=== PATIENT | male | born 1945 | race Caucasian/White ===

== ENCOUNTER 2020-07-26 10:48 | Inpatient (IN) | payer MEDICARE, BC ==
[2020-07-26] MEDS ORDERED: Sodium Chloride 0.9% 1,000 ML IV ONE (11:39)
--- NOTE | 2020-07-26 11:46 | EDM.PDOC ---
ED HPI GENERAL MEDICAL PROBLEM - General Chief Complaint: Gastrointestinal Problem Stated Complaint: BLOOD IN STOOL/CANCER PT Time Seen by Provider: 07/26/20 11:30 Source of Information: Reports: Patient, Family (), RN Notes Reviewed History Limitations: Reports: No Limitations - History of Present Illness INITIAL COMMENTS - FREE TEXT/NARRATIVE: Patient is a 75-year-old male who presents to the ED with for the evaluation of a bloody stool. The patient has a tracheotomy, this was placed in January due to throat and lung cancer. He is not on chemo at this time. He notes last night that he got up around midnight to use the bathroom, and he noticed some maroon-red stool in the toilet. He notes that he has been feeling dizzy when he gets up, and this is not common for him. He has no history of GI bleed. He further states that he just did not feel well this a.m. He has no abdomen pain. He has no fevers or chills, cough or shortness of breath. He does not think he has hemorrhoids, he had an EGD and colonoscopy done a few years ago, and his notes that this was normal. Dr. Sheehan is his primary care provider. He has been having issues with his left shoulder, and is supposed to get an injection this week, so the patient has been using more Tylenol and Advil than he normally does. Patient further denies any nausea or vomiting, but sta azul he did have some loose stools. Everything prior to this seemed normal for him. - Related Data Allergies Allergy/AdvReac Type Severity Reaction Status Date / Time morphine Allergy Hives Verified 07/26/20 11:08 Home Meds: Home Meds Albuterol [Ventolin HFA] 2.5 gm INH ASDIRECTED PRN 01/06/16 [History] Fluticasone Propionate [Flonase Allergy Relief] 2 sprays INH DAILY 01/06/16 [History] Fluticasone/Salmeterol [Advair Diskus 100-50] 1 puff INH BID 01/06/16 [History] Hydrochlorothiazide 12.5 mg PO DAILY 01/06/16 [History] Losartan [Cozaar] 100 mg PO DAILY 01/06/16 [History] Metoprolol Succinate [Toprol XL] 75 mg PO DAILY 01/06/16 [History] Montelukast [Singulair] 10 mg PO DAILY 01/06/16 [History] Simvastatin [Zocor] 40 mg PO DAILY 01/06/16 [History] Arformoterol [Brovana] 1 inh PO BID 07/26/20 [History] Ipratropium [place] 1 unit INH Q8HR 07/26/20 [History] Magnesium Oxide [Mag-Oxide Magnesium] 800 mg PO DAILY 07/26/20 [History] Temazepam 15 mg PO BEDTIME PRN 07/26/20 [History] Past Medical History HEENT History: Reports: Other (See Below) Other HEENT History: glasses Respiratory History: Reports: Asthma, COPD, Other (See Below) Other Respiratory History: pt with trach at 4 liters Gastrointestinal History: Reports: Other (See Below) Other Gastrointestinal History: feeding tube not used Musculoskeletal History: Reports: Other (See Below) Other Musculoskeletal History: left shoulder pain baseline, left hip replacement Oncologic (Cancer) History: Reports: Esophageal, Lung Other Oncologic History: pt had trach placed 01/2020. - Past Surgical History Musculoskeletal Surgical History: Reports: Other (See Below) Other Musculoskeletal Surgeries/Procedures:: hx back surgery Social & Family History - Tobacco Use Tobacco Use Status *Q: Former Tobacco User Years of Tobacco use: 20 Used Tobacco, but Quit: Yes Month/Year Tobacco Last Used: 09/1989 - Caffeine Use Caffeine Use: Reports: Coffee - Recreational Drug Use Recreational Drug Use: No ED ROS GENERAL - Review of Systems Review Of Systems: Comprehensive ROS is negative, except as noted in HPI. ED EXAM, GI/ABD - Physical Exam Exam: See Below Exam Limited By: No Limitations General Appearance: Alert, WD/WN, No Apparent Distress Respiratory/Chest: No Respiratory Distress, Lungs Clear, Normal Breath Sounds, No Accessory Muscle Use, Chest Non-Tender Cardiovascular: Normal Peripheral Pulses, Regular Rate, Rhythm, No Murmur GI/Abdominal Exam: Normal Bowel Sounds, Soft, Non-Tender, No Distention, No Mass Rectal (Males) Exam: Normal Rectal Tone, Heme + Stool. No: Hemorrhoids Neurological: Alert, Oriented, Normal Cognition, No Motor/Sensory Deficits Psychiatric: Normal Affect, Normal Mood Skin Exam: Warm, Dry, Intact, Normal Color, No Rash Course - Vital Signs Last Recorded V/S: Last Vital Signs Temp 97.3 F 07/26/20 11:05 Pulse 76 11/21/20 11:05 Resp 20 07/26/20 11:05 BP 146/57 H 07/26/20 11:05 Pulse Ox 100 07/26/20 11:05 - Orders/Labs/Meds Orders: Active Orders 24 hr Category Date Time Status Implanted Port Access [RC] ONETIME Care 07/26/20 11:39 Active Orthostatic Vital Signs [RC] ASDIRECTED Care 07/26/20 13:23 Active CBC WITH AUTO DIFF [HEME] Stat Lab 07/26/20 12:35 Results CORONAVIRUS COVID-19 LORRI [MOLEC] Stat Lab 07/26/20 13:23 Ordered PACKED CELLS [RED BLOOD CELLS LP] [BBK] Stat Lab 07/26/20 13:12 Ordered TYPE AND SCREEN [BBK] Stat Lab 07/26/20 13:12 Ordered Transfuse Red Blood Cells [COMM] Stat Oth 07/26/20 13:35 Ordered Labs: Laboratory Tests 07/26/20 07/26/20 Range/Units 12:35 12:35 WBC 10.21 H (4.23-9.07) K/mm3 RBC 2.91 L (4.63-6.08) M/mm3 Hgb 7.6 L (13.7-17.5) gm/dl Hct 25.6 L (40.1-51.0) % MCV 88.0 (79.0-92.2) fl MCH 26.1 (25.7-32.2) pg MCHC 29.7 L (32.2-35.5) g/dl RDW Std Deviation 47.7 H (35.1-43.9) fL Plt Count 381 H (163-337) K/mm3 MPV 8.5 L (9.4-12.3) fl Neut % (Auto) 74.8 H (34.0-67.9) % Lymph % (Auto) 12.2 L (21.8-53.1) % [place] % (Auto) 11.4 (5.3-12.2) % Eos % (Auto) 1.2 (0.8-7.0) Baso % (Auto) 0.2 (0.1-1.2) % Neut # (Auto) 7.64 H (1.78-5.38) K/mm3 Lymph # (Auto) 1.25 L (1.32-3.57) K/mm3 [place] # (Auto) 1.16 H (0.30-0.82) K/mm3 Eos # (Auto) 0.12 (0.04-0.54) K/mm3 Baso # (Auto) 0.02 (0.01-0.08) K/mm3 Sodium 135 L (136-145) mEq/L Potassium 4.2 (3.5-5.1) mEq/L Chloride 99 (98-107) mEq/L Carbon Dioxide 29 (21-32) mEq/L Anion Gap 11.2 (5-15) BUN 22 H (7-18) mg/dL Creatinine 0.8 (0.7-1.3) mg/dL Est Cr Clr Drug Dosing 71.54 mL/min Estimated GFR (MDRD) > 60 (>60) mL/min BUN/Creatinine Ratio 27.5 H (14-18) Glucose 90 (83-115) mg/dL Calcium 10.5 H (8.5-10.1) mg/dL Total Bilirubin 0.3 (0.2-1.0) mg/dL AST 10 L (15-37) U/L ALT 8 L (16-63) U/L Alkaline Phosphatase 80 (46-116) U/L Total Protein 6.3 L (6.4-8.2) g/dl Albumin 2.9 L (3.4-5.0) g/dl Globulin 3.4 gm/dL Albumin/Globulin Ratio 0.9 L (1-2) Meds: Medications Discontinued Medications Generic Name Dose Route Start Last Admin Trade Name Tomq PRN Reason Stop Dose Admin Sodium Chloride 1,000 mls @ 999 mls/hr 07/26/20 11:39 07/26/20 12:46 Normal Saline IV 07/26/20 12:39 999 mls/hr ONETIME ONE Administration - Re-Assessments/Exams Free Text/Narrative Re-Assessment/Exam: 07/26/20 11:48 Patient presents to the ED for the evaluation of his GI bleed. We will get baseline labs, give him some IV fluids for initial management. 07/26/20 13:24 The patient's hemoglobin is 7.6 at this time. Blood pressures have stayed steady while in the room at 140 systolically, the lowest I saw was 120. At this time I did discuss the laboratory findings with Dr. Harris, we do believe he would benefit from blood infusion; have ordered type and screen, with 2 units to be infused, patient will get a COVID-19 screen, for possible hospital admission. The in the room states that he does not have a history of low hemoglobin, and we have no prior levels to check against. They did not note any prior irregularities on colonoscopy. 07/26/20 13:[address] Velasquez, and he does tentatively accept for admission at this time. There are no other further recommendations specified by him as far as labs needed. Departure - Departure Time of Disposition: 13:53 Disposition: Admitted As Inpatient 68 Condition: Fair Clinical Impression: Acute lower GI bleeding - Discharge Information *PRESCRIPTION DRUG MONITORING PROGRAM REVIEWED*: No *COPY OF PRESCRIPTION DRUG MONITORING REPORT IN PATIENT FITO: No Referrals: Jean Paul Sheehan MD [Primary Care Provider] - Forms: ED Department Discharge Sepsis Event Note (ED) - Evaluation Sepsis Screening Result: No Definite Risk - Focused Exam Vital Signs: Vital Signs Temp Pulse Resp BP Pulse Ox 07/26/20 11:05 97.3 F 76 20 146/57 H 100 - My Orders Last 24 Hours: My Active Orders 07/26/20 11:39 Implanted Port Access [RC] ONETIME 07/26/20 12:35 CBC WITH AUTO DIFF [HEME] Stat 07/26/20 13:12 PACKED CELLS [RED BLOOD CELLS LP] [BBK] Stat TYPE AND SCREEN [BBK] Stat 07/26/20 13:23 Orthostatic Vital Signs [RC] ASDIRECTED CORONAVIRUS COVID-19 LORRI [MOLEC] Stat 07/26/20 13:35 Transfuse Red Blood Cells [COMM] Stat - Assessment/Plan Last 24 Hours: My Active Orders 07/26/20 11:39 Implanted Port Access [RC] ONETIME 07/26/20 12:35 CBC WITH AUTO DIFF [HEME] Stat 07/26/20 13:12 PACKED CELLS [RED BLOOD CELLS LP] [BBK] Stat TYPE AND SCREEN [BBK] Stat 07/26/20 13:23 Orthostatic Vital Signs [RC] ASDIRECTED CORONAVIRUS COVID-19 LORRI [MOLEC] Stat 07/26/20 13:35 Transfuse Red Blood Cells [COMM] Stat
--- NOTE | 2020-07-26 15:35 | PCM.HP.2 ---
H&P History of Present Illness - General Date of Service: 07/26/20 Admit Problem/Dx: Admission Diagnosis/Problem Admission Diagnosis/Problem Lower gastrointestinal hemorrhage Source of Information: Patient, Family, Provider, RN Notes Reviewed History Limitations: Reports: No Limitations - History of Present Illness Other HPI/Comments: This is a 75 yo elderly white male with past medical hx/o HTN, HLD, Asthma, COPD, Esophageal and Lung CA, Hx/o Respiratory Failure S/p Tracheostomy, 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 According to the patient, he noticed marooned-red colored stool in the bowl after he used it. His chief complaint is associated with dizziness and some weakness. He denies any GI hx/o in the past. No rectal bleeding, diverticulosis or internal hemorrhoids. His last endoscopy was 2 years ago with benign results per . He denies having belly pain. No fever, chills, or shortness of air. Patient is not an ASA or anticoagulation. However he takes tylenol and advil for his shoulder pain. His CBC is remarkable for WBC of 10.21, RBC of 2.91, Hgb of 7.6, Hct of 25.6, MCHC of 29.7, RDW of 47.7, Platelet # of 381, and Neutrophils # of 7.64. His Chemistry is significant for Na of 135, BUN of 22, Non-corrected Ca of 10.5, AST of 10, ALT of 8, and Albumin of 2.9. His guaiac test is positive. Patient is coming for further evaluation of GI Bleed. Right shoulder Pain Score (Numeric/FACES): 7 - Related Data Allergies/Adverse Reactions: Allergies Allergy/AdvReac Type Severity Reaction Status Date / Time morphine Allergy Hives Verified 07/26/20 16:15 Home Medications: Home Meds Albuterol [Ventolin HFA] 2.5 mg NEB QID PRN 01/06/16 [History] Losartan [Cozaar] 100 mg PO DAILY 01/06/16 [History] Metoprolol Succinate [Toprol XL] 25 mg PO DAILY 01/06/16 [History] Montelukast [Singulair] 10 mg PO 1700 01/06/16 [History] Allopurinol [Zyloprim] 100 mg PO DAILY 07/26/20 [History] Arformoterol [Brovana] 15 mcg NEB BID 07/26/20 [History] Ipratropium [place] 1 unit NEB Q8HR 07/26/20 [History] Magnesium Oxide [Mag-Oxide Magnesium] 800 mg PO DAILY 07/26/20 [History] Omeprazole 20 mg PO DAILY 07/26/20 [History] Simvastatin 40 mg PO DAILY 07/26/20 [History] Temazepam 15 mg PO BEDTIME PRN 07/26/20 [History] Acetaminophen/HYDROcodone [[place] 325-5 MG] 1 tab PO Q6H #30 tablet 07/29/20 [Rx] Past Medical History HEENT History: Reports: Other (See Below) Other HEENT History: glasses Respiratory History: Reports: Asthma, COPD, Other (See Below) Other Respiratory History: pt with trach at 4 liters Gastrointestinal History: Reports: Other (See Below) Other Gastrointestinal History: feeding tube not used Musculoskeletal History: Reports: Other (See Below) Other Musculoskeletal History: left shoulder pain baseline, left hip replacement Oncologic (Cancer) History: Reports: Esophageal, Lung Other Oncologic History: pt had trach placed 01/2020. - Past Surgical History Musculoskeletal Surgical History: Reports: Other (See Below) Other Musculoskeletal Surgeries/Procedures:: hx back surgery Social & Family History - Tobacco Use Tobacco Use Status *Q: Former Tobacco User Years of Tobacco use: 20 Used Tobacco, but Quit: Yes Month/Year Tobacco Last Used: 09/1989 - Caffeine Use Caffeine Use: Reports: Coffee - Recreational Drug Use Recreational Drug Use: No H&P Review of Systems - Review of Systems: Review Of Systems: See Below General: Denies: Chills, Fatigue HEENT: Reports: Dysphasia Pulmonary: Denies: Shortness of Breath, Cough Cardiovascular: Denies: Chest Pain, Dyspnea on Exertion, Lightheadedness, Syncope Gastrointestinal: Denies: Abdominal Pain, Constipation, Decreased Appetite, Distension, Hematemesis, Stool Incontinence Genitourinary: Reports: No Symptoms Musculoskeletal: Reports: No Symptoms Psychiatric: Denies: Depression, Anxiety Neurological: Reports: No Symptoms Hematologic/Lymphatic: Reports: No Symptoms Immunologic: Reports: No Symptoms Exam - Exam Exam: See Below - Vital Signs Vital Signs: Last Vital Signs Temp 36.3 C 07/26/20 11:05 Pulse 76 07/26/20 11:05 Resp 20 07/26/20 11:05 BP 146/57 H 07/26/20 11:05 Pulse Ox 100 07/26/20 11:05 Orthostatic Blood Pressure [ 125/64 Standing] Orthostatic Blood Pressure [ 139/66 Sitting] Orthostatic Blood Pressure [ 127/67 Supine] Weight: 67.585 kg - Exam General: Alert, Oriented, Cooperative HEENT: Conjunctiva Clear, EACs Clear, EOMI, Hearing Intact, Mucosa Moist & [place], Nares Patent, Normal Nasal Septum, Posterior Pharynx Clear Neck: Supple, Trachea Midline, Other (trach) Lungs: Normal Respiratory Effort, Decreased Breath Sounds, Other (port a-cath on right upper thorax) Cardiovascular: Regular Rate, Regular Rhythm GI/Abdominal Exam: Normal Bowel Sounds, Soft, Non-Tender, No Organomegaly, No Abnormal Bruit, No Mass, Pelvis Stable, Other (PEG tube ) (Male) Exam: Deferred Rectal (Males) Exam: Deferred Back Exam: Normal Inspection, Full Range of Motion Extremities: Normal Inspection, Non-Tender, No Pedal Edema, Normal Capillary Refill, Pedal Edema Peripheral Pulses: 2+: Dorsalis Pedis (L), Dorsalis Pedis (R) Skin: Warm, Dry, Intact Neuro Extensive - Mental Status: Alert, Oriented x3, Normal Cognition Neuro Extensive - Motor, Sensory, Reflexes: CN II-XII Intact DTR: 2+: Achilles (L), Achilles (R) Psychiatric: Alert, Normal Affect, Normal Mood - Patient Data Lab Results Last 24 hrs: Laboratory Results - last 24 hr 07/26/20 07/26/20 07/26/20 Range/Units 12:35 12:35 12:35 WBC 10.21 H (4.23-9.07) K/mm3 RBC 2.91 L (4.63-6.08) M/mm3 Hgb 7.6 L (13.7-17.5) gm/dl Hct 25.6 L (40.1-51.0) % MCV 88.0 (79.0-92.2) fl MCH 26.1 (25.7-32.2) pg MCHC 29.7 L (32.2-35.5) g/dl RDW Std Deviation 47.7 H (35.1-43.9) fL Plt Count 381 H (163-337) K/mm3 MPV 8.5 L (9.4-12.3) fl Neut % (Auto) 74.8 H (34.0-67.9) % Lymph % (Auto) 12.2 L (21.8-53.1) % [place] % (Auto) 11.4 (5.3-12.2) % Eos % (Auto) 1.2 (0.8-7.0) Baso % (Auto) 0.2 (0.1-1.2) % Neut # (Auto) 7.64 H (1.78-5.38) K/mm3 Lymph # (Auto) 1.25 L (1.32-3.57) K/mm3 [place] # (Auto) 1.16 H (0.30-0.82) K/mm3 Eos # (Auto) 0.12 (0.04-0.54) K/mm3 Baso # (Auto) 0.02 (0.01-0.08) K/mm3 Manual Slide Review Abnormal smear Sodium 135 L (136-145) mEq/L Potassium 4.2 (3.5-5.1) mEq/L Chloride 99 (98-107) mEq/L Carbon Dioxide 29 (21-32) mEq/L Anion Gap 11.2 (5-15) BUN 22 H (7-18) mg/dL Creatinine 0.8 (0.7-1.3) mg/dL Est Cr Clr Drug Dosing 71.54 mL/min Estimated GFR (MDRD) > 60 (>60) mL/min BUN/Creatinine Ratio 27.5 H (14-18) Glucose 90 (83-115) mg/dL Calcium 10.5 H (8.5-10.1) mg/dL Total Bilirubin 0.3 (0.2-1.0) mg/dL AST 10 L (15-37) U/L ALT 8 L (16-63) U/L Alkaline Phosphatase 80 (46-116) U/L Total Protein 6.3 L (6.4-8.2) g/dl Albumin 2.9 L (3.4-5.0) g/dl Globulin 3.4 gm/dL Albumin/Globulin Ratio 0.9 L (1-2) SARS-CoV-2 RNA (LORRI) (NEGATIVE) Blood Type O POSITIVE Gel Antibody Screen Negative Crossmatch See Detail 07/26/20 Range/Units 13:47 WBC (4.23-9.07) K/mm3 RBC (4.63-6.08) M/mm3 Hgb (13.7-17.5) gm/dl Hct (40.1-51.0) % MCV (79.0-92.2) fl MCH (25.7-32.2) pg MCHC (32.2-35.5) g/dl RDW Std Deviation (35.1-43.9) fL Plt Count (163-337) K/mm3 MPV (9.4-12.3) fl Neut % (Auto) (34.0-67.9) % Lymph % (Auto) (21.8-53.1) % [place] % (Auto) (5.3-12.2) % Eos % (Auto) (0.8-7.0) Baso % (Auto) (0.1-1.2) % Neut # (Auto) (1.78-5.38) K/mm3 Lymph # (Auto) (1.32-3.57) K/mm3 [place] # (Auto) (0.30-0.82) K/mm3 Eos # (Auto) (0.04-0.54) K/mm3 Baso # (Auto) (0.01-0.08) K/mm3 Manual Slide Review Sodium (136-145) mEq/L Potassium (3.5-5.1) mEq/L Chloride (98-107) mEq/L Carbon Dioxide (21-32) mEq/L Anion Gap (5-15) BUN (7-18) mg/dL Creatinine (0.7-1.3) mg/dL Est Cr Clr Drug Dosing mL/min Estimated GFR (MDRD) (>60) mL/min BUN/Creatinine Ratio (14-18) Glucose (83-115) mg/dL Calcium (8.5-10.1) mg/dL Total Bilirubin (0.2-1.0) mg/dL AST (15-37) U/L ALT (16-63) U/L Alkaline Phosphatase (46-116) U/L Total Protein (6.4-8.2) g/dl Albumin (3.4-5.0) g/dl Globulin gm/dL Albumin/Globulin Ratio (1-2) SARS-CoV-2 RNA (LORRI) Negative (NEGATIVE) Blood Type Gel Antibody Screen Crossmatch Result Diagrams: 07/29/20 04:46 07/29/20 04:46 Sepsis Event Note - Evaluation Sepsis Screening Result: No Definite Risk - Focused Exam Vital Signs: Vital Signs Temp Pulse Resp BP Pulse Ox 07/26/20 11:05 36.3 C 76 20 146/57 H 100 Problem List Initiated/Reviewed/Updated: Yes Orders Last 24hrs: Active Orders 24 hr Category Date Time Status Admission Status [Patient Status] [ADT] Routine ADT 07/26/20 15:09 Active Implanted Port Access [RC] ONETIME Care 07/26/20 11:39 Active Orthostatic Vital Signs [RC] ASDIRECTED Care 07/26/20 13:23 Active PACKED CELLS [RED BLOOD CELLS LP] [BBK] Stat Lab 07/26/20 12:35 Results PATIENT RETYPE [BBK] Routine Lab 07/26/20 14:52 Ordered TYPE AND SCREEN [BBK] Stat Lab 07/26/20 12:35 Results Transfuse Red Blood Cells [COMM] Stat Oth 07/26/20 13:35 Ordered Assessment/Plan Comment:: This is a 75 yo elderly white male with past medical hx/o HTN, HLD, Asthma, GEOSPATIAL 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 Acute: GI Bleed * He has been taking NSAIDs and Tylenol for a week for his left shoulder pain * No hx/o GI disease: Diverticulosis, AVMs, Hemorrhoids or GI Bleed * Last endoscopy 2 years ago with benign results per * Unknown baseline Hgb level * Type and crossed 2 units of PRBCs in ED Hx/o Esophageal CA Leukocytosis Normocytic Hypochromic Anemia with Hgb of 7.6 grams; no baseline level for comparison Hyponatremia with Na of 135 Elevated BUN 2/2 GI Bleed Elevated Ca, on-corrected Hypoalbuminemia with albumin of 2.9 Chronic: HTN HLD Asthma COPD Esophageal and Lung CA Hx/o Respiratory Failure S/p Tracheostomy 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 Routine AM labs. Monitor Hgb level. Hold antiplatelets, NSAIDS and anticoagulant. IV fluid for hydration. NPO except ice chips and sips of water. General surgery consult if he continues to bleed. DVT prophylaxis: SCDs. GI prophylaxis: PPI. Code status is full. - Mortality Measure Prognosis:: Good
[2020-07-26] MEDS ORDERED: HYDROmorphone 0.5 MG/0.5 ML Syringe IVPUSH PRN (16:26)
[2020-07-26] MEDS ORDERED: Albuterol/Ipratropium 3.0-0.5 MG/3 ML Neb Soln NEB PRN (16:26)
[2020-07-26] MEDS ORDERED: Promethazine 6.25 MG in Sodium Chloride 0.9% 50 ML IV PRN (16:26)
[2020-07-26] MEDS ORDERED: Ondansetron 4 MG/2 ML SDV IV PRN (16:26)
[2020-07-26] MEDS ORDERED: Temazepam 7.5 MG Cap PO PRN (16:26)
[2020-07-26] MEDS ORDERED: Temazepam 15 MG Cap PO PRN (16:29)
[2020-07-26] MEDS ORDERED: Albuterol 0.5% 2.5 MG/0.5 ML Neb Soln NEB PRN (16:29)
[2020-07-26] MEDS ORDERED: Sodium Chloride 0.9% 250 ML IV SCH (16:30)
[2020-07-26] MEDS ORDERED: Dextrose 5%-0.9% NaCl 1,000 ML IV SCH (17:30)
[2020-07-26] MEDS ORDERED: Midodrine 5 MG Tab PO PRN (17:44)
[2020-07-26] MEDS: Pantoprazole 40 MG Vial IV SCH (20:14)
[2020-07-26] MEDS: Arformoterol 15 MCG/2 ML Neb Soln NEB SCH (20:58)
[2020-07-26] MEDS: Ipratropium 0.02% 0.5 MG/2.5 ML Neb Soln NEB SCH (20:58)
[2020-07-26] MEDS: oxyCODONE 5 MG Tab PO PRN (21:04)
[2020-07-27] MEDS: Ipratropium 0.02% 0.5 MG/2.5 ML Neb Soln NEB SCH ×3 (06:09→20:12)
[2020-07-27] MEDS: Arformoterol 15 MCG/2 ML Neb Soln NEB SCH ×2 (06:09→20:14)
[2020-07-27] MEDS ORDERED: Simvastatin 40 MG Tab PO SCH (09:00)
[2020-07-27] MEDS ORDERED: Magnesium Sulfate/Water 4 GM in Premix Bag 1 BAG IV ONE (09:30)
[2020-07-27] MEDS: Pantoprazole 40 MG Vial IV SCH ×2 (10:05→21:11)
[2020-07-27] MEDS: Montelukast 10 MG Tab PO SCH (10:07)
[2020-07-27] MEDS: Magnesium Oxide 400 MG Tab PO SCH (10:07)
[2020-07-27] MEDS: Losartan 100 MG Tab PO SCH (10:07)
[2020-07-27] MEDS: Metoprolol Succinate 25 MG Tab.ER PO SCH (10:09)
[2020-07-27] MEDS: Allopurinol 100 MG Tab PO SCH (10:09)
[2020-07-27] MEDS: Simvastatin 40 MG Tab PO SCH (10:09)
--- NOTE | 2020-07-27 15:54 | PCM.PN ---
- General Info Date of Service: 07/27/20 Admission Dx/Problem (Free Text): Admission Diagnosis/Problem Admission Diagnosis/Problem Lower gastrointestinal hemorrhage Subjective Update: Patient has not had any more bloody bowel movement since hospitalization. She states her initial bowel movement was maroon and it had bright red blood also. She is tolerating a liquid diet this morning. Repeat hemoglobin is stable at 8.8. Functional Status: Reports: Pain Controlled - Review of Systems General: Reports: No Symptoms HEENT: Reports: No Symptoms Pulmonary: Reports: No Symptoms Cardiovascular: Reports: No Symptoms Gastrointestinal: Reports: No Symptoms Musculoskeletal: Reports: No Symptoms Neurological: Reports: No Symptoms Psychiatric: Reports: No Symptoms - Patient Data Vitals - Most Recent: Last Vital Signs Temp 98.4 F 07/27/20 12:25 Pulse 64 07/27/20 12:25 Resp 18 07/27/20 12:25 BP 121/77 07/27/20 12:25 Pulse Ox 100 07/27/20 14:04 Orthostatic Blood Pressure [ 125/64 Standing] Orthostatic Blood Pressure [ 139/66 Sitting] Orthostatic Blood Pressure [ 127/67 Supine] Weight - Most Recent: 147 lb 6.4 oz I&O - Last 24 Hours: Intake & Output 07/27/20 07/27/20 07/27/20 06:59 14:59 22:59 Intake Total 1218 360 Output Total 1600 Balance -382 360 Lab Results Last 24 Hours: Laboratory Results - last 24 hr 07/26/20 07/26/20 07/27/20 Range/Units 12:35 22:54 05:57 WBC 7.52 (4.23-9.07) K/mm3 RBC 3.37 L (4.63-6.08) M/mm3 Hgb 9.2 L D 8.8 L (13.7-17.5) gm/dl Hct 29.7 L 28.8 L (40.1-51.0) % MCV 85.5 (79.0-92.2) fl MCH 26.1 (25.7-32.2) pg MCHC 30.6 L (32.2-35.5) g/dl RDW Std Deviation 51.4 H (35.1-43.9) fL Plt Count 330 (163-337) K/mm3 MPV 8.7 L (9.4-12.3) fl Neut % (Auto) 62.8 (34.0-67.9) % Lymph % (Auto) 17.0 L (21.8-53.1) % [place] % (Auto) 15.6 H (5.3-12.2) % Eos % (Auto) 4.1 (0.8-7.0) Baso % (Auto) 0.4 (0.1-1.2) % Neut # (Auto) 4.72 (1.78-5.38) K/mm3 Lymph # (Auto) 1.28 L (1.32-3.57) K/mm3 [place] # (Auto) 1.17 H (0.30-0.82) K/mm3 Eos # (Auto) 0.31 (0.04-0.54) K/mm3 Baso # (Auto) 0.03 (0.01-0.08) K/mm3 Manual Slide Review Abnormal smear Sodium (136-145) mEq/L Potassium (3.5-5.1) mEq/L Chloride (98-107) mEq/L Carbon Dioxide (21-32) mEq/L Anion Gap (5-15) BUN (7-18) mg/dL Creatinine (0.7-1.3) mg/dL Est Cr Clr Drug Dosing mL/min Estimated GFR (MDRD) (>60) mL/min BUN/Creatinine Ratio (14-18) Glucose (83-115) mg/dL Calcium (8.5-10.1) mg/dL Magnesium (1.8-2.4) mg/dl Total Bilirubin (0.2-1.0) mg/dL AST (15-37) U/L ALT (16-63) U/L Alkaline Phosphatase (46-116) U/L Total Protein (6.4-8.2) g/dl Albumin (3.4-5.0) g/dl Globulin gm/dL Albumin/Globulin Ratio (1-2) Blood Type O POSITIVE Gel Antibody Screen Negative Crossmatch See Detail 07/27/20 07/27/20 Range/Units 05:57 15:23 WBC (4.23-9.07) K/mm3 RBC (4.63-6.08) M/mm3 Hgb 8.8 L (13.7-17.5) gm/dl Hct 29.2 L (40.1-51.0) % MCV (79.0-92.2) fl MCH (25.7-32.2) pg MCHC (32.2-35.5) g/dl RDW Std Deviation (35.1-43.9) fL Plt Count (163-337) K/mm3 MPV (9.4-12.3) fl Neut % (Auto) (34.0-67.9) % Lymph % (Auto) (21.8-53.1) % [place] % (Auto) (5.3-12.2) % Eos % (Auto) (0.8-7.0) Baso % (Auto) (0.1-1.2) % Neut # (Auto) (1.78-5.38) K/mm3 Lymph # (Auto) (1.32-3.57) K/mm3 [place] # (Auto) (0.30-0.82) K/mm3 Eos # (Auto) (0.04-0.54) K/mm3 Baso # (Auto) (0.01-0.08) K/mm3 Manual Slide Review Sodium 135 L (136-145) mEq/L Potassium 3.8 (3.5-5.1) mEq/L Chloride 103 (98-107) mEq/L Carbon Dioxide 27 (21-32) mEq/L Anion Gap 8.8 (5-15) BUN 14 (7-18) mg/dL Creatinine 0.8 (0.7-1.3) mg/dL Est Cr Clr Drug Dosing 71.54 mL/min Estimated GFR (MDRD) > 60 (>60) mL/min BUN/Creatinine Ratio 17.5 (14-18) Glucose 106 (83-115) mg/dL Calcium 10.0 (8.5-10.1) mg/dL Magnesium 1.4 L (1.8-2.4) mg/dl Total Bilirubin 0.4 (0.2-1.0) mg/dL AST 11 L (15-37) U/L ALT 14 L (16-63) U/L Alkaline Phosphatase 70 (46-116) U/L Total Protein 5.7 L (6.4-8.2) g/dl Albumin 2.6 L (3.4-5.0) g/dl Globulin 3.1 gm/dL Albumin/Globulin Ratio 0.8 L (1-2) Blood Type Gel Antibody Screen Crossmatch Med Orders - Current: Current Medications Albuterol (Proventil) 2.5 mg NEB QIDRT PRN PRN Reason: Shortness of Breath Albuterol/Ipratropium (Duoneb 3.0-0.5 Mg/3 Ml) 3 ml NEB Q4H PRN PRN Reason: Shortness Of Breath/wheezing Allopurinol (Zyloprim) 100 mg PO DAILY [facility] Last Admin: 07/27/20 10:09 Dose: 100 mg Documented by: Arformoterol Tartrate (Brovana) 15 mcg NEB BIDRT [facility] Last Admin: 07/27/20 06:09 Dose: 15 mcg Documented by: Promethazine HCl 6.25 mg/ (Sodium Chloride) 50.25 mls @ 100 mls/hr IV Q6H PRN PRN Reason: Nausea/Vomiting Ipratropium [place] (Atrovent) 0.5 mg NEB TIDRT [facility] Last Admin: 07/27/20 14:03 Dose: 0.5 mg Documented by: Losartan Potassium (Cozaar) 100 mg PO DAILY [facility] Last Admin: 07/27/20 10:07 Dose: 100 mg Documented by: Magnesium Oxide (Magnesium Oxide) 800 mg PO DAILY [facility] Last Admin: 07/27/20 10:07 Dose: 800 mg Documented by: Metoprolol Succinate (Toprol Xl) 25 mg PO DAILY [facility] Last Admin: 07/27/20 10:09 Dose: 25 mg Documented by: Midodrine (Midodrine) 5 mg PO TID PRN PRN Reason: Hypotension Montelukast Sodium (Singulair) 10 mg PO DAILY [facility] Last Admin: 07/27/20 10:07 Dose: 10 mg Documented by: Ondansetron HCl (Zofran) 4 mg IV Q6H PRN PRN Reason: Nausea/Vomiting Oxycodone HCl (Oxycodone) 5 mg PO Q4H PRN PRN Reason: Pain (moderate 4-6) Last Admin: 07/26/20 21:04 Dose: 5 mg Documented by: Pantoprazole Sodium (Protonix Iv) 40 mg IV Q12HR [facility] Last Admin: 07/27/20 10:05 Dose: 40 mg Documented by: Simvastatin (Zocor) 40 mg PO DAILY [facility] Last Admin: 07/27/20 10:09 Dose: 40 mg Documented by: Temazepam (Restoril) 0 mg PO BEDTIME PRN PRN Reason: Insomnia Discontinued Medications Hydromorphone HCl (Dilaudid) 0.5 mg IVPUSH Q2H PRN PRN Reason: Pain (severe 7-10) Sodium Chloride (Normal Saline) 1,000 mls @ 999 mls/hr IV ONETIME ONE Stop: 07/26/20 12:39 Last Admin: 07/26/20 12:46 Dose: 999 mls/hr Documented by: Sodium Chloride (Normal Saline) 250 mls @ 100 mls/hr IV ASDIRECTED [facility] Dextrose/Sodium Chloride (Dextrose 5%-Normal Saline) 1,000 mls @ 100 mls/hr IV ASDIRECTED [facility] Stop: 07/27/20 03:29 Last Admin: 07/26/20 23:04 Dose: 100 mls/hr Documented by: Magnesium Sulfate 4 gm/ Premix 50 mls @ 12.5 mls/hr IV ONETIME ONE Stop: 07/27/20 13:29 Last Admin: 07/27/20 10:09 Dose: 12.5 mls/hr Documented by: Simvastatin (Zocor) 40 mg PO DAILY [facility] Temazepam (Restoril) 7.5 mg PO BEDTIME PRN PRN Reason: Sleep - Exam General: Alert, Oriented HEENT: Pupils Equal, Mucous Membr. Moist/[place] Neck: Supple Lungs: Clear to Auscultation, Normal Respiratory Effort Cardiovascular: Regular Rate, Regular Rhythm GI/Abdominal Exam: Normal Bowel Sounds, Soft, Non-Tender, No Organomegaly, No Distention, No Abnormal Bruit, No Mass, Pelvis Stable Extremities: Normal Inspection, Normal Range of Motion, Non-Tender, No Pedal Edema, Normal Capillary Refill Skin: Warm, Dry, Intact Psy/Mental Status: Alert, Normal Affect, Normal Mood Sepsis Event Note - Evaluation Sepsis Screening Result: No Definite Risk - Focused Exam Vital Signs: Vital Signs Temp Pulse Resp BP Pulse Ox Pulse Ox 07/27/20 14:04 100 07/27/20 12:25 98.4 F 64 18 121/77 100 07/27/20 10:09 66 139/86 07/27/20 10:07 139/86 07/27/20 07:50 98.4 F 66 18 139/86 100 07/27/20 06:12 100 07/27/20 04:16 98.1 F 78 147/95 H 100 - Problem List & Annotations (1) Acute lower GI bleeding SNOMED Code(s): 07095284 Code(s): K92.2 - GASTROINTESTINAL HEMORRHAGE, UNSPECIFIED Status: Acute Current Visit: Yes - Problem List Review Problem List Initiated/Reviewed/Updated: Yes - My Orders Last 24 Hours: My Active Orders 07/27/20 Breakfast Clear Liquid Diet [DIET] - Plan Plan:: This is a 75 yo elderly white male with past medical hx/o HTN, HLD, Asthma, COPD, Esophageal and Lung CA, Hx/o Respiratory Failure S/p Tracheostomy, Chronic Hypoxia on 4L NC via trach chronically, Dysphagia S/p PEG Tube placement, Hx/o Left Shoulder Pain, H/o Left Hip Surgery and Insomnia who presents to ED with complaints of sudden onset of rectal bleed that started midnight after a bat hroom break. Acute: GI Bleed * He has been taking NSAIds and Tylenol for a week for his shoulder pain * No hx/o GI disease: Diverticulosis, AVMs, Hemorrhoids or GI Bleed * Last endoscopy 2 years ago with benign results * Unknown baseline Hgb level * Type and crossed 2 units of PRBCs in ED Hx/o Esophageal CA Leukocytosis Normocytic Hypochromic Anemia with Hgb of 7.6 gm; 9.2 after 2 units packed red blood cells with repeat of 8.8x2. Hyponatremia with Na of 135 Elevated BUN 2/2 GI Bleed Elevated Ca, on-corrected Hypoalbuminemia with albumin of 2.9 Chronic: HTN HLD Asthma COPD Esophageal and Lung CA Hx/o Respiratory Failure S/p Tracheostomy Chronic Hypoxia on 4L NC via trach chronically Dysphagia S/p PEG Tube placement-but not using it right now Hx/o Left Shoulder Pain H/o Left Hip Surgery Insomnia Plan: * Admit to [facility]. * Routine AM labs. * Monitor Hgb level. * Hold antiplatelets, NSAIDS and anticoagulant. * General surgery consult if he continues to bleed. * Advance diet as tolerated. * DVT prophylaxis: SCDs. * GI prophylaxis: PPI. * Code status is full.
[2020-07-27] MEDS: oxyCODONE 5 MG Tab PO PRN (21:11)
[2020-07-28] MEDS: Arformoterol 15 MCG/2 ML Neb Soln NEB SCH ×2 (05:58→19:59)
[2020-07-28] MEDS: Ipratropium 0.02% 0.5 MG/2.5 ML Neb Soln NEB SCH ×3 (05:58→19:59)
[2020-07-28] MEDS: Montelukast 10 MG Tab PO SCH (09:00)
[2020-07-28] MEDS: Magnesium Oxide 400 MG Tab PO SCH (09:00)
[2020-07-28] MEDS: Metoprolol Succinate 25 MG Tab.ER PO SCH (09:01)
[2020-07-28] MEDS: Losartan 100 MG Tab PO SCH (09:01)
[2020-07-28] MEDS: Simvastatin 40 MG Tab PO SCH (09:02)
[2020-07-28] MEDS: Allopurinol 100 MG Tab PO SCH (09:02)
[2020-07-28] MEDS: Pantoprazole 40 MG Vial IV SCH ×2 (09:03→20:38)
[2020-07-28] MEDS ORDERED: Sennosides 8.6 MG Tab PO ONE (10:54)
[2020-07-28] MEDS ORDERED: Calcium Polycarbophil 625 MG Tab PO ONE (10:55)
[2020-07-28] MEDS ORDERED: Lactulose Soln 10 GM/15 ML 30 ML UD Cup PO ONE ×2 (11:00→18:42)
--- NOTE | 2020-07-28 13:49 | PCM.PN ---
- General Info Date of Service: 07/28/20 Admission Dx/Problem (Free Text): Admission Diagnosis/Problem Admission Diagnosis/Problem Lower gastrointestinal hemorrhage Subjective Update: Patient has not had a bowel movement since admission to the hospital. Ordered Fibercon, Lactulose, and Senna. Patient states he otherwise feels good. Repeat hemoglobin is stable at 8.8. Functional Status: Reports: Pain Controlled, Tolerating Diet - Review of Systems General: Reports: No Symptoms HEENT: Reports: No Symptoms Pulmonary: Reports: No Symptoms Cardiovascular: Reports: No Symptoms Gastrointestinal: Reports: Constipation (Has not had a bowel movement since admission on 07/26) Genitourinary: Reports: No Symptoms Musculoskeletal: Reports: Shoulder Pain (Steriod injection rescheduled with Dr. Noriega) Skin: Reports: No Symptoms Neurological: Reports: No Symptoms Psychiatric: Reports: No Symptoms - Patient Data Vitals - Most Recent: Last Vital Signs Temp 98.4 F 07/28/20 07:34 Pulse 71 07/28/20 09:01 Resp 20 07/28/20 07:34 BP 124/80 07/28/20 09:01 Pulse Ox 100 07/28/20 11:48 Orthostatic Blood Pressure [ 125/64 Standing] Orthostatic Blood Pressure [ 139/66 Sitting] Orthostatic Blood Pressure [ 127/67 Supine] Weight - Most Recent: 147 lb 14.4 oz I&O - Last 24 Hours: Intake & Output 07/27/20 07/28/20 07/28/20 22:59 06:59 14:59 Intake Total 2550 800 120 Output Total 1700 700 Balance 850 100 120 Lab Results Last 24 Hours: Laboratory Results - last 24 hr 07/27/20 07/28/20 07/28/20 Range/Units 15:23 06:44 06:44 WBC 8.46 (4.23-9.07) K/mm3 RBC 3.39 L (4.63-6.08) M/mm3 Hgb 8.8 L 8.8 L (13.7-17.5) gm/dl Hct 29.2 L 29.4 L (40.1-51.0) % MCV 86.7 (79.0-92.2) fl MCH 26.0 (25.7-32.2) pg MCHC 29.9 L (32.2-35.5) g/dl RDW Std Deviation 51.6 H (35.1-43.9) fL Plt Count 365 H (163-337) K/mm3 MPV 8.8 L (9.4-12.3) fl Neut % (Auto) 62.2 (34.0-67.9) % Lymph % (Auto) 17.7 L (21.8-53.1) % [place] % (Auto) 15.5 H (5.3-12.2) % Eos % (Auto) 4.4 (0.8-7.0) Baso % (Auto) 0.1 (0.1-1.2) % Neut # (Auto) 5.26 (1.78-5.38) K/mm3 Lymph # (Auto) 1.50 (1.32-3.57) K/mm3 [place] # (Auto) 1.31 H (0.30-0.82) K/mm3 Eos # (Auto) 0.37 (0.04-0.54) K/mm3 Baso # (Auto) 0.01 (0.01-0.08) K/mm3 Manual Slide Review Normal smear Sodium 135 L (136-145) mEq/L Potassium 3.9 (3.5-5.1) mEq/L Chloride 100 (98-107) mEq/L Carbon Dioxide 28 (21-32) mEq/L Anion Gap 10.9 (5-15) BUN 17 (7-18) mg/dL Creatinine 0.8 (0.7-1.3) mg/dL Est Cr Clr Drug Dosing 71.54 mL/min Estimated GFR (MDRD) > 60 (>60) mL/min BUN/Creatinine Ratio 21.3 H (14-18) Glucose 92 (83-115) mg/dL Calcium 10.5 H (8.5-10.1) mg/dL Phosphorus 3.6 (2.6-4.7) mg/dL Magnesium 1.8 (1.8-2.4) mg/dl Total Bilirubin 0.4 (0.2-1.0) mg/dL AST 13 L (15-37) U/L ALT 13 L (16-63) U/L Alkaline Phosphatase 76 (46-116) U/L Total Protein 6.2 L (6.4-8.2) g/dl Albumin 2.7 L (3.4-5.0) g/dl Globulin 3.5 gm/dL Albumin/Globulin Ratio 0.8 L (1-2) Med Orders - Current: Current Medications Albuterol (Proventil) 2.5 mg NEB QIDRT PRN PRN Reason: Shortness of Breath Albuterol/Ipratropium (Duoneb 3.0-0.5 Mg/3 Ml) 3 ml NEB Q4H PRN PRN Reason: Shortness Of Breath/wheezing Allopurinol (Zyloprim) 100 mg PO DAILY [facility] Last Admin: 07/28/20 09:02 Dose: 100 mg Documented by: Arformoterol Tartrate (Brovana) 15 mcg NEB BIDRT [facility] Last Admin: 07/28/20 05:58 Dose: 15 mcg Documented by: Promethazine HCl 6.25 mg/ (Sodium Chloride) 50.25 mls @ 100 mls/hr IV Q6H PRN PRN Reason: Nausea/Vomiting Ipratropium [place] (Atrovent) 0.5 mg NEB TIDRT [facility] Last Admin: 07/28/20 05:58 Dose: 0.5 mg Documented by: Losartan Potassium (Cozaar) 100 mg PO DAILY [facility] Last Admin: 07/28/20 09:01 Dose: 100 mg Documented by: Magnesium Oxide (Magnesium Oxide) 800 mg PO DAILY [facility] Last Admin: 07/28/20 09:00 Dose: 800 mg Documented by: Metoprolol Succinate (Toprol Xl) 25 mg PO DAILY [facility] Last Admin: 07/28/20 09:01 Dose: 25 mg Documented by: Midodrine (Midodrine) 5 mg PO TID PRN PRN Reason: Hypotension Montelukast Sodium (Singulair) 10 mg PO DAILY [facility] Last Admin: 07/28/20 09:00 Dose: 10 mg Documented by: Ondansetron HCl (Zofran) 4 mg IV Q6H PRN PRN Reason: Nausea/Vomiting Oxycodone HCl (Oxycodone) 5 mg PO Q4H PRN PRN Reason: Pain (moderate 4-6) Last Admin: 07/27/20 21:11 Dose: 5 mg Documented by: Pantoprazole Sodium (Protonix Iv) 40 mg IV Q12HR [facility] Last Admin: 07/28/20 09:03 Dose: 40 mg Documented by: Simvastatin (Zocor) 40 mg PO DAILY [facility] Last Admin: 07/28/20 09:02 Dose: 40 mg Documented by: Temazepam (Restoril) 0 mg PO BEDTIME PRN PRN Reason: Insomnia Discontinued Medications Calcium Polycarbophil (Fibercon) 1,250 mg PO ONETIME ONE Stop: 07/28/20 10:56 Last Admin: 07/28/20 11:22 Dose: 1,250 mg Documented by: Hydromorphone HCl (Dilaudid) 0.5 mg IVPUSH Q2H PRN PRN Reason: Pain (severe 7-10) Sodium Chloride (Normal Saline) 1,000 mls @ 999 mls/hr IV ONETIME ONE Stop: 07/26/20 12:39 Last Admin: 07/26/20 12:46 Dose: 999 mls/hr Documented by: Sodium Chloride (Normal Saline) 250 mls @ 100 mls/hr IV ASDIRECTED [facility] Dextrose/Sodium Chloride (Dextrose 5%-Normal Saline) 1,000 mls @ 100 mls/hr IV ASDIRECTED [facility] Stop: 07/27/20 03:29 Last Admin: 07/26/20 23:04 Dose: 100 mls/hr Documented by: Magnesium Sulfate 4 gm/ Premix 50 mls @ 12.5 mls/hr IV ONETIME ONE Stop: 07/27/20 13:29 Last Admin: 07/27/20 10:09 Dose: 12.5 mls/hr Documented by: Lactulose (Cephulac) 20 gm PO ONETIME ONE Stop: 07/28/20 11:01 Senna (Senna) 8.6 mg PO ONETIME ONE Stop: 07/28/20 10:55 Last Admin: 07/28/20 11:23 Dose: 8.6 mg Documented by: Simvastatin (Zocor) 40 mg PO DAILY [facility] Temazepam (Restoril) 7.5 mg PO BEDTIME PRN PRN Reason: Sleep - Exam General: Alert, Oriented HEENT: Pupils Equal, Pupils Reactive, EOMI, Mucous Membr. Moist/[place] Neck: Supple, Other (Tracheostomy) Lungs: Clear to Auscultation, Normal Respiratory Effort Cardiovascular: Regular Rate, Regular Rhythm GI/Abdominal Exam: Normal Bowel Sounds, Soft, Non-Tender, No Distention Back Exam: Normal Inspection, Full Range of Motion Extremities: Normal Inspection Skin: Warm, Dry, Intact Neurological: No New Focal Deficit Psy/Mental Status: Alert, Normal Affect, Normal Mood Sepsis Event Note - Evaluation Sepsis Screening Result: No Definite Risk Possible Source of Sepsis: GI Tract/Intra-abdominal - Focused Exam Vital Signs: Vital Signs Temp Pulse Resp BP Pulse Ox Pulse Ox 07/28/20 11:48 100 07/28/20 09:01 71 124/80 07/28/20 08:35 99 07/28/20 07:34 98.4 F 71 20 124/80 100 07/28/20 05:59 100 07/28/20 04:19 98.4 F 66 12 119/62 100 Pulse Description: 2+ Normal Peripheral Pulse Location: Radial Skin Exam (Focused Sepsis): Normal Turgor - Bedside Monitoring Bedside Ultrasound Performed: No Date Bedside Monitoring was Performed: 07/28/20 Time Bedside Monitoring was Performed: 13:53 - Problem List & Annotations (1) Acute lower GI bleeding SNOMED Code(s): 94551337 Code(s): K92.2 - GASTROINTESTINAL HEMORRHAGE, UNSPECIFIED Status: Acute Priority: Medium Current Visit: Yes Onset Date: ~07/26/20 - Problem List Review Problem List Initiated/Reviewed/Updated: Yes - Plan Plan:: Deann is a 75 yo white male with past medical history of HTN, HDL, COPD, asthma, esophageal and lung cancer, respiratory failure with status post tracheostomy and chronic hypoxia. He is on 4L [place] via trach chronically. Patient has history of left shoulder pain, left hip surgery and insomnia. Patient presented to ED with complaints of sudden onset of rectal bleed that started midnight after a bathroom break. Patient states he has not had a bowel movement since admission on 07/26. He is eating well and has a good appetite. cleans his trach daily and has had little problems with it. Assessment: Rectal bleed - patient has not had a bowel movement since admission. Prescribed Lactulose, Senna, and Fibercon to induce BM. Will reassess if there is recurrent rectal bleeding. Plan: Continue on 4L of O2 via trach Administer Lactulose, Senna, and Fibercon to aid in bowel movement. Advance diet as tolerated Monitor Hgb level Routine AM labs. Plan on discharge in near future. [facility] [place]
[2020-07-28] MEDS: oxyCODONE 5 MG Tab PO PRN (15:11)
[2020-07-29] MEDS: oxyCODONE 5 MG Tab PO PRN ×2 (04:58→10:52)
[2020-07-29] MEDS: Ipratropium 0.02% 0.5 MG/2.5 ML Neb Soln NEB SCH ×2 (05:40→14:04)
[2020-07-29] MEDS: Arformoterol 15 MCG/2 ML Neb Soln NEB SCH (05:40)
[2020-07-29] MEDS ORDERED: Calcium Polycarbophil 625 MG Tab PO ONE (09:29)
[2020-07-29] MEDS ORDERED: Lactulose Soln 10 GM/15 ML 30 ML UD Cup PO ONE (09:29)
[2020-07-29] MEDS: Magnesium Oxide 400 MG Tab PO SCH (10:26)
[2020-07-29] MEDS: Pantoprazole 40 MG Vial IV SCH (10:26)
[2020-07-29] MEDS: Allopurinol 100 MG Tab PO SCH (10:27)
[2020-07-29] MEDS: Montelukast 10 MG Tab PO SCH (10:27)
[2020-07-29] MEDS: Simvastatin 40 MG Tab PO SCH (10:27)
[2020-07-29 10:45] VITALS: BP 106/54
[2020-07-29] MEDS: Metoprolol Succinate 25 MG Tab.ER PO SCH (10:52)
[2020-07-29 10:53] VITALS: PULSE 78
[2020-07-29] MEDS: Losartan 100 MG Tab PO SCH (10:53)
--- NOTE | 2020-07-29 13:19 | PCM.DCSUM1 ---
Discharge Summary - Hospital Course Free Text/Narrative:: Deann is a 75 yo male who presented to the ER with maroon colored blood per rectum. He was admitted to med surg on 07/26 with a GI bleed with a hemoglobin of 7.6 grams. He has had an unremarkable admission. He was given Fibercon, Senna, and Lactulose on 07/28 to induce a bowel movement which was unsuccessful. They were given the morning of 07/29. Hemoglobin went up and held stable at 8.8 and 8.4 on the and , respectively. He is feeling good. He has adequate bowel sounds in all quadrants and has no abdominal distension. Follow up with Dr. Noriega for steroid shoulder injection and will get labs. HPI Initial Comments: ED GI/Abdominal Complaint Patient Name: DEANN BARRIOS Date of : 1945 Patient Status: Inpatient Attending Provider: Bhavana Velasquez Date: 07/26/20 11:40 Initialization Date: 07/26/20 11:40 ED HPI GENERAL MEDICAL PROBLEM - General Chief Complaint: Gastrointestinal Problem Stated Complaint: BLOOD IN STOOL/CANCER PT Time Seen by Provider: 07/26/20 11:30 Source of Information: Reports: Patient, Family (), RN Notes Reviewed History Limitations: Reports: No Limitations - History of Present Illness INITIAL COMMENTS - FREE TEXT/NARRATIVE: Patient is a 75-year-old male who presents to the ED with for the evaluation of a bloody stool. The patient has a tracheotomy, this was placed in January due to throat and lung cancer. He is not on chemo at this time. He notes last night that he got up around midnight to use the bathroom, and he noticed some maroon-red stool in the toilet. He notes that he has been feeling dizzy when he gets up, and this is not common for him. He has no history of GI bleed. He further states that he just did not feel well this a.m. He has no abdomen pain. He has no fevers or chills, cough or shortness of breath. He does not think he has hemorrhoids, he had an EGD and colonoscopy done a few years ago, and his notes that this was normal. Dr. Sheehan is his primary care provider. He has been having issues with his left shoulder, and is supposed to get an injection this week, so the patient has been using more Tylenol and Advil than he normally does. Patient further denies any nausea or vomiting, but states he did have some loose stools. Everything prior to this seemed normal for him. - Related Data Allergies Allergy/AdvReac Type Severity Reaction Status Date / Time morphine Allergy Hives Verified 07/26/20 11:08 Home Meds: Home Meds Albuterol [Ventolin HFA] 2.5 gm INH ASDIRECTED PRN 01/06/16 [History] Fluticasone Propionate [Flonase Allergy Relief] 2 sprays INH DAILY 01/06/16 [History] Fluticasone/Salmeterol [Advair Diskus 100-50] 1 puff INH BID 01/06/16 [History] Hydrochlorothiazide 12.5 mg PO DAILY 01/06/16 [History] Losartan [Cozaar] 100 mg PO DAILY 01/06/16 [History] Metoprolol Succinate [Toprol XL] 75 mg PO DAILY 01/06/16 [History] Montelukast [Singulair] 10 mg PO DAILY 01/06/16 [History] Simvastatin [Zocor] 40 mg PO DAILY 01/06/16 [History] Arformoterol [Brovana] 1 inh PO BID 07/26/20 [History] Ipratropium Independence 1 unit INH Q8HR 07/26/20 [History] Magnesium Oxide [Mag-Oxide Magnesium] 800 mg PO DAILY 07/26/20 [History] Temazepam 15 mg PO BEDTIME PRN 07/26/20 [History] Past Medical History HEENT History: Reports: Other (See Below) Other HEENT History: glasses Respiratory History: Reports: Asthma, COPD, Other (See Below) Other Respiratory History: pt with trach at 4 liters Gastrointestinal History: Reports: Other (See Below) Other Gastrointestinal History: feeding tube not used Musculoskeletal History: Reports: Other (See Below) Other Musculoskeletal History: left shoulder pain baseline, left hip replacement Oncologic (Cancer) History: Reports: Esophageal, Lung Other Oncologic History: pt had trach placed 01/2020. - Past Surgical History Musculoskeletal Surgical History: Reports: Other (See Below) Other Musculoskeletal Surgeries/Procedures:: hx back surgery Social & Family History - Tobacco Use Tobacco Use Status *Q: Former Tobacco User Years of Tobacco use: 20 Used Tobacco, but Quit: Yes Month/Year Tobacco Last Used: 09/1989 - Caffeine Use Caffeine Use: Reports: Coffee - Recreational Drug Use Recreational Drug Use: No ED ROS GENERAL - Review of Systems Review Of Systems: Comprehensive ROS is negative, except as noted in HPI. ED EXAM, GI/ABD - Physical Exam Exam: See Below Exam Limited By: No Limitations General Appearance: Alert, WD/WN, No Apparent Distress Respiratory/Chest: No Respiratory Distress, Lungs Clear, Normal Breath Sounds, No Accessory Muscle Use, Chest Non-Tender Cardiovascular: Normal Peripheral Pulses, Regular Rate, Rhythm, No Murmur GI/Abdominal Exam: Normal Bowel Sounds, Soft, Non-Tender, No Distention, No Mass Rectal (Males) Exam: Normal Rectal Tone, Heme + Stool. No: Hemorrhoids Neurological: Alert, Oriented, Normal Cognition, No Motor/Sensory Deficits Psychiatric: Normal Affect, Normal Mood Skin Exam: Warm, Dry, Intact, Normal Color, No Rash Course - Vital Signs Last Recorded V/S: Last Vital Signs Temp 97.3 F 07/26/20 11:05 Pulse 76 07/26/20 11:05 Resp 20 07/26/20 11:05 BP 146/57 H 07/26/20 11:05 Pulse Ox 100 07/26/20 11:05 - Orders/Labs/Meds Orders: Active Orders 24 hr Category Date Time Status Implanted Port Access [RC] ONETIME Care 07/26/20 11:39 Active Orthostatic Vital Signs [RC] ASDIRECTED Care 07/26/20 13:23 Active CBC WITH AUTO DIFF [HEME] Stat Lab 07/26/20 12:35 Results CORONAVIRUS COVID-19 LORRI [MOLEC] Stat Lab 07/26/20 13:23 Ordered PACKED CELLS [RED BLOOD CELLS LP] [BBK] Stat Lab 07/26/20 13:12 Ordered TYPE AND SCREEN [BBK] Stat Lab 07/26/20 13:12 Ordered Transfuse Red Blood Cells [COMM] Stat Oth 07/26/20 13:35 Ordered Labs: Laboratory Tests 07/26/20 07/26/20 Range/Units 12:35 12:35 WBC 10.21 H (4.23-9.07) K/mm3 RBC 2.91 L (4.63-6.08) M/mm3 Hgb 7.6 L (13.7-17.5) gm/dl Hct 25.6 L (40.1-51.0) % MCV 88.0 (79.0-92.2) fl MCH 26.1 (25.7-32.2) pg MCHC 29.7 L (32.2-35.5) g/dl RDW Std Deviation 47.7 H (35.1-43.9) fL Plt Count 381 H (163-337) K/mm3 MPV 8.5 L (9.4-12.3) fl Neut % (Auto) 74.8 H (34.0-67.9) % Lymph % (Auto) 12.2 L (21.8-53.1) % [place] % (Auto) 11.4 (5.3-12.2) % Eos % (Auto) 1.2 (0.8-7.0) Baso % (Auto) 0.2 (0.1-1.2) % Neut # (Auto) 7.64 H (1.78-5.38) K/mm3 Lymph # (Auto) 1.25 L (1.32-3.57) K/mm3 [place] # (Auto) 1.16 H (0.30-0.82) K/mm3 Eos # (Auto) 0.12 (0.04-0.54) K/mm3 Baso # (Auto) 0.02 (0.01-0.08) K/mm3 Sodium 135 L (136-145) mEq/L Potassium 4.2 (3.5-5.1) mEq/L Chloride 99 (98-107) mEq/L Carbon Dioxide 29 (21-32) mEq/L Anion Gap 11.2 (5-15) BUN 22 H (7-18) mg/dL Creatinine 0.8 (0.7-1.3) mg/dL Est Cr Clr Drug Dosing 71.54 mL/min Estimated GFR (MDRD) > 60 (>60) mL/min BUN/Creatinine Ratio 27.5 H (14-18) Glucose 90 (83-115) mg/dL Calcium 10.5 H (8.5-10.1) mg/dL Total Bilirubin 0.3 (0.2-1.0) mg/dL AST 10 L (15-37) U/L ALT 8 L (16-63) U/L Alkaline Phosphatase 80 (46-116) U/L Total Protein 6.3 L (6.4-8.2) g/dl Albumin 2.9 L (3.4-5.0) g/dl Globulin 3.4 gm/dL Albumin/Globulin Ratio 0.9 L (1-2) Meds: Medications Discontinued Medications Generic Name Dose Route Start Last Admin Trade Name Tristan PRN Reason Stop Dose Admin Sodium Chloride 1,000 mls @ 999 mls/hr 07/26/20 11:39 07/26/20 12:46 Normal Saline IV 07/26/20 12:39 999 mls/hr ONETIME ONE Administration - Re-Assessments/Exams Free Text/Narrative Re-Assessment/Exam: 07/26/20 11:48 Patient presents to the ED for the evaluation of his GI bleed. We will get baseline labs, give him some IV fluids for initial management. 07/26/20 13:24 The patient's hemoglobin is 7.6 at this time. Blood pressures have stayed steady while in the room at 140 systolically, the lowest I saw was 120. At this time I did discuss the laboratory findings with Dr. Harris, we do believe he would benefit from blood infusion; have ordered type and screen, with 2 units to be infused, patient will get a COVID-19 screen, for possible hospital admission. The in the room states that he does not have a history of low hemoglobin, and we have no prior levels to check against. They did not note any prior irregularities on colonoscopy. 07/26/20 13:[address] Velasquez, and he does tentatively accept for admission at this time. There are no other further recommendations specified by him as far as labs needed. Departure - Departure Time of Disposition: 13:53 Disposition: Admitted As Inpatient 68 Condition: Fair Clinical Impression: Acute lower GI bleeding - Discharge Information *PRESCRIPTION DRUG MONITORING PROGRAM REVIEWED*: No *COPY OF PRESCRIPTION DRUG MONITORING REPORT IN PATIENT FITO: No Referrals: Jean Paul Sheehan MD [Primary Care Provider] - Forms: ED Department Discharge Sepsis Event Note (ED) - Evaluation Sepsis Screening Result: No Definite Risk - Focused Exam Vital Signs: Vital Signs Temp Pulse Resp BP Pulse Ox 07/26/20 11:05 97.3 F 76 20 146/57 H 100 - My Orders Last 24 Hours: My Active Orders 07/26/20 11:39 Implanted Port Access [RC] ONETIME 07/26/20 12:35 CBC WITH AUTO DIFF [HEME] Stat 07/26/20 13:12 PACKED CELLS [RED BLOOD CELLS LP] [BBK] Stat TYPE AND SCREEN [BBK] Stat 07/26/20 13:23 Orthostatic Vital Signs [RC] ASDIRECTED CORONAVIRUS COVID-19 LORRI [MOLEC] Stat 07/26/20 13:35 Transfuse Red Blood Cells [COMM] Stat - Assessment/Plan Last 24 Hours: My Active Orders 07/26/20 11:39 Implanted Port Access [RC] ONETIME 07/26/20 12:35 CBC WITH AUTO DIFF [HEME] Stat 07/26/20 13:12 PACKED CELLS [RED BLOOD CELLS LP] [BBK] Stat TYPE AND SCREEN [BBK] Stat 07/26/20 13:23 Orthostatic Vital Signs [RC] ASDIRECTED CORONAVIRUS COVID-19 LORRI [MOLEC] Stat 07/26/20 13:35 Transfuse Red Blood Cells [COMM] Stat Brief History: History of HTN, HLD asthma, COPD, esophageal and lung cancer, hx/o respitatory failure, s/p tracheostomy, 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 - Discharge Data Discharge Date: 07/29/20 Discharge Disposition: Home, Self-Care 01 Condition: Good - Referral to Home Health Primary Care Physician: Jean Paul Sheehan MD - Discharge Diagnosis/Problem(s) (1) Acute lower GI bleeding SNOMED Code(s): 71191486 ICD Code: K92.2 - GASTROINTESTINAL HEMORRHAGE, UNSPECIFIED Status: Acute Priority: Medium Current Visit: Yes Onset Date: ~07/26/20 Problem Details: Patient presented with lower GI bleed that was maroon in color. Since admission, he had not had a bowel movement and was given Fibercon, Senna and Lactulose on 07/28. Repeated on 07/29. No active bleeding with stable hemoglobin level at 8.4. - Patient Summary/Data Consults: Consultations 07/26/20 16:26 Consult to Case Management/High Lead Yarder [CONS] Routine - Patient Instructions Diet: Usual Diet as Tolerated Activity: As Tolerated Notify Provider of: Fever, Nausea and/or Vomiting Other/Special Instructions: Call provider if bright red blood/ maroon colored blood per rectum upon bowel movement. - Discharge Plan *PRESCRIPTION DRUG MONITORING PROGRAM REVIEWED*: No *COPY OF PRESCRIPTION DRUG MONITORING REPORT IN PATIENT FITO: No Prescriptions/Med Rec: Acetaminophen/HYDROcodone [[place] 325-5 MG] 1 tab PO Q6H #30 tablet Home Medications: Home Meds Albuterol [Ventolin HFA] 2.5 mg NEB QID PRN 01/06/16 [History] Losartan [Cozaar] 100 mg PO DAILY 01/06/16 [History] Metoprolol Succinate [Toprol XL] 25 mg PO DAILY 01/06/16 [History] Montelukast [Singulair] 10 mg PO 1700 01/06/16 [History] Allopurinol [Zyloprim] 100 mg PO DAILY 07/26/20 [History] Arformoterol [Brovana] 15 mcg NEB BID 07/26/20 [History] Ipratropium [place] 1 unit NEB Q8HR 07/26/20 [History] Magnesium Oxide [Mag-Oxide Magnesium] 800 mg PO DAILY 07/26/20 [History] Omeprazole 20 mg PO DAILY 07/26/20 [History] Simvastatin 40 mg PO DAILY 07/26/20 [History] Temazepam 15 mg PO BEDTIME PRN 07/26/20 [History] Acetaminophen/HYDROcodone [[place] 325-5 MG] 1 tab PO Q6H #30 tablet 07/29/20 [Rx] Oxygen Therapy Mode: Trach Collar (4 L) Oxygen Flow Rate (L/min): 4 Referrals: Jean Paul Sheehan MD [Primary Care Provider] - 08/07/20 12:45 pm (Please follow up with Dr. Sheehan on August 07 at 12:45.) - Discharge Summary/Plan Comment DC Time >30 min.: No - General Info Date of Service: 07/29/20 Admission Dx/Problem (Free Text: Admission Diagnosis/Problem Admission Diagnosis/Problem Lower gastrointestinal hemorrhage Subjective Update: Deann is a 75 yo male who presented to the ER with maroon colored blood per rectum. He was admitted to med surg on 07/26 with a GI bleed with a hemoglobin of 7.6 grams. He has had an unremarkable admission. He was given Fibercon, Senna, and Lactulose on 07/28 to induce a bowel movement which was unsuccessful. They were given the morning of 07/29. Hemoglobin went up and held stable at 8.8 and 8.4 on the and , respectively. He is feeling good. He has adequate bowel sounds in all quadrants and has no abdominal distension. Follow up with Dr. Noriega for steroid shoulder injection and will get labs. Past medical hx/o HTN, HLD, asthma, COPD, esophageal and lung cancer, hx/o respiratory failure s/p tracheostomy, chronic hypoxia on 4L NC via trach chronically, dysphagia s/p PEG tube placement, hx/o left shoulder pain, h/o left hip surgery and insomnia. [facility] [place] Functional Status: Reports: Pain Controlled - Review of Systems General: Reports: No Symptoms HEENT: Reports: No Symptoms Pulmonary: Reports: No Symptoms Cardiovascular: Reports: No Symptoms Gastrointestinal: Reports: Constipation Genitourinary: Reports: No Symptoms Musculoskeletal: Reports: Shoulder Pain (Right shoulder pain ) Skin: Reports: No Symptoms Neurological: Reports: No Symptoms Psychiatric: Reports: No Symptoms - Patient Data Vitals - Most Recent: Last Vital Signs Temp 98.2 F 07/29/20 10:32 Pulse 78 07/29/20 10:52 Resp 18 07/29/20 10:32 BP 106/54 L 07/29/20 10:53 Pulse Ox 100 07/29/20 10:32 Orthostatic Blood Pressure [ 125/64 Standing] Orthostatic Blood Pressure [ 139/66 Sitting] Orthostatic Blood Pressure [ 127/67 Supine] Weight - Most Recent: 140 lb 8 oz I&O - Last 24 hours: Intake & Output 07/28/20 07/29/20 07/29/20 22:59 06:59 14:59 Intake Total 1340 400 120 Output Total 800 675 Balance 540 -275 120 Lab Results - Last 24 hrs: Laboratory Results - last 24 hr 07/29/20 07/29/20 Range/Units 04:46 04:46 WBC 9.36 H (4.23-9.07) K/mm3 RBC 3.13 L (4.63-6.08) M/mm3 Hgb 8.4 L (13.7-17.5) gm/dl Hct 27.0 L (40.1-51.0) % MCV 86.3 (79.0-92.2) fl MCH 26.8 (25.7-32.2) pg MCHC 31.1 L (32.2-35.5) g/dl RDW Std Deviation 49.3 H (35.1-43.9) fL Plt Count 387 H (163-337) K/mm3 MPV 8.9 L (9.4-12.3) fl Neut % (Auto) 64.3 (34.0-67.9) % Lymph % (Auto) 15.8 L (21.8-53.1) % [place] % (Auto) 16.5 H (5.3-12.2) % Eos % (Auto) 3.2 (0.8-7.0) Baso % (Auto) 0.2 (0.1-1.2) % Neut # (Auto) 6.02 H (1.78-5.38) K/mm3 Lymph # (Auto) 1.48 (1.32-3.57) K/mm3 [place] # (Auto) 1.54 H (0.30-0.82) K/mm3 Eos # (Auto) 0.30 (0.04-0.54) K/mm3 Baso # (Auto) 0.02 (0.01-0.08) K/mm3 Manual Slide Review Abnormal smear Sodium 136 (136-145) mEq/L Potassium 3.8 (3.5-5.1) mEq/L Chloride 101 (98-107) mEq/L Carbon Dioxide 29 (21-32) mEq/L Anion Gap 9.8 (5-15) BUN 21 H (7-18) mg/dL Creatinine 0.8 (0.7-1.3) mg/dL Est Cr Clr Drug Dosing 71.54 mL/min Estimated GFR (MDRD) > 60 (>60) mL/min BUN/Creatinine Ratio 26.3 H (14-18) Glucose 93 (83-115) mg/dL Calcium 10.0 (8.5-10.1) mg/dL Med Orders - Current: Current Medications Albuterol (Proventil) 2.5 mg NEB QIDRT PRN PRN Reason: Shortness of Breath Albuterol/Ipratropium (Duoneb 3.0-0.5 Mg/3 Ml) 3 ml NEB Q4H PRN PRN Reason: Shortness Of Breath/wheezing Allopurinol (Zyloprim) 100 mg PO DAILY [facility] Last Admin: 07/29/20 10:27 Dose: 100 mg Documented by: Arformoterol Tartrate (Brovana) 15 mcg NEB BIDRT [facility] Last Admin: 07/29/20 05:40 Dose: 15 mcg Documented by: Promethazine HCl 6.25 mg/ (Sodium Chloride) 50.25 mls @ 100 mls/hr IV Q6H PRN PRN Reason: Nausea/Vomiting Ipratropium Independence (Atrovent) 0.5 mg NEB TIDRT [facility] Last Admin: 07/29/20 05:40 Dose: 0.5 mg Documented by: Losartan Potassium (Cozaar) 100 mg PO DAILY [facility] Last Admin: 07/29/20 10:53 Dose: 100 mg Documented by: Magnesium Oxide (Magnesium Oxide) 800 mg PO DAILY [facility] Last Admin: 07/29/20 10:26 Dose: 800 mg Documented by: Metoprolol Succinate (Toprol Xl) 25 mg PO DAILY [facility] Last Admin: 07/29/20 10:52 Dose: 25 mg Documented by: Midodrine (Midodrine) 5 mg PO TID PRN PRN Reason: Hypotension Montelukast Sodium (Singulair) 10 mg PO DAILY [facility] Last Admin: 07/29/20 10:27 Dose: 10 mg Documented by: Ondansetron HCl (Zofran) 4 mg IV Q6H PRN PRN Reason: Nausea/Vomiting Oxycodone HCl (Oxycodone) 5 mg PO Q4H PRN PRN Reason: Pain (moderate 4-6) Last Admin: 07/29/20 10:52 Dose: 5 mg Documented by: Pantoprazole Sodium (Protonix Iv) 40 mg IV Q12HR [facility] Last Admin: 07/29/20 10:26 Dose: 40 mg Documented by: Simvastatin (Zocor) 40 mg PO DAILY [facility] Last Admin: 07/29/20 10:27 Dose: 40 mg Documented by: Temazepam (Restoril) 0 mg PO BEDTIME PRN PRN Reason: Insomnia Discontinued Medications Calcium Polycarbophil (Fibercon) 1,250 mg PO ONETIME ONE Stop: 07/28/20 10:56 Last Admin: 07/28/20 11:22 Dose: 1,250 mg Documented by: Calcium Polycarbophil (Fibercon) 1,250 mg PO ONETIME ONE Stop: 07/29/20 09:30 Last Admin: 07/29/20 10:26 Dose: 1,250 mg Documented by: Hydromorphone HCl (Dilaudid) 0.5 mg IVPUSH Q2H PRN PRN Reason: Pain (severe 7-10) Sodium Chloride (Normal Saline) 1,000 mls @ 999 mls/hr IV ONETIME ONE Stop: 07/26/20 12:39 Last Admin: 07/26/20 12:46 Dose: 999 mls/hr Documented by: Sodium Chloride (Normal Saline) 250 mls @ 100 mls/hr IV ASDIRECTED LETI Dextrose/Sodium Chloride (Dextrose 5%-Normal Saline) 1,000 mls @ 100 mls/hr IV ASDIRECTED LETI Stop: 07/27/20 03:29 Last Admin: 07/26/20 23:04 Dose: 100 mls/hr Documented by: Magnesium Sulfate 4 gm/ Premix 50 mls @ 12.5 mls/hr IV ONETIME ONE Stop: 07/27/20 13:29 Last Admin: 07/27/20 10:09 Dose: 12.5 mls/hr Documented by: Lactulose (Cephulac) 20 gm PO ONETIME ONE Stop: 07/28/20 11:01 Last Admin: 07/28/20 18:57 Dose: Not Given Documented by: Lactulose (Cephulac) 20 gm PO ONETIME ONE Stop: 07/28/20 18:43 Last Admin: 07/28/20 18:59 Dose: 20 gm Documented by: Lactulose (Cephulac) 20 gm PO ONETIME ONE Stop: 07/29/20 09:30 Last Admin: 07/29/20 10:25 Dose: 20 gm Documented by: Senna (Senna) 8.6 mg PO ONETIME ONE Stop: 07/28/20 10:55 Last Admin: 07/28/20 11:23 Dose: 8.6 mg Documented by: Senna/Docusate Sodium (Senna Plus) 1 tab PO ONETIME ONE Stop: 07/29/20 09:30 Last Admin: 07/29/20 10:27 Dose: 1 tab Documented by: Simvastatin (Zocor) 40 mg PO DAILY LETI Temazepam (Restoril) 7.5 mg PO BEDTIME PRN PRN Reason: Sleep - Exam Quality Assessment: Reports: Supplemental Oxygen (Chronically on 4L via trach) General: Reports: Alert, Oriented HEENT: Reports: Pupils Equal, Pupils Reactive, EOMI, Mucous Membr. Moist/[place]ck: Reports: Supple Lungs: Reports: Clear to Auscultation, Normal Respiratory Effort Cardiovascular: Reports: Regular Rate, Regular Rhythm GI/Abdominal Exam: Normal Bowel Sounds, Soft, Non-Tender, No Distention Back Exam: Reports: Normal Inspection, Full Range of Motion Extremities: Normal Inspection, No Pedal Edema, Normal Capillary Refill, Arm Pain (Right shoulder pain ) Skin: Reports: Warm, Dry, Intact Neurological: Reports: No New Focal Deficit Psy/Mental Status: Reports: Alert, Normal Affect, Normal Mood
[2020-07-29] MEDS ORDERED: Acetaminophen/HYDROcodone 325-5 MG Tab PO PRN (13:31)
[2020-07-30] MEDS ORDERED: Pantoprazole 40 MG Tab.CR PO SCH (09:00)
== END 2020-07-29 16:00 | disposition home or self-care (01) | DRG 378 ==
LOC: JD.ED 10:48 → JD.MS 15:09
PROVIDERS: ADMIT Internal Medicine; ATTEND Internal Medicine
PROC: 30233N1 Transfusion of Nonautologous Red Blood Cells into Peripheral Vein, Percutaneous Approach (ICD-10-PCS; principal; 2020-07-26)
DX: K92.1 Melena (principal); E87.1 Hypo-osmolality and hyponatremia; H54.7 Unspecified visual loss; J44.9 Chronic obstructive pulmonary disease, unspecified; Z96.642 Presence of left artificial hip joint; Z88.6 Allergy status to analgesic agent; I10 Essential (primary) hypertension; E78.5 Hyperlipidemia, unspecified; G47.00 Insomnia, unspecified; D50.9 Iron deficiency anemia, unspecified; Z88.5 Allergy status to narcotic agent; Z79.899 Other long term (current) drug therapy; Z87.891 Personal history of nicotine dependence; Z85.01 Personal history of malignant neoplasm of esophagus; Z85.118 Personal history of other malignant neoplasm of bronchus and lung; Z20.828 Contact with and (suspected) exposure to other viral communicable diseases
CPT/HCPCS: 36415; 80053; 85025; 86850; 86900; 86901; 86922; 96360; 99285; J7030; U0002; 36430; 80048; 83735; 84100; 85014; 85018; 94640; 94761; 99284; A9270-GY; C9113; J1642; J3475; J7042; P9016

== ENCOUNTER 2020-09-11 13:07 | Inpatient (IN) | payer MEDICARE, BC ==
--- NOTE | 2020-09-11 14:08 | EDM.PDOC ---
ED HPI GENERAL MEDICAL PROBLEM - General Chief Complaint: General Stated Complaint: SENT BY [place]-FEVER AND ELECTROLYTES UNBALANCED Time Seen by Provider: 09/11/20 13:25 Source of Information: Reports: Patient, Family History Limitations: Reports: No Limitations - History of Present Illness INITIAL COMMENTS - FREE TEXT/NARRATIVE: 75-year-old male presents to the emergency department from [facility] with complaints of fever and low potassium. Per report, the patient has a significant history of the laryngeal mass with lung nodules. Last had radiation in 2018 and has developed extensive mets. Patient has a trach and a PEG tube in place. And apparently has been able to eat up until the last few days, however his throat has become extremely edematous and sore due to the cancer. Patient has not been taking any nutrition the last few days orally. He did receive methotrexate on Tuesday and that was his first dose. On Tuesday he was exceptionally lethargic and would barely wake up for his . He was seen again at the cancer center today and received a dose of Zometa for hypercalcemia. Potassium level at the clinic today is 3.0 as well. I appar ently he became hypotensive while at the visit with systolic blood pressures in the 70s he did receive and liter of normal saline for that. Patient has had increased shortness of breath over the course of the last couple of days. And today at the clinic did have a temp of 100.4. Patient does has a PEG tube as mentioned however family has not been educated in how to do the feedings or how much to give him daily. Treatments ELEVATOR EXAMINER AND ADJUSTER: Reports: Other (see below) Other Treatments ELEVATOR EXAMINER AND ADJUSTER: normal saline, K+ - Related Data Allergies Allergy/AdvReac Type Severity Reaction Status Date / Time morphine Allergy Hives Verified 07/26/20 16:15 Home Meds: Home Meds Montelukast [Singulair] 10 mg PO 1700 01/06/16 [History] Allopurinol [Zyloprim] 100 mg PO DAILY 07/26/20 [History] Arformoterol [Brovana] 15 mcg NEB BID 07/26/20 [History] Magnesium Oxide [Mag-Oxide Magnesium] 800 mg PO DAILY 07/26/20 [History] Omeprazole 20 mg PO DAILY 07/26/20 [History] Simvastatin 40 mg PO DAILY 07/26/20 [History] Temazepam 15 - 30 mg PO BEDTIME PRN 07/26/20 [History] Acetaminophen/HYDROcodone [Raven 325-5 MG] 1 tab PO Q4H PRN 09/11/20 [History] Albuterol [Proventil Neb Soln] 2.5 mg NEB QID PRN 09/11/20 [History] Ascorbic Acid [C-1000] 2,000 mg PO DAILY 09/11/20 [History] Budesonide [Pulmicort] 0.5 mg NEB BID 09/11/20 [History] Cholecalciferol (Vitamin D3) [Vitamin D3] 0 units PO DAILY 09/11/20 [History] Ferrous Sulfate 325 mg PO DAILY 09/11/20 [History] Ipratropium [Atrovent] 0.5 mg NEB Q8H 09/11/20 [History] Lidocaine/Prilocaine [EMLA Crm] 1 applic TOP ASDIRECTED PRN 09/11/20 [History] Loratadine 10 mg PO DAILY 09/11/20 [History] Metoprolol Succinate 25 mg PO DAILY 09/11/20 [History] Non-Formulary Medication [NF Drug] 1 applic PO Q4H PRN 09/11/20 [History] Prochlorperazine [Compazine] 10 mg PO QID PRN 09/11/20 [History] Sodium Chloride 0.9% 3 ml NEB Q2H PRN 09/11/20 [History] guaiFENesin [Mucinex] 600 mg PO BID 09/11/20 [History] Past Medical History HEENT History: Reports: Other (See Below) Other HEENT History: glasses Cardiovascular History: Reports: High Cholesterol, Hypertension Respiratory History: Reports: COPD, Other (See Below) Other Respiratory History: 4L 02 home use Gastrointestinal History: Reports: Other (See Below) Other Gastrointestinal History: feeding tube- lily button Musculoskeletal History: Reports: Gout, Other (See Below) Other Musculoskeletal History: left shoulder pain baseline, left hip replacement Hematologic History: Reports: Anemia, Iron Deficiency Oncologic (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 - Infectious Disease History Infectious Disease History: Reports: Chicken Pox, Measles, Mumps - Past Surgical History Respiratory Surgical History: Reports: Tracheostomy GI Surgical History: Reports: Other (See Below) Musculoskeletal Surgical History: Reports: Other (See Below) Other Musculoskeletal Surgeries/Procedures:: hx back surgery Social & Family History - Family History Family Medical History: No Pertinent Family History - Tobacco Use Tobacco Use Status *Q: Former Tobacco User Used Tobacco, but Quit: Yes Month/Year Tobacco Last Used: 2019 - Caffeine Use Caffeine Use: Reports: Coffee - Recreational Drug Use Recreational Drug Use: No ED ROS GENERAL - Review of Systems Review Of Systems: See Below Constitutional: Reports: No Symptoms, Other (Temp in the emergency department 98.5, pulse 74, respiratory rate 22, blood pressure 157/70, pulse ox 100% on room 4 L per trach collar) HEENT: Reports: No Symptoms, Glasses Respiratory: Reports: Shortness of Breath, Wheezing. Denies: Cough, Sputum Cardiovascular: Reports: No Symptoms. Denies: Chest Pain, Dyspnea on Exertion, Edema, Palpitations Endocrine: Reports: No Symptoms GI/Abdominal: Reports: No Symptoms, Constipation (Chronic patient takes MiraLAX daily) : Reports: No Symptoms Musculoskeletal: Reports: No Symptoms Skin: Reports: No Symptoms Neurological: Reports: No Symptoms Psychiatric: Reports: No Symptoms Hematologic/Lymphatic: Reports: No Symptoms Immunologic: Reports: No Symptoms ED EXAM, GENERAL - Physical Exam Exam: See Below Exam Limited By: Other (Patient is unable to speak due to trach) General Appearance: Alert, WD/WN, No Apparent Distress Eye Exam: Bilateral Eye: PERRL Ears: Normal External Exam, Hearing Grossly Normal Nose: Normal Inspection Throat/Mouth: No Airway Compromise (Trach in place). No: Normal Voice Head: Atraumatic, Normocephalic Neck: Normal Inspection (trach in place ), Non-Tender, Full Range of Motion Respiratory/Chest: No Accessory Muscle Use, Decreased Breath Sounds (Bilateral bases), Crackles (Anterior). No: Lungs Clear (Crackles noted anteriorly with expiratory wheezes noted posteriorly), Normal Breath Sounds Cardiovascular: Normal Peripheral Pulses, Regular Rate, Rhythm, No Edema, No Murmur GI/Abdominal: Normal Bowel Sounds, Soft, Non-Tender, No Distention (Male) Exam: Deferred Rectal (Males) Exam: Deferred Back Exam: Normal Inspection, Full Range of Motion Extremities: Normal Inspection, Normal Range of Motion, Non-Tender, No Pedal Edema, Normal Capillary Refill Neurological: Alert, Oriented, Normal Cognition Psychiatric: Normal Affect, Normal Mood Skin Exam: Warm, Dry, Intact, Normal Color, No Rash Lymphatic: No Adenopathy Course - Vital Signs Text/Narrative:: 75-year-old male patient from [facility] presents with a fever and low potassium of 3.0. Labs completed at the [facility] reveal a white blood cell count of 7.7, absolute neutrophil count of 6.8, without bands, hemoglobin 8.9, glucose is 130, BUN 21, creatinine 1.04, potassium 3.0, anion gap is 13, calcium 11.0, magnesium 1.9. Due to the report that patient did have a fever at the [facility] 100.4, I have ordered a chest x-ray and blood cultures x2 to be drawn. Patient will also receive maintenance IV fluids and 40 meq of potassium IV.. Last Recorded V/S: Last Vital Signs Temp 98.5 F 09/11/20 13:14 Pulse 74 09/11/20 13:14 Resp 22 H 09/11/20 13:14 BP 157/70 H 09/11/20 13:14 Pulse Ox 100 09/11/20 13:14 - Orders/Labs/Meds Orders: Active Orders 24 hr Category Date Time Status Chest 1V Frontal [CR] Stat Exams 09/11/20 13:44 Taken CULTURE BLOOD [BC] Stat Lab 09/11/20 14:00 Received CULTURE BLOOD [BC] Stat Lab 09/11/20 14:10 Received Potassium Chloride [KCl 10 MEQ in Water 100 ML] 10 meq Med 09/11/20 14:00 Active Premix Bag 1 bag IV Q1H Sodium Chloride 0.9% [Normal Saline] 1,000 ml Med 09/11/20 13:45 Active IV ASDIRECTED cefTRIAXone [Rocephin] 2 gm Med 09/11/20 15:50 Active Sodium Chloride 0.9% [Normal Saline] 100 ml IV ONETIME Blood Culture x2 Reflex Set [OM.PC] Stat Oth 09/11/20 13:44 Ordered Medication Orders Sodium Chloride (Normal Saline) 1,000 mls @ 150 mls/hr IV ASDIRECTED LETI Last Admin: 09/11/20 14:24 Dose: 150 mls/hr Documented by: JANI Potassium Chloride 10 meq/ (Premix) 100 mls @ 100 mls/hr IV Q1H LETI Stop: 09/11/20 17:59 Last Admin: 09/11/20 15:29 Dose: 100 mls/hr Documented by: Infusion: 09/11/20 15:23 Dose: 100 mls/hr Documented by: Admin: 09/11/20 14:23 Dose: 100 mls/hr Documented by: JANI Ceftriaxone Sodium 2 gm/ (Sodium Chloride) 100 mls @ 200 mls/hr IV ONETIME ONE Stop: 09/11/20 16:19 Labs: Laboratory Tests 09/11/20 Range/Units 14:33 SARS-CoV-2 RNA (LORRI) Negative (NEGATIVE) Meds: Medications Generic Name Dose Route Start Last Admin Trade Name Freq PRN Reason Stop Dose Admin Sodium Chloride 1,000 mls @ 150 mls/hr 09/11/20 13:45 09/11/20 14:24 Normal Saline IV 150 mls/hr ASDIRECTED LETI Administration Potassium Chloride 10 meq/ 100 mls @ 100 mls/hr 09/11/20 14:00 09/11/20 15:29 Premix IV 09/11/20 17:59 100 mls/hr Q1H ELTI Administration Ceftriaxone Sodium 2 gm/ 100 mls @ 200 mls/hr 09/11/20 15:50 Sodium Chloride IV 09/11/20 16:19 ONETIME ONE - Re-Assessments/Exams Free Text/Narrative Re-Assessment/Exam: 09/11/20 15:57 Patient's Covid test comes back negative. 1 view chest x-ray per V rad interpretation: 1. Patchy airspace opacities noted within the lower lobes bilaterally may be consistent with developing areas of infiltrate and/or atelectasis. 2. Scarring and/or atelectasis noted within the right midlung. 3. Heart demonstrates mild diffuse enlargement. 4. The lungs are hyperinflated, consistent with underlying small airways disease. 5. Trace of right pleural effusion. I will order 2 g of Rocephin IV. With the patient having a fever of 104 earlier today, increase shortness of breath and chest x-ray interpretation I will treat this patient for pneumonia. Spoke with Dr. Heaton regarding this patient and he has accepted the patient under his care. Departure - Departure Time of Disposition: 16:09 Disposition: Admitted As Inpatient 68 Condition: Poor Clinical Impression: Hypokalemia - Discharge Information Referrals: Jean Paul Sheehan MD [Primary Care Provider] - Forms: ED Department Discharge Sepsis Event Note (ED) - Evaluation Sepsis Screening Result: Possible Sepsis Risk - Focused Exam Vital Signs: Vital Signs Temp Pulse Resp BP Pulse Ox 09/11/20 13:14 98.5 F 74 22 H 157/70 H 100 - My Orders Last 24 Hours: My Active Orders 09/11/20 13:44 Chest 1V Frontal [CR] Stat Blood Culture x2 Reflex Set [OM.PC] Stat 09/11/20 13:45 Sodium Chloride 0.9% [Normal Saline] 1,000 ml IV ASDIRECTED 09/11/20 14:00 CULTURE BLOOD [BC] Stat Potassium Chloride [KCl 10 MEQ in Water 100 ML] 10 meq Premix Bag 1 bag IV Q1H 09/11/20 14:10 CULTURE BLOOD [BC] Stat 09/11/20 15:50 cefTRIAXone [Rocephin] 2 gm Sodium Chloride 0.9% [Normal Saline] 100 ml IV ONETIME - Assessment/Plan Last 24 Hours: My Active Orders 09/11/20 13:44 Chest 1V Frontal [CR] Stat Blood Culture x2 Reflex Set [OM.PC] Stat 09/11/20 13:45 Sodium Chloride 0.9% [Normal Saline] 1,000 ml IV ASDIRECTED 09/11/20 14:00 CULTURE BLOOD [BC] Stat Potassium Chloride [KCl 10 MEQ in Water 100 ML] 10 meq Premix Bag 1 bag IV Q1H 09/11/20 14:10 CULTURE BLOOD [BC] Stat 09/11/20 15:50 cefTRIAXone [Rocephin] 2 gm Sodium Chloride 0.9% [Normal Saline] 100 ml IV ONETIME
[2020-09-11] MEDS: Potassium Chloride 10 MEQ in Premix Bag 1 BAG IV SCH ×4 (14:23→17:49)
[2020-09-11] MEDS: Sodium Chloride 0.9% 1,000 ML IV SCH ×2 (14:24→21:09)
[2020-09-11] MEDS ORDERED: cefTRIAXone 2 GM in Sodium Chloride 0.9% 100 ML IV ONE (15:50)
[2020-09-11] MEDS ORDERED: Prochlorperazine 5 MG Tab PO PRN (17:12)
[2020-09-11] MEDS ORDERED: TETRACAINE PO PRN (17:12)
[2020-09-11] MEDS ORDERED: Sodium Chloride 0.9% Inhalation Soln 3 ML Neb NEB PRN (17:12)
[2020-09-11] MEDS ORDERED: Albuterol 0.083% 2.5 MG/3 ML Neb Soln NEB PRN (17:12)
[2020-09-11] MEDS ORDERED: Acetaminophen/HYDROcodone 325-5 MG Tab PO PRN (17:12)
[2020-09-11] MEDS ORDERED: Ipratropium 0.02% 0.5 MG/2.5 ML Neb Soln NEB SCH ×2 (18:00→21:00)
[2020-09-11 18:07] LABS: HEMOGLOBIN A1C 5.5 % (4.50-6.20)
--- NOTE | 2020-09-11 18:54 | PCM.HP.2 ---
H&P History of Present Illness - General Date of Service: 09/11/20 Admit Problem/Dx: Admission Diagnosis/Problem Admission Diagnosis/Problem Hypokalemia - History of Present Illness Initial Comments - Free Text/Narative: 75-year-old male that presented to the emergency department from [facility] with complaints of fever of 100.8 and a potassium of 3.0. 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 He has a trach and PEG tube. He has not been able to eat well for the last few days and his does not know how much to give him via his PEG tube. Patient was referred to the ER for further evaluation and treatment. Chest x-ray showed atelectasis and question of developing infiltrate. On admission white count was 6.65 with absolute neutrophil count of 5.46 and manual slide review showed hypochromia. There was no toxic granulations. He was started on IV potassium in the emergency department. He is on baseline of 4 L of O2 via his trach. Oxygen saturation is 100% on that 4 L. Back Pain Score (Numeric/FACES): 6 - Related Data Allergies/Adverse Reactions: Allergies Allergy/AdvReac Type Severity Reaction Status Date / Time morphine Allergy Hallucinati Verified 09/11/20 21:03 ons Home Medications: Home Meds Montelukast [Singulair] 10 mg PO 1700 01/06/16 [History] Allopurinol [Zyloprim] 100 mg PO DAILY 07/26/20 [History] Arformoterol [Brovana] 15 mcg NEB BID 07/26/20 [History] Magnesium Oxide [Mag-Oxide Magnesium] 800 mg PO DAILY 07/26/20 [History] Omeprazole 20 mg PO DAILY 07/26/20 [History] Simvastatin 40 mg PO DAILY 07/26/20 [History] Temazepam 15 - 30 mg PO BEDTIME PRN 07/26/20 [History] Acetaminophen/HYDROcodone [Florien 325-5 MG] 1 tab [id number] Q4H PRN 09/11/20 [History] Albuterol [Proventil Neb Soln] 2.5 mg NEB QID PRN 09/11/20 [History] Ascorbic Acid [C-1000] 2,000 mg PO DAILY 09/11/20 [History] Budesonide [Pulmicort] 0.5 mg NEB BID 09/11/20 [History] Cholecalciferol (Vitamin D3) [Vitamin D] 2 cap PO DAILY 09/11/20 [History] Ferrous Sulfate 325 mg PO DAILY 09/11/20 [History] Ipratropium [Atrovent] 0.5 mg NEB Q8H 09/11/20 [History] Lidocaine/Prilocaine [EMLA Crm] 1 applic TOP ASDIRECTED PRN 09/11/20 [History] Loratadine 10 mg PO DAILY 09/11/20 [History] Metoprolol Succinate 25 mg PO DAILY 09/11/20 [History] Non-Formulary Medication [NF Drug] 1 applic PO Q4H PRN 09/11/20 [History] Prochlorperazine [Compazine] 10 mg PO QID PRN 09/11/20 [History] Sodium Chloride 0.9% 3 ml NEB Q2H PRN 09/11/20 [History] Azithromycin 500 mg PO Q24H #3 tablet 09/12/20 [Rx] Past Medical History HEENT History: Reports: Other (See Below) Other HEENT History: glasses Cardiovascular History: Reports: High Cholesterol, Hypertension Respiratory History: Reports: COPD, Other (See Below) Other Respiratory History: 4L 02 home use Gastrointestinal History: Reports: Other (See Below) Other Gastrointestinal History: feeding tube- lily button Musculoskeletal History: Reports: Gout, Other (See Below) Other Musculoskeletal History: left shoulder pain baseline, left hip replacement Hematologic History: Reports: Anemia, Iron Deficiency Oncologic (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 - Infectious Disease History Infectious Disease History: Reports: Chicken Pox, Measles, Mumps - Past Surgical History Respiratory Surgical History: Reports: Tracheostomy GI Surgical History: Reports: Other (See Below) Musculoskeletal Surgical History: Reports: Other (See Below) Other Musculoskeletal Surgeries/Procedures:: hx back surgery Social & Family History - Family History Family Medical History: No Pertinent Family History - Tobacco Use Tobacco Use Status *Q: Former Tobacco User Used Tobacco, but Quit: Yes Month/Year Tobacco Last Used: 2019 - Caffeine Use Caffeine Use: Reports: Coffee - Recreational Drug Use Recreational Drug Use: No H&P Review of Systems - Review of Systems: Review Of Systems: Comprehensive ROS is negative, except as noted in HPI. Exam - Exam Exam: See Below - Vital Signs Vital Signs: Last Vital Signs Temp 98.5 F 09/11/20 13:14 Pulse 74 09/11/20 16:28 Resp 16 09/11/20 16:28 BP 150/69 H 09/11/20 16:28 Pulse Ox 99 09/11/20 16:28 Weight: 137 lb - Exam Quality Assessment: No: Supplemental Oxygen General: Alert, Oriented, 4 HEENT: Conjunctiva Clear, Hearing Intact, Mucosa Moist & [place] Neck: Supple, Other (Tracheostomy) Lungs: Normal Respiratory Effort, Crackles (Bibasilar) Cardiovascular: Regular Rate, Regular Rhythm GI/Abdominal Exam: Normal Bowel Sounds, Soft, Non-Tender, No Organomegaly, No Distention, No Abnormal Bruit, No Mass, Pelvis Stable, Other (PEG tube) Extremities: Normal Inspection, Normal Range of Motion, No Pedal Edema, Normal Capillary Refill Skin: Warm, Dry, Intact Neuro Extensive - Mental Status: Alert, Oriented x3, Normal Mood/Affect, Normal Cognition Psychiatric: Alert, Normal Affect, Normal Mood - Patient Data Lab Results Last 24 hrs: Laboratory Results - last 24 hr 09/11/20 09/11/20 09/11/20 Range/Units 14:33 17:28 17:28 WBC 6.65 (4.23-9.07) K/mm3 RBC 3.31 L (4.63-6.08) M/mm3 Hgb 8.3 L (13.7-17.5) gm/dl Hct 28.8 L (40.1-51.0) % MCV 87.0 (79.0-92.2) fl MCH 25.1 L (25.7-32.2) pg MCHC 28.8 L (32.2-35.5) g/dl RDW Std Deviation 46.6 H (35.1-43.9) fL Plt Count 315 (163-337) K/mm3 MPV 9.4 (9.4-12.3) fl Neut % (Auto) 82.0 H (34.0-67.9) % Lymph % (Auto) 13.2 L (21.8-53.1) % [place] % (Auto) 3.5 L (5.3-12.2) % Eos % (Auto) 0.9 (0.8-7.0) Baso % (Auto) 0.2 (0.1-1.2) % Neut # (Auto) 5.46 H (1.78-5.38) K/mm3 Lymph # (Auto) 0.88 L (1.32-3.57) K/mm3 [place] # (Auto) 0.23 L (0.30-0.82) K/mm3 Eos # (Auto) 0.06 (0.04-0.54) K/mm3 Baso # (Auto) 0.01 (0.01-0.08) K/mm3 Manual Slide Review Abnormal smear Sodium 141 (136-145) mEq/L Potassium 3.7 (3.5-5.1) mEq/L Chloride 105 (98-107) mEq/L Carbon Dioxide 29 (21-32) mEq/L Anion Gap 10.7 (5-15) BUN 18 (7-18) mg/dL Creatinine 1.2 (0.7-1.3) mg/dL Est Cr Clr Drug Dosing 47.69 mL/min Estimated GFR (MDRD) 59 (>60) mL/min BUN/Creatinine Ratio 15.0 (14-18) Glucose 84 (83-115) mg/dL Hemoglobin A1c (4.50-6.20) % Lactic Acid (0.4-2.0) mmol/L Calcium 9.7 (8.5-10.1) mg/dL Phosphorus 1.6 L (2.6-4.7) mg/dL Magnesium 1.9 (1.8-2.4) mg/dl Total Bilirubin 0.2 (0.2-1.0) mg/dL AST 18 (15-37) U/L ALT 16 (16-63) U/L Alkaline Phosphatase 93 (46-116) U/L C-Reactive Protein 8.6 H* (<1.0) mg/dL Total Protein 6.4 (6.4-8.2) g/dl Albumin 2.5 L (3.4-5.0) g/dl Globulin 3.9 gm/dL Albumin/Globulin Ratio 0.6 L (1-2) TSH 3rd Generation 3.837 H (0.358-3.74) uIU/mL SARS-CoV-2 RNA (LORRI) Negative (NEGATIVE) 09/11/20 09/11/20 Range/Units 17:28 17:28 WBC (4.23-9.07) K/mm3 RBC (4.63-6.08) M/mm3 Hgb (13.7-17.5) gm/dl Hct (40.1-51.0) % MCV (79.0-92.2) fl MCH (25.7-32.2) pg MCHC (32.2-35.5) g/dl RDW Std Deviation (35.1-43.9) fL Plt Count (163-337) K/mm3 MPV (9.4-12.3) fl Neut % (Auto) (34.0-67.9) % Lymph % (Auto) (21.8-53.1) % [place] % (Auto) (5.3-12.2) % Eos % (Auto) (0.8-7.0) Baso % (Auto) (0.1-1.2) % Neut # (Auto) (1.78-5.38) K/mm3 Lymph # (Auto) (1.32-3.57) K/mm3 [place] # (Auto) (0.30-0.82) K/mm3 Eos # (Auto) (0.04-0.54) K/mm3 Baso # (Auto) (0.01-0.08) K/mm3 Manual Slide Review Sodium (136-145) mEq/L Potassium (3.5-5.1) mEq/L Chloride (98-107) mEq/L Carbon Dioxide (21-32) mEq/L Anion Gap (5-15) BUN (7-18) mg/dL Creatinine (0.7-1.3) mg/dL Est Cr Clr Drug Dosing mL/min Estimated GFR (MDRD) (>60) mL/min BUN/Creatinine Ratio (14-18) Glucose (83-115) mg/dL Hemoglobin A1c 5.50 (4.50-6.20) % Lactic Acid 0.9 (0.4-2.0) mmol/L Calcium (8.5-10.1) mg/dL Phosphorus (2.6-4.7) mg/dL Magnesium (1.8-2.4) mg/dl Total Bilirubin (0.2-1.0) mg/dL AST (15-37) U/L ALT (16-63) U/L Alkaline Phosphatase (46-116) U/L C-Reactive Protein (<1.0) mg/dL Total Protein (6.4-8.2) g/dl Albumin (3.4-5.0) g/dl Globulin gm/dL Albumin/Globulin Ratio (1-2) TSH 3rd Generation (0.358-3.74) uIU/mL SARS-CoV-2 RNA (LORRI) (NEGATIVE) Result Diagrams: 09/12/20 10:27 09/12/20 10:27 Sepsis Event Note - Evaluation Sepsis Screening Result: No Definite Risk - Focused Exam Vital Signs: Vital Signs Temp Pulse Resp BP Pulse Ox 09/11/20 16:28 74 16 150/69 H 99 09/11/20 13:14 98.5 F 74 22 H 157/70 H 100 - Problem List (1) Hypokalemia SNOMED Code(s): 12974556 ICD Code: E87.6 - HYPOKALEMIA Status: Acute Problem List Initiated/Reviewed/Updated: Yes Orders Last 24hrs: Active Orders 24 hr Category Date Time Status Patient Status [ADT] Routine ADT 09/11/20 17:01 Active RT Aerosol Therapy [RC] ASDIRECTED Care 09/11/20 17:15 Active RT Post Treatment Assessment [RC] Click to Edit Care 09/11/20 17:15 Active RT Pre-Treatment Assessment [RC] Click to Edit Care 09/11/20 17:15 Active Chest 1V Frontal [CR] Stat Exams 09/11/20 13:44 Taken CULTURE BLOOD [BC] Stat Lab 09/11/20 14:00 Received CULTURE BLOOD [BC] Stat Lab 09/11/20 14:10 Received PRO B-TYPE NATRIUR PEPT,BNPPRO [CHEM] Routine Lab 09/11/20 17:28 Received PROCALCITONIN [REF] Routine Lab 09/11/20 17:28 Received Acetaminophen/HYDROcodone [Florien 325-5 MG] Med 09/11/20 17:12 Active 1 tab PO Q4H PRN Albuterol [Proventil Neb Soln] Med 09/11/20 17:12 Active 2.5 mg NEB QID PRN Arformoterol [Brovana] Med 09/11/20 21:00 Active 15 mcg NEB BID@0600,2100 Ascorbic Acid [Vitamin C] Med 09/12/20 09:00 Active 2,000 mg PO DAILY Budesonide [Pulmicort] Med 09/11/20 21:00 Active 0.5 mg NEB BID@0600,2100 Cholecalciferol (Vitamin D3) [Vitamin D3] Med 09/12/20 09:00 Active 5,000 unit PO DAILY Ferrous Sulfate Med 09/12/20 09:00 Active 324 mg PO DAILY Ipratropium [Atrovent] Med 09/11/20 22:00 Active 0.5 mg NEB TID@0600,1400,2200 Loratadine [Claritin] Med 09/12/20 09:00 Active 10 mg PO DAILY Magnesium Oxide Med 09/12/20 09:00 Active 800 mg PO DAILY Metoprolol Succinate [Toprol XL] Med 09/12/20 09:00 Active 25 mg PO DAILY Montelukast [Singulair] Med 09/12/20 17:00 Active 10 mg PO DAILY@1700 Pantoprazole [ProTONIX] Med 09/12/20 09:00 Active 40 mg PO DAILY Patient's Own Medication [Ptom] Med 09/11/20 17:12 Active 0 each PO Q4H PRN Prochlorperazine [Compazine] Med 09/11/20 17:12 Active 10 mg PO QID PRN Simvastatin [Zocor] Med 09/12/20 09:00 Active 40 mg PO DAILY Sodium Chloride 0.9% Med 09/11/20 17:12 Active 3 ml NEB Q2H PRN Sodium Chloride 0.9% [Normal Saline] 1,000 ml Med 09/11/20 13:45 Active IV ASDIRECTED Temazepam [Restoril] Med 09/11/20 21:00 Active 15 - 30 mg PO BEDTIME PRN allopurinoL [Zyloprim] Med 09/12/20 09:00 Active 100 mg PO DAILY guaiFENesin [Mucinex] Med 09/11/20 21:00 Active 600 mg PO BID Blood Culture x2 Reflex Set [OM.PC] Stat Oth 09/11/20 13:44 Ordered Medication Orders Hydrocodone Bitart/Acetaminophen (Florien 325-5 Mg) 1 tab PO Q4H PRN PRN Reason: Pain (moderate 4-6) Albuterol (Proventil Neb Soln) 2.5 mg NEB QID PRN PRN Reason: Shortness of Breath Allopurinol (Zyloprim) 100 mg PO DAILY [facility] Arformoterol Tartrate (Brovana) 15 mcg NEB BID@0600,2100 [facility] Ascorbic Acid (Vitamin C) 2,000 mg PO DAILY LETI Budesonide (Pulmicort) 0.5 mg NEB BID@0600,2100 [facility] Cholecalciferol (Vitamin D3) 5,000 unit PO DAILY [facility] Ferrous Sulfate (Ferrous Sulfate) 324 mg PO DAILY LETI Guaifenesin (Mucinex) 600 mg PO BID LETI Sodium Chloride (Normal Saline) 1,000 mls @ 150 mls/hr IV ASDIRECTED [facility] Last Admin: 09/11/20 14:24 Dose: 150 mls/hr Documented by: JANI Ipratropium [place] (Atrovent) 0.5 mg NEB TID@0600,1400,2200 LETI Loratadine (Claritin) 10 mg PO DAILY [facility] Magnesium Oxide (Magnesium Oxide) 800 mg PO DAILY [facility] Metoprolol Succinate (Toprol Xl) 25 mg PO DAILY [facility] Montelukast Sodium (Singulair) 10 mg PO DAILY@1700 [facility] Pantoprazole Sodium (Protonix) 40 mg PO DAILY [facility] Tetracaine 0.25% (Lollipop) 0 each PO Q4H PRN PRN Reason: Sore Throat Prochlorperazine Maleate (Compazine) 10 mg PO QID PRN PRN Reason: Nausea/Vomiting Simvastatin (Zocor) 40 mg PO DAILY [facility] Sodium Chloride (Sodium Chloride 0.9%) 3 ml NEB Q2H PRN PRN Reason: Other Temazepam (Restoril) 15 - 30 mg PO BEDTIME PRN PRN Reason: Insomnia Assessment/Plan Comment:: 75-year-old male with history of laryngeal cancer unable to take orally if sufficiently enough to keep his electrolytes up. Patient had reported history of elevated temperature of 100.8 Fahrenheit. Afebrile since admission to the emergency department. * Normal WBC * Chest x-ray consistent with atelectasis versus early pneumonia * Hypokalemia potassium 3.0 Plan * Admit patient for IV fluids and correction of electrolytes. * Monitor overnight for fever and worsening respiratory symptoms. * Monitor oxygen saturations * Repeat blood work in the morning * Dietary consult to teach PEG feeding - Mortality Measure Prognosis:: Good
[2020-09-11] MEDS: Arformoterol 15 MCG/2 ML Neb Soln NEB SCH (19:59)
[2020-09-11] MEDS: Budesonide 0.5 MG/2 ML Neb Susp NEB SCH (19:59)
[2020-09-11] MEDS ORDERED: HYDROmorphone 0.5 MG/0.5 ML Syringe IVPUSH PRN (20:08)
[2020-09-11] MEDS: Ipratropium 0.02% 0.5 MG/2.5 ML Neb Soln NEB SCH ×2 (20:09→21:44)
[2020-09-11] MEDS ORDERED: guaiFENesin 600 MG Tab.ER PO SCH (21:00)
[2020-09-11] MEDS ORDERED: Arformoterol 15 MCG/2 ML Neb Soln NEB SCH (21:00)
[2020-09-11] MEDS ORDERED: Temazepam 15 MG Cap PO PRN (21:00)
[2020-09-11] MEDS ORDERED: Budesonide 0.5 MG/2 ML Neb Susp NEB SCH (21:00)
[2020-09-12] MEDS: Sodium Chloride 0.9% 1,000 ML IV SCH ×2 (04:02→10:29)
[2020-09-12] MEDS: Budesonide 0.5 MG/2 ML Neb Susp NEB SCH (05:36)
[2020-09-12] MEDS: Arformoterol 15 MCG/2 ML Neb Soln NEB SCH (05:36)
[2020-09-12] MEDS: Ipratropium 0.02% 0.5 MG/2.5 ML Neb Soln NEB SCH ×2 (05:36→14:03)
[2020-09-12] MEDS ORDERED: Magnesium Oxide 400 MG Tab PO SCH (09:00)
[2020-09-12] MEDS ORDERED: Ascorbic Acid 500 MG Tab PO SCH (09:00)
[2020-09-12] MEDS ORDERED: Loratadine 10 MG Tab PO SCH (09:00)
[2020-09-12] MEDS ORDERED: Cholecalciferol (Vitamin D3) 5,000 UNIT Cap PO SCH (09:00)
[2020-09-12] MEDS ORDERED: Ferrous Sulfate 324 MG Tab.EC PO SCH (09:00)
[2020-09-12] MEDS ORDERED: Magnesium Hydroxide 400 MG/5 ML Susp 30 ML Cup PO ONE (09:00)
[2020-09-12] MEDS ORDERED: Cholecalciferol (Vitamin D3) 5,000 UNIT Tab PO SCH (09:00)
[2020-09-12] MEDS ORDERED: Enoxaparin 40 MG/0.4 ML Syringe SUBCUT SCH (09:00)
[2020-09-12] MEDS ORDERED: Metoprolol Succinate 25 MG Tab.ER PO SCH (09:00)
[2020-09-12] MEDS ORDERED: Pantoprazole 40 MG Tab.CR PO SCH (09:00)
[2020-09-12] MEDS ORDERED: Allopurinol 100 MG Tab PO SCH (09:00)
[2020-09-12] MEDS ORDERED: Simvastatin 40 MG Tab PO SCH (09:00)
--- NOTE | 2020-09-12 09:52 | CR ---
Chest: Frontal view of the chest was obtained. Comparison: No prior chest imaging. Patchy areas of increased lung markings are seen on both sides of the chest. Focal density is noted within the right mid to lower lung. Tracheostomy tube is noted. Bony structures are grossly intact. Previous lumbar spine surgery is noted. Slight blunting of the right lateral costophrenic angle is seen possibly due to small pleural effusion or pleural thickening. Impression: 1. Areas of increased density on both sides of the chest. Findings raise the possibility of bronchitis and pneumonia if patient has infectious symptoms. Findings could also be chronic if patient has no acute parenchymal change. No prior studies are available. 2. Other findings as noted above. Diagnostic code #3 I agree with preliminary report from [facility], finalized on 09/11/20, 4:17 PM [employer]
[2020-09-12] MEDS ORDERED: Potassium Chloride 10% 20 MEQ/15 ML Soln 15 ML UD Cup PEGTUBE ONE (11:20)
[2020-09-12 12:13] VITALS: BP 133/79; PULSE 74
--- NOTE | 2020-09-12 14:36 | PCM.DCSUM1 ---
Discharge Summary - Hospital Course HPI Initial Comments: 75-year-old male that presented to the emergency department from [facility] with complaints of fever of 100.8 and a potassium of 3.0. 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 He has a trach and PEG tube. He has not been able to eat well for the last few days and his does not know how much to give him via his PEG tube. Patient was referred to the ER for further evaluation and treatment. Chest x-ray showed atelectasis and question of developing infiltrate. On admission white count was 6.65 with absolute neutrophil count of 5.46 and manual slide review showed hypochromia. There was no toxic granulations. He was started on IV potassium in the emergency department. He is on baseline of 4 L of O2 via his trach. Oxygen saturation is 100% on that 4 L. Assessment/Plan Comment:: 75-year-old male with history of laryngeal cancer unable to take orally if sufficiently enough to keep his electrolytes up. Patient had reported history of elevated temperature of 100.8 Fahrenheit. Afebrile since admission to the emergency department. * Normal WBC * Chest x-ray consistent with atelectasis versus early pneumonia * Hypokalemia potassium 3.0 Plan * Admit patient for IV fluids and correction of electrolytes. * Monitor overnight for fever and worsening respiratory symptoms. * Monitor oxygen saturations * Repeat blood work in the morning * Dietary consult to teach PEG feeding - Mortality Measure Prognosis:: Good Diagnosis: Stroke: No - Discharge Data Discharge Date: 09/12/20 Discharge Disposition: Home, Self-Care 01 Condition: Good - Referral to Home Health Primary Care Physician: Jean Paul Sheehan MD - Discharge Diagnosis/Problem(s) (1) Bronchitis SNOMED Code(s): 79850365 ICD Code: J40 - BRONCHITIS, NOT SPECIFIED ACUTE OR CHRONIC Status: Acute - Patient Summary/Data Hospital Course: Admitted overnight for rehydration, correction of his potassium, and education on PEG feeding. Patient was afebrile overnight and white count continues to be normal. He will go home on azithromycin 500 mg daily for 3 days in case there is an underlying bronchitis developing. I acknowledge that this may be overtreatment. Patient will follow up with his oncology team early next week. If he develops worsening fever, shortness of breath, nausea, vomiting, abdominal pain, or any significant symptom he will return to the emergency department. - Patient Instructions Diet, Other: As directed by dietary Driving: Do Not Drive Showering/Bathing: May Shower Other/Special Instructions: Follow-up with your oncologist next week. Follow the recommendations of dietitian for tube feeds. Recheck electrolytes early next week, but likely the low potassium was due to poor oral intake. This should correct with tube feeds. - Discharge Plan *PRESCRIPTION DRUG MONITORING PROGRAM REVIEWED*: No *COPY OF PRESCRIPTION DRUG MONITORING REPORT IN PATIENT FITO: No Prescriptions/Med Rec: Azithromycin 500 mg PO Q24H #3 tablet Home Medications: Home Meds Montelukast [Singulair] 10 mg PO 1700 01/06/16 [History] Allopurinol [Zyloprim] 100 mg PO DAILY 07/26/20 [History] Arformoterol [Brovana] 15 mcg NEB BID 07/26/20 [History] Magnesium Oxide [Mag-Oxide Magnesium] 800 mg PO DAILY 07/26/20 [History] Omeprazole 20 mg PO DAILY 07/26/20 [History] Simvastatin 40 mg PO DAILY 07/26/20 [History] Temazepam 15 - 30 mg PO BEDTIME PRN 07/26/20 [History] Acetaminophen/HYDROcodone [Minneola 325-5 MG] 1 tab PEGTUBE Q4H PRN 09/11/20 [History] Albuterol [Proventil Neb Soln] 2.5 mg NEB QID PRN 09/11/20 [History] Ascorbic Acid [C-1000] 2,000 mg PO DAILY 09/11/20 [History] Budesonide [Pulmicort] 0.5 mg NEB BID 09/11/20 [History] Cholecalciferol (Vitamin D3) [Vitamin D] 2 cap PO DAILY 09/11/20 [History] Ferrous Sulfate 325 mg PO DAILY 09/11/20 [History] Ipratropium [Atrovent] 0.5 mg NEB Q8H 09/11/20 [History] Lidocaine/Prilocaine [EMLA Crm] 1 applic TOP ASDIRECTED PRN 09/11/20 [History] Loratadine 10 mg PO DAILY 09/11/20 [History] Metoprolol Succinate 25 mg PO DAILY 09/11/20 [History] Non-Formulary Medication [NF Drug] 1 applic PO Q4H PRN 09/11/20 [History] Prochlorperazine [Compazine] 10 mg PO QID PRN 09/11/20 [History] Sodium Chloride 0.9% 3 ml NEB Q2H PRN 09/11/20 [History] Azithromycin 500 mg PO Q24H #3 tablet 09/12/20 [Rx] Patient Handouts: Sepsis, Diagnosis, Adult Referrals: Jean Paul Sheehan MD [Primary Care Provider] - 09/22/20 11:30 am (Please follow up with Dr. Sheehan on September 22 at 11:30.) - Discharge Summary/Plan Comment DC Time >30 min.: No - General Info Date of Service: 09/14/20 Admission Dx/Problem (Free Text: Admission Diagnosis/Problem Admission Diagnosis/Problem Hypokalemia Subjective Update: Patient is doing well, afebrile, in no acute distress. Functional Status: Reports: Pain Controlled - Review of Systems General: Reports: No Symptoms HEENT: Reports: No Symptoms Pulmonary: Reports: Cough Cardiovascular: Reports: No Symptoms Gastrointestinal: Reports: No Symptoms Musculoskeletal: Reports: No Symptoms - Patient Data Vitals - Most Recent: Last Vital Signs Temp 97.9 F 09/12/20 11:44 Pulse 74 09/12/20 11:44 Resp 19 09/12/20 11:44 BP 133/79 09/12/20 11:44 Pulse Ox 100 09/12/20 11:44 Weight - Most Recent: 134 lb 7.994 oz I&O - Last 24 hours: Intake & Output 09/11/20 09/12/20 09/12/20 22:59 06:59 14:59 Intake Total 2000 Output Total 200 1300 Balance -200 700 Lab Results - Last 24 hrs: Laboratory Results - last 24 hr 09/11/20 09/11/20 09/11/20 Range/Units 14:33 17:28 17:28 WBC 6.65 (4.23-9.07) K/mm3 RBC 3.31 L (4.63-6.08) M/mm3 Hgb 8.3 L (13.7-17.5) gm/dl Hct 28.8 L (40.1-51.0) % MCV 87.0 (79.0-92.2) fl MCH 25.1 L (25.7-32.2) pg MCHC 28.8 L (32.2-35.5) g/dl RDW Std Deviation 46.6 H (35.1-43.9) fL Plt Count 315 (163-337) K/mm3 MPV 9.4 (9.4-12.3) fl Neut % (Auto) 82.0 H (34.0-67.9) % Lymph % (Auto) 13.2 L (21.8-53.1) % Lares % (Auto) 3.5 L (5.3-12.2) % Eos % (Auto) 0.9 (0.8-7.0) Baso % (Auto) 0.2 (0.1-1.2) % Neut # (Auto) 5.46 H (1.78-5.38) K/mm3 Lymph # (Auto) 0.88 L (1.32-3.57) K/mm3 Lares # (Auto) 0.23 L (0.30-0.82) K/mm3 Eos # (Auto) 0.06 (0.04-0.54) K/mm3 Baso # (Auto) 0.01 (0.01-0.08) K/mm3 Manual Slide Review Abnormal smear Sodium 141 (136-145) mEq/L Potassium 3.7 (3.5-5.1) mEq/L Chloride 105 (98-107) mEq/L Carbon Dioxide 29 (21-32) mEq/L Anion Gap 10.7 (5-15) BUN 18 (7-18) mg/dL Creatinine 1.2 (0.7-1.3) mg/dL Est Cr Clr Drug Dosing 47.69 mL/min Estimated GFR (MDRD) 59 (>60) mL/min BUN/Creatinine Ratio 15.0 (14-18) Glucose 84 (83-115) mg/dL Hemoglobin A1c (4.50-6.20) % Lactic Acid (0.4-2.0) mmol/L Calcium 9.7 (8.5-10.1) mg/dL Phosphorus 1.6 L (2.6-4.7) mg/dL Magnesium 1.9 (1.8-2.4) mg/dl Total Bilirubin 0.2 (0.2-1.0) mg/dL AST 18 (15-37) U/L ALT 16 (16-63) U/L Alkaline Phosphatase 93 (46-116) U/L C-Reactive Protein 8.6 H* (<1.0) mg/dL NT-Pro-B Natriuret Pep (0-125) pg/mL Total Protein 6.4 (6.4-8.2) g/dl Albumin 2.5 L (3.4-5.0) g/dl Globulin 3.9 gm/dL Albumin/Globulin Ratio 0.6 L (1-2) TSH 3rd Generation 3.837 H (0.358-3.74) uIU/mL SARS-CoV-2 RNA (LORRI) Negative (NEGATIVE) 09/11/20 09/11/20 09/11/20 Range/Units 17:28 17:28 17:28 WBC (4.23-9.07) K/mm3 RBC (4.63-6.08) M/mm3 Hgb (13.7-17.5) gm/dl Hct (40.1-51.0) % MCV (79.0-92.2) fl MCH (25.7-32.2) pg MCHC (32.2-35.5) g/dl RDW Std Deviation (35.1-43.9) fL Plt Count (163-337) K/mm3 MPV (9.4-12.3) fl Neut % (Auto) (34.0-67.9) % Lymph % (Auto) (21.8-53.1) % Lares % (Auto) (5.3-12.2) % Eos % (Auto) (0.8-7.0) Baso % (Auto) (0.1-1.2) % Neut # (Auto) (1.78-5.38) K/mm3 Lymph # (Auto) (1.32-3.57) K/mm3 Lares # (Auto) (0.30-0.82) K/mm3 Eos # (Auto) (0.04-0.54) K/mm3 Baso # (Auto) (0.01-0.08) K/mm3 Manual Slide Review Sodium (136-145) mEq/L Potassium (3.5-5.1) mEq/L Chloride (98-107) mEq/L Carbon Dioxide (21-32) mEq/L Anion Gap (5-15) BUN (7-18) mg/dL Creatinine (0.7-1.3) mg/dL Est Cr Clr Drug Dosing mL/min Estimated GFR (MDRD) (>60) mL/min BUN/Creatinine Ratio (14-18) Glucose (83-115) mg/dL Hemoglobin A1c 5.50 (4.50-6.20) % Lactic Acid 0.9 (0.4-2.0) mmol/L Calcium (8.5-10.1) mg/dL Phosphorus (2.6-4.7) mg/dL Magnesium (1.8-2.4) mg/dl Total Bilirubin (0.2-1.0) mg/dL AST (15-37) U/L ALT (16-63) U/L Alkaline Phosphatase (46-116) U/L C-Reactive Protein (<1.0) mg/dL NT-Pro-B Natriuret Pep 499 H (0-125) pg/mL Total Protein (6.4-8.2) g/dl Albumin (3.4-5.0) g/dl Globulin gm/dL Albumin/Globulin Ratio (1-2) TSH 3rd Generation (0.358-3.74) uIU/mL SARS-CoV-2 RNA (LORRI) (NEGATIVE) 09/12/20 09/12/20 Range/Units 10:27 10:27 WBC 6.38 (4.23-9.07) K/mm3 RBC 3.49 L (4.63-6.08) M/mm3 Hgb 8.6 L (13.7-17.5) gm/dl Hct 30.3 L (40.1-51.0) % MCV 86.8 (79.0-92.2) fl MCH 24.6 L (25.7-32.2) pg MCHC 28.4 L (32.2-35.5) g/dl RDW Std Deviation 46.9 H (35.1-43.9) fL Plt Count 322 (163-337) K/mm3 MPV 9.0 L (9.4-12.3) fl Neut % (Auto) 83.3 H (34.0-67.9) % Lymph % (Auto) 12.4 L (21.8-53.1) % Lares % (Auto) 2.2 L (5.3-12.2) % Eos % (Auto) 1.7 (0.8-7.0) Baso % (Auto) 0.2 (0.1-1.2) % Neut # (Auto) 5.32 (1.78-5.38) K/mm3 Lymph # (Auto) 0.79 L (1.32-3.57) K/mm3 Lares # (Auto) 0.14 L (0.30-0.82) K/mm3 Eos # (Auto) 0.11 (0.04-0.54) K/mm3 Baso # (Auto) 0.01 (0.01-0.08) K/mm3 Manual Slide Review Abnormal smear Sodium 139 (136-145) mEq/L Potassium 3.3 L (3.5-5.1) mEq/L Chloride 105 (98-107) mEq/L Carbon Dioxide 26 (21-32) mEq/L Anion Gap 11.3 (5-15) BUN 13 (7-18) mg/dL Creatinine 1.0 (0.7-1.3) mg/dL Est Cr Clr Drug Dosing 56.77 mL/min Estimated GFR (MDRD) > 60 (>60) mL/min BUN/Creatinine Ratio 13.0 L (14-18) Glucose 80 L (83-115) mg/dL Hemoglobin A1c (4.50-6.20) % Lactic Acid (0.4-2.0) mmol/L Calcium 9.1 (8.5-10.1) mg/dL Phosphorus (2.6-4.7) mg/dL Magnesium 1.8 (1.8-2.4) mg/dl Total Bilirubin (0.2-1.0) mg/dL AST (15-37) U/L ALT (16-63) U/L Alkaline Phosphatase (46-116) U/L C-Reactive Protein (<1.0) mg/dL NT-Pro-B Natriuret Pep (0-125) pg/mL Total Protein (6.4-8.2) g/dl Albumin (3.4-5.0) g/dl Globulin gm/dL Albumin/Globulin Ratio (1-2) TSH 3rd Generation (0.358-3.74) uIU/mL SARS-CoV-2 RNA (LORRI) (NEGATIVE) RORY Results - Last 24 hrs: Microbiology 09/11/20 14:10 Aerobic Blood Culture - Preliminary Blood - Venous - Lab Draw NO GROWTH AFTER 1 DAY Anaerobic Blood Culture - Preliminary NO GROWTH AFTER 1 DAY 09/11/20 14:00 Aerobic Blood Culture - Preliminary Blood - Venous NO GROWTH AFTER 1 DAY Anaerobic Blood Culture - Preliminary NO GROWTH AFTER 1 DAY Med Orders - Current: Current Medications Hydrocodone Bitart/Acetaminophen (Minneola 325-5 Mg) 1 tab PO Q4H PRN PRN Reason: Pain (moderate 4-6) Last Admin: 09/11/20 21:43 Dose: 1 tab Documented by: Albuterol (Proventil Neb Soln) 2.5 mg NEB QID PRN PRN Reason: Shortness of Breath Allopurinol (Zyloprim) 100 mg PO DAILY [facility] Last Admin: 09/12/20 09:25 Dose: 100 mg Documented by: Arformoterol Tartrate (Brovana) 15 mcg NEB BID@0600,2100 [facility] Last Admin: 09/12/20 05:36 Dose: 15 mcg Documented by: Ascorbic Acid (Vitamin C) 2,000 mg PO DAILY [facility] Last Admin: 09/12/20 09:24 Dose: 2,000 mg Documented by: Budesonide (Pulmicort) 0.5 mg NEB BID@0600,2100 [facility] Last Admin: 09/12/20 05:36 Dose: 0.5 mg Documented by: Cholecalciferol (Vitamin D3) 5,000 unit PO DAILY [facility] Enoxaparin Sodium (Lovenox) 40 mg SUBCUT DAILY [facility] Last Admin: 09/12/20 09:25 Dose: 40 mg Documented by: Ferrous Sulfate (Ferrous Sulfate) 324 mg PO DAILY [facility] Last Admin: 09/12/20 09:25 Dose: 324 mg Documented by: Hydromorphone HCl (Dilaudid) 0.25 mg IVPUSH Q2H PRN PRN Reason: Pain Sodium Chloride (Normal Saline) 1,000 mls @ 150 mls/hr IV ASDIRECTED [facility] Last Admin: 09/12/20 10:29 Dose: 150 mls/hr Documented by: Ipratropium [place] (Atrovent) 0.5 mg NEB TID@0600,1400,2200 [facility] Last Admin: 09/12/20 14:03 Dose: Not Given Documented by: Loratadine (Claritin) 10 mg PO DAILY [facility] Last Admin: 09/12/20 09:25 Dose: 10 mg Documented by: Magnesium Oxide (Magnesium Oxide) 800 mg PO DAILY [facility] Last Admin: 09/12/20 09:25 Dose: 800 mg Documented by: Metoprolol Succinate (Toprol Xl) 25 mg PO DAILY [facility] Last Admin: 09/12/20 09:52 Dose: 25 mg Documented by: Montelukast Sodium (Singulair) 10 mg PO DAILY@1700 [facility] Pantoprazole Sodium (Protonix) 40 mg PO DAILY [facility] Last Admin: 09/12/20 09:25 Dose: 40 mg Documented by: Tetracaine 0.25% (Lollipop) 0 each PO Q4H PRN PRN Reason: Sore Throat Prochlorperazine Maleate (Compazine) 10 mg PO QID PRN PRN Reason: Nausea/Vomiting Simvastatin (Zocor) 40 mg PO DAILY [facility] Last Admin: 09/12/20 09:25 Dose: 40 mg Documented by: Sodium Chloride (Sodium Chloride 0.9%) 3 ml NEB Q2H PRN PRN Reason: Other Temazepam (Restoril) 15 - 30 mg PO BEDTIME PRN PRN Reason: Insomnia Last Admin: 09/11/20 21:43 Dose: 15 mg Documented by: Discontinued Medications Arformoterol Tartrate (Brovana) 15 mcg NEB BID [facility] Budesonide (Pulmicort) 0.5 mg NEB BID [facility] Cholecalciferol (Vitamin D3) 5,000 unit PO DAILY [facility] Cholecalciferol (Vitamin D3) 10,000 unit PO DAILY [facility] Guaifenesin (Mucinex) 600 mg PO BID [facility] Last Admin: 09/11/20 22:28 Dose: Not Given Documented by: Heparin Sodium (Porcine) (Heparin Lock Flush 100 Units/Ml) 500 units FLUSH ASDIRECTED ONE Stop: 09/12/20 14:31 Last Admin: 09/12/20 14:27 Dose: 500 units Documented by: Potassium Chloride 10 meq/ (Premix) 100 mls @ 100 mls/hr IV Q1H [facility] Stop: 09/11/20 17:59 Last Admin: 09/11/20 17:49 Dose: 100 mls/hr Documented by: Ceftriaxone Sodium 2 gm/ (Sodium Chloride) 100 mls @ 200 mls/hr IV ONETIME ONE Stop: 09/11/20 16:19 Last Admin: 09/11/20 16:18 Dose: 200 mls/hr Documented by: Ipratropium [place] (Atrovent) 0.5 mg NEB Q8H LETI Ipratropium [place] (Atrovent) 0.5 mg NEB Q8H LETI Magnesium Hydroxide (Milk Of Magnesia) 30 ml PO ONETIME ONE Stop: 09/12/20 09:01 Last Admin: 09/12/20 09:25 Dose: 30 ml Documented by: Potassium Chloride (Potassium Chloride Solution) 40 meq PEGTUBE ONETIME ONE Stop: 09/12/20 11:21 Last Admin: 09/12/20 11:41 Dose: 40 meq Documented by: - Exam Quality Assessment: Reports: Supplemental Oxygen General: Reports: Alert, Oriented, Other (Difficult to understand secondary to trach) HEENT: Reports: Pupils Equal, Mucous Membr. Moist/High [place] Neck: Reports: Supple Lungs: Reports: Normal Respiratory Effort, Other (Difficult to hear secondary to stridor for most tracheostomy). Denies: Clear to Auscultation Cardiovascular: Reports: Regular Rate, Regular Rhythm GI/Abdominal Exam: Normal Bowel Sounds, Soft, Non-Tender, No Organomegaly, No Distention, No Abnormal Bruit, No Mass, Pelvis Stable Extremities: Normal Inspection, Normal Range of Motion, Non-Tender, No Pedal Edema, Normal Capillary Refill Skin: Reports: Warm, Dry, Intact Neurological: Reports: No New Focal Deficit Psy/Mental Status: Reports: Alert, Normal Affect, Normal Mood
[2020-09-12] MEDS ORDERED: Montelukast 10 MG Tab PO SCH (17:00)
[2020-09-13] MEDS ORDERED: Cholecalciferol (Vitamin D3) 5,000 UNIT Cap PO SCH (09:00)
== END 2020-09-12 13:36 | disposition home or self-care (01) | DRG 641 ==
LOC: JD.ED 13:07 → JD.MS 17:01
PROVIDERS: ADMIT Family Medicine; ATTEND Family Medicine
DX: E87.6 Hypokalemia (principal); Z85.819 Personal history of malignant neoplasm of unspecified site of lip, oral cavity, and pharynx; Z85.118 Personal history of other malignant neoplasm of bronchus and lung; E78.5 Hyperlipidemia, unspecified; H54.7 Unspecified visual loss; E78.00 Pure hypercholesterolemia, unspecified; I10 Essential (primary) hypertension; Z96.642 Presence of left artificial hip joint; D50.9 Iron deficiency anemia, unspecified; Z93.0 Tracheostomy status; J44.9 Chronic obstructive pulmonary disease, unspecified; J40 Bronchitis, not specified as acute or chronic; M10.9 Gout, unspecified; D64.9 Anemia, unspecified; E61.1 Iron deficiency; Z93.1 Gastrostomy status; Z85.01 Personal history of malignant neoplasm of esophagus; Z87.891 Personal history of nicotine dependence; C34.90 Malignant neoplasm of unspecified part of unspecified bronchus or lung; C79.9 Secondary malignant neoplasm of unspecified site; Z88.6 Allergy status to analgesic agent; Z99.81 Dependence on supplemental oxygen; Z79.899 Other long term (current) drug therapy; Z20.822 Contact with and (suspected) exposure to COVID-19
CPT/HCPCS: 36415; 71045; 71045-26; 80048; 80053; 83036; 83605; 83735; 83880; 84100; 84145; 84443; 85025; 86140; 87040; 94640; 94761; 96365; 96366; 96367; 96368; 99284; 99285-25; A9270-GY; J0696; J1642; J1650; J3480; J7030; J7050; U0002

== ENCOUNTER 2020-10-19 14:25 | Emergency (ER) | payer MEDICARE, BC ==
[2020-10-19 14:51] VITALS: BP 127/56; PULSE 81
--- NOTE | 2020-10-19 16:03 | EDM.PDOC ---
ED HPI GENERAL MEDICAL PROBLEM - General Chief Complaint: General Stated Complaint: WEAK Time Seen by Provider: 10/19/20 15:56 - History of Present Illness INITIAL COMMENTS - FREE TEXT/NARRATIVE: 75-year-old male comes the emergency room complaining of feeling weak. Patient has a complicated history he is being treated for laryngeal cancer is getting chemotherapy his last chemo was a little over a week ago. The patient was anemic and had his most recent transfusion on the of this month. Family is concerned that maybe he is anemic again. His transfusion prior to that was on the of last month. Patient has not been running any fevers he may be coughing a little more than normal and certainly bringing up more secretions. He has a tracheostomy. He is now being fed through a feeding tube. He is not having significant pain at this time. - Related Data Allergies Allergy/AdvReac Type Severity Reaction Status Date / Time morphine Allergy Hallucinati Verified 10/19/20 14:50 ons Home Meds: Home Meds Montelukast [Singulair] 10 mg PO BEDTIME 01/06/16 [History] Allopurinol [Zyloprim] 100 mg PO DAILY 07/26/20 [History] Arformoterol [Brovana] 15 mcg NEB BID 07/26/20 [History] Magnesium Oxide [Mag-Oxide Magnesium] 800 mg PO DAILY 07/26/20 [History] Omeprazole 20 mg PO DAILY 07/26/20 [History] Simvastatin 40 mg PO DAILY 07/26/20 [History] Acetaminophen/HYDROcodone [[place] 325-5 MG] 1 tab [id number] Q4H PRN 09/11/20 [History] Albuterol [Proventil Neb Soln] 2.5 mg NEB QID PRN 09/11/20 [History] Ascorbic Acid [C-1000] 2,000 mg PO DAILY 09/11/20 [History] Budesonide [Pulmicort] 0.5 mg NEB BID 09/11/20 [History] Cholecalciferol (Vitamin D3) [Vitamin D] 2 cap PO DAILY 09/11/20 [History] Ipratropium [Atrovent] 0.5 mg NEB Q8H 09/11/20 [History] Lidocaine/Prilocaine [EMLA Crm] 1 applic TOP ASDIRECTED PRN 09/11/20 [History] Loratadine 10 mg PO DAILY 09/11/20 [History] Metoprolol Succinate 12.5 mg PO DAILY 09/11/20 [History] Non-Formulary Medication [NF Drug] 1 applic PO Q4H PRN 09/11/20 [History] Prochlorperazine [Compazine] 10 mg PO QID PRN 09/11/20 [History] Sodium Chloride 0.9% 3 ml NEB Q2H PRN 09/11/20 [History] Ferrous Sulfate 220 mg PO DAILY 10/19/20 [History] LORazepam [Ativan] 0.5 mg PO QID PRN 10/19/20 [History] Potassium Chloride 20 meq PO BID 10/19/20 [History] Past Medical History HEENT History: Reports: Other (See Below) Other HEENT History: glasses Cardiovascular History: Reports: High Cholesterol, Hypertension Respiratory History: Reports: COPD, Other (See Below) Other Respiratory History: 4L 02 home use. 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 - Infectious Disease History Infectious Disease History: Reports: Chicken Pox, Measles, Mumps - Past Surgical History Respiratory Surgical History: Reports: Tracheostomy GI Surgical History: Reports: Other (See Below) Musculoskeletal Surgical History: Reports: Other (See Below) Other Musculoskeletal Surgeries/Procedures:: hx back surgery Social & Family History - Family History Family Medical History: No Pertinent Family History - Tobacco Use Tobacco Use Status *Q: Former Tobacco User Used Tobacco, but Quit: Yes Month/Year Tobacco Last Used: 40 years ago - Caffeine Use Caffeine Use: Reports: None Caffeine Use Comment: doesn't drink much anymore - Recreational Drug Use Recreational Drug Use: No ED ROS GENERAL - Review of Systems Review Of Systems: See Below Constitutional: Reports: Weakness, Fatigue. Denies: Fever, Chills HEENT: Reports: No Symptoms Respiratory: Reports: Cough (This is chronic he seems to have more secretions coming up through his trach however) Cardiovascular: Reports: No Symptoms. Denies: Chest Pain Endocrine: Reports: No Symptoms GI/Abdominal: Reports: No Symptoms : Reports: No Symptoms Musculoskeletal: Reports: No Symptoms Skin: Reports: No Symptoms Neurological: Reports: No Symptoms Psychiatric: Reports: No Symptoms Hematologic/Lymphatic: Reports: No Symptoms ED EXAM, GENERAL - Physical Exam Exam: See Below Exam Limited By: No Limitations General Appearance: Alert, No Apparent Distress Eye Exam: Bilateral Eye: Normal Inspection Ears: Normal External Exam, Normal Canal, Hearing Grossly Normal, Normal TMs Nose: Normal Inspection, Normal Mucosa, No Blood Throat/Mouth: Normal Inspection, Normal Lips, Normal Gums, Normal Oropharynx, Normal Voice, Other (He is breathing through his tracheostomy) Head: Atraumatic, Normocephalic Neck: Normal Inspection, Supple, Non-Tender, Full Range of Motion. No: Lymphadenopathy (L), Lymphadenopathy (R) Respiratory/Chest: No Respiratory Distress, Normal Breath Sounds, Crackles (Left lung base and to a lesser degree right lung base) Cardiovascular: Regular Rate, Rhythm, No Edema, No Murmur GI/Abdominal: Normal Bowel Sounds, Soft, Non-Tender Back Exam: Normal Inspection. No: CVA Tenderness (L), CVA Tenderness (R) #1 Interpretation EKG Date: 10/19/20 Rhythm: NSR Rate (Beats/Min): 75 [place]: LAD-Left [place] Deviation (Borderline) P-Wave: Present QRS: Other (Possible Q waves in V2 otherwise normal QRS) ST-T: Normal QT: Normal Comparison: NA - No Prior EKG EKG Interpretation Comments: Abnormal nonacute EKG Course - Vital Signs Last Recorded V/S: Last Vital Signs Temp 36.8 C 10/19/20 14:46 Pulse 81 10/19/20 14:46 Resp 16 10/19/20 14:46 BP 127/56 L 10/19/20 14:46 Pulse Ox 99 10/19/20 14:46 - Orders/Labs/Meds Orders: Active Orders 24 hr Category Date Time Status EKG Documentation Completion [RC] STAT Care 10/19/20 16:22 Active Chest 1V Frontal [CR] Stat Exams 10/19/20 16:20 Taken Labs: Laboratory Tests 10/19/20 10/19/20 10/19/20 Range/Units 17:10 17:10 17:10 WBC 13.71 H (4.23-9.07) K/mm3 RBC 3.10 L (4.63-6.08) M/mm3 Hgb 8.2 L (13.7-17.5) gm/dl Hct 27.1 L (40.1-51.0) % MCV 87.4 (79.0-92.2) fl MCH 26.5 (25.7-32.2) pg MCHC 30.3 L (32.2-35.5) g/dl RDW Std Deviation 51.9 H (35.1-43.9) fL Plt Count 745 H D (163-337) K/mm3 MPV 8.3 L (9.4-12.3) fl Neut % (Auto) 66.9 (34.0-67.9) % Lymph % (Auto) 8.4 L (21.8-53.1) % [place] % (Auto) 21.3 H (5.3-12.2) % Eos % (Auto) 2.6 (0.8-7.0) Baso % (Auto) 0.1 (0.1-1.2) % Neut # (Auto) 9.18 H (1.78-5.38) K/mm3 Lymph # (Auto) 1.15 L (1.32-3.57) K/mm3 [place] # (Auto) 2.92 H (0.30-0.82) K/mm3 Eos # (Auto) 0.35 (0.04-0.54) K/mm3 Baso # (Auto) 0.02 (0.01-0.08) K/mm3 Manual Slide Review Abnormal smear PT 11.1 (9.7-12.0) SECONDS INR 1.04 Sodium 128 L D (136-145) mEq/L Potassium 4.4 (3.5-5.1) mEq/L Chloride 93 L D (98-107) mEq/L Carbon Dioxide 29 (21-32) mEq/L Anion Gap 10.4 (5-15) BUN 23 H (7-18) mg/dL Creatinine 0.6 L (0.7-1.3) mg/dL Est Cr Clr Drug Dosing TNP Estimated GFR (MDRD) > 60 (>60) mL/min BUN/Creatinine Ratio 38.3 H (14-18) Glucose 74 L (83-115) mg/dL Calcium 9.8 (8.5-10.1) mg/dL Total Bilirubin 0.3 (0.2-1.0) mg/dL AST 21 (15-37) U/L ALT 44 (16-63) U/L Alkaline Phosphatase 99 (46-116) U/L Troponin I < 0.017 (0.00-0.056) ng/mL Total Protein 6.4 (6.4-8.2) g/dl Albumin 2.4 L (3.4-5.0) g/dl Globulin 4.0 gm/dL Albumin/Globulin Ratio 0.6 L (1-2) Urine Color (Yellow) Urine Appearance (Clear) Urine pH (5.0-8.0) Ur Specific [place] (1.005-1.030) Urine Protein (Negative) Urine Glucose (UA) (Negative) Urine Ketones (Negative) Urine Occult Blood (Negative) Urine Nitrite (Negative) Urine Bilirubin (Negative) Urine Urobilinogen (0.2-1.0) Ur Leukocyte Esterase (Negative) Urine RBC (0-5) /hpf Urine WBC (0-5) /hpf Ur Squamous Epith Cells (0-5) /hpf Urine Bacteria (FEW) /hpf Urine Mucus (FEW) /hpf 10/19/20 Range/Units 18:30 WBC (4.23-9.07) K/mm3 RBC (4.63-6.08) M/mm3 Hgb (13.7-17.5) gm/dl Hct (40.1-51.0) % MCV (79.0-92.2) fl MCH (25.7-32.2) pg MCHC (32.2-35.5) g/dl RDW Std Deviation (35.1-43.9) fL Plt Count (163-337) K/mm3 MPV (9.4-12.3) fl Neut % (Auto) (34.0-67.9) % Lymph % (Auto) (21.8-53.1) % [place] % (Auto) (5.3-12.2) % Eos % (Auto) (0.8-7.0) Baso % (Auto) (0.1-1.2) % Neut # (Auto) (1.78-5.38) K/mm3 Lymph # (Auto) (1.32-3.57) K/mm3 [place] # (Auto) (0.30-0.82) K/mm3 Eos # (Auto) (0.04-0.54) K/mm3 Baso # (Auto) (0.01-0.08) K/mm3 Manual Slide Review PT (9.7-12.0) SECONDS INR Sodium (136-145) mEq/L Potassium (3.5-5.1) mEq/L Chloride (98-107) mEq/L Carbon Dioxide (21-32) mEq/L Anion Gap (5-15) BUN (7-18) mg/dL Creatinine (0.7-1.3) mg/dL Est Cr Clr Drug Dosing Estimated GFR (MDRD) (>60) mL/min BUN/Creatinine Ratio (14-18) Glucose (83-115) mg/dL Calcium (8.5-10.1) mg/dL Total Bilirubin (0.2-1.0) mg/dL AST (15-37) U/L ALT (16-63) U/L Alkaline Phosphatase (46-116) U/L Troponin I (0.00-0.056) ng/mL Total Protein (6.4-8.2) g/dl Albumin (3.4-5.0) g/dl Globulin gm/dL Albumin/Globulin Ratio (1-2) Urine Color Yellow (Yellow) Urine Appearance Clear (Clear) Urine pH 7.5 (5.0-8.0) Ur Specific [place] 1.020 (1.005-1.030) Urine Protein Trace H (Negative) Urine Glucose (UA) Negative (Negative) Urine Ketones Negative (Negative) Urine Occult Blood Negative (Negative) Urine Nitrite Negative (Negative) Urine Bilirubin Negative (Negative) Urine Urobilinogen 0.2 (0.2-1.0) Ur Leukocyte Esterase Negative (Negative) Urine RBC 0-5 (0-5) /hpf Urine WBC 0-5 (0-5) /hpf Ur Squamous Epith Cells 0-5 (0-5) /hpf Urine Bacteria Few (FEW) /hpf Urine Mucus Few (FEW) /hpf - Re-Assessments/Exams Free Text/Narrative Re-Assessment/Exam: 10/19/20 18:39 His white count is elevated hemoglobin hematocrit is stable chest x-ray is suggestive of bilateral infiltrates versus scar tissue his pattern appears slightly worse than it did on September 11. At this time we are currently awaiting urinalysis. His chemistry is remarkable for sodium this low at 128 10/19/20 19:06 Urinalysis is noncontributory certainly not suggestive of infectious process. Will discharge on doxycycline with a suspected pneumonia Departure - Departure Time of Disposition: 19:20 Disposition: Home, Self-Care 01 Clinical Impression: Pneumonia - Discharge Information Instructions: Community-Acquired Pneumonia, Adult, [id number] Referrals: Jean Paul Sheehan MD [Primary Care Provider] - Forms: ED Department Discharge Additional Instructions: Return to the emergency room with any questions problems or worsening symptoms. From the machine eat in the waiting room you are getting doxycycline, this is an antibiotic, take 1 twice daily until gone for 10 days start this evening. Follow-up in the clinic on as scheduled. Sepsis Event Note (ED) - Evaluation Sepsis Screening Result: No Definite Risk - Focused Exam Vital Signs: Vital Signs Temp Pulse Resp BP Pulse Ox 10/19/20 14:46 36.8 C 81 16 127/56 L 99 - My Orders Last 24 Hours: My Active Orders 10/19/20 16:20 Chest 1V Frontal [CR] Stat 10/19/20 16:22 EKG Documentation Completion [RC] STAT - Assessment/Plan Last 24 Hours: My Active Orders 10/19/20 16:20 Chest 1V Frontal [CR] Stat 10/19/20 16:22 EKG Documentation Completion [RC] STAT
--- NOTE | 2020-10-20 12:36 | CR ---
Chest: Portable view of the chest was obtained. Comparison: Prior chest x-ray of 09/11/20. Patchy areas of increased density are seen within both lungs. Focal density showing irregular surface margins is noted within the right midlung measuring approximately 3.4 cm which is fairly stable from prior exam. No definite acute parenchymal change is seen. Tracheostomy is noted. Right-sided infusion catheter is seen. Heart size and mediastinum are within normal limits. Impression: 1. 3.4 cm nodule with irregular margins noted within the right midlung raising the possibility of previous cancer. 2. Diffuse changes within both lungs which appear stable from prior exam. Diagnostic code #3 MTDD
== END 2020-10-19 19:55 | disposition home or self-care (01) ==
LOC: JD.ED 14:25
DX: J18.9 Pneumonia, unspecified organism (principal); E78.00 Pure hypercholesterolemia, unspecified; I10 Essential (primary) hypertension; J44.9 Chronic obstructive pulmonary disease, unspecified; M10.9 Gout, unspecified; Z88.5 Allergy status to narcotic agent; Z79.899 Other long term (current) drug therapy; Z99.81 Dependence on supplemental oxygen; Z87.891 Personal history of nicotine dependence
CPT/HCPCS: 36415; 71045; 80053; 81001; 84484; 85025; 85610; 93005; 99285; J1642; 93010; 99283

== ENCOUNTER 2020-11-06 12:31 | Inpatient (IN) | payer MEDICARE, BC ==
[2020-11-06] MEDS ORDERED: cefTRIAXone 2 GM in Sodium Chloride 0.9% 100 ML IV ONE (13:08)
--- NOTE | 2020-11-06 14:30 | CR ---
Chest: Portable view of the chest was obtained. Comparison: Prior chest x-ray of 10/19/20 and 09/11/20. Diffuse interstitial change is seen throughout both lungs which appears fairly stable. Stable nodular area is seen within the right midlung which is unchanged from previous study. Right-sided infusion catheter is seen. Tracheostomy is noted. Prior lumbar spine surgery is seen. Vascular calcification is noted within both axillary arteries. Impression: 1. Multiple findings as noted above. 2. No definite acute change is seen from previous chest x-ray. Note: If continued clinical interest remains for recurrent cancer, consider chest CT. Diagnostic code #3
--- NOTE | 2020-11-06 15:14 | EDM.PDOC ---
ED HPI GENERAL MEDICAL PROBLEM - General Chief Complaint: Respiratory Problem Stated Complaint: SOB Time Seen by Provider: 11/06/20 12:57 Source of Information: Reports: Patient History Limitations: Reports: No Limitations - History of Present Illness INITIAL COMMENTS - FREE TEXT/NARRATIVE: The patient presents from [facility] for shortness of breath and cough. He has throat cancer. He has a tracheostomy tube and feeding tube. He has stopped chemo therapy and he and his oncologist are figuring out his next steps. There is talk of him going into hospice. He went to the infusion center and got some labs and fluids. His WBC was elevated at 32.7. His Hgb was low at 7.4. Platelets were elevated at 649. He denies having a fever. He has a productive cough and he is bring up more secretions. He has no abdominal pain, chest pain, nausea or vomiting. He is on 4L of oxygen per his trach that is more then what he usually gets. He is more short of breath with exertion. Onset: Gradual Duration: Day(s): Severity: Moderate Improves with: Reports: None Worsens with: Reports: None Associated Symptoms: Reports: Cough, Shortness of Breath. Denies: Fever/Chills, Headaches, Nausea/Vomiting Headache Pain Score (Numeric/FACES): 5 - Related Data Allergies Allergy/AdvReac Type Severity Reaction Status Date / Time aspirin Allergy Unknown Other Verified 11/06/20 15:30 morphine AdvReac Mild Hallucinati Verified 11/06/20 15:30 ons roflumilast AdvReac Mild Diarrhea Verified 11/06/20 15:30 Home Meds: Home Meds Montelukast [Singulair] 10 mg PEGTUBE BEDTIME 01/06/16 [History] Arformoterol [Brovana] 15 mcg NEB BID 07/26/20 [History] Magnesium Oxide [Mag-Oxide Magnesium] 800 mg PEGTUBE DAILY 07/26/20 [History] Omeprazole 20 mg PEGTUBE DAILY 07/26/20 [History] Simvastatin 40 mg PEGTUBE DAILY 07/26/20 [History] Acetaminophen/HYDROcodone [[place] 325-5 MG] 1 tab PEGTUBE Q4H PRN 09/11/20 [History] Albuterol [Proventil Neb Soln] 2.5 mg NEB QID PRN 09/11/20 [History] Ascorbic Acid [C-1000] 2,000 mg PEGTUBE DAILY 09/11/20 [History] Budesonide [Pulmicort] 0.5 mg NEB BID 09/11/20 [History] Cholecalciferol (Vitamin D3) [Vitamin D] 2 cap PEGTUBE DAILY 09/11/20 [History] Ipratropium [Atrovent] 0.5 mg NEB Q8H 09/11/20 [History] Lidocaine/Prilocaine [EMLA Crm] 1 applic TOP ASDIRECTED PRN 09/11/20 [History] Loratadine 10 mg PEGTUBE DAILY 09/11/20 [History] Metoprolol Succinate 12.5 mg PEGTUBE DAILY 09/11/20 [History] Non-Formulary Medication [NF Drug] 1 applic Q4H PRN 09/11/20 [History] Prochlorperazine [Compazine] 10 mg PEGTUBE QID PRN 09/11/20 [History] Sodium Chloride 0.9% 3 ml NEB Q2H PRN 09/11/20 [History] Ferrous Sulfate 220 mg PEGTUBE DAILY 10/19/20 [History] LORazepam [Ativan] 0.5 mg PEGTUBE QID PRN 10/19/20 [History] Past Medical History HEENT History: Reports: Other (See Below) Other HEENT History: glasses Cardiovascular History: Reports: High Cholesterol, Hypertension Respiratory History: Reports: COPD, Other (See Below) Other Respiratory History: 4L 02 home use. 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 - Infectious Disease History Infectious Disease History: Reports: Chicken Pox, Measles, Mumps - Past Surgical History Respiratory Surgical History: Reports: Tracheostomy GI Surgical History: Reports: Other (See Below) Musculoskeletal Surgical History: Reports: Other (See Below) Other Musculoskeletal Surgeries/Procedures:: hx back surgery Social & Family History - Family History Family Medical History: No Pertinent Family History - Tobacco Use Tobacco Use Status *Q: Former Tobacco User Used Tobacco, but Quit: Yes Month/Year Tobacco Last Used: 30 - Caffeine Use Caffeine Use: Reports: None Caffeine Use Comment: doesn't drink much anymore - Recreational Drug Use Recreational Drug Use: No ED ROS GENERAL - Review of Systems Review Of Systems: See Below Constitutional: Reports: No Symptoms HEENT: Reports: No Symptoms Respiratory: Reports: Shortness of Breath, Cough Cardiovascular: Reports: No Symptoms Endocrine: Reports: No Symptoms GI/Abdominal: Reports: No Symptoms : Reports: No Symptoms Musculoskeletal: Reports: No Symptoms ED EXAM, GENERAL - Physical Exam Exam: See Below Exam Limited By: No Limitations General Appearance: Alert, No Apparent Distress Ears: Normal External Exam Nose: Normal Inspection Head: Atraumatic, Normocephalic Neck: Other (Trach in place with oxygen flowing) Respiratory/Chest: No Respiratory Distress, Rhonchi, Wheezing Cardiovascular: Regular Rate, Rhythm, No Edema, No Murmur GI/Abdominal: Soft, Non-Tender, No Organomegaly, No Mass Extremities: Normal Inspection Neurological: Alert, Oriented, No Motor/Sensory Deficits Course - Vital Signs Last Recorded V/S: Last Vital Signs Temp 97.1 F 11/06/20 12:55 Pulse 91 11/06/20 12:55 Resp 23 H 11/06/20 12:55 BP 121/59 L 11/06/20 12:55 Pulse Ox 97 11/06/20 12:55 - Orders/Labs/Meds Orders: Active Orders 24 hr Category Date Time Status Antiembolic Devices [RC] PER UNIT ROUTINE Care 11/06/20 15:22 Active Cardiac Monitoring [RC] . DIRECTED Care 11/06/20 13:07 Active Height and Weight [RC] UPON Care 11/06/20 15:20 Active Incentive Spirometry [RT Incentive Spirometry] [RC] Care 11/06/20 15:26 Active ASDIRECTED Intake and Output [RC] QSHIFT Care 11/06/20 15:21 Active Oxygen Therapy [RC] PRN Care 11/06/20 13:08 Active Oxygen Therapy [RC] PRN Care 11/06/20 15:20 Active RT Aerosol Therapy [RC] ASDIRECTED Care 11/06/20 15:22 Active RT Aerosol Therapy [RC] ASDIRECTED Care 11/06/20 15:33 Active RT Post Treatment Assessment [RC] Click to Edit Care 11/06/20 15:33 Active RT Pre-Treatment Assessment [RC] Click to Edit Care 11/06/20 15:33 Active Up With Assistance [RC] ASDIRECTED Care 11/06/20 15:20 Active Up ad [place] [RC] ASDIRECTED Care 11/06/20 15:20 Active VTE/DVT Education [RC] PER UNIT ROUTINE Care 11/06/20 15:20 Active Vital Signs [RC] Q4H Care 11/06/20 15:20 Active Consult to Case Management/Java Manager [CONS] Cons 11/06/20 15:20 Active Routine Consult to Spiritual Care [CONS] Routine Cons 11/06/20 15:20 Active OT Evaluation and Treatment [CONS] Routine Cons 11/06/20 15:20 Active PT Evaluation and Treatment [CONS] Routine Cons 11/06/20 15:20 Active Respiratory Care Assess and Treatment [CONS] Routine Cons 11/06/20 15:20 Active Regular Diet [DIET] Diet 11/06/20 Lunch Active Chest 1V Frontal [CR] AM Exams 11/07/20 05:11 Ordered BASIC METABOLIC PANEL,BMP [CHEM] AM Lab 11/07/20 05:11 Ordered BASIC METABOLIC PANEL,BMP [CHEM] AM Lab 11/08/20 05:11 Ordered BASIC METABOLIC PANEL,BMP [CHEM] AM Lab 11/09/20 05:11 Ordered BASIC METABOLIC PANEL,BMP [CHEM] AM Lab 11/10/20 05:11 Ordered BASIC METABOLIC PANEL,BMP [CHEM] AM Lab 11/11/20 05:11 Ordered C-REACTIVE PROTEIN [CHEM] AM Lab 11/07/20 05:11 Ordered C-REACTIVE PROTEIN [CHEM] AM Lab 11/08/20 05:11 Ordered C-REACTIVE PROTEIN [CHEM] AM Lab 11/09/20 05:11 Ordered C-REACTIVE PROTEIN [CHEM] AM Lab 11/10/20 05:11 Ordered C-REACTIVE PROTEIN [CHEM] AM Lab 11/11/20 05:11 Ordered CBC WITH AUTO DIFF [HEME] AM Lab 11/07/20 05:11 Ordered CBC WITH AUTO DIFF [HEME] AM Lab 11/08/20 05:11 Ordered CBC WITH AUTO DIFF [HEME] AM Lab 11/09/20 05:11 Ordered CBC WITH AUTO DIFF [HEME] AM Lab 11/10/20 05:11 Ordered CBC WITH AUTO DIFF [HEME] AM Lab 11/11/20 05:11 Ordered CULTURE BLOOD [BC] Stat Lab 11/06/20 13:27 Received CULTURE BLOOD [BC] Stat Lab 11/06/20 13:33 Received CULTURE SPUTUM + SMEAR [RM] Stat Lab 11/06/20 15:20 Ordered MAGNESIUM [CHEM] AM Lab 11/07/20 05:11 Ordered MAGNESIUM [CHEM] AM Lab 11/08/20 05:11 Ordered MAGNESIUM [CHEM] AM Lab 11/09/20 05:11 Ordered MAGNESIUM [CHEM] AM Lab 11/10/20 05:11 Ordered MAGNESIUM [CHEM] AM Lab 11/11/20 05:11 Ordered Acetaminophen [Tylenol] Med 11/06/20 15:20 Ordered 650 mg RECTAL Q4H PRN Acetaminophen/HYDROcodone [[place] 325-5 MG] Med 11/06/20 15:28 Ordered 1 tab PO Q4H PRN Albuterol [Proventil Neb Soln] Med 11/06/20 15:28 Ordered 2.5 mg NEB QID PRN Albuterol/Ipratropium [DuoNeb 3.0-0.5 MG/3 ML] Med 11/06/20 15:20 Ordered 3 ml NEB Q4H PRN Arformoterol Med 11/06/20 21:00 Ordered 15 mcg NEB BID Ascorbic Acid [C-1000] Med 11/07/20 09:00 Ordered 2,000 mg PEGTUBE DAILY Budesonide [Pulmicort] Med 11/06/20 21:00 Ordered 0.5 mg NEB BID Cholecalciferol (Vitamin D3) Med 11/07/20 09:00 Ordered 2 cap PEGTUBE DAILY Dextromethorphan/guaiFENesin [Robitussin DM] Med 11/06/20 15:26 Ordered 10 ml PO Q4H PRN Docusate Sodium/Sennosides [Senna Plus] Med 11/06/20 15:20 Ordered 1 tab PO BID PRN Enoxaparin [Lovenox] Med 11/07/20 09:00 Ordered 40 mg SUBCUT DAILY Ferrous Sulfate Med 11/07/20 09:00 Ordered 220 mg PEGTUBE DAILY HYDROmorphone [Dilaudid] Med 11/06/20 15:20 Ordered 0.5 mg IVPUSH Q2H PRN Ipratropium [Atrovent] Med 11/06/20 15:30 Ordered 0.5 mg NEB Q8H LORazepam Med 11/06/20 15:28 Ordered 0.5 mg PEGTUBE QID PRN Lidocaine/Prilocaine Med 11/06/20 15:28 Ordered 1 applic TOP ASDIRECTED PRN Loratadine [Claritin] Med 11/07/20 09:00 Ordered 10 mg PO DAILY Magnesium Oxide [Mag-Oxide Magnesium] Med 11/07/20 09:00 Ordered 800 mg PEGTUBE DAILY Metoprolol Succinate [Toprol XL] Med 11/07/20 09:00 Ordered 12.5 mg PO DAILY Montelukast [Singulair] Med 11/06/20 21:00 Ordered 10 mg PO BEDTIME Non-Formulary Medication [NF Drug] Med 11/06/20 15:28 Ordered DOSE each .XX Q4H PRN Omeprazole Med 11/07/20 09:00 Ordered 20 mg PEGTUBE DAILY Ondansetron [Zofran] Med 11/06/20 15:20 Ordered 4 mg IV Q6H PRN Piperacillin/Tazobactam [Piperacil-Tazobact] 4.5 gm Med 11/06/20 15:30 Pending Sodium Chloride 0.9% [Normal Saline] 100 ml IV Q8H Prochlorperazine Med 11/06/20 15:28 Ordered 10 mg PEGTUBE QID PRN Promethazine [Phenergan] 12.5 mg Med 11/06/20 15:20 Ordered Sodium Chloride 0.9% [Normal Saline] 50 ml IV Q6H Simvastatin [Zocor] Med 11/07/20 09:00 Ordered 40 mg PO DAILY Sodium Chloride 0.9% Med 11/06/20 15:28 Ordered 3 ml NEB Q2H PRN Sodium Chloride 0.9% [Saline Flush] Med 11/06/20 15:20 Ordered 10 ml FLUSH ASDIRECTED PRN Zolpidem [Ambien] Med 11/06/20 15:20 Ordered 5 mg PO BEDTIME PRN oxyCODONE Med 11/06/20 15:20 Ordered 5 mg PO Q4H PRN polyethylene glycoL 3350 [MiraLAX] Med 11/06/20 15:20 Ordered 17 gm PO DAILY PRN Blood Culture x2 Reflex Set [OM.PC] Stat Oth 11/06/20 13:08 Ordered Saline Lock Insert [OM.PC] Routine Oth 11/06/20 15:20 Ordered Sequential Compression Device [OM.PC] Per Unit Routine Oth 11/06/20 15:21 Ordered Medication Orders Acetaminophen (Tylenol) 650 mg RECTAL Q4H PRN PRN Reason: Pain (mild 1-3) Hydrocodone Bitart/Acetaminophen ([place] 325-5 Mg) 1 tab PO Q4H PRN PRN Reason: Pain (moderate 4-6) Albuterol (Proventil Neb Soln) 2.5 mg NEB QID PRN PRN Reason: Shortness of Breath Albuterol/Ipratropium (Duoneb 3.0-0.5 Mg/3 Ml) 3 ml NEB Q4H PRN PRN Reason: Shortness Of Breath/wheezing Budesonide (Pulmicort) 0.5 mg NEB BID LETI Enoxaparin Sodium (Lovenox) 40 mg SUBCUT DAILY LETI Guaifenesin/Phenylephrine HCl (Robitussin Dm) 10 ml PO Q4H PRN PRN Reason: Cough Hydromorphone HCl (Dilaudid) 0.5 mg IVPUSH Q2H PRN PRN Reason: Pain (severe 7-10) Promethazine HCl 12.5 mg/ (Sodium Chloride) 50.5 mls @ 100 mls/hr IV Q6H PRN PRN Reason: Nausea/Vomiting Piperacillin Sod/Tazobactam (Sod 4.5 gm/ Sodium Chloride) 100 mls @ 25 mls/hr IV Q8H LETI Ipratropium [place] (Atrovent) 0.5 mg NEB Q8H LETI Loratadine (Claritin) 10 mg PO DAILY LETI Metoprolol Succinate (Toprol Xl) 12.5 mg PO DAILY LETI Montelukast Sodium (Singulair) 10 mg PO BEDTIME LETI Non-Formulary Medication (Arformoterol) 15 mcg NEB BID LETI Non-Formulary Medication (Ascorbic Acid [C-1000]) 2,000 mg PEGTUBE DAILY LETI Non-Formulary Medication (Ferrous Sulfate) 220 mg PEGTUBE DAILY LETI Non-Formulary Medication (Cholecalciferol (Vitamin D3)) 2 cap PEGTUBE DAILY LETI Non-Formulary Medication (Lidocaine/Prilocaine) 1 applic TOP ASDIRECTED PRN PRN Reason: Other Non-Formulary Medication (Nf Drug) each .XX Q4H PRN PRN Reason: Sore Throat Non-Formulary Medication (Magnesium Oxide [Mag-Oxide Magnesium]) 800 mg PEGTUBE DAILY LETI Non-Formulary Medication (Lorazepam) 0.5 mg PEGTUBE QID PRN PRN Reason: Anxiety Non-Formulary Medication (Prochlorperazine) 10 mg PEGTUBE QID PRN PRN Reason: Nausea/Vomiting Non-Formulary Medication (Omeprazole) 20 mg PEGTUBE DAILY LETI Ondansetron HCl (Zofran) 4 mg IV Q6H PRN PRN Reason: Nausea/Vomiting Oxycodone HCl (Oxycodone) 5 mg PO Q4H PRN PRN Reason: Pain (moderate 4-6) Polyethylene Glycol (Miralax) 17 gm PO DAILY PRN PRN Reason: Constipation Senna/Docusate Sodium (Senna Plus) 1 tab PO BID PRN PRN Reason: Constipation Simvastatin (Zocor) 40 mg PO DAILY LETI Sodium Chloride (Saline Flush) 10 ml FLUSH ASDIRECTED PRN PRN Reason: Keep Vein Open Sodium Chloride (Sodium Chloride 0.9%) 3 ml NEB Q2H PRN PRN Reason: Other Zolpidem Tartrate (Ambien) 5 mg PO BEDTIME PRN PRN Reason: Sleep Labs: Laboratory Tests 11/06/20 11/06/20 11/06/20 Range/Units 13:27 13:27 14:23 Lactic Acid 1.2 (0.4-2.0) mmol/L C-Reactive Protein 6.1 H* (<1.0) mg/dL SARS-CoV-2 RNA (LORRI) Negative (NEGATIVE) Meds: Medications Generic Name Dose Route Start Last Admin Trade Name Freq PRN Reason Stop Dose Admin Acetaminophen 650 mg 11/06/20 15:20 Tylenol RECTAL Q4H PRN Pain (mild 1-3) Hydrocodone Bitart/Acetaminophen 1 tab 11/06/20 15:28 [place] 325-5 Mg PO Q4H PRN Pain (moderate 4-6) Albuterol 2.5 mg 11/06/20 15:28 Proventil Neb Soln NEB QID PRN Shortness of Breath Albuterol/Ipratropium 3 ml 11/06/20 15:20 Duoneb 3.0-0.5 Mg/3 Ml NEB Q4H PRN Shortness Of Breath/wheezing Budesonide 0.5 mg 11/06/20 21:00 Pulmicort NEB BID LETI Enoxaparin Sodium 40 mg 11/07/20 09:00 Lovenox SUBCUT DAILY LTEI Guaifenesin/Phenylephrine HCl 10 ml 11/06/20 15:26 Robitussin Dm PO Q4H PRN Cough Hydromorphone HCl 0.5 mg 11/06/20 15:20 Dilaudid IVPUSH Q2H PRN Pain (severe 7-10) Promethazine HCl 12.5 mg/ 50.5 mls @ 100 mls/hr 11/06/20 15:20 Sodium Chloride IV Q6H PRN Nausea/Vomiting Piperacillin Sod/Tazobactam 100 mls @ 25 mls/hr 11/06/20 15:30 Sod 4.5 gm/ Sodium Chloride IV Q8H LETI Ipratropium [place] 0.5 mg 11/06/20 15:30 Atrovent NEB Q8H LETI Loratadine 10 mg 11/07/20 09:00 Claritin PO DAILY LETI Metoprolol Succinate 12.5 mg 11/07/20 09:00 Toprol Xl PO DAILY LETI Montelukast Sodium 10 mg 11/06/20 21:00 Singulair PO BEDTIME LETI Non-Formulary Medication 15 mcg 11/06/20 21:00 Arformoterol NEB BID LETI Non-Formulary Medication 2,000 mg 11/07/20 09:00 Ascorbic Acid [C-1000] PEGTUBE DAILY LETI Non-Formulary Medication 220 mg 11/07/20 09:00 Ferrous Sulfate PEGTUBE DAILY LETI Non-Formulary Medication 2 cap 11/07/20 09:00 Cholecalciferol (Vitamin D3) PEGTUBE DAILY LETI Non-Formulary Medication 1 applic 11/06/20 15:28 Lidocaine/Prilocaine TOP ASDIRECTED PRN Other Non-Formulary Medication each 11/06/20 15:28 Nf Drug .XX Q4H PRN Sore Throat Non-Formulary Medication 800 mg 11/07/20 09:00 Magnesium Oxide [Mag-Oxide Magnesium] PEGTUBE DAILY LETI Non-Formulary Medication 0.5 mg 11/06/20 15:28 Lorazepam PEGTUBE QID PRN Anxiety Non-Formulary Medication 10 mg 11/06/20 15:28 Prochlorperazine PEGTUBE QID PRN Nausea/Vomiting Non-Formulary Medication 20 mg 11/07/20 09:00 Omeprazole PEGTUBE DAILY LETI Ondansetron HCl 4 mg 11/06/20 15:20 Zofran IV Q6H PRN Nausea/Vomiting Oxycodone HCl 5 mg 11/06/20 15:20 Oxycodone PO Q4H PRN Pain (moderate 4-6) Polyethylene Glycol 17 gm 11/06/20 15:20 Miralax PO DAILY PRN Constipation Senna/Docusate Sodium 1 tab 11/06/20 15:20 Senna Plus PO BID PRN Constipation Simvastatin 40 mg 11/07/20 09:00 Zocor PO DAILY LETI Sodium Chloride 10 ml 11/06/20 15:20 Saline Flush FLUSH ASDIRECTED PRN Keep Vein Open Sodium Chloride 3 ml 11/06/20 15:28 Sodium Chloride 0.9% NEB Q2H PRN Other Zolpidem Tartrate 5 mg 11/06/20 15:20 Ambien PO BEDTIME PRN Sleep Discontinued Medications Generic Name Dose Route Start Last Admin Trade Name Freq PRN Reason Stop Dose Admin Ceftriaxone Sodium 2 gm/ 100 mls @ 200 mls/hr 11/06/20 13:08 11/06/20 13:49 Sodium Chloride IV 11/06/20 13:37 200 mls/hr ONETIME ONE Administration - Re-Assessments/Exams Free Text/Narrative Re-Assessment/Exam: 11/06/20 16:03 I ordered oxygen, labs, CXR, blood cultures, lactic acid and rocephin 2grams IV. Labs were done at [place] and his WBC was elevated at 32.7. His Hgb is low at 7.4. His platelets are elevated at 649. His glucose is 207. His Na is 134. His AST is 63 and ALT is 165. His CRP was 6.1 and lactic acid is 1.2. His CXR shows no definite acute change from prior CXR. I feel he has pneumonia. I called Dr Velasquez and he agreed to the admission. Departure - Departure Time of Disposition: 16:10 Disposition: Admitted As Inpatient 68 Condition: Fair Clinical Impression: Pneumonia Qualifiers: Pneumonia type: due to unspecified organism Laterality: bilateral Lung location: lower lobe of lung Qualified Code(s): J18.9 - Pneumonia, unspecified organism Anemia Qualifiers: Anemia type: other cause Other causes of anemia: other cause, not classified Qualified Code(s): D64.89 - Other specified anemias - Discharge Information Referrals: Cristiano Singh MD [Primary Care Provider] - Forms: ED Department Discharge Sepsis Event Note (ED) - Evaluation Sepsis Screening Result: No Definite Risk - Focused Exam Vital Signs: Vital Signs Temp Pulse Resp BP Pulse Ox 11/06/20 12:55 97.1 F 91 23 H 121/59 L 97 - My Orders Last 24 Hours: My Active Orders 11/06/20 13:07 Cardiac Monitoring [RC] . DIRECTED 11/06/20 13:08 Oxygen Therapy [RC] PRN Blood Culture x2 Reflex Set [OM.PC] Stat 11/06/20 13:27 CULTURE BLOOD [BC] Stat 11/06/20 13:33 CULTURE BLOOD [BC] Stat - Assessment/Plan Last 24 Hours: My Active Orders 11/06/20 13:07 Cardiac Monitoring [RC] . DIRECTED 11/06/20 13:08 Oxygen Therapy [RC] PRN Blood Culture x2 Reflex Set [OM.PC] Stat 11/06/20 13:27 CULTURE BLOOD [BC] Stat 11/06/20 13:33 CULTURE BLOOD [BC] Stat
[2020-11-06] MEDS ORDERED: Polyethylene Glycol 3350 Powder 17 GM Packet PO PRN (15:20)
[2020-11-06] MEDS ORDERED: Albuterol/Ipratropium 3.0-0.5 MG/3 ML Neb Soln NEB PRN (15:20)
[2020-11-06] MEDS ORDERED: Sodium Chloride 0.9% 10 ML Syringe FLUSH PRN (15:20)
[2020-11-06] MEDS ORDERED: Acetaminophen 650 MG Supp RECTAL PRN (15:20)
[2020-11-06] MEDS ORDERED: Ondansetron 4 MG/2 ML SDV IV PRN (15:20)
[2020-11-06] MEDS ORDERED: oxyCODONE 5 MG Tab PO PRN (15:20)
[2020-11-06] MEDS ORDERED: Promethazine 12.5 MG in Sodium Chloride 0.9% 50 ML IV PRN (15:20)
[2020-11-06] MEDS ORDERED: guaiFENesin/Dextromethorphan 100-10 MG/5 ML Soln 5 ML Cup PO PRN (15:26)
[2020-11-06] MEDS ORDERED: TETRACAINE PO PRN (15:28)
[2020-11-06] MEDS ORDERED: LIDOCAINE TOP PRN (15:28)
[2020-11-06] MEDS ORDERED: Acetaminophen/HYDROcodone 325-5 MG Tab PO PRN (15:28)
[2020-11-06] MEDS ORDERED: Prochlorperazine 5 MG Tab PO PRN (15:28)
[2020-11-06] MEDS ORDERED: Sodium Chloride 3% Inhalation Soln 4 ML Neb NEB PRN (15:28)
[2020-11-06] MEDS ORDERED: LORazepam 0.5 MG Tab PO PRN (15:28)
[2020-11-06] MEDS ORDERED: PRILOCAINE TOP PRN (15:28)
[2020-11-06] MEDS ORDERED: Ipratropium 0.02% 0.5 MG/2.5 ML Neb Soln NEB SCH (16:00)
[2020-11-06] MEDS ORDERED: Acetaminophen/HYDROcodone 325-5 MG Tab FTUBE PRN (16:41)
[2020-11-06] MEDS ORDERED: guaiFENesin/Dextromethorphan 100-10 MG/5 ML Soln 5 ML Cup FTUBE PRN (16:42)
[2020-11-06] MEDS ORDERED: oxyCODONE 5 MG Tab FTUBE PRN (16:43)
[2020-11-06] MEDS ORDERED: Polyethylene Glycol 3350 Powder 17 GM Packet FTUBE PRN (16:45)
[2020-11-06] MEDS ORDERED: Prochlorperazine 5 MG Tab FTUBE PRN (16:45)
[2020-11-06] MEDS ORDERED: Piperacillin/Tazobactam 4.5 GM in Sodium Chloride 0.9% 100 ML IV ONE (17:00)
[2020-11-06] MEDS: Albuterol 0.083% 2.5 MG/3 ML Neb Soln NEB PRN (18:00)
--- NOTE | 2020-11-06 19:28 | PCM.HP.2 ---
H&P History of Present Illness - General Date of Service: 11/06/20 Admit Problem/Dx: Admission Diagnosis/Problem Admission Diagnosis/Problem Pneumonia Source of Information: Patient, Family, Old Records, Provider, RN Notes Reviewed History Limitations: Reports: Respiratory Distress - History of Present Illness Initial Comments - Free Text/Narative: This is a 75 yo elderly white male with past medical hx/o HTN, HLD, Asthma, COPD, Esophageal and Lung CA, Hx/o Respiratory Failure S/p Tracheostomy, Chronic Hypoxia on 4L NC via Trach, Dysphagia S/p PEG Tube Placement, Hx/o Left Shoulder Pain, Hx/o Left Hip Surgery and Insomnia who comes to us from the clinic after developing acute respiratory distress at [facility]. He states he had trouble clearing his airway and then developed shortness of air. He was found considerably hypoxic. Due to his acute respiratory distress, he was immediately sent him over to ED for urgent evaluation. At the clinic, he was fou nd with WBC of 32.7 with Hgb of 74.grams and platelet of 649. He reports no fever or chills. He endorses productive cough. He brings a lot of oral secretions. He does have a suction device at home but has been spitting a lot on a disposable cup. He does not have diuretics or anticholinergic to slow down his hypersecretions. No GI or complaints. He denies having been exposed to covid- 19 infected individuals. He has not gotten his covid-19 although he wants to be inoculated. His initial work up in ED shows a normal LA level. His CRP is elevated at 6.1 and his Covid-19 rapid test is negative. His chest x-ray shows no acute change seen from previous chest x-ray. Patient is coming in primarily for acute respiratory distress. He is complete NPO. Headache Pain Score (Numeric/FACES): 5 - Related Data Allergies/Adverse Reactions: Allergies Allergy/AdvReac Type Severity Reaction Status Date / Time aspirin Allergy Severe Other Verified 11/06/20 16:30 morphine AdvReac Severe Hallucinati Verified 11/06/20 16:30 ons roflumilast AdvReac Severe Diarrhea Verified 11/06/20 16:30 Home Medications: Home Meds Montelukast [Singulair] 10 mg PEGTUBE BEDTIME 01/06/16 [History] Arformoterol [Brovana] 15 mcg NEB BID 07/26/20 [History] Magnesium Oxide [Mag-Oxide Magnesium] 800 mg PEGTUBE DAILY 07/26/20 [History] Omeprazole 20 mg PEGTUBE DAILY 07/26/20 [History] Simvastatin 40 mg PEGTUBE DAILY 07/26/20 [History] Acetaminophen/HYDROcodone [[place] 325-5 MG] 1 tab PEGTUBE Q4H PRN 09/11/20 [History] Albuterol [Proventil Neb Soln] 2.5 mg NEB QID PRN 09/11/20 [History] Ascorbic Acid [C-1000] 2,000 mg PEGTUBE DAILY 09/11/20 [History] Budesonide [Pulmicort] 0.5 mg NEB BID 09/11/20 [History] Cholecalciferol (Vitamin D3) [Vitamin D] 2 cap PEGTUBE DAILY 09/11/20 [History] Ipratropium [Atrovent] 0.5 mg NEB Q8H 09/11/20 [History] Lidocaine/Prilocaine [EMLA Crm] 1 applic TOP ASDIRECTED PRN 09/11/20 [History] Loratadine 10 mg PEGTUBE DAILY 09/11/20 [History] Metoprolol Succinate 12.5 mg PEGTUBE DAILY 09/11/20 [History] Non-Formulary Medication [NF Drug] 1 applic Q4H PRN 09/11/20 [History] Prochlorperazine [Compazine] 10 mg PEGTUBE QID PRN 09/11/20 [History] Sodium Chloride 0.9% 3 ml NEB Q2H PRN 09/11/20 [History] Ferrous Sulfate 220 mg PEGTUBE DAILY 10/19/20 [History] LORazepam [Ativan] 0.5 mg PEGTUBE QID PRN 10/19/20 [History] predniSONE [Prednisone] 20 mg PO DAILY 11/07/20 [History] Past Medical History HEENT History: Reports: Other (See Below) Other HEENT History: glasses Cardiovascular History: Reports: High Cholesterol, Hypertension Respiratory History: Reports: COPD, Other (See Below) Other Respiratory History: 4L 02 home use. 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 - Infectious Disease History Infectious Disease History: Reports: Chicken Pox, Measles, Mumps - Past Surgical History Respiratory Surgical History: Reports: Tracheostomy GI Surgical History: Reports: Other (See Below) Musculoskeletal Surgical History: Reports: Other (See Below) Other Musculoskeletal Surgeries/Procedures:: hx back surgery Social & Family History - Family History Family Medical History: No Pertinent Family History - Tobacco Use Tobacco Use Status *Q: Former Tobacco User Used Tobacco, but Quit: Yes Month/Year Tobacco Last Used: 30 Second Hand Smoke Exposure: No - Caffeine Use Caffeine Use: Reports: None Caffeine Use Comment: doesn't drink much anymore - Recreational Drug Use Recreational Drug Use: No H&P Review of Systems - Review of Systems: Review Of Systems: See Below General: Denies: Fever, Chills, Malaise, Weakness, Fatigue HEENT: Reports: Dysphasia, Sinus Congestion Pulmonary: Reports: Shortness of Breath, Cough, Sputum. Denies: Pleuritic Chest Pain Cardiovascular: Denies: Chest Pain, Dyspnea on Exertion, Lightheadedness, Syncope, Claudication Gastrointestinal: Denies: Abdominal Pain, Nausea, Vomiting Genitourinary: Denies: Dysuria, Burning Musculoskeletal: Denies: Muscle Pain Skin: Denies: Cyanosis, Mottled, Pallor, Diaphoresis, Bruising Psychiatric: Denies: Depression, Anxiety Neurological: Denies: Confusion, Difficulty Walking, Weakness, Gait Disturbance Hematologic/Lymphatic: Reports: No Symptoms Immunologic: Reports: No Symptoms Exam - Exam Exam: See Below - Vital Signs Vital Signs: Last Vital Signs Temp 36.3 C 11/06/20 16:45 Pulse 84 11/06/20 16:56 Resp 22 H 11/06/20 16:56 BP 112/50 L 11/06/20 16:56 Pulse Ox 93 L 11/06/20 18:00 Weight: 55.248 kg - Exam Quality Assessment: Supplemental Oxygen General: Alert, Oriented, Cooperative, Mild Distress HEENT: Conjunctiva Clear, EACs Clear, EOMI, Hearing Intact, Mucosa Moist & [place], Nares Patent, Normal Nasal Septum, Posterior Pharynx Clear, Pupils Equal, Other (Has Trach with supplemental O2) Neck: Supple, Trachea Midline Lungs: Clear to Auscultation, Normal Respiratory Effort, Other (makes alot of oral secretions). No: Stridor, Wheezing Cardiovascular: Regular Rate, Regular Rhythm GI/Abdominal Exam: Normal Bowel Sounds, Soft, Non-Tender, No Organomegaly, No Distention, No Abnormal Bruit, Other (has PEG tube for sustenance and hydration) (Male) Exam: Deferred Rectal (Males) Exam: Deferred Back Exam: Normal Inspection, Decreased Range of Motion Extremities: Normal Inspection, Normal Range of Motion, Non-Tender, No Pedal Edema, Normal Capillary Refill Peripheral Pulses: 2+: Dorsalis Pedis (L), Dorsalis Pedis (R) Skin: Warm, Dry, Intact Neuro Extensive - Mental Status: Oriented x3, Normal Cognition, Memory Intact Neuro Extensive - Motor, Sensory, Reflexes: CN II-XII Intact, Normal Gait Psychiatric: Alert, Normal Affect, Normal Mood - Patient Data Lab Results Last 24 hrs: Laboratory Results - last 24 hr 11/06/20 11/06/20 11/06/20 Range/Units 13:27 13:27 14:23 Lactic Acid 1.2 (0.4-2.0) mmol/L C-Reactive Protein 6.1 H* (<1.0) mg/dL SARS-CoV-2 RNA (LORRI) Negative (NEGATIVE) Sepsis Event Note - Evaluation Sepsis Screening Result: No Definite Risk - Focused Exam Vital Signs: Vital Signs Temp Pulse Resp BP Pulse Ox Pulse Ox 11/06/20 18:00 93 L 11/06/20 16:56 84 22 H 112/50 L 99 11/06/20 16:45 36.3 C 90 19 115/56 L 95 11/06/20 15:45 81 19 118/60 96 11/06/20 15:15 82 16 112/61 98 11/06/20 14:45 84 20 105/60 99 11/06/20 14:00 91 20 129/61 99 11/06/20 13:15 89 17 119/56 L 98 11/06/20 13:00 69 20 123/55 L 98 11/06/20 12:55 36.2 C 91 23 H 121/59 L 97 Problem List Initiated/Reviewed/Updated: Yes Orders Last 24hrs: Active Orders 24 hr Category Date Time Status Admission Status [Patient Status] [ADT] Routine ADT 11/06/20 16:08 Active Antiembolic Devices [RC] Care 11/06/20 15:22 Active Cardiac Monitoring [RC] . DIRECTED Care 11/06/20 13:07 Active Height and Weight [RC] UPON Care 11/06/20 15:20 Active Incentive Spirometry [RT Incentive Spirometry] [RC] Care 11/06/20 15:26 Active ASDIRECTED Intake and Output [RC] ,16 Care 11/06/20 15:21 Active Oxygen Therapy [RC] PRN Care 11/06/20 13:08 Active Oxygen Therapy [RC] PRN Care 11/06/20 15:20 Active RT Aerosol Therapy [RC] ASDIRECTED Care 11/06/20 15:22 Active RT Aerosol Therapy [RC] ASDIRECTED Care 11/06/20 15:33 Active RT Post Treatment Assessment [RC] Click to Edit Care 11/06/20 15:33 Active RT Pre-Treatment Assessment [RC] Click to Edit Care 11/06/20 15:33 Active Up With Assistance [RC] ASDIRECTED Care 11/06/20 15:20 Active Up ad [place] [RC] ASDIRECTED Care 11/06/20 15:20 Active VTE/DVT Education [RC] Care 11/06/20 15:20 Active Vital Signs [RC] 20,00,04,08,12,16 Care 11/06/20 15:20 Active Consult to Case Management/Community Health Nurse [CONS] Cons 11/06/20 15:20 Active Routine Consult to Spiritual Care [CONS] Routine Cons 11/06/20 15:20 Active OT Evaluation and Treatment [CONS] Routine Cons 11/06/20 15:20 Active PT Evaluation and Treatment [CONS] Routine Cons 11/06/20 15:20 Active Respiratory Care Assess and Treatment [CONS] Routine Cons 11/06/20 15:20 Active Regular Diet [DIET] Diet 11/06/20 Lunch Active Chest 1V Frontal [CR] AM Exams 11/07/20 05:11 Ordered BASIC METABOLIC PANEL,BMP [CHEM] AM Lab 11/07/20 05:11 Ordered BASIC METABOLIC PANEL,BMP [CHEM] AM Lab 11/08/20 05:11 Ordered BASIC METABOLIC PANEL,BMP [CHEM] AM Lab 11/09/20 05:11 Ordered BASIC METABOLIC PANEL,BMP [CHEM] AM Lab 11/10/20 05:11 Ordered BASIC METABOLIC PANEL,BMP [CHEM] AM Lab 11/11/20 05:11 Ordered C-REACTIVE PROTEIN [CHEM] AM Lab 11/07/20 05:11 Ordered C-REACTIVE PROTEIN [CHEM] AM Lab 11/08/20 05:11 Ordered C-REACTIVE PROTEIN [CHEM] AM Lab 11/09/20 05:11 Ordered C-REACTIVE PROTEIN [CHEM] AM Lab 11/10/20 05:11 Ordered C-REACTIVE PROTEIN [CHEM] AM Lab 11/11/20 05:11 Ordered CBC WITH AUTO DIFF [HEME] AM Lab 11/07/20 05:11 Ordered CBC WITH AUTO DIFF [HEME] AM Lab 11/08/20 05:11 Ordered CBC WITH AUTO DIFF [HEME] AM Lab 11/09/20 05:11 Ordered CBC WITH AUTO DIFF [HEME] AM Lab 11/10/20 05:11 Ordered CBC WITH AUTO DIFF [HEME] AM Lab 11/11/20 05:11 Ordered CULTURE BLOOD [BC] Stat Lab 11/06/20 13:27 Received CULTURE BLOOD [BC] Stat Lab 11/06/20 13:33 Received CULTURE SPUTUM + SMEAR [RM] Stat Lab 11/06/20 15:20 Ordered MAGNESIUM [CHEM] AM Lab 11/07/20 05:11 Ordered MAGNESIUM [CHEM] AM Lab 11/08/20 05:11 Ordered MAGNESIUM [CHEM] AM Lab 11/09/20 05:11 Ordered MAGNESIUM [CHEM] AM Lab 11/10/20 05:11 Ordered MAGNESIUM [CHEM] AM Lab 11/11/20 05:11 Ordered Acetaminophen [Tylenol] Med 11/06/20 15:20 Active 650 mg RECTAL Q4H PRN Acetaminophen/HYDROcodone [[place] 325-5 MG] Med 11/06/20 16:41 Active 1 tab FTUBE Q4H PRN Albuterol [Proventil Neb Soln] Med 11/06/20 15:28 Active 2.5 mg NEB QID PRN Albuterol/Ipratropium [DuoNeb 3.0-0.5 MG/3 ML] Med 11/06/20 15:20 Active 3 ml NEB Q4H PRN Arformoterol [Brovana] Med 11/06/20 21:00 Active 15 mcg NEB BID Ascorbic Acid [Vitamin C] Med 11/07/20 09:00 Active 2,000 mg FTUBE DAILY Budesonide [Pulmicort] Med 11/06/20 21:00 Active 0.5 mg NEB BID Cholecalciferol (Vitamin D3) Med 11/07/20 09:00 Pending 2 cap PEGTUBE DAILY Dextromethorphan/guaiFENesin [Robitussin DM] Med 11/06/20 16:42 Active 10 ml FTUBE Q4H PRN Docusate Sodium/Sennosides [Senna Plus] Med 11/06/20 16:47 Active 1 tab FTUBE BID PRN Enoxaparin [Lovenox] Med 11/07/20 09:00 Active 40 mg SUBCUT DAILY HYDROmorphone [Dilaudid] Med 11/06/20 15:20 Active 0.5 mg IVPUSH Q2H PRN Ipratropium [Atrovent] Med 11/06/20 21:00 Active 0.5 mg NEB TIDRT LORazepam [Ativan] Med 11/06/20 16:42 Active 0.5 mg FTUBE QID PRN Lidocaine/Prilocaine Med 11/06/20 15:28 Pending 1 applic TOP ASDIRECTED PRN Loratadine [Claritin] Med 11/07/20 09:00 Active 10 mg FTUBE DAILY Magnesium Oxide Med 11/07/20 09:00 Active 800 mg FTUBE DAILY Metoprolol Succinate [Toprol XL] Med 11/07/20 09:00 Active 12.5 mg .XX DAILY Montelukast [Singulair] Med 11/06/20 21:00 Active 10 mg FTUBE BEDTIME Omeprazole Med 11/07/20 09:00 Active 20 mg GTUBE DAILY Ondansetron [Zofran] Med 11/06/20 15:20 Active 4 mg IV Q6H PRN Patient's Own Medication [Ptom] Med 11/07/20 09:00 Active 0 each PEGTUBE DAILY Patient's Own Medication [Ptom] Med 11/06/20 15:28 Active 1 each PO Q4H PRN Piperacillin/Tazobactam [Piperacil-Tazobact] 4.5 gm Med 11/07/20 01:00 Active Sodium Chloride 0.9% [Normal Saline] 100 ml IV Q8H Prochlorperazine [Compazine] Med 11/06/20 16:45 Active 10 mg FTUBE QID PRN Promethazine [Phenergan] 12.5 mg Med 11/06/20 15:20 Active Sodium Chloride 0.9% [Normal Saline] 50 ml IV Q6H Simvastatin [Zocor] Med 11/07/20 21:00 Active 40 mg FTUBE BEDTIME Sodium Chloride 0.9% [Saline Flush] Med 11/06/20 15:20 Active 10 ml FLUSH ASDIRECTED PRN Sodium Chloride 3% Med 11/06/20 15:28 Active 3 ml NEB Q2H PRN Zolpidem [Ambien] Med 11/06/20 21:00 Active 5 mg FTUBE BEDTIME PRN oxyCODONE Med 11/06/20 16:43 Active 5 mg FTUBE Q4H PRN polyethylene glycoL 3350 [MiraLAX] Med 11/06/20 16:45 Active 17 gm FTUBE DAILY PRN Blood Culture x2 Reflex Set [OM.PC] Stat Oth 11/06/20 13:08 Ordered Saline Lock Insert [OM.PC] Routine Oth 11/06/20 15:20 Ordered Sequential Compression Device [OM.PC] Per Unit Routine Oth 11/06/20 15:21 Ordered Resuscitation Status Stat Resus Stat 11/06/20 16:09 Ordered Medication Orders Acetaminophen (Tylenol) 650 mg RECTAL Q4H PRN PRN Reason: Pain (mild 1-3) Hydrocodone Bitart/Acetaminophen ([place] 325-5 Mg) 1 tab FTUBE Q4H PRN PRN Reason: Pain (moderate 4-6) Albuterol (Proventil Neb Soln) 2.5 mg NEB QID PRN PRN Reason: Shortness of Breath Last Admin: 11/06/20 18:00 Dose: 2.5 mg Documented by: JEANE Albuterol/Ipratropium (Duoneb 3.0-0.5 Mg/3 Ml) 3 ml NEB Q4H PRN PRN Reason: Shortness Of Breath/wheezing Arformoterol Tartrate (Brovana) 15 mcg NEB BID LETI Ascorbic Acid (Vitamin C) 2,000 mg FTUBE DAILY LETI Budesonide (Pulmicort) 0.5 mg NEB BID LETI Enoxaparin Sodium (Lovenox) 40 mg SUBCUT DAILY LETI Guaifenesin/Phenylephrine HCl (Robitussin Dm) 10 ml FTUBE Q4H PRN PRN Reason: Cough Hydromorphone HCl (Dilaudid) 0.5 mg IVPUSH Q2H PRN PRN Reason: Pain (severe 7-10) Promethazine HCl 12.5 mg/ (Sodium Chloride) 50.5 mls @ 100 mls/hr IV Q6H PRN PRN Reason: Nausea/Vomiting Piperacillin Sod/Tazobactam (Sod 4.5 gm/ Sodium Chloride) 100 mls @ 25 mls/hr IV Q8H LETI Ipratropium [place] (Atrovent) 0.5 mg NEB TIDRT LETI Loratadine (Claritin) 10 mg FTUBE DAILY LETI Lorazepam (Ativan) 0.5 mg FTUBE QID PRN PRN Reason: Anxiety Magnesium Oxide (Magnesium Oxide) 800 mg FTUBE DAILY [facility] Metoprolol Succinate (Toprol Xl) 12.5 mg .XX DAILY LETI Montelukast Sodium (Singulair) 10 mg FTUBE BEDTIME [facility] Non-Formulary Medication (Cholecalciferol (Vitamin D3)) 2 cap PEGTUBE DAILY [facility] Non-Formulary Medication (Lidocaine/Prilocaine) 1 applic TOP ASDIRECTED PRN PRN Reason: Other Omeprazole (Omeprazole) 20 mg GTUBE DAILY [facility] Ondansetron HCl (Zofran) 4 mg IV Q6H PRN PRN Reason: Nausea/Vomiting Oxycodone HCl (Oxycodone) 5 mg FTUBE Q4H PRN PRN Reason: Pain (moderate 4-6) Ferrous Sulfate 220 (Mg/5 Ml Liquid) 0 each PEGTUBE DAILY [facility] Tetracaine 0.25% (Lollipops) 1 each PO Q4H PRN PRN Reason: Sore Throat Polyethylene Glycol (Miralax) 17 gm FTUBE DAILY PRN PRN Reason: Constipation Prochlorperazine Maleate (Compazine) 10 mg FTUBE QID PRN PRN Reason: Nausea/Vomiting Senna/Docusate Sodium (Senna Plus) 1 tab FTUBE BID PRN PRN Reason: Constipation Simvastatin (Zocor) 40 mg FTUBE BEDTIME [facility]I Sodium Chloride (Saline Flush) 10 ml FLUSH ASDIRECTED PRN PRN Reason: Keep Vein Open Sodium Chloride (Sodium Chloride 3%) 3 ml NEB Q2H PRN PRN Reason: Other Zolpidem Tartrate (Ambien) 5 mg FTUBE BEDTIME PRN PRN Reason: Sleep Assessment/Plan Comment:: This is a 75 yo elderly white male with past medical hx/o HTN, HLD, Asthma, COPD, Esophageal and Lung CA, Hx/o Respiratory Failure S/p Tracheostomy, Chronic Hypoxia on 4L NC via Trach, Dysphagia S/p PEG Tube Placement, Hx/o Left Shoulder Pain, Hx/o Left Hip Surgery and Insomnia who comes to us from the clinic after developing respiratory distress at [facility]. Assessment: Acute: Acute Respiratory Distress Probable Aspiration Syndrome Hypoxia on supplemental O2 -Developed suddenly at the [place] [facility] -He was on 4L and had to go up on his supplemental O2 Now back to 4L sating in the low 90s -He was unable to clear his airway -He was considerably hypoxia-->reason why he was sent over to ED -Chest x-ray taken in ED shows no obvious acute changes -Plan: Continue aspiration precautions, slow down hypersecretion, RT to routine assess tracheostomy, empiric antibiotic and repeat chest x-ray in AM Mucus Plugs, acute on chronic Hypersecretions -Bedside suction device -RT routine trach care -Scopolamine patch x1 -Aspiration precautions Elevated CRP of 6.1 Leukocytosis with WBC of 32.7 taken at [facility] -Likely from acute respiratory distress -We will monitor Pancytopenia/Anemia -Had a Hgb level of 7.4 grams taken at [facility] -He was getting infusion at the clinic across us -Likely for chemotherapy Thrombocytosis of 649 taken at [facility] -Unclear if thrombo-concentration from being dry -We will repeat in AM SIRS/Early developing Sepsis -He meets criteria: WB Cof 32.7, borderline hypotension with documented BP as low as 115/56 mmHg, tachycardic with RR in the mid 20s. -Possible source: aspiration syndrome -Blood cultures were done and 2 grams IV Rocephin given in ED -Already received IV Zosyn for empiric treatment -Plan: UA and Sputum culture with grams stain. No need for aggressive volume resuscitation,patient is not significantly hypotensive Chronic: HTN, HLD, Asthma, COPD, Esophageal and Lung CA, Hx/o Respiratory Failure S/p Tracheostomy, Chronic Hypoxia on 4L NC via Trach, Dysphagia S/p PEG Tube Placement, Hx/o Left Shoulder Pain, Hx/o Left Hip Surgery and Insomnia Plan: Admit to ICU due to respiratory status. He needs to be monitored closely. Routine AM Labs. Repeat chest x-ray. RT to assess and treat. PRN suction for oral secretions. Scopolamine patch x1 to slow down hypersecretions. IV fluids for hydration. Complete NPO. Dietary consult for tube feeding. DVT/GI prophylaxis. Code status is full. Overall prognosis is very poor.
[2020-11-06] MEDS: Budesonide 0.5 MG/2 ML Neb Susp NEB SCH (20:55)
[2020-11-06] MEDS: Arformoterol 15 MCG/2 ML Neb Soln NEB SCH (20:55)
[2020-11-06] MEDS: Ipratropium 0.02% 0.5 MG/2.5 ML Neb Soln NEB SCH (20:55)
[2020-11-06] MEDS ORDERED: Zolpidem 5 MG Tab FTUBE PRN (21:00)
[2020-11-06] MEDS ORDERED: Scopolamine 1.5 MG Transdermal Patch TOP ONE (21:01)
[2020-11-06] MEDS: Sodium Chloride 0.9% 1,000 ML IV SCH (21:34)
[2020-11-06] MEDS: LORazepam 0.5 MG Tab FTUBE PRN (21:40)
[2020-11-06] MEDS: Montelukast 10 MG Tab FTUBE SCH (21:41)
[2020-11-06] MEDS: Acetaminophen Soln 650 MG/20.3 ML UD Cup PO PRN (21:41)
[2020-11-07] MEDS: Piperacillin/Tazobactam 4.5 GM in Sodium Chloride 0.9% 100 ML IV SCH ×4 (02:00→22:02)
[2020-11-07] MEDS: HYDROmorphone 0.5 MG/0.5 ML Syringe IVPUSH PRN ×2 (02:06→21:54)
[2020-11-07] MEDS: Albuterol 0.083% 2.5 MG/3 ML Neb Soln NEB PRN (04:22)
[2020-11-07] MEDS: Ipratropium 0.02% 0.5 MG/2.5 ML Neb Soln NEB SCH ×4 (04:40→20:59)
[2020-11-07] MEDS ORDERED: Dexamethasone 4 MG/ML SDV IVPUSH ONE (06:43)
[2020-11-07] MEDS ORDERED: Acetaminophen 325 MG Tab PO ONE (06:43)
[2020-11-07] MEDS ORDERED: diphenhydrAMINE 50 MG/ML SDV IV ONE (06:43)
[2020-11-07] MEDS ORDERED: Furosemide 20 MG/2 ML VIAL IVPUSH ONE (06:47)
[2020-11-07] MEDS: Sodium Chloride 0.9% 1,000 ML IV SCH (07:34)
--- NOTE | 2020-11-07 08:14 | CR ---
Chest: Portable view of the chest was obtained. Comparison: Prior chest x-ray 11/06/20. Diffuse parenchymal change is seen within both lungs. Findings are felt to be fairly stable from prior exam. Tracheostomy tube is seen. Right-sided infusion catheter is noted. Stable blunting of both costophrenic angles are seen. Impression: 1. Stable findings as noted above. 2. Nothing acute is appreciated from prior chest x-ray. Diagnostic code #3
[2020-11-07] MEDS ORDERED: Acetaminophen 325 MG/10.15 ML ML PO ONE (08:45)
[2020-11-07] MEDS: Magnesium Oxide 400 MG Tab FTUBE SCH (08:45)
[2020-11-07] MEDS: Metoprolol Succinate 25 MG Tab.ER SCH (08:46)
[2020-11-07] MEDS: Ascorbic Acid 500 MG Tab FTUBE SCH (08:48)
[2020-11-07] MEDS: Loratadine 10 MG Tab FTUBE SCH (08:53)
[2020-11-07] MEDS ORDERED: Cholecalciferol (Vitamin D3) 5,000 UNIT Cap PEGTUBE SCH (09:00)
[2020-11-07] MEDS ORDERED: Enoxaparin 40 MG/0.4 ML Syringe SUBCUT SCH (09:00)
[2020-11-07] MEDS ORDERED: FERROUS SULFATE 220 MG/5 ML PEGTUBE SCH (09:00)
[2020-11-07] MEDS: Omeprazole 20 MG Cap.CR GTUBE SCH (09:12)
[2020-11-07] MEDS: Budesonide 0.5 MG/2 ML Neb Susp NEB SCH ×2 (09:12→20:59)
[2020-11-07] MEDS: Arformoterol 15 MCG/2 ML Neb Soln NEB SCH ×2 (09:12→20:59)
[2020-11-07] MEDS: LORazepam 0.5 MG Tab FTUBE PRN (09:27)
--- NOTE | 2020-11-07 10:01 | PCM.PN ---
- General Info Date of Service: 11/07/20 Admission Dx/Problem (Free Text): Admission Diagnosis/Problem Admission Diagnosis/Problem Pneumonia Subjective Update: In to see Deann. Laying in bed and has humidified oxygen going into his tracheostomy. He reports continued shortness of breath and cough with significant mucus. His hemoglobin was down to 6.1 today so he is receiving 2 units of PRBCs. Leukocytosis has improved to 24.33. CRP is also improved to 4.6. Discussed with dietary patient's nutritional needs as per dietitian she is very familiar with the patient and he has been worsening recently. Will increase calorie count of his feeds but keep the volume similar. He does have a chronic PEG tube in his abdomen. Otherwise we will continue current treatment plan. Repeat chest x-ray today is stable with no acute findings. Functional Status: Reports: Pain Controlled, Urinating. Denies: Tolerating Diet (NPO -receives feeding through PEG tube and abdomen.), Ambulating, New Symptoms - Review of Systems General: Reports: Weakness. Denies: Fever, Fatigue, Malaise, Chills HEENT: Reports: Other (Significant oral secretions. Trach in neck with oxygen applied). Denies: Headaches, Visual Changes Pulmonary: Reports: Shortness of Breath, Cough, Sputum. Denies: Pleuritic Chest Pain Cardiovascular: Reports: Dyspnea on Exertion. Denies: Chest Pain, Palpitations, Edema Gastrointestinal: Reports: No Symptoms. Denies: Abdominal Pain, Constipation, Diarrhea, Nausea, Vomiting Genitourinary: Reports: No Symptoms. Denies: Pain Musculoskeletal: Reports: No Symptoms Skin: Reports: No Symptoms. Denies: Cyanosis Neurological: Reports: No Symptoms. Denies: Confusion, Difficulty Walking, Gait Disturbance Psychiatric: Reports: No Symptoms. Denies: Confusion - Patient Data Vitals - Most Recent: Last Vital Signs Temp 97.2 F 11/07/20 09:47 Pulse 103 H 11/07/20 09:47 Resp 30 H 11/07/20 09:52 BP 124/54 L 11/07/20 09:52 Pulse Ox 94 L 11/07/20 09:36 Weight - Most Recent: 123 lb I&O - Last 24 Hours: Intake & Output 11/06/20 11/07/20 11/07/20 22:59 06:59 14:59 Intake Total 890 790 540 Output Total 425 425 100 Balance 465 365 440 Lab Results Last 24 Hours: Laboratory Results - last 24 hr 11/06/20 11/06/20 11/06/20 Range/Units 13:27 13:27 14:23 WBC (4.23-9.07) K/mm3 RBC (4.63-6.08) M/mm3 Hgb (13.7-17.5) gm/dl Hct (40.1-51.0) % MCV (79.0-92.2) fl MCH (25.7-32.2) pg MCHC (32.2-35.5) g/dl RDW Std Deviation (35.1-43.9) fL Plt Count (163-337) K/mm3 MPV (9.4-12.3) fl Neut % (Auto) (34.0-67.9) % Lymph % (Auto) (21.8-53.1) % [place] % (Auto) (5.3-12.2) % Eos % (Auto) (0.8-7.0) Baso % (Auto) (0.1-1.2) % Neut # (Auto) (1.78-5.38) K/mm3 Lymph # (Auto) (1.32-3.57) K/mm3 [place] # (Auto) (0.30-0.82) K/mm3 Eos # (Auto) (0.04-0.54) K/mm3 Baso # (Auto) (0.01-0.08) K/mm3 Manual Slide Review Sodium (136-145) mEq/L Potassium (3.5-5.1) mEq/L Chloride (98-107) mEq/L Carbon Dioxide (21-32) mEq/L Anion Gap (5-15) BUN (7-18) mg/dL Creatinine (0.7-1.3) mg/dL Est Cr Clr Drug Dosing mL/min Estimated GFR (MDRD) (>60) mL/min BUN/Creatinine Ratio (14-18) Glucose (83-115) mg/dL Lactic Acid 1.2 (0.4-2.0) mmol/L Calcium (8.5-10.1) mg/dL Magnesium (1.8-2.4) mg/dl C-Reactive Protein 6.1 H* (<1.0) mg/dL Urine Color (Yellow) Urine Appearance (Clear) Urine pH (5.0-8.0) Ur Specific [place] (1.005-1.030) Urine Protein (Negative) Urine Glucose (UA) (Negative) Urine Ketones (Negative) Urine Occult Blood (Negative) Urine Nitrite (Negative) Urine Bilirubin (Negative) Urine Urobilinogen (0.2-1.0) Ur Leukocyte Esterase (Negative) Urine RBC (0-5) /hpf Urine WBC (0-5) /hpf Ur Squamous Epith Cells (0-5) /hpf Urine Bacteria (FEW) /hpf Urine Mucus (FEW) /hpf SARS-CoV-2 RNA (LORRI) Negative (NEGATIVE) Blood Type Gel Antibody Screen Crossmatch 11/06/20 11/07/20 11/07/20 Range/Units 23:40 06:14 06:14 WBC 24.33 H (4.23-9.07) K/mm3 RBC 2.37 L (4.63-6.08) M/mm3 Hgb 6.1 L* D (13.7-17.5) gm/dl Hct 21.6 L (40.1-51.0) % MCV 91.1 D (79.0-92.2) fl MCH 25.7 (25.7-32.2) pg MCHC 28.2 L (32.2-35.5) g/dl RDW Std Deviation 55.4 H (35.1-43.9) fL Plt Count 575 H D (163-337) K/mm3 MPV 9.0 L (9.4-12.3) fl Neut % (Auto) 81.4 H (34.0-67.9) % Lymph % (Auto) 5.6 L (21.8-53.1) % [place] % (Auto) 11.4 (5.3-12.2) % Eos % (Auto) 0.7 L (0.8-7.0) Baso % (Auto) 0.0 L (0.1-1.2) % Neut # (Auto) 19.82 H (1.78-5.38) K/mm3 Lymph # (Auto) 1.36 (1.32-3.57) K/mm3 [place] # (Auto) 2.77 H (0.30-0.82) K/mm3 Eos # (Auto) 0.16 (0.04-0.54) K/mm3 Baso # (Auto) 0.01 (0.01-0.08) K/mm3 Manual Slide Review Abnormal smear Sodium 142 D (136-145) mEq/L Potassium 4.2 (3.5-5.1) mEq/L Chloride 106 D (98-107) mEq/L Carbon Dioxide 28 (21-32) mEq/L Anion Gap 12.2 (5-15) BUN 23 H (7-18) mg/dL Creatinine 0.8 (0.7-1.3) mg/dL Est Cr Clr Drug Dosing 64.90 mL/min Estimated GFR (MDRD) > 60 (>60) mL/min BUN/Creatinine Ratio 28.8 H (14-18) Glucose 85 (83-115) mg/dL Lactic Acid (0.4-2.0) mmol/L Calcium 8.7 (8.5-10.1) mg/dL Magnesium 2.1 (1.8-2.4) mg/dl C-Reactive Protein 4.6 H* (<1.0) mg/dL Urine Color Yellow (Yellow) Urine Appearance Clear (Clear) Urine pH 7.0 (5.0-8.0) Ur Specific [place] 1.025 (1.005-1.030) Urine Protein Trace H (Negative) Urine Glucose (UA) Negative (Negative) Urine Ketones Negative (Negative) Urine Occult Blood Negative (Negative) Urine Nitrite Negative (Negative) Urine Bilirubin Negative (Negative) Urine Urobilinogen 0.2 (0.2-1.0) Ur Leukocyte Esterase Negative (Negative) Urine RBC Not seen (0-5) /hpf Urine WBC Not seen (0-5) /hpf Ur Squamous Epith Cells 0-5 (0-5) /hpf Urine Bacteria Few (FEW) /hpf Urine Mucus Rare (FEW) /hpf SARS-CoV-2 RNA (LORRI) (NEGATIVE) Blood Type Gel Antibody Screen Crossmatch 11/07/20 Range/Units 06:14 WBC (4.23-9.07) K/mm3 RBC (4.63-6.08) M/mm3 Hgb (13.7-17.5) gm/dl Hct (40.1-51.0) % MCV (79.0-92.2) fl MCH (25.7-32.2) pg MCHC (32.2-35.5) g/dl RDW Std Deviation (35.1-43.9) fL Plt Count (163-337) K/mm3 MPV (9.4-12.3) fl Neut % (Auto) (34.0-67.9) % Lymph % (Auto) (21.8-53.1) % [place] % (Auto) (5.3-12.2) % Eos % (Auto) (0.8-7.0) Baso % (Auto) (0.1-1.2) % Neut # (Auto) (1.78-5.38) K/mm3 Lymph # (Auto) (1.32-3.57) K/mm3 [place] # (Auto) (0.30-0.82) K/mm3 Eos # (Auto) (0.04-0.54) K/mm3 Baso # (Auto) (0.01-0.08) K/mm3 Manual Slide Review Sodium (136-145) mEq/L Potassium (3.5-5.1) mEq/L Chloride (98-107) mEq/L Carbon Dioxide (21-32) mEq/L Anion Gap (5-15) BUN (7-18) mg/dL Creatinine (0.7-1.3) mg/dL Est Cr Clr Drug Dosing mL/min Estimated GFR (MDRD) (>60) mL/min BUN/Creatinine Ratio (14-18) Glucose (83-115) mg/dL Lactic Acid (0.4-2.0) mmol/L Calcium (8.5-10.1) mg/dL Magnesium (1.8-2.4) mg/dl C-Reactive Protein (<1.0) mg/dL Urine Color (Yellow) Urine Appearance (Clear) Urine pH (5.0-8.0) Ur Specific [place] (1.005-1.030) Urine Protein (Negative) Urine Glucose (UA) (Negative) Urine Ketones (Negative) Urine Occult Blood (Negative) Urine Nitrite (Negative) Urine Bilirubin (Negative) Urine Urobilinogen (0.2-1.0) Ur Leukocyte Esterase (Negative) Urine RBC (0-5) /hpf Urine WBC (0-5) /hpf Ur Squamous Epith Cells (0-5) /hpf Urine Bacteria (FEW) /hpf Urine Mucus (FEW) /hpf SARS-CoV-2 RNA (LORRI) (NEGATIVE) Blood Type O POSITIVE Gel Antibody Screen Negative Crossmatch See Detail Cheng Results Last 24 Hours: Microbiology 11/06/20 21:30 Gram Stain - Preliminary Sputum - Expectorated Sputum Culture - Preliminary Med Orders - Current: Current Medications Acetaminophen (Tylenol) 650 mg RECTAL Q4H PRN PRN Reason: Pain (mild 1-3) Acetaminophen (Tylenol) 650 mg PO Q4H PRN PRN Reason: Pain/Fever Last Admin: 11/06/20 21:41 Dose: 650 mg Documented by: Hydrocodone Bitart/Acetaminophen ([place] 325-5 Mg) 1 tab FTUBE Q4H PRN PRN Reason: Pain (moderate 4-6) Albuterol (Proventil Neb Soln) 2.5 mg NEB QID PRN PRN Reason: Shortness of Breath Last Admin: 11/07/20 04:22 Dose: 2.5 mg Documented by: Albuterol/Ipratropium (Duoneb 3.0-0.5 Mg/3 Ml) 3 ml NEB Q4H PRN PRN Reason: Shortness Of Breath/wheezing Arformoterol Tartrate (Brovana) 15 mcg NEB BID [facility] Last Admin: 11/07/20 09:12 Dose: 15 mcg Documented by: Ascorbic Acid (Vitamin C) 2,000 mg FTUBE DAILY [facility] Last Admin: 11/07/20 08:48 Dose: 2,000 mg Documented by: Budesonide (Pulmicort) 0.5 mg NEB BID [facility] Last Admin: 11/07/20 09:12 Dose: 0.5 mg Documented by: Cholecalciferol (Vitamin D3) 10,000 unit PEGTUBE DAILY [facility] Enoxaparin Sodium (Lovenox) 40 mg SUBCUT DAILY [facility] Last Admin: 11/07/20 08:45 Dose: 40 mg Documented by: Guaifenesin/Phenylephrine HCl (Robitussin Dm) 10 ml FTUBE Q4H PRN PRN Reason: Cough Hydromorphone HCl (Dilaudid) 0.5 mg IVPUSH Q2H PRN PRN Reason: Pain (severe 7-10) Last Admin: 11/07/20 02:06 Dose: 0.5 mg Documented by: Promethazine HCl 12.5 mg/ (Sodium Chloride) 50.5 mls @ 100 mls/hr IV Q6H PRN PRN Reason: Nausea/Vomiting Piperacillin Sod/Tazobactam (Sod 4.5 gm/ Sodium Chloride) 100 mls @ 25 mls/hr IV Q8H [facility] Last Admin: 11/07/20 02:00 Dose: 25 mls/hr Documented by: Sodium Chloride (Normal Saline) 1,000 mls @ 100 mls/hr IV ASDIRECTED [facility] Last Admin: 11/07/20 07:34 Dose: 100 mls/hr Documented by: Ipratropium [place] (Atrovent) 0.5 mg NEB TIDRT [facility] Last Admin: 11/07/20 07:08 Dose: Not Given Documented by: Loratadine (Claritin) 10 mg FTUBE DAILY [facility] Last Admin: 11/07/20 08:53 Dose: 10 mg Documented by: Lorazepam (Ativan) 0.5 mg FTUBE QID PRN PRN Reason: Anxiety Last Admin: 11/07/20 09:27 Dose: 0.5 mg Documented by: Magnesium Oxide (Magnesium Oxide) 800 mg FTUBE DAILY [facility] Last Admin: 11/07/20 08:45 Dose: 800 mg Documented by: Metoprolol Succinate (Toprol Xl) 12.5 mg .XX DAILY [facility] Last Admin: 11/07/20 08:46 Dose: 12.5 mg Documented by: Montelukast Sodium (Singulair) 10 mg FTUBE BEDTIME [facility] Last Admin: 11/06/20 21:41 Dose: 10 mg Documented by: Remove Scopolamine (Patch) 1 each .XX ONETIME ONE Stop: 11/09/20 21:01 Omeprazole (Omeprazole) 20 mg GTUBE DAILY [facility] Last Admin: 11/07/20 09:12 Dose: 20 mg Documented by: Ondansetron HCl (Zofran) 4 mg IV Q6H PRN PRN Reason: Nausea/Vomiting Oxycodone HCl (Oxycodone) 5 mg FTUBE Q4H PRN PRN Reason: Pain (moderate 4-6) Ferrous Sulfate 220 (Mg/5 Ml Liquid) 0 each PEGTUBE DAILY [facility] Tetracaine 0.25% (Lollipops) 1 each PO Q4H PRN PRN Reason: Sore Throat Polyethylene Glycol (Miralax) 17 gm FTUBE DAILY PRN PRN Reason: Constipation Prochlorperazine Maleate (Compazine) 10 mg FTUBE QID PRN PRN Reason: Nausea/Vomiting Senna/Docusate Sodium (Senna Plus) 1 tab FTUBE BID PRN PRN Reason: Constipation Simvastatin (Zocor) 40 mg FTUBE BEDTIME LETI Sodium Chloride (Saline Flush) 10 ml FLUSH ASDIRECTED PRN PRN Reason: Keep Vein Open Sodium Chloride (Sodium Chloride 3%) 3 ml NEB Q2H PRN PRN Reason: Other Zolpidem Tartrate (Ambien) 5 mg FTUBE BEDTIME PRN PRN Reason: Sleep Discontinued Medications Acetaminophen (Tylenol) 650 mg PO NOW ONE Stop: 11/07/20 08:46 Last Admin: 11/07/20 08:50 Dose: 650 mg Documented by: Hydrocodone Bitart/Acetaminophen ([place] 325-5 Mg) 1 tab PO Q4H PRN PRN Reason: Pain (moderate 4-6) Dexamethasone (Decadron) 4 mg IVPUSH ONETIME ONE Stop: 11/07/20 06:44 Last Admin: 11/07/20 08:39 Dose: 4 mg Documented by: Diphenhydramine HCl (Benadryl) 25 mg IV ONETIME ONE Stop: 11/07/20 06:44 Last Admin: 11/07/20 08:39 Dose: 25 mg Documented by: Furosemide (Lasix) 20 mg IVPUSH NOW ONE Stop: 11/07/20 06:48 Guaifenesin/Phenylephrine HCl (Robitussin Dm) 10 ml PO Q4H PRN PRN Reason: Cough Ceftriaxone Sodium 2 gm/ (Sodium Chloride) 100 mls @ 200 mls/hr IV ONETIME ONE Stop: 11/06/20 13:37 Last Admin: 11/06/20 13:49 Dose: 200 mls/hr Documented by: Piperacillin Sod/Tazobactam (Sod 4.5 gm/ Sodium Chloride) 100 mls @ 200 mls/hr IV ONETIME ONE Stop: 11/06/20 17:29 Last Admin: 11/06/20 18:13 Dose: 200 mls/hr Documented by: Ipratropium [place] (Atrovent) 0.5 mg NEB Q8H LETI Last Admin: 11/06/20 18:00 Dose: 0.5 mg Documented by: Lorazepam (Ativan) 0.5 mg PO QID PRN PRN Reason: Anxiety Non-Formulary Medication (Lidocaine/Prilocaine) 1 applic TOP ASDIRECTED PRN PRN Reason: Other Oxycodone HCl (Oxycodone) 5 mg PO Q4H PRN PRN Reason: Pain (moderate 4-6) Polyethylene Glycol (Miralax) 17 gm PO DAILY PRN PRN Reason: Constipation Prochlorperazine Maleate (Compazine) 10 mg PO QID PRN PRN Reason: Nausea/Vomiting Scopolamine (Transderm-Scop) 1.5 mg TOP ONETIME ONE Stop: 11/06/20 21:02 Last Admin: 11/06/20 21:14 Dose: 1.5 mg Documented by: Senna/Docusate Sodium (Senna Plus) 1 tab PO BID PRN PRN Reason: Constipation - Exam Quality Assessment: Supplemental Oxygen, DVT Prophylaxis General: Alert, Oriented, Cooperative, No Acute Distress HEENT: Pupils Equal, Pupils Reactive, Mucous Membr. Moist/[place], Other (Tracheostomy noted in neck with oxygen applied) Neck: Supple, Trachea Midline Lungs: Clear to Auscultation, Normal Respiratory Effort Cardiovascular: Regular Rate, Regular Rhythm GI/Abdominal Exam: Normal Bowel Sounds, Soft, Non-Tender, No Distention, Other (PEG tube in abdomen) (Male) Exam: Deferred Extremities: Normal Inspection, Normal Range of Motion, Non-Tender, No Pedal Edema, Normal Capillary Refill Skin: Warm, Dry, Intact Neurological: No New Focal Deficit Psy/Mental Status: Alert, Normal Affect, Normal Mood - Patient Data Lab Results Last 24 hrs: Laboratory Results - last 24 hr 11/06/20 11/06/20 11/06/20 Range/Units 13:27 13:27 14:23 WBC (4.23-9.07) K/mm3 RBC (4.63-6.08) M/mm3 Hgb (13.7-17.5) gm/dl Hct (40.1-51.0) % MCV (79.0-92.2) fl MCH (25.7-32.2) pg MCHC (32.2-35.5) g/dl RDW Std Deviation (35.1-43.9) fL Plt Count (163-337) K/mm3 MPV (9.4-12.3) fl Neut % (Auto) (34.0-67.9) % Lymph % (Auto) (21.8-53.1) % [place] % (Auto) (5.3-12.2) % Eos % (Auto) (0.8-7.0) Baso % (Auto) (0.1-1.2) % Neut # (Auto) (1.78-5.38) K/mm3 Lymph # (Auto) (1.32-3.57) K/mm3 [place] # (Auto) (0.30-0.82) K/mm3 Eos # (Auto) (0.04-0.54) K/mm3 Baso # (Auto) (0.01-0.08) K/mm3 Manual Slide Review Sodium (136-145) mEq/L Potassium (3.5-5.1) mEq/L Chloride (98-107) mEq/L Carbon Dioxide (21-32) mEq/L Anion Gap (5-15) BUN (7-18) mg/dL Creatinine (0.7-1.3) mg/dL Est Cr Clr Drug Dosing mL/min Estimated GFR (MDRD) (>60) mL/min BUN/Creatinine Ratio (14-18) Glucose (83-115) mg/dL Lactic Acid 1.2 (0.4-2.0) mmol/L Calcium (8.5-10.1) mg/dL Magnesium (1.8-2.4) mg/dl C-Reactive Protein 6.1 H* (<1.0) mg/dL Urine Color (Yellow) Urine Appearance (Clear) Urine pH (5.0-8.0) Ur Specific [place] (1.005-1.030) Urine Protein (Negative) Urine Glucose (UA) (Negative) Urine Ketones (Negative) Urine Occult Blood (Negative) Urine Nitrite (Negative) Urine Bilirubin (Negative) Urine Urobilinogen (0.2-1.0) Ur Leukocyte Esterase (Negative) Urine RBC (0-5) /hpf Urine WBC (0-5) /hpf Ur Squamous Epith Cells (0-5) /hpf Urine Bacteria (FEW) /hpf Urine Mucus (FEW) /hpf SARS-CoV-2 RNA (LORRI) Negative (NEGATIVE) Blood Type Gel Antibody Screen Crossmatch 11/06/20 11/07/20 11/07/20 Range/Units 23:40 06:14 06:14 WBC 24.33 H (4.23-9.07) K/mm3 RBC 2.37 L (4.63-6.08) M/mm3 Hgb 6.1 L* D (13.7-17.5) gm/dl Hct 21.6 L (40.1-51.0) % MCV 91.1 D (79.0-92.2) fl MCH 25.7 (25.7-32.2) pg MCHC 28.2 L (32.2-35.5) g/dl RDW Std Deviation 55.4 H (35.1-43.9) fL Plt Count 575 H D (163-337) K/mm3 MPV 9.0 L (9.4-12.3) fl Neut % (Auto) 81.4 H (34.0-67.9) % Lymph % (Auto) 5.6 L (21.8-53.1) % [place] % (Auto) 11.4 (5.3-12.2) % Eos % (Auto) 0.7 L (0.8-7.0) Baso % (Auto) 0.0 L (0.1-1.2) % Neut # (Auto) 19.82 H (1.78-5.38) K/mm3 Lymph # (Auto) 1.36 (1.32-3.57) K/mm3 [place] # (Auto) 2.77 H (0.30-0.82) K/mm3 Eos # (Auto) 0.16 (0.04-0.54) K/mm3 Baso # (Auto) 0.01 (0.01-0.08) K/mm3 Manual Slide Review Abnormal smear Sodium 142 D (136-145) mEq/L Potassium 4.2 (3.5-5.1) mEq/L Chloride 106 D (98-107) mEq/L Carbon Dioxide 28 (21-32) mEq/L Anion Gap 12.2 (5-15) BUN 23 H (7-18) mg/dL Creatinine 0.8 (0.7-1.3) mg/dL Est Cr Clr Drug Dosing 64.90 mL/min Estimated GFR (MDRD) > 60 (>60) mL/min BUN/Creatinine Ratio 28.8 H (14-18) Glucose 85 (83-115) mg/dL Lactic Acid (0.4-2.0) mmol/L Calcium 8.7 (8.5-10.1) mg/dL Magnesium 2.1 (1.8-2.4) mg/dl C-Reactive Protein 4.6 H* (<1.0) mg/dL Urine Color Yellow (Yellow) Urine Appearance Clear (Clear) Urine pH 7.0 (5.0-8.0) Ur Specific [place] 1.025 (1.005-1.030) Urine Protein Trace H (Negative) Urine Glucose (UA) Negative (Negative) Urine Ketones Negative (Negative) Urine Occult Blood Negative (Negative) Urine Nitrite Negative (Negative) Urine Bilirubin Negative (Negative) Urine Urobilinogen 0.2 (0.2-1.0) Ur Leukocyte Esterase Negative (Negative) Urine RBC Not seen (0-5) /hpf Urine WBC Not seen (0-5) /hpf Ur Squamous Epith Cells 0-5 (0-5) /hpf Urine Bacteria Few (FEW) /hpf Urine Mucus Rare (FEW) /hpf SARS-CoV-2 RNA (LORRI) (NEGATIVE) Blood Type Gel Antibody Screen Crossmatch 11/07/20 Range/Units 06:14 WBC (4.23-9.07) K/mm3 RBC (4.63-6.08) M/mm3 Hgb (13.7-17.5) gm/dl Hct (40.1-51.0) % MCV (79.0-92.2) fl MCH (25.7-32.2) pg MCHC (32.2-35.5) g/dl RDW Std Deviation (35.1-43.9) fL Plt Count (163-337) K/mm3 MPV (9.4-12.3) fl Neut % (Auto) (34.0-67.9) % Lymph % (Auto) (21.8-53.1) % [place] % (Auto) (5.3-12.2) % Eos % (Auto) (0.8-7.0) Baso % (Auto) (0.1-1.2) % Neut # (Auto) (1.78-5.38) K/mm3 Lymph # (Auto) (1.32-3.57) K/mm3 [place] # (Auto) (0.30-0.82) K/mm3 Eos # (Auto) (0.04-0.54) K/mm3 Baso # (Auto) (0.01-0.08) K/mm3 Manual Slide Review Sodium (136-145) mEq/L Potassium (3.5-5.1) mEq/L Chloride (98-107) mEq/L Carbon Dioxide (21-32) mEq/L Anion Gap (5-15) BUN (7-18) mg/dL Creatinine (0.7-1.3) mg/dL Est Cr Clr Drug Dosing mL/min Estimated GFR (MDRD) (>60) mL/min BUN/Creatinine Ratio (14-18) Glucose (83-115) mg/dL Lactic Acid (0.4-2.0) mmol/L Calcium (8.5-10.1) mg/dL Magnesium (1.8-2.4) mg/dl C-Reactive Protein (<1.0) mg/dL Urine Color (Yellow) Urine Appearance (Clear) Urine pH (5.0-8.0) Ur Specific [place] (1.005-1.030) Urine Protein (Negative) Urine Glucose (UA) (Negative) Urine Ketones (Negative) Urine Occult Blood (Negative) Urine Nitrite (Negative) Urine Bilirubin (Negative) Urine Urobilinogen (0.2-1.0) Ur Leukocyte Esterase (Negative) Urine RBC (0-5) /hpf Urine WBC (0-5) /hpf Ur Squamous Epith Cells (0-5) /hpf Urine Bacteria (FEW) /hpf Urine Mucus (FEW) /hpf SARS-CoV-2 RNA (LORRI) (NEGATIVE) Blood Type O POSITIVE Gel Antibody Screen Negative Crossmatch See Detail Result Diagrams: 11/07/20 06:14 11/07/20 06:14 Cheng Results Last 24 hrs: Microbiology 11/06/20 21:30 Gram Stain - Preliminary Sputum - Expectorated Sputum Culture - Preliminary Sepsis Event Note - Evaluation Sepsis Screening Result: Sepsis Risk - Focused Exam Vital Signs: Vital Signs Temp Temp Pulse Pulse Resp BP BP 11/07/20 09:52 30 H 124/54 L 11/07/20 09:47 97.2 F 103 H 34 H 150/68 H 11/07/20 09:36 11/07/20 09:35 97.4 F 86 29 H 120/59 L 11/07/20 08:46 94 110/56 L 11/07/20 06:00 75 19 11/07/20 05:00 76 20 11/07/20 04:00 97.7 F 19 105/53 L 11/07/20 03:00 72 20 11/07/20 01:00 80 24 H 11/07/20 00:00 97.4 F 20 106/56 L 11/06/20 23:00 85 21 H 11/06/20 22:31 Pulse Ox Pulse Ox 11/07/20 09:52 11/07/20 09:47 11/07/20 09:36 94 L 11/07/20 09:35 11/07/20 08:46 11/07/20 06:00 99 11/07/20 05:00 99 11/07/20 04:00 100 11/07/20 03:00 96 11/07/20 01:00 100 11/07/20 00:00 99 11/06/20 23:00 100 11/06/20 22:31 100 - Problem List & Annotations (1) Acute respiratory distress SNOMED Code(s): 407594152 Code(s): R06.03 - ACUTE RESPIRATORY DISTRESS Status: Acute Priority: High Current Visit: Yes (2) Aspiration into airway SNOMED Code(s): 065155177 Code(s): T17.908A - UNSP FB IN RESP TRACT, PART UNSP CAUSING OTH INJURY, INIT Status: Suspected Priority: High Current Visit: Yes Qualifiers: Encounter type: initial encounter Qualified Code(s): T17.908A - Unspecified foreign body in respiratory tract, part unspecified causing other injury, initial encounter (3) Hypoxia SNOMED Code(s): 448755430 Code(s): R09.02 - HYPOXEMIA Status: Acute Priority: High Current Visit: Yes (4) Mucus plugging of bronchi SNOMED Code(s): 67083636 Code(s): J98.09 - OTHER DISEASES OF BRONCHUS, NOT ELSEWHERE CLASSIFIED [place]: Suspected Priority: High Current Visit: Yes (5) Hypersecretion of saliva SNOMED Code(s): 83060035, 242725606 Code(s): K11.7 - DISTURBANCES OF SALIVARY SECRETION Status: Chronic Priority: High Current Visit: Yes (6) Elevated C-reactive protein (CRP) SNOMED Code(s): 068010475366278 Code(s): R79.82 - ELEVATED C-REACTIVE PROTEIN (CRP) Status: Acute Priority: High Current Visit: Yes (7) Leukocytosis SNOMED Code(s): 383469096, 384118964 Code(s): D72.829 - ELEVATED WHITE BLOOD CELL COUNT, UNSPECIFIED Status: Acute Priority: High Current Visit: Yes Qualifiers: Leukocytosis type: unspecified Qualified Code(s): D72.829 - Elevated white blood cell count, unspecified (8) Pancytopenia SNOMED Code(s): 511050756 Code(s): D61.818 - OTHER PANCYTOPENIA Status: Acute Priority: High Curr ent Visit: Yes (9) Thrombocytosis SNOMED Code(s): 5543320 Code(s): D47.3 - ESSENTIAL (HEMORRHAGIC) THROMBOCYTHEMIA Status: Acute Priority: High Current Visit: Yes (10) SIRS (systemic inflammatory response syndrome) SNOMED Code(s): 725606977 Code(s): R65.10 - SIRS OF NON-INFECTIOUS ORIGIN W/O ACUTE ORGAN DYSFUNCTION Status: Acute Priority: High Current Visit: Yes (11) Anemia SNOMED Code(s): 837173954 Code(s): D64.9 - ANEMIA, UNSPECIFIED Status: Acute Priority: High Current Visit: Yes Qualifiers: Anemia type: other cause Other causes of anemia: other cause, not classified Qualified Code(s): D64.89 - Other specified anemias (12) HTN (hypertension) SNOMED Code(s): 92879418 Code(s): I10 - ESSENTIAL (PRIMARY) HYPERTENSION Status: Chronic Priority: Medium Current Visit: No Qualifiers: Hypertension type: unspecified Qualified Code(s): I10 - Essential (primary) hypertension (13) HLD (hyperlipidemia) SNOMED Code(s): 81207268 Code(s): E78.5 - HYPERLIPIDEMIA, UNSPECIFIED Status: Chronic Priority: Low Current Visit: No Qualifiers: Hyperlipidemia type: unspecified Qualified Code(s): E78.5 - Hyperlipidemia, unspecified (14) Asthma SNOMED Code(s): 138421534 Code(s): J45.909 - UNSPECIFIED ASTHMA, UNCOMPLICATED Status: Chronic Priority: Medium Current Visit: Yes Qualifiers: Asthma severity: unspecified severity Asthma persistence: unspecified Asthma complication type: unspecified Qualified Code(s): J45.909 - Unspecified asthma, uncomplicated (15) COPD (chronic obstructive pulmonary disease) SNOMED Code(s): 28424138 Code(s): J44.9 - CHRONIC OBSTRUCTIVE PULMONARY DISEASE, UNSPECIFIED Status: Chronic Priority: Medium Current Visit: Yes Qualifiers: COPD type: unspecified COPD Qualified Code(s): J44.9 - Chronic obstructive pulmonary disease, unspecified (16) Esophageal cancer SNOMED Code(s): 486904441 Code(s): C15.9 - MALIGNANT NEOPLASM OF ESOPHAGUS, UNSPECIFIED Status: Chronic Priority: High Current Visit: Yes Qualifiers: Malignant neoplasm of esophagus location: unspecified location Qualified Code(s): C15.9 - Malignant neoplasm of esophagus, unspecified (17) Lung cancer SNOMED Code(s): 023446612 Code(s): C34.90 - MALIGNANT NEOPLASM OF UNSP PART OF UNSP BRONCHUS OR LUNG Status: Chronic Priority: High Current Visit: Yes Qualifiers: Laterality: unspecified laterality Lung location: unspecified part of lung Qualified Code(s): C34.90 - Malignant neoplasm of unspecified part of unspecified bronchus or lung (18) Status post tracheostomy SNOMED Code(s): 685216427, 653431913 Code(s): Z93.0 - TRACHEOSTOMY STATUS Status: Chronic Priority: Medium Current Visit: Yes (19) Dysphagia SNOMED Code(s): 58673031, 405432698 Code(s): R13.10 - DYSPHAGIA, UNSPECIFIED Status: Chronic Priority: Medium Current Visit: No Qualifiers: Dysphagia type: unspecified Qualified Code(s): R13.10 - Dysphagia, unspecified (20) S/P percutaneous endoscopic gastrostomy (PEG) tube placement SNOMED Code(s): 835753321 Code(s): Z93.1 - GASTROSTOMY STATUS Status: Chronic Priority: Medium Current Visit: Yes (21) Insomnia SNOMED Code(s): 477784951 Code(s): G47.00 - INSOMNIA, UNSPECIFIED Status: Chronic Priority: Low Current Visit: No Qualifiers: Insomnia type: unspecified Qualified Code(s): G47.00 - Insomnia, unspecified - Problem List Review Problem List Initiated/Reviewed/Updated: Yes - Plan Plan:: This is a 75 yo elderly white male with past medical hx/o HTN, HLD, Asthma, COPD, Esophageal and Lung CA, Hx/o Respiratory Failure S/p Tracheostomy, Chronic Hypoxia on 4L NC via Trach, Dysphagia S/p PEG Tube Placement, Hx/o Left Shoulder Pain, Hx/o Left Hip Surgery and Insomnia who comes to us from the clinic after developing respiratory distress at [facility] infusion clinic. 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 -Bedside suction device -RT routine trach care -Scopolamine patch x1 -Aspiration precautions Elevated CRP of 6.1 Leukocytosis with WBC of 32.7 taken at [facility] -Likely from acute respiratory distress -We will monitor Pancytopenia/Anemia -Had a Hgb level of 7.4 grams taken at [facility]; 6.1 today -He was getting infusion at the clinic across us -Likely for chemotherapy -Plan: Infuse 2 units PRBC Thrombocytosis of 649 taken at [facility]; Now 575 -Unclear if thrombo-concentration from being dry -We will repeat in AM SIRS/Early developing Sepsis -He meets criteria: WBC of 32.7-->24.33, borderline hypotension with documented BP as low as 115/56 mmHg, tachycardic with RR in the mid 20s. -Possible source: aspiration syndrome -Blood cultures were done and 2 grams IV Rocephin given in ED -Already received IV Zosyn for empiric treatment -UA negative -Plan: Sputum culture with grams stain. No need for aggressive volume resuscitation,patient is not significantly hypotensive Chronic: HTN, HLD, Asthma, COPD, Esophageal and Lung CA, Hx/o Respiratory Failure S/p Tracheostomy, Chronic Hypoxia on 4L NC via Trach, Dysphagia S/p PEG Tube Placement, Hx/o Left Shoulder Pain, Hx/o Left Hip Surgery and Insomnia Plan: Admit to ICU due to respiratory status. He needs to be monitored closely. Routine AM Labs. Repeat chest x-ray. RT to assess and treat. PRN suction for oral secretions. Scopolamine patch x1 to slow down hypersecretions. IV fluids for hydration. Complete NPO. Dietary consult for tube feeding. DVT/GI prophylaxis. Code status is full. Overall prognosis is very poor.
[2020-11-07] MEDS: Cholecalciferol (Vitamin D3) 25 MCG Tab PEGTUBE SCH (15:10)
[2020-11-07] MEDS: FERROUS SULFATE 220 MG/5 ML PEGTUBE SCH (15:10)
[2020-11-07] MEDS: Montelukast 10 MG Tab FTUBE SCH (21:50)
[2020-11-07] MEDS: Simvastatin 40 MG Tab FTUBE SCH (21:50)
[2020-11-08] MEDS: Ipratropium 0.02% 0.5 MG/2.5 ML Neb Soln NEB SCH ×3 (06:02→21:19)
--- NOTE | 2020-11-08 07:58 | PCM.PN ---
- General Info Date of Service: 11/08/20 Admission Dx/Problem (Free Text): Admission Diagnosis/Problem Admission Diagnosis/Problem Pneumonia Subjective Update: No significant overnight issues. Symptoms remains the same. Still short of breath with cough and significant mucus production. Had a couple of bloody stool last night. Now he just had a large bloody stool. He also has been having diarrhea after his tube feeding diet was changed. His WBC is up at 32.72K and Hgb is now at 8.6 grams. His Na is at 134 and CRP of 6.9. He remains on 8L with FiO2 of 30%. His sputum is growing gram negative tatum organisms. He has no other complaints. Functional Status: Reports: Pain Controlled, Tolerating Diet, Ambulating, Urinating, Incentive Spirometry - Review of Systems General: Denies: Fever, Chills Pulmonary: Reports: Shortness of Breath, Cough, Sputum Cardiovascular: Denies: Chest Pain Gastrointestinal: Denies: Abdominal Pain, Nausea, Vomiting Genitourinary: Reports: No Symptoms Musculoskeletal: Reports: No Symptoms Skin: Denies: Cyanosis, Pallor, Diaphoresis Neurological: Reports: Weakness, Gait Disturbance. Denies: Confusion Psychiatric: Denies: Depression, Anxiety - Patient Data Vitals - Most Recent: Last Vital Signs Temp 36.8 C 11/07/20 20:00 Pulse 84 11/07/20 16:01 Resp 20 11/08/20 04:00 BP 118/65 11/08/20 04:00 Pulse Ox 96 11/08/20 06:02 Weight - Most Recent: 55.293 kg I&O - Last 24 Hours: Intake & Output 11/07/20 11/08/20 11/08/20 22:59 06:59 14:59 Intake Total 2450 300 Output Total 350 250 Balance 2100 50 Lab Results Last 24 Hours: Laboratory Results - last 24 hr 11/07/20 11/07/20 11/08/20 Range/Units 06:14 06:14 05:50 WBC 32.72 H (4.23-9.07) K/mm3 RBC 3.18 L (4.63-6.08) M/mm3 Hgb 8.6 L D (13.7-17.5) gm/dl Hct 27.7 L (40.1-51.0) % MCV 87.1 D (79.0-92.2) fl MCH 27.0 (25.7-32.2) pg MCHC 31.0 L (32.2-35.5) g/dl RDW Std Deviation 51.7 H (35.1-43.9) fL Plt Count 526 H (163-337) K/mm3 MPV 9.6 (9.4-12.3) fl Neut % (Auto) 83.6 H (34.0-67.9) % Lymph % (Auto) 4.5 L (21.8-53.1) % [place] % (Auto) 11.2 (5.3-12.2) % Eos % (Auto) 0.6 L (0.8-7.0) Baso % (Auto) 0.1 (0.1-1.2) % Neut # (Auto) 27.38 H (1.78-5.38) K/mm3 Lymph # (Auto) 1.47 (1.32-3.57) K/mm3 [place] # (Auto) 3.67 H (0.30-0.82) K/mm3 Eos # (Auto) 0.18 (0.04-0.54) K/mm3 Baso # (Auto) 0.02 (0.01-0.08) K/mm3 Manual Slide Review Abnormal smear Sodium (136-145) mEq/L Potassium (3.5-5.1) mEq/L Chloride (98-107) mEq/L Carbon Dioxide (21-32) mEq/L Anion Gap (5-15) BUN (7-18) mg/dL Creatinine (0.7-1.3) mg/dL Est Cr Clr Drug Dosing mL/min Estimated GFR (MDRD) (>60) mL/min BUN/Creatinine Ratio (14-18) Glucose (83-115) mg/dL Calcium (8.5-10.1) mg/dL Magnesium (1.8-2.4) mg/dl C-Reactive Protein (<1.0) mg/dL Blood Type O POSITIVE Gel Antibody Screen Negative Crossmatch See Detail 11/08/20 Range/Units 05:50 WBC (4.23-9.07) K/mm3 RBC (4.63-6.08) M/mm3 Hgb (13.7-17.5) gm/dl Hct (40.1-51.0) % MCV (79.0-92.2) fl MCH (25.7-32.2) pg MCHC (32.2-35.5) g/dl RDW Std Deviation (35.1-43.9) fL Plt Count (163-337) K/mm3 MPV (9.4-12.3) fl Neut % (Auto) (34.0-67.9) % Lymph % (Auto) (21.8-53.1) % [place] % (Auto) (5.3-12.2) % Eos % (Auto) (0.8-7.0) Baso % (Auto) (0.1-1.2) % Neut # (Auto) (1.78-5.38) K/mm3 Lymph # (Auto) (1.32-3.57) K/mm3 [place] # (Auto) (0.30-0.82) K/mm3 Eos # (Auto) (0.04-0.54) K/mm3 Baso # (Auto) (0.01-0.08) K/mm3 Manual Slide Review Sodium 134 L (136-145) mEq/L Potassium 3.9 (3.5-5.1) mEq/L Chloride 99 (98-107) mEq/L Carbon Dioxide 30 (21-32) mEq/L Anion Gap 8.9 (5-15) BUN 27 H (7-18) mg/dL Creatinine 0.8 (0.7-1.3) mg/dL Est Cr Clr Drug Dosing 64.32 mL/min Estimated GFR (MDRD) > 60 (>60) mL/min BUN/Creatinine Ratio 33.8 H (14-18) Glucose 92 (83-115) mg/dL Calcium 9.3 (8.5-10.1) mg/dL Magnesium 2.2 (1.8-2.4) mg/dl C-Reactive Protein 6.9 H* (<1.0) mg/dL Blood Type Gel Antibody Screen Crossmatch Cheng Results Last 24 Hours: Microbiology 11/06/20 13:33 Aerobic Blood Culture - Preliminary Blood - Venous - Lab Draw NO GROWTH AFTER 1 DAY Anaerobic Blood Culture - Preliminary NO GROWTH AFTER 1 DAY 11/06/20 13:27 Aerobic Blood Culture - Preliminary Blood - Venous NO GROWTH AFTER 1 DAY Anaerobic Blood Culture - Preliminary NO GROWTH AFTER 1 DAY 11/06/20 21:30 Gram Stain - Preliminary Sputum - Expectorated Sputum Culture - Preliminary Med Orders - Current: Current Medications Acetaminophen (Tylenol) 650 mg RECTAL Q4H PRN PRN Reason: Pain (mild 1-3) Acetaminophen (Tylenol) 650 mg PO Q4H PRN PRN Reason: Pain/Fever Last Admin: 11/06/20 21:41 Dose: 650 mg Documented by: Hydrocodone Bitart/Acetaminophen (Central 325-5 Mg) 1 tab FTUBE Q4H PRN PRN Reason: Pain (moderate 4-6) Albuterol (Proventil Neb Soln) 2.5 mg NEB QID PRN PRN Reason: Shortness of Breath Last Admin: 11/07/20 04:22 Dose: 2.5 mg Documented by: Albuterol/Ipratropium (Duoneb 3.0-0.5 Mg/3 Ml) 3 ml NEB Q4H PRN PRN Reason: Shortness Of Breath/wheezing Arformoterol Tartrate (Brovana) 15 mcg NEB BID [facility] Last Admin: 11/07/20 20:59 Dose: 15 mcg Documented by: Ascorbic Acid (Vitamin C) 2,000 mg FTUBE DAILY [facility] Last Admin: 11/07/20 08:48 Dose: 2,000 mg Documented by: Budesonide (Pulmicort) 0.5 mg NEB BID [facility] Last Admin: 11/07/20 20:59 Dose: 0.5 mg Documented by: Cholecalciferol (Vitamin D3) 50 mcg PEGTUBE DAILY [facility] Last Admin: 11/07/20 15:10 Dose: 50 mcg Documented by: Enoxaparin Sodium (Lovenox) 40 mg SUBCUT DAILY [facility] Last Admin: 11/07/20 08:45 Dose: 40 mg Documented by: Guaifenesin/Phenylephrine HCl (Robitussin Dm) 10 ml FTUBE Q4H PRN PRN Reason: Cough Hydromorphone HCl (Dilaudid) 0.5 mg IVPUSH Q2H PRN PRN Reason: Pain (severe 7-10) Last Admin: 11/07/20 21:54 Dose: 0.5 mg Documented by: Promethazine HCl 12.5 mg/ (Sodium Chloride) 50.5 mls @ 100 mls/hr IV Q6H PRN PRN Reason: Nausea/Vomiting Piperacillin Sod/Tazobactam (Sod 4.5 gm/ Sodium Chloride) 100 mls @ 25 mls/hr IV Q8H [facility] Last Admin: 11/07/20 22:02 Dose: 25 mls/hr Documented by: Ipratropium [place] (Atrovent) 0.5 mg NEB TIDRT [facility] Last Admin: 11/08/20 06:02 Dose: 0.5 mg Documented by: Loratadine (Claritin) 10 mg FTUBE DAILY [facility] Last Admin: 11/07/20 08:53 Dose: 10 mg Documented by: Lorazepam (Ativan) 0.5 mg FTUBE QID PRN PRN Reason: Anxiety Last Admin: 11/07/20 09:27 Dose: 0.5 mg Documented by: Magnesium Oxide (Magnesium Oxide) 800 mg FTUBE DAILY [facility] Last Admin: 11/07/20 08:45 Dose: 800 mg Documented by: Metoprolol Succinate (Toprol Xl) 12.5 mg .XX DAILY [facility] Last Admin: 11/07/20 08:46 Dose: 12.5 mg Documented by: Montelukast Sodium (Singulair) 10 mg FTUBE BEDTIME [facility] Last Admin: 11/07/20 21:50 Dose: 10 mg Documented by: Remove Scopolamine (Patch) 1 each .XX ONETIME ONE Stop: 11/09/20 21:01 Omeprazole (Omeprazole) 20 mg GTUBE DAILY [facility] Last Admin: 11/07/20 09:12 Dose: 20 mg Documented by: Ondansetron HCl (Zofran) 4 mg IV Q6H PRN PRN Reason: Nausea/Vomiting Oxycodone HCl (Oxycodone) 5 mg FTUBE Q4H PRN PRN Reason: Pain (moderate 4-6) Tetracaine 0.25% (Lollipops) 1 each PO Q4H PRN PRN Reason: Sore Throat Ferrous Sulfate 220 Mg/5 Ml Liquid Ptom 0 each PEGTUBE DAILY [facility] Last Admin: 11/07/20 15:10 Dose: 5 each Documented by: Polyethylene Glycol (Miralax) 17 gm FTUBE DAILY PRN PRN Reason: Constipation Prochlorperazine Maleate (Compazine) 10 mg FTUBE QID PRN PRN Reason: Nausea/Vomiting Senna/Docusate Sodium (Senna Plus) 1 tab FTUBE BID PRN PRN Reason: Constipation Simvastatin (Zocor) 40 mg FTUBE BEDTIME [facility] Last Admin: 11/07/20 21:50 Dose: 40 mg Documented by: Sodium Chloride (Saline Flush) 10 ml FLUSH ASDIRECTED PRN PRN Reason: Keep Vein Open Sodium Chloride (Sodium Chloride 3%) 3 ml NEB Q2H PRN PRN Reason: Other Zolpidem Tartrate (Ambien) 5 mg FTUBE BEDTIME PRN PRN Reason: Sleep Discontinued Medications Acetaminophen (Tylenol) 650 mg PO NOW ONE Stop: 11/07/20 08:46 Last Admin: 11/07/20 08:50 Dose: 650 mg Documented by: Hydrocodone Bitart/Acetaminophen (Central 325-5 Mg) 1 tab PO Q4H PRN PRN Reason: Pain (moderate 4-6) Cholecalciferol (Vitamin D3) 10,000 unit PEGTUBE DAILY [facility] Last Admin: 11/07/20 10:08 Dose: Not Given Documented by: Dexamethasone (Decadron) 4 mg IVPUSH ONETIME ONE Stop: 11/07/20 06:44 Last Admin: 11/07/20 08:39 Dose: 4 mg Documented by: Diphenhydramine HCl (Benadryl) 25 mg IV ONETIME ONE Stop: 11/07/20 06:44 Last Admin: 11/07/20 08:39 Dose: 25 mg Documented by: Furosemide (Lasix) 20 mg IVPUSH NOW ONE Stop: 11/07/20 06:48 Last Admin: 11/07/20 12:12 Dose: 20 mg Documented by: Guaifenesin/Phenylephrine HCl (Robitussin Dm) 10 ml PO Q4H PRN PRN Reason: Cough Ceftriaxone Sodium 2 gm/ (Sodium Chloride) 100 mls @ 200 mls/hr IV ONETIME ONE Stop: 11/06/20 13:37 Last Admin: 11/06/20 13:49 Dose: 200 mls/hr Documented by: Piperacillin Sod/Tazobactam (Sod 4.5 gm/ Sodium Chloride) 100 mls @ 200 mls/hr IV ONETIME ONE Stop: 11/06/20 17:29 Last Admin: 11/06/20 18:13 Dose: 200 mls/hr Documented by: Piperacillin Sod/Tazobactam (Sod 4.5 gm/ Sodium Chloride) 100 mls @ 25 mls/hr IV Q8H [facility] Last Admin: 11/07/20 09:08 Dose: 25 mls/hr Documented by: Sodium Chloride (Normal Saline) 1,000 mls @ 100 mls/hr IV ASDIRECTED [facility] Stop: 11/07/20 16:00 Last Admin: 11/07/20 07:34 Dose: 100 mls/hr Documented by: Ipratropium [place] (Atrovent) 0.5 mg NEB Q8H [facility] Last Admin: 11/06/20 18:00 Dose: 0.5 mg Documented by: Lorazepam (Ativan) 0.5 mg PO QID PRN PRN Reason: Anxiety Non-Formulary Medication (Lidocaine/Prilocaine) 1 applic TOP ASDIRECTED PRN PRN Reason: Other Oxycodone HCl (Oxycodone) 5 mg PO Q4H PRN PRN Reason: Pain (moderate 4-6) Ferrous Sulfate 220 Mg/5 Ml Liquid Ptom 0 each PEGTUBE DAILY [facility] Last Admin: 11/07/20 10:08 Dose: Not Given Documented by: Polyethylene Glycol (Miralax) 17 gm PO DAILY PRN PRN Reason: Constipation Prochlorperazine Maleate (Compazine) 10 mg PO QID PRN PRN Reason: Nausea/Vomiting Scopolamine (Transderm-Scop) 1.5 mg TOP ONETIME ONE Stop: 11/06/20 21:02 Last Admin: 11/06/20 21:14 Dose: 1.5 mg Documented by: Senna/Docusate Sodium (Senna Plus) 1 tab PO BID PRN PRN Reason: Constipation - Exam Quality Assessment: Supplemental Oxygen, DVT Prophylaxis General: Alert, Oriented, Cooperative HEENT: Pupils Equal, Pupils Reactive, EOMI, Mucous Membr. Moist/[place]ck: Supple, Other (has trach) Lungs: Decreased Breath Sounds, Wheezing, Other (caorse) Cardiovascular: Regular Rate, Regular Rhythm GI/Abdominal Exam: Normal Bowel Sounds, Soft, Non-Tender, No Organomegaly, No Distention, No Abnormal Bruit, No Mass, Pelvis Stable, Other (has PEG tube) (Male) Exam: Deferred Back Exam: Normal Inspection, Decreased Range of Motion Extremities: Normal Inspection, Normal Range of Motion, Non-Tender, No Pedal Edema, Normal Capillary Refill Peripheral Pulses: 2+: Dorsalis Pedis (L), Dorsalis Pedis (R) Skin: Warm, Dry, Intact Neurological: No New Focal Deficit Psy/Mental Status: Alert, Normal Affect, Normal Mood - Patient Data Lab Results Last 24 hrs: Laboratory Results - last 24 hr 11/07/20 11/07/20 11/08/20 Range/Units 06:14 06:14 05:50 WBC 32.72 H (4.23-9.07) K/mm3 RBC 3.18 L (4.63-6.08) M/mm3 Hgb 8.6 L D (13.7-17.5) gm/dl Hct 27.7 L (40.1-51.0) % MCV 87.1 D (79.0-92.2) fl MCH 27.0 (25.7-32.2) pg MCHC 31.0 L (32.2-35.5) g/dl RDW Std Deviation 51.7 H (35.1-43.9) fL Plt Count 526 H (163-337) K/mm3 MPV 9.6 (9.4-12.3) fl Neut % (Auto) 83.6 H (34.0-67.9) % Lymph % (Auto) 4.5 L (21.8-53.1) % [place] % (Auto) 11.2 (5.3-12.2) % Eos % (Auto) 0.6 L (0.8-7.0) Baso % (Auto) 0.1 (0.1-1.2) % Neut # (Auto) 27.38 H (1.78-5.38) K/mm3 Lymph # (Auto) 1.47 (1.32-3.57) K/mm3 [place] # (Auto) 3.67 H (0.30-0.82) K/mm3 Eos # (Auto) 0.18 (0.04-0.54) K/mm3 Baso # (Auto) 0.02 (0.01-0.08) K/mm3 Manual Slide Review Abnormal smear Sodium (136-145) mEq/L Potassium (3.5-5.1) mEq/L Chloride (98-107) mEq/L Carbon Dioxide (21-32) mEq/L Anion Gap (5-15) BUN (7-18) mg/dL Creatinine (0.7-1.3) mg/dL Est Cr Clr Drug Dosing mL/min Estimated GFR (MDRD) (>60) mL/min BUN/Creatinine Ratio (14-18) Glucose (83-115) mg/dL Calcium (8.5-10.1) mg/dL Magnesium (1.8-2.4) mg/dl C-Reactive Protein (<1.0) mg/dL Blood Type O POSITIVE Gel Antibody Screen Negative Crossmatch See Detail 11/08/20 Range/Units 05:50 WBC (4.23-9.07) K/mm3 RBC (4.63-6.08) M/mm3 Hgb (13.7-17.5) gm/dl Hct (40.1-51.0) % MCV (79.0-92.2) fl MCH (25.7-32.2) pg MCHC (32.2-35.5) g/dl RDW Std Deviation (35.1-43.9) fL Plt Count (163-337) K/mm3 MPV (9.4-12.3) fl Neut % (Auto) (34.0-67.9) % Lymph % (Auto) (21.8-53.1) % [place] % (Auto) (5.3-12.2) % Eos % (Auto) (0.8-7.0) Baso % (Auto) (0.1-1.2) % Neut # (Auto) (1.78-5.38) K/mm3 Lymph # (Auto) (1.32-3.57) K/mm3 [place] # (Auto) (0.30-0.82) K/mm3 Eos # (Auto) (0.04-0.54) K/mm3 Baso # (Auto) (0.01-0.08) K/mm3 Manual Slide Review Sodium 134 L (136-145) mEq/L Potassium 3.9 (3.5-5.1) mEq/L Chloride 99 (98-107) mEq/L Carbon Dioxide 30 (21-32) mEq/L Anion Gap 8.9 (5-15) BUN 27 H (7-18) mg/dL Creatinine 0.8 (0.7-1.3) mg/dL Est Cr Clr Drug Dosing 64.32 mL/min Estimated GFR (MDRD) > 60 (>60) mL/min BUN/Creatinine Ratio 33.8 H (14-18) Glucose 92 (83-115) mg/dL Calcium 9.3 (8.5-10.1) mg/dL Magnesium 2.2 (1.8-2.4) mg/dl C-Reactive Protein 6.9 H* (<1.0) mg/dL Blood Type Gel Antibody Screen Crossmatch Result Diagrams: 11/08/20 12:04 11/08/20 05:50 Cheng Results Last 24 hrs: Microbiology 11/06/20 13:33 Aerobic Blood Culture - Preliminary Blood - Venous - Lab Draw NO GROWTH AFTER 1 DAY Anaerobic Blood Culture - Preliminary NO GROWTH AFTER 1 DAY 11/06/20 13:27 Aerobic Blood Culture - Preliminary Blood - Venous NO GROWTH AFTER 1 DAY Anaerobic Blood Culture - Preliminary NO GROWTH AFTER 1 DAY 11/06/20 21:30 Gram Stain - Preliminary Sputum - Expectorated Sputum Culture - Preliminary Sepsis Event Note - Evaluation Sepsis Screening Result: Sepsis Risk - Focused Exam Vital Signs: Vital Signs Temp Resp BP Pulse Ox Pulse Ox 11/08/20 06:02 96 11/08/20 04:27 93 L 11/08/20 04:00 20 118/65 95 11/08/20 00:10 95 11/08/20 00:00 18 121/78 95 11/07/20 21:03 97 11/07/20 20:00 36.8 C 18 112/89 94 L - Problem List Review Problem List Initiated/Reviewed/Updated: Yes - My Orders Last 24 Hours: My Active Orders 11/07/20 09:00 Ascorbic Acid [Vitamin C] 2,000 mg FTUBE DAILY Enoxaparin [Lovenox] 40 mg SUBCUT DAILY Loratadine [Claritin] 10 mg FTUBE DAILY Magnesium Oxide 800 mg FTUBE DAILY Metoprolol Succinate [Toprol XL] 12.5 mg .XX DAILY Omeprazole 20 mg GTUBE DAILY 11/07/20 15:00 Piperacillin/Tazobactam [Piperacil-Tazobact] 4.5 gm Sodium Chloride 0.9% [Normal Saline] 100 ml IV Q8H 11/07/20 15:15 Cholecalciferol (Vitamin D3) [Vitamin D3] 50 mcg PEGTUBE DAILY Patient's Own Medication [Ptom] 0 each PEGTUBE DAILY 11/07/20 Dinner Nothing Per Oral Diet [DIET] 11/07/20 21:00 Simvastatin [Zocor] 40 mg FTUBE BEDTIME 11/08/20 05:50 CBC WITH AUTO DIFF [HEME] AM 11/09/20 05:11 BASIC METABOLIC PANEL,BMP [CHEM] AM C-REACTIVE PROTEIN [CHEM] AM CBC WITH AUTO DIFF [HEME] AM MAGNESIUM [CHEM] AM 11/09/20 21:00 Non-Formulary Medication [NF Drug] 1 each .XX ONETIME ONE 11/10/20 05:11 BASIC METABOLIC PANEL,BMP [CHEM] AM C-REACTIVE PROTEIN [CHEM] AM CBC WITH AUTO DIFF [HEME] AM MAGNESIUM [CHEM] AM 11/11/20 05:11 BASIC METABOLIC PANEL,BMP [CHEM] AM C-REACTIVE PROTEIN [CHEM] AM CBC WITH AUTO DIFF [HEME] AM MAGNESIUM [CHEM] AM - Plan Plan:: This is a 75 yo elderly white male with past medical hx/o HTN, HLD, Asthma, COPD, Esophageal and Lung CA, Hx/o Respiratory Failure S/p Tracheostomy, Chronic Hypoxia on 4L NC via Trach, Dysphagia S/p PEG Tube Placement, Hx/o Left Shoulder Pain, Hx/o Left Hip Surgery and Insomnia who comes to us from the clin ic after developing respiratory distress at [facility]. Assessment: Acute: Acute Respiratory Distress, improved COPD Exacerbation, diffuse wheezing this morning Hypoxia on supplemental O2 -Developed suddenly at the [facility] [place] -He was on 4L and had to go up on his supplemental O2 -Now back to 4L sating in the low 90s -He was unable to clear his airway -He was considerably hypoxic-->reason why he was sent over to ED -Chest x-ray taken in ED shows no obvious acute changes -Repeat chest x-ray remains stable with no acute changes -Plan: Continue aspiration precautions, slow down hypersecretion, RT to routine assess tracheostomy, empiric antibiotic, he is normally on oral steroid but with GI bleed we will switch to IV steroid, he needs it for wheezing Mucus Plugs, acute on chronic Hypersecretions -Bedside suction device -RT routine trach care -Scopolamine patch x1 -Set up oral suction to the wall for PRN use -Aspiration precautions Elevated CRP of 6.1 Leukocytosis with WBC of 32.7 taken at [facility] -Likely from acute respiratory distress -We will monitor Pancytopenia/Anemia Possible GI Bleed, he takes iron supplement -Had a Hgb level of 7.4 grams taken at [facility]; 6.1-->now 8.6 grams -He was getting infusion at the clinic across us -Patient is no longer on chemotherapy; this likely from underlying malignancy -S/p 2 units of PRBC transfusion -Query GI Bleed -Hold Lovenox for now; heme-occult test -Plan: Continue to monitor and SCDs for now Thrombocytosis of 649 taken at [facility]; Now 525 -Unclear if thrombo-concentration from being dry -We will continue to monitor SIRS/Early developing Sepsis -He meets criteria: WBC of 32.7-->24.33, borderline hypotension with documented BP as low as 115/56 mmHg, tachycardic with RR in the mid 20s. -Possible source: aspiration syndrome -Blood cultures were done and 2 grams IV Rocephin given in ED -Already received IV Zosyn for empiric treatment -UA negative -Plan: Sputum culture with grams stain. No need for aggressive volume resuscitation,patient is not significantly hypotensive Chronic: HTN, HLD, Asthma, COPD, Esophageal and Lung CA, Hx/o Respiratory Failure S/p Tracheostomy, Chronic Hypoxia on 4L NC via Trach, Dysphagia S/p PEG Tube Placement, Hx/o Left Shoulder Pain, Hx/o Left Hip Surgery and Insomnia Plan: No change in condition. Routine AM Labs. RT to assess and treat. PRN suction for oral secretions. IV fluids for hydration. Complete NPO. Dietary consult for tube feeding. DVT/GI prophylaxis. Code status is full. Overall prognosis is very poor. LOS > 96 hrs after development of COPD exacerbation and Possible GI Bleed.
[2020-11-08] MEDS: Budesonide 0.5 MG/2 ML Neb Susp NEB SCH ×2 (08:28→21:19)
[2020-11-08] MEDS: Arformoterol 15 MCG/2 ML Neb Soln NEB SCH ×2 (08:28→21:19)
[2020-11-08] MEDS: Piperacillin/Tazobactam 4.5 GM in Sodium Chloride 0.9% 100 ML IV SCH ×2 (09:20→15:11)
[2020-11-08] MEDS: methylPREDNISolone Sodium Succinate 125 MG/2 ML SDV IVPUSH SCH ×2 (09:24→17:13)
[2020-11-08] MEDS: Magnesium Oxide 400 MG Tab FTUBE SCH (09:38)
[2020-11-08] MEDS: Loratadine 10 MG Tab FTUBE SCH (09:39)
[2020-11-08] MEDS: Omeprazole 20 MG Cap.CR GTUBE SCH (09:39)
[2020-11-08] MEDS: Metoprolol Succinate 25 MG Tab.ER SCH (09:39)
[2020-11-08] MEDS: Ascorbic Acid 500 MG Tab FTUBE SCH (09:39)
[2020-11-08] MEDS: FERROUS SULFATE 220 MG/5 ML PEGTUBE SCH (09:40)
[2020-11-08] MEDS: Cholecalciferol (Vitamin D3) 25 MCG Tab PEGTUBE SCH (09:41)
[2020-11-08] MEDS: Loperamide 2 MG Cap PO PRN ×2 (11:30→15:11)
[2020-11-08] MEDS: Montelukast 10 MG Tab FTUBE SCH (20:24)
[2020-11-08] MEDS: Simvastatin 40 MG Tab FTUBE SCH (20:24)
[2020-11-09] MEDS: Piperacillin/Tazobactam 4.5 GM in Sodium Chloride 0.9% 100 ML IV SCH ×3 (00:40→16:32)
[2020-11-09] MEDS: methylPREDNISolone Sodium Succinate 125 MG/2 ML SDV IVPUSH SCH ×3 (00:42→16:33)
[2020-11-09] MEDS: Ipratropium 0.02% 0.5 MG/2.5 ML Neb Soln NEB SCH ×3 (06:36→21:25)
--- NOTE | 2020-11-09 06:43 | PCM.PN ---
- General Info Date of Service: 11/09/20 Admission Dx/Problem (Free Text): Admission Diagnosis/Problem Admission Diagnosis/Problem Pneumonia Subjective Update: He still feels weak and tired. Had a loose bloody stool x1 last night. He had a couple more loose bloody stool this AM. His repeat Hgb is is 8.1 grams this AM. His Na is slightly up at 135. His CRP is at 5.6. Functional Status: Reports: Pain Controlled, Tolerating Diet, Ambulating, Urinating, Incentive Spirometry - Review of Systems General: Reports: Weakness, Fatigue. Denies: Fever, Chills HEENT: Denies: Contact Lenses Pulmonary: Reports: Shortness of Breath, Cough, Sputum Cardiovascular: Denies: Chest Pain Gastrointestinal: Reports: Hematochezia. Denies: Abdominal Pain, Nausea, Vomiting Genitourinary: Reports: No Symptoms Skin: Denies: Cyanosis, Pallor, Bruising Neurological: Reports: Weakness, Gait Disturbance. Denies: Confusion Psychiatric: Denies: Depression, Anxiety - Patient Data Vitals - Most Recent: Last Vital Signs Temp 36.8 C 11/08/20 20:00 Pulse 88 11/08/20 17:00 Resp 18 11/09/20 04:00 BP 106/57 L 11/09/20 04:00 Pulse Ox 92 L 11/09/20 06:40 Weight - Most Recent: 55.293 kg I&O - Last 24 Hours: Intake & Output 11/08/20 11/08/20 11/09/20 14:59 22:59 06:59 Intake Total 930 1030 100 Output Total 300 400 500 Balance 630 630 -400 Lab Results Last 24 Hours: Laboratory Results - last 24 hr 11/08/20 11/08/20 11/08/20 Range/Units 05:50 05:50 12:04 WBC 32.72 H (4.23-9.07) K/mm3 RBC 3.18 L (4.63-6.08) M/mm3 Hgb 8.6 L D 8.5 L (13.7-17.5) gm/dl Hct 27.7 L 27.8 L (40.1-51.0) % MCV 87.1 D (79.0-92.2) fl MCH 27.0 (25.7-32.2) pg MCHC 31.0 L (32.2-35.5) g/dl RDW Std Deviation 51.7 H (35.1-43.9) fL Plt Count 526 H (163-337) K/mm3 MPV 9.6 (9.4-12.3) fl Neut % (Auto) 83.6 H (34.0-67.9) % Lymph % (Auto) 4.5 L (21.8-53.1) % Mccone % (Auto) 11.2 (5.3-12.2) % Eos % (Auto) 0.6 L (0.8-7.0) Baso % (Auto) 0.1 (0.1-1.2) % Neut # (Auto) 27.38 H (1.78-5.38) K/mm3 Lymph # (Auto) 1.47 (1.32-3.57) K/mm3 Mccone # (Auto) 3.67 H (0.30-0.82) K/mm3 Eos # (Auto) 0.18 (0.04-0.54) K/mm3 Baso # (Auto) 0.02 (0.01-0.08) K/mm3 Manual Slide Review Abnormal smear Sodium 134 L (136-145) mEq/L Potassium 3.9 (3.5-5.1) mEq/L Chloride 99 (98-107) mEq/L Carbon Dioxide 30 (21-32) mEq/L Anion Gap 8.9 (5-15) BUN 27 H (7-18) mg/dL Creatinine 0.8 (0.7-1.3) mg/dL Est Cr Clr Drug Dosing 64.32 mL/min Estimated GFR (MDRD) > 60 (>60) mL/min BUN/Creatinine Ratio 33.8 H (14-18) Glucose 92 (83-115) mg/dL Calcium 9.3 (8.5-10.1) mg/dL Magnesium 2.2 (1.8-2.4) mg/dl C-Reactive Protein 6.9 H* (<1.0) mg/dL 11/09/20 11/09/20 Range/Units 05:05 05:05 WBC 23.77 H (4.23-9.07) K/mm3 RBC 3.07 L (4.63-6.08) M/mm3 Hgb 8.1 L (13.7-17.5) gm/dl Hct 26.9 L (40.1-51.0) % MCV 87.6 (79.0-92.2) fl MCH 26.4 (25.7-32.2) pg MCHC 30.1 L (32.2-35.5) g/dl RDW Std Deviation 52.1 H (35.1-43.9) fL Plt Count 519 H (163-337) K/mm3 MPV 9.6 (9.4-12.3) fl Neut % (Auto) 95.3 H (34.0-67.9) % Lymph % (Auto) 2.4 L (21.8-53.1) % Mccone % (Auto) 1.9 L (5.3-12.2) % Eos % (Auto) 0 L (0.8-7.0) Baso % (Auto) 0.0 L (0.1-1.2) % Neut # (Auto) 22.67 H (1.78-5.38) K/mm3 Lymph # (Auto) 0.56 L (1.32-3.57) K/mm3 Mccone # (Auto) 0.45 (0.30-0.82) K/mm3 Eos # (Auto) 0.00 L (0.04-0.54) K/mm3 Baso # (Auto) 0.00 L (0.01-0.08) K/mm3 Manual Slide Review Sodium 135 L (136-145) mEq/L Potassium 4.3 (3.5-5.1) mEq/L Chloride 99 (98-107) mEq/L Carbon Dioxide 29 (21-32) mEq/L Anion Gap 11.3 (5-15) BUN 23 H (7-18) mg/dL Creatinine 0.8 (0.7-1.3) mg/dL Est Cr Clr Drug Dosing 64.32 mL/min Estimated GFR (MDRD) > 60 (>60) mL/min BUN/Creatinine Ratio 28.8 H (14-18) Glucose 125 H (83-115) mg/dL Calcium 9.3 (8.5-10.1) mg/dL Magnesium 2.2 (1.8-2.4) mg/dl C-Reactive Protein 5.6 H* (<1.0) mg/dL Cheng Results Last 24 Hours: Microbiology 11/06/20 13:33 Aerobic Blood Culture - Preliminary Blood - Venous - Lab Draw NO GROWTH AFTER 2 DAYS Anaerobic Blood Culture - Preliminary NO GROWTH AFTER 2 DAYS 11/06/20 13:27 Aerobic Blood Culture - Preliminary Blood - Venous NO GROWTH AFTER 2 DAYS Anaerobic Blood Culture - Preliminary NO GROWTH AFTER 2 DAYS 11/06/20 21:30 Gram Stain - Preliminary Sputum - Expectorated Sputum Culture - Preliminary Gram Negative Rods 11/08/20 08:20 Stool Occult Blood (CHENG) - Final Stool / Feces Med Orders - Current: Current Medications Acetaminophen (Tylenol) 650 mg RECTAL Q4H PRN PRN Reason: Pain (mild 1-3) Acetaminophen (Tylenol) 650 mg PO Q4H PRN PRN Reason: Pain/Fever Last Admin: 11/06/20 21:41 Dose: 650 mg Documented by: Hydrocodone Bitart/Acetaminophen (Indian 325-5 Mg) 1 tab FTUBE Q4H PRN PRN Reason: Pain (moderate 4-6) Last Admin: 11/08/20 20:23 Dose: 1 tab Documented by: Albuterol (Proventil Neb Soln) 2.5 mg NEB QID PRN PRN Reason: Shortness of Breath Last Admin: 11/07/20 04:22 Dose: 2.5 mg Documented by: Albuterol/Ipratropium (Duoneb 3.0-0.5 Mg/3 Ml) 3 ml NEB Q4H PRN PRN Reason: Shortness Of Breath/wheezing Arformoterol Tartrate (Brovana) 15 mcg NEB BID [facility] Last Admin: 11/08/20 21:19 Dose: 15 mcg Documented by: Ascorbic Acid (Vitamin C) 2,000 mg FTUBE DAILY [facility] Last Admin: 11/08/20 09:39 Dose: 2,000 mg Documented by: Budesonide (Pulmicort) 0.5 mg NEB BID [facility] Last Admin: 11/08/20 21:19 Dose: 0.5 mg Documented by: Cholecalciferol (Vitamin D3) 50 mcg PEGTUBE DAILY [facility] Last Admin: 11/08/20 09:41 Dose: 50 mcg Documented by: Guaifenesin/Phenylephrine HCl (Robitussin Dm) 10 ml FTUBE Q4H PRN PRN Reason: Cough Hydromorphone HCl (Dilaudid) 0.5 mg IVPUSH Q2H PRN PRN Reason: Pain (severe 7-10) Last Admin: 11/07/20 21:54 Dose: 0.5 mg Documented by: Promethazine HCl 12.5 mg/ (Sodium Chloride) 50.5 mls @ 100 mls/hr IV Q6H PRN PRN Reason: Nausea/Vomiting Piperacillin Sod/Tazobactam (Sod 4.5 gm/ Sodium Chloride) 100 mls @ 25 mls/hr IV Q8H [facility] Last Admin: 11/09/20 00:40 Dose: 25 mls/hr Documented by: Ipratropium [place] (Atrovent) 0.5 mg NEB TIDRT [facility] Last Admin: 11/09/20 06:36 Dose: 0.5 mg Documented by: Loperamide HCl (Imodium) 2 mg PO Q6H PRN PRN Reason: Diarrhea Last Admin: 11/08/20 15:11 Dose: 2 mg Documented by: Loratadine (Claritin) 10 mg FTUBE DAILY [facility] Last Admin: 11/08/20 09:39 Dose: 10 mg Documented by: Lorazepam (Ativan) 0.5 mg FTUBE QID PRN PRN Reason: Anxiety Last Admin: 11/07/20 09:27 Dose: 0.5 mg Documented by: Magnesium Oxide (Magnesium Oxide) 800 mg FTUBE DAILY [facility] Last Admin: 11/08/20 09:38 Dose: 800 mg Documented by: Methylprednisolone Sodium Succinate (Solu-Medrol) 80 mg IVPUSH Q8H [facility] Last Admin: 11/09/20 00:42 Dose: 80 mg Documented by: Metoprolol Succinate (Toprol Xl) 12.5 mg .XX DAILY [facility] Last Admin: 11/08/20 09:39 Dose: 12.5 mg Documented by: Montelukast Sodium (Singulair) 10 mg FTUBE BEDTIME [facility] Last Admin: 11/08/20 20:24 Dose: 10 mg Documented by: Remove Scopolamine (Patch) 1 each .XX ONETIME ONE Stop: 11/09/20 21:01 Omeprazole (Omeprazole) 20 mg GTUBE DAILY [facility] Last Admin: 11/08/20 09:39 Dose: 20 mg Documented by: Ondansetron HCl (Zofran) 4 mg IV Q6H PRN PRN Reason: Nausea/Vomiting Oxycodone HCl (Oxycodone) 5 mg FTUBE Q4H PRN PRN Reason: Pain (moderate 4-6) Tetracaine 0.25% (Lollipops) 1 each PO Q4H PRN PRN Reason: Sore Throat Ferrous Sulfate 220 Mg/5 Ml Liquid Ptom 0 each PEGTUBE DAILY [facility] Last Admin: 11/08/20 09:40 Dose: 1 each Documented by: Polyethylene Glycol (Miralax) 17 gm FTUBE DAILY PRN PRN Reason: Constipation Prochlorperazine Maleate (Compazine) 10 mg FTUBE QID PRN PRN Reason: Nausea/Vomiting Senna/Docusate Sodium (Senna Plus) 1 tab FTUBE BID PRN PRN Reason: Constipation Simvastatin (Zocor) 40 mg FTUBE BEDTIME [facility] Last Admin: 11/08/20 20:24 Dose: 40 mg Documented by: Sodium Chloride (Saline Flush) 10 ml FLUSH ASDIRECTED PRN PRN Reason: Keep Vein Open Sodium Chloride (Sodium Chloride 3%) 3 ml NEB Q2H PRN PRN Reason: Other Zolpidem Tartrate (Ambien) 5 mg FTUBE BEDTIME PRN PRN Reason: Sleep Discontinued Medications Acetaminophen (Tylenol) 650 mg PO NOW ONE Stop: 11/07/20 08:46 Last Admin: 11/07/20 08:50 Dose: 650 mg Documented by: Hydrocodone Bitart/Acetaminophen (Indian 325-5 Mg) 1 tab PO Q4H PRN PRN Reason: Pain (moderate 4-6) Cholecalciferol (Vitamin D3) 10,000 unit PEGTUBE DAILY [facility] Last Admin: 11/07/20 10:08 Dose: Not Given Documented by: Dexamethasone (Decadron) 4 mg IVPUSH ONETIME ONE Stop: 11/07/20 06:44 Last Admin: 11/07/20 08:39 Dose: 4 mg Documented by: Diphenhydramine HCl (Benadryl) 25 mg IV ONETIME ONE Stop: 11/07/20 06:44 Last Admin: 11/07/20 08:39 Dose: 25 mg Documented by: Enoxaparin Sodium (Lovenox) 40 mg SUBCUT DAILY [facility] Last Admin: 11/07/20 08:45 Dose: 40 mg Documented by: Furosemide (Lasix) 20 mg IVPUSH NOW ONE Stop: 11/07/20 06:48 Last Admin: 11/07/20 12:12 Dose: 20 mg Documented by: Guaifenesin/Phenylephrine HCl (Robitussin Dm) 10 ml PO Q4H PRN PRN Reason: Cough Ceftriaxone Sodium 2 gm/ (Sodium Chloride) 100 mls @ 200 mls/hr IV ONETIME ONE Stop: 11/06/20 13:37 Last Admin: 11/06/20 13:49 Dose: 200 mls/hr Documented by: Piperacillin Sod/Tazobactam (Sod 4.5 gm/ Sodium Chloride) 100 mls @ 200 mls/hr IV ONETIME ONE Stop: 11/06/20 17:29 Last Admin: 11/06/20 18:13 Dose: 200 mls/hr Documented by: Piperacillin Sod/Tazobactam (Sod 4.5 gm/ Sodium Chloride) 100 mls @ 25 mls/hr IV Q8H [facility] Last Admin: 11/07/20 09:08 Dose: 25 mls/hr Documented by: Sodium Chloride (Normal Saline) 1,000 mls @ 100 mls/hr IV ASDIRECTED [facility] Stop: 11/07/20 16:00 Last Admin: 11/07/20 07:34 Dose: 100 mls/hr Documented by: Ipratropium [place] (Atrovent) 0.5 mg NEB Q8H [facility] Last Admin: 11/06/20 18:00 Dose: 0.5 mg Documented by: Lorazepam (Ativan) 0.5 mg PO QID PRN PRN Reason: Anxiety Non-Formulary Medication (Lidocaine/Prilocaine) 1 applic TOP ASDIRECTED PRN PRN Reason: Other Oxycodone HCl (Oxycodone) 5 mg PO Q4H PRN PRN Reason: Pain (moderate 4-6) Ferrous Sulfate 220 Mg/5 Ml Liquid Ptom 0 each PEGTUBE DAILY [facility] Last Admin: 11/07/20 10:08 Dose: Not Given Documented by: Polyethylene Glycol (Miralax) 17 gm PO DAILY PRN PRN Reason: Constipation Prochlorperazine Maleate (Compazine) 10 mg PO QID PRN PRN Reason: Nausea/Vomiting Scopolamine (Transderm-Scop) 1.5 mg TOP ONETIME ONE Stop: 11/06/20 21:02 Last Admin: 11/06/20 21:14 Dose: 1.5 mg Documented by: Senna/Docusate Sodium (Senna Plus) 1 tab PO BID PRN PRN Reason: Constipation - Exam Quality Assessment: Supplemental Oxygen General: Alert, Oriented, Cooperative, No Acute Distress, Other HEENT: Pupils Equal, EOMI, Mucous Membr. Moist/[place], Other (presence of trach) Neck: Supple (port-a-cath access line ), Other Lungs: Decreased Breath Sounds, Wheezing (expiratory wheezin on his right lower anterior chest/right flank) Cardiovascular: Regular Rate, Regular Rhythm GI/Abdominal Exam: Normal Bowel Sounds, Soft, Non-Tender, Other (presence of PEG tube) (Male) Exam: Deferred Back Exam: Normal Inspection, Decreased Range of Motion Extremities: Normal Inspection, Normal Range of Motion, Non-Tender, No Pedal Edema, Normal Capillary Refill Peripheral Pulses: 2+: Dorsalis Pedis (L), Dorsalis Pedis (R) Skin: Warm, Dry, Intact Neurological: No New Focal Deficit. No: Normal Gait Psy/Mental Status: Alert, Normal Affect, Normal Mood - Patient Data Lab Results Last 24 hrs: Laboratory Results - last 24 hr 11/08/20 11/08/20 11/08/20 Range/Units 05:50 05:50 12:04 WBC 32.72 H (4.23-9.07) K/mm3 RBC 3.18 L (4.63-6.08) M/mm3 Hgb 8.6 L D 8.5 L (13.7-17.5) gm/dl Hct 27.7 L 27.8 L (40.1-51.0) % MCV 87.1 D (79.0-92.2) fl MCH 27.0 (25.7-32.2) pg MCHC 31.0 L (32.2-35.5) g/dl RDW Std Deviation 51.7 H (35.1-43.9) fL Plt Count 526 H (163-337) K/mm3 MPV 9.6 (9.4-12.3) fl Neut % (Auto) 83.6 H (34.0-67.9) % Lymph % (Auto) 4.5 L (21.8-53.1) % Mccone % (Auto) 11.2 (5.3-12.2) % Eos % (Auto) 0.6 L (0.8-7.0) Baso % (Auto) 0.1 (0.1-1.2) % Neut # (Auto) 27.38 H (1.78-5.38) K/mm3 Lymph # (Auto) 1.47 (1.32-3.57) K/mm3 Mccone # (Auto) 3.67 H (0.30-0.82) K/mm3 Eos # (Auto) 0.18 (0.04-0.54) K/mm3 Baso # (Auto) 0.02 (0.01-0.08) K/mm3 Manual Slide Review Abnormal smear Sodium 134 L (136-145) mEq/L Potassium 3.9 (3.5-5.1) mEq/L Chloride 99 (98-107) mEq/L Carbon Dioxide 30 (21-32) mEq/L Anion Gap 8.9 (5-15) BUN 27 H (7-18) mg/dL Creatinine 0.8 (0.7-1.3) mg/dL Est Cr Clr Drug Dosing 64.32 mL/min Estimated GFR (MDRD) > 60 (>60) mL/min BUN/Creatinine Ratio 33.8 H (14-18) Glucose 92 (83-115) mg/dL Calcium 9.3 (8.5-10.1) mg/dL Magnesium 2.2 (1.8-2.4) mg/dl C-Reactive Protein 6.9 H* (<1.0) mg/dL 11/09/20 11/09/20 Range/Units 05:05 05:05 WBC 23.77 H (4.23-9.07) K/mm3 RBC 3.07 L (4.63-6.08) M/mm3 Hgb 8.1 L (13.7-17.5) gm/dl Hct 26.9 L (40.1-51.0) % MCV 87.6 (79.0-92.2) fl MCH 26.4 (25.7-32.2) pg MCHC 30.1 L (32.2-35.5) g/dl RDW Std Deviation 52.1 H (35.1-43.9) fL Plt Count 519 H (163-337) K/mm3 MPV 9.6 (9.4-12.3) fl Neut % (Auto) 95.3 H (34.0-67.9) % Lymph % (Auto) 2.4 L (21.8-53.1) % Mccone % (Auto) 1.9 L (5.3-12.2) % Eos % (Auto) 0 L (0.8-7.0) Baso % (Auto) 0.0 L (0.1-1.2) % Neut # (Auto) 22.67 H (1.78-5.38) K/mm3 Lymph # (Auto) 0.56 L (1.32-3.57) K/mm3 Mccone # (Auto) 0.45 (0.30-0.82) K/mm3 Eos # (Auto) 0.00 L (0.04-0.54) K/mm3 Baso # (Auto) 0.00 L (0.01-0.08) K/mm3 Manual Slide Review Sodium 135 L (136-145) mEq/L Potassium 4.3 (3.5-5.1) mEq/L Chloride 99 (98-107) mEq/L Carbon Dioxide 29 (21-32) mEq/L Anion Gap 11.3 (5-15) BUN 23 H (7-18) mg/dL Creatinine 0.8 (0.7-1.3) mg/dL Est Cr Clr Drug Dosing 64.32 mL/min Estimated GFR (MDRD) > 60 (>60) mL/min BUN/Creatinine Ratio 28.8 H (14-18) Glucose 125 H (83-115) mg/dL Calcium 9.3 (8.5-10.1) mg/dL Magnesium 2.2 (1.8-2.4) mg/dl C-Reactive Protein 5.6 H* (<1.0) mg/dL Result Diagrams: 11/11/20 05:35 11/11/20 05:35 Cheng Results Last 24 hrs: Microbiology 11/06/20 13:33 Aerobic Blood Culture - Preliminary Blood - Venous - Lab Draw NO GROWTH AFTER 2 DAYS Anaerobic Blood Culture - Preliminary NO GROWTH AFTER 2 DAYS 11/06/20 13:27 Aerobic Blood Culture - Preliminary Blood - Venous NO GROWTH AFTER 2 DAYS Anaerobic Blood Culture - Preliminary NO GROWTH AFTER 2 DAYS 11/06/20 21:30 Gram Stain - Preliminary Sputum - Expectorated Sputum Culture - Preliminary Gram Negative Rods 11/08/20 08:20 Stool Occult Blood (CHENG) - Final Stool / Feces Sepsis Event Note - Evaluation Sepsis Screening Result: Sepsis Risk - Focused Exam Vital Signs: Vital Signs Temp Resp BP Pulse Ox Pulse Ox 11/09/20 06:40 92 L 11/09/20 04:00 18 106/57 L 94 L 11/09/20 00:00 20 119/53 L 96 11/08/20 21:36 95 11/08/20 20:00 36.8 C 20 112/55 L 96 - Problem List Review Problem List Initiated/Reviewed/Updated: Yes - My Orders Last 24 Hours: My Active Orders 11/08/20 08:16 SCD [Sequential Compression Device] [OM.PC] Routine 11/08/20 08:30 methylPREDNISolone Sod Succ [Solu-MEDROL] 80 mg IVPUSH Q8H 11/08/20 10:49 Loperamide [Imodium] 2 mg PO Q6H PRN 11/08/20 11:30 STOOL CULTURE/SHIGA TOXIN [MREF] Routine 11/08/20 Dinner NPO [Nothing Per Oral Diet] [DIET] 11/09/20 05:05 CBC WITH AUTO DIFF [HEME] AM 11/09/20 21:00 Non-Formulary Medication [NF Drug] 1 each .XX ONETIME ONE 11/10/20 05:11 BASIC METABOLIC PANEL,BMP [CHEM] AM C-REACTIVE PROTEIN [CHEM] AM CBC WITH AUTO DIFF [HEME] AM MAGNESIUM [CHEM] AM 11/11/20 05:11 BASIC METABOLIC PANEL,BMP [CHEM] AM C-REACTIVE PROTEIN [CHEM] AM CBC WITH AUTO DIFF [HEME] AM MAGNESIUM [CHEM] AM - Plan Plan:: This is a 75 yo elderly white male with past medical hx/o HTN, HLD, Asthma, COPD, Esophageal and Lung CA, Hx/o Respiratory Failure S/p Tracheostomy, Chronic Hypoxia on 4L NC via Trach, Dysphagia S/p PEG Tube Placement, Hx/o Left Shoulder Pain, Hx/o Left Hip Surgery and Insomnia who comes to us from the clinic after developing respiratory distress at [facility]. Assessment: Acute: Acute Respiratory Distress, resolved COPD Exacerbation, improved Hypoxia on supplemental O2 -Developed suddenly at the [facility] -He was on 4L and had to go up on his supplemental O2 -Now at 8L with 30% FIO2 -He was unable to clear his airway -He was considerably hypoxic-->reason why he was sent over to ED -Chest x-ray taken in ED shows no obvious acute changes -Repeat chest x-ray remains stable with no acute changes -Plan: Continue aspiration precautions, slow down hypersecretion, RT to routine assess tracheostomy, empiric antibiotic, he is normally on oral steroid but with GI bleed we will switch to IV steroid, he needs it for wheezing Mucus Plugs, acute on chronic, improved Hypersecretions -Bedside suction device -RT routine trach care -Scopolamine patch x1 -Set up oral suction to the wall for PRN use -Aspiration precautions Elevated CRP of 6.1; now 5.6 Leukocytosis with WBC of 32.[address] [facility] -Likely from acute respiratory distress -We will monitor Normocytic Hypochromic Anemia, stable Possible GI Bleed, he takes iron supplement -Had a Hgb level of 7.4 grams taken at [facility]; 6.1-->now 8.1 grams -He was getting infusion at the clinic across us -Patient is no longer on chemotherapy; this likely from underlying malignancy -S/p 2 units of PRBC transfusion -Still has loose bowel movement -Hold Lovenox for now; heme-occult test -Plan: Continue to monitor and SCDs for now. Dietary consult for loose bowel movement. He needs something to firm up his stool. Thrombocytosis of [address] [facility]; Now 519 -Unclear if thrombo-concentration from being dry -We will continue to monitor SIRS/Early developing Sepsis, resolved -He meets criteria: WBC of 32.7-->24.33, borderline hypotension with documented BP as low as 115/56 mmHg, tachycardic with RR in the mid 20s. -Possible source: aspiration syndrome -Blood cultures were done and 2 grams IV Rocephin given in ED -Already received IV Zosyn for empiric treatment -UA negative -Plan: Sputum culture with grams stain. No need for aggressive volume resuscitation,patient is not significantly hypotensive Generalized Weakness -Likely multi-factorial -PT/OT to eval tomorrow Chronic: HTN, HLD, Asthma, COPD, Esophageal and Lung CA, Hx/o Respiratory Failure S/p Tracheostomy, Chronic Hypoxia on 4L NC via Trach, Dysphagia S/p PEG Tube Placement, Hx/o Left Shoulder Pain, Hx/o Left Hip Surgery and Insomnia Plan: No change in condition. Routine AM Labs. RT to assess and treat. PRN suction for oral secretions. IV fluids for hydration. Complete NPO. Dietary consult for tube feeding and loose bowel movement. DVT/GI prophylaxis. Code status is full. Overall prognosis is very poor. LOS > 96 hrs after development of COPD exacerbation and Possible GI Bleed. He is still unsteady and weak. Need PT/OT to assess and treat. Critical time spent > 20 mins
[2020-11-09] MEDS: Budesonide 0.5 MG/2 ML Neb Susp NEB SCH ×2 (08:44→21:26)
[2020-11-09] MEDS: Arformoterol 15 MCG/2 ML Neb Soln NEB SCH ×2 (08:44→21:26)
[2020-11-09] MEDS: Metoprolol Succinate 25 MG Tab.ER SCH (08:45)
[2020-11-09] MEDS: Ascorbic Acid 500 MG Tab FTUBE SCH (08:45)
[2020-11-09] MEDS: FERROUS SULFATE 220 MG/5 ML PEGTUBE SCH (08:45)
[2020-11-09] MEDS: Magnesium Oxide 400 MG Tab FTUBE SCH (08:45)
[2020-11-09] MEDS: Loratadine 10 MG Tab FTUBE SCH (08:45)
[2020-11-09] MEDS: Cholecalciferol (Vitamin D3) 25 MCG Tab PEGTUBE SCH (08:46)
[2020-11-09] MEDS: Omeprazole 20 MG Cap.CR GTUBE SCH (08:46)
[2020-11-09] MEDS: Loperamide 2 MG Cap PO PRN ×2 (08:48→16:33)
[2020-11-09] MEDS: Montelukast 10 MG Tab FTUBE SCH (21:53)
[2020-11-09] MEDS: Simvastatin 40 MG Tab FTUBE SCH (21:55)
[2020-11-09] MEDS: Acetaminophen Soln 650 MG/20.3 ML UD Cup PO PRN (21:55)
[2020-11-10] MEDS: methylPREDNISolone Sodium Succinate 125 MG/2 ML SDV IVPUSH SCH ×4 (01:28→23:48)
[2020-11-10] MEDS: Ipratropium 0.02% 0.5 MG/2.5 ML Neb Soln NEB SCH ×3 (05:56→20:00)
[2020-11-10] MEDS: Budesonide 0.5 MG/2 ML Neb Susp NEB SCH ×2 (08:26→20:00)
[2020-11-10] MEDS: Arformoterol 15 MCG/2 ML Neb Soln NEB SCH ×2 (08:26→20:00)
[2020-11-10] MEDS: Metoprolol Succinate 25 MG Tab.ER SCH (08:26)
[2020-11-10] MEDS: Magnesium Oxide 400 MG Tab FTUBE SCH (08:27)
[2020-11-10] MEDS: Ascorbic Acid 500 MG Tab FTUBE SCH (08:27)
[2020-11-10] MEDS: Loratadine 10 MG Tab FTUBE SCH (08:27)
[2020-11-10] MEDS: Cefepime 2 GM in Premix Bag 1 BAG IV SCH ×3 (08:28→23:47)
[2020-11-10] MEDS: Cholecalciferol (Vitamin D3) 25 MCG Tab PEGTUBE SCH (08:31)
[2020-11-10] MEDS: FERROUS SULFATE 220 MG/5 ML PEGTUBE SCH (08:47)
[2020-11-10] MEDS: Omeprazole 20 MG Cap.CR GTUBE SCH (08:50)
[2020-11-10] MEDS: Loperamide 2 MG Cap PO PRN ×2 (08:56→16:34)
[2020-11-10] MEDS ORDERED: cefTRIAXone 1 GM in Sodium Chloride 0.9% 100 ML IV SCH (09:00)
--- NOTE | 2020-11-10 10:42 | PCM.PN ---
- General Info Date of Service: 11/10/20 Admission Dx/Problem (Free Text): Admission Diagnosis/Problem Admission Diagnosis/Problem Pneumonia Subjective Update: Patient continues to feel weak. He states he does not feel that he is ready to discharge. Functional Status: Reports: Pain Controlled - Review of Systems General: Reports: Weakness, Fatigue HEENT: Reports: No Symptoms Pulmonary: Reports: Cough Cardiovascular: Reports: No Symptoms Gastrointestinal: Reports: No Symptoms Musculoskeletal: Reports: No Symptoms - Patient Data Vitals - Most Recent: Last Vital Signs Temp 97.8 F 11/09/20 20:00 Pulse 60 11/10/20 09:00 Resp 21 H 11/10/20 09:00 BP 119/54 L 11/10/20 08:26 Pulse Ox 91 L 11/10/20 09:00 Weight - Most Recent: 121 lb 14.4 oz I&O - Last 24 Hours: Intake & Output 11/09/20 11/10/20 11/10/20 22:59 06:59 14:59 Intake Total 540 380 Output Total 400 475 Balance 140 -95 Lab Results Last 24 Hours: Laboratory Results - last 24 hr 11/10/20 11/10/20 Range/Units 05:50 05:50 WBC 30.40 H (4.23-9.07) K/mm3 RBC 3.08 L (4.63-6.08) M/mm3 Hgb 8.2 L (13.7-17.5) gm/dl Hct 27.3 L (40.1-51.0) % MCV 88.6 (79.0-92.2) fl MCH 26.6 (25.7-32.2) pg MCHC 30.0 L (32.2-35.5) g/dl RDW Std Deviation 51.9 H (35.1-43.9) fL Plt Count 536 H (163-337) K/mm3 MPV 9.1 L (9.4-12.3) fl Neut % (Auto) 94.2 H (34.0-67.9) % Lymph % (Auto) 1.7 L (21.8-53.1) % Bibb % (Auto) 3.7 L (5.3-12.2) % Eos % (Auto) 0 L (0.8-7.0) Baso % (Auto) 0.0 L (0.1-1.2) % Neut # (Auto) 28.64 H (1.78-5.38) K/mm3 Lymph # (Auto) 0.51 L (1.32-3.57) K/mm3 Bibb # (Auto) 1.11 H (0.30-0.82) K/mm3 Eos # (Auto) 0.00 L (0.04-0.54) K/mm3 Baso # (Auto) 0.01 (0.01-0.08) K/mm3 Manual Slide Review Abnormal smear Sodium 139 (136-145) mEq/L Potassium 4.6 (3.5-5.1) mEq/L Chloride 100 (98-107) mEq/L Carbon Dioxide 31 (21-32) mEq/L Anion Gap 12.6 (5-15) BUN 24 H (7-18) mg/dL Creatinine 0.8 (0.7-1.3) mg/dL Est Cr Clr Drug Dosing 64.32 mL/min Estimated GFR (MDRD) > 60 (>60) mL/min BUN/Creatinine Ratio 30.0 H (14-18) Glucose 112 (83-115) mg/dL Calcium 9.3 (8.5-10.1) mg/dL Magnesium 2.2 (1.8-2.4) mg/dl C-Reactive Protein 2.2 H* (<1.0) mg/dL Cheng Results Last 24 Hours: Microbiology 11/06/20 13:33 Aerobic Blood Culture - Preliminary Blood - Venous - Lab Draw NO GROWTH AFTER 3 DAYS Anaerobic Blood Culture - Preliminary NO GROWTH AFTER 3 DAYS 11/06/20 13:27 Aerobic Blood Culture - Preliminary Blood - Venous NO GROWTH AFTER 3 DAYS Anaerobic Blood Culture - Preliminary NO GROWTH AFTER 3 DAYS 11/08/20 11:30 Shiga Toxin I & II - Final Stool / Feces 11/06/20 21:30 Gram Stain - Final Sputum - Expectorated Sputum Culture - Final Pseudomonas Aeruginosa Med Orders - Current: Current Medications Acetaminophen (Tylenol) 650 mg RECTAL Q4H PRN PRN Reason: Pain (mild 1-3) Acetaminophen (Tylenol) 650 mg PO Q4H PRN PRN Reason: Pain/Fever Last Admin: 11/09/20 21:55 Dose: 650 mg Documented by: Hydrocodone Bitart/Acetaminophen ([place] 325-5 Mg) 1 tab FTUBE Q4H PRN PRN Reason: Pain (moderate 4-6) Last Admin: 11/08/20 20:23 Dose: 1 tab Documented by: Albuterol (Proventil Neb Soln) 2.5 mg NEB QID PRN PRN Reason: Shortness of Breath Last Admin: 11/07/20 04:22 Dose: 2.5 mg Documented by: Albuterol/Ipratropium (Duoneb 3.0-0.5 Mg/3 Ml) 3 ml NEB Q4H PRN PRN Reason: Shortness Of Breath/wheezing Arformoterol Tartrate (Brovana) 15 mcg NEB BID [facility] Last Admin: 11/10/20 08:26 Dose: 15 mcg Documented by: Ascorbic Acid (Vitamin C) 2,000 mg FTUBE DAILY [facility] Last Admin: 11/10/20 08:27 Dose: 2,000 mg Documented by: Budesonide (Pulmicort) 0.5 mg NEB BID [facility] Last Admin: 11/10/20 08:26 Dose: 0.5 mg Documented by: Cholecalciferol (Vitamin D3) 50 mcg PEGTUBE DAILY [facility] Last Admin: 11/10/20 08:31 Dose: 50 mcg Documented by: Guaifenesin/Phenylephrine HCl (Robitussin Dm) 10 ml FTUBE Q4H PRN PRN Reason: Cough Hydromorphone HCl (Dilaudid) 0.5 mg IVPUSH Q2H PRN PRN Reason: Pain (severe 7-10) Last Admin: 11/07/20 21:54 Dose: 0.5 mg Documented by: Promethazine HCl 12.5 mg/ (Sodium Chloride) 50.5 mls @ 100 mls/hr IV Q6H PRN PRN Reason: Nausea/Vomiting Cefepime HCl 2 gm/ Premix 50 mls @ 100 mls/hr IV Q8H [facility] Last Admin: 11/10/20 08:28 Dose: 100 mls/hr Documented by: Ipratropium [place] (Atrovent) 0.5 mg NEB TIDRT [facility] Last Admin: 11/10/20 05:56 Dose: 0.5 mg Documented by: Loperamide HCl (Imodium) 2 mg PO Q6H PRN PRN Reason: Diarrhea Last Admin: 11/10/20 08:56 Dose: 2 mg Documented by: Loratadine (Claritin) 10 mg FTUBE DAILY [facility] Last Admin: 11/10/20 08:27 Dose: 10 mg Documented by: Lorazepam (Ativan) 0.5 mg FTUBE QID PRN PRN Reason: Anxiety Last Admin: 11/07/20 09:27 Dose: 0.5 mg Documented by: Magnesium Oxide (Magnesium Oxide) 800 mg FTUBE DAILY [facility] Last Admin: 11/10/20 08:27 Dose: 800 mg Documented by: Methylprednisolone Sodium Succinate (Solu-Medrol) 80 mg IVPUSH Q8H [facility] Last Admin: 11/10/20 08:27 Dose: 80 mg Documented by: Metoprolol Succinate (Toprol Xl) 12.5 mg .XX DAILY [facility] Last Admin: 11/10/20 08:26 Dose: 12.5 mg Documented by: Montelukast Sodium (Singulair) 10 mg FTUBE BEDTIME [facility] Last Admin: 11/09/20 21:53 Dose: 10 mg Documented by: Omeprazole (Omeprazole) 20 mg GTUBE DAILY [facility] Last Admin: 11/10/20 08:50 Dose: 20 mg Documented by: Ondansetron HCl (Zofran) 4 mg IV Q6H PRN PRN Reason: Nausea/Vomiting Oxycodone HCl (Oxycodone) 5 mg FTUBE Q4H PRN PRN Reason: Pain (moderate 4-6) Tetracaine 0.25% (Lollipops) 1 each PO Q4H PRN PRN Reason: Sore Throat Ferrous Sulfate 220 Mg/5 Ml Liquid Ptom 0 each PEGTUBE DAILY [facility] Last Admin: 11/10/20 08:47 Dose: 1 each Documented by: Polyethylene Glycol (Miralax) 17 gm FTUBE DAILY PRN PRN Reason: Constipation Prochlorperazine Maleate (Compazine) 10 mg FTUBE QID PRN PRN Reason: Nausea/Vomiting Senna/Docusate Sodium (Senna Plus) 1 tab FTUBE BID PRN PRN Reason: Constipation Simvastatin (Zocor) 40 mg FTUBE BEDTIME [facility] Last Admin: 11/09/20 21:55 Dose: 40 mg Documented by: Sodium Chloride (Saline Flush) 10 ml FLUSH ASDIRECTED PRN PRN Reason: Keep Vein Open Sodium Chloride (Sodium Chloride 3%) 3 ml NEB Q2H PRN PRN Reason: Other Zolpidem Tartrate (Ambien) 5 mg FTUBE BEDTIME PRN PRN Reason: Sleep Discontinued Medications Acetaminophen (Tylenol) 650 mg PO NOW ONE Stop: 11/07/20 08:46 Last Admin: 11/07/20 08:50 Dose: 650 mg Documented by: Hydrocodone Bitart/Acetaminophen ([place] 325-5 Mg) 1 tab PO Q4H PRN PRN Reason: Pain (moderate 4-6) Cholecalciferol (Vitamin D3) 10,000 unit PEGTUBE DAILY [facility] Last Admin: 11/07/20 10:08 Dose: Not Given Documented by: Dexamethasone (Decadron) 4 mg IVPUSH ONETIME ONE Stop: 11/07/20 06:44 Last Admin: 11/07/20 08:39 Dose: 4 mg Documented by: Diphenhydramine HCl (Benadryl) 25 mg IV ONETIME ONE Stop: 11/07/20 06:44 Last Admin: 11/07/20 08:39 Dose: 25 mg Documented by: Enoxaparin Sodium (Lovenox) 40 mg SUBCUT DAILY [facility] Last Admin: 11/07/20 08:45 Dose: 40 mg Documented by: Furosemide (Lasix) 20 mg IVPUSH NOW ONE Stop: 11/07/20 06:48 Last Admin: 11/07/20 12:12 Dose: 20 mg Documented by: Guaifenesin/Phenylephrine HCl (Robitussin Dm) 10 ml PO Q4H PRN PRN Reason: Cough Ceftriaxone Sodium 2 gm/ (Sodium Chloride) 100 mls @ 200 mls/hr IV ONETIME ONE Stop: 11/06/20 13:37 Last Admin: 11/06/20 13:49 Dose: 200 mls/hr Documented by: Piperacillin Sod/Tazobactam (Sod 4.5 gm/ Sodium Chloride) 100 mls @ 200 mls/hr IV ONETIME ONE Stop: 11/06/20 17:29 Last Admin: 11/06/20 18:13 Dose: 200 mls/hr Documented by: Piperacillin Sod/Tazobactam (Sod 4.5 gm/ Sodium Chloride) 100 mls @ 25 mls/hr IV Q8H [facility] Last Admin: 11/07/20 09:08 Dose: 25 mls/hr Documented by: Sodium Chloride (Normal Saline) 1,000 mls @ 100 mls/hr IV ASDIRECTED [facility] Stop: 11/07/20 16:00 Last Admin: 11/07/20 07:34 Dose: 100 mls/hr Documented by: Piperacillin Sod/Tazobactam (Sod 4.5 gm/ Sodium Chloride) 100 mls @ 25 mls/hr IV Q8H [facility] Last Admin: 11/09/20 16:32 Dose: 25 mls/hr Documented by: Ceftriaxone Sodium 1 gm/ (Sodium Chloride) 100 mls @ 200 mls/hr IV Q24H [facility] Ipratropium [place] (Atrovent) 0.5 mg NEB Q8H [facility] Last Admin: 11/06/20 18:00 Dose: 0.5 mg Documented by: Lorazepam (Ativan) 0.5 mg PO QID PRN PRN Reason: Anxiety Non-Formulary Medication (Lidocaine/Prilocaine) 1 applic TOP ASDIRECTED PRN PRN Reason: Other Remove Scopolamine (Patch) 1 each .XX ONETIME ONE Stop: 11/09/20 21:01 Last Admin: 11/10/20 08:28 Dose: 1 each Documented by: Oxycodone HCl (Oxycodone) 5 mg PO Q4H PRN PRN Reason: Pain (moderate 4-6) Ferrous Sulfate 220 Mg/5 Ml Liquid Ptom 0 each PEGTUBE DAILY [facility] Last Admin: 11/07/20 10:08 Dose: Not Given Documented by: Polyethylene Glycol (Miralax) 17 gm PO DAILY PRN PRN Reason: Constipation Prochlorperazine Maleate (Compazine) 10 mg PO QID PRN PRN Reason: Nausea/Vomiting Scopolamine (Transderm-Scop) 1.5 mg TOP ONETIME ONE Stop: 11/06/20 21:02 Last Admin: 11/06/20 21:14 Dose: 1.5 mg Documented by: Senna/Docusate Sodium (Senna Plus) 1 tab PO BID PRN PRN Reason: Constipation - Exam Quality Assessment: Supplemental Oxygen General: Alert, Oriented HEENT: Pupils Equal Neck: Supple, Other (Tracheostomy) Lungs: Clear to Auscultation, Normal Respiratory Effort Cardiovascular: Regular Rate, Regular Rhythm GI/Abdominal Exam: Normal Bowel Sounds, Soft, Non-Tender, No Distention Extremities: Normal Inspection, Normal Range of Motion, Non-Tender, No Pedal Edema, Normal Capillary Refill Skin: Warm, Dry, Intact Psy/Mental Status: Alert, Normal Affect, Normal Mood - Patient Data Lab Results Last 24 hrs: Laboratory Results - last 24 hr 11/10/20 11/10/20 Range/Units 05:50 05:50 WBC 30.40 H (4.23-9.07) K/mm3 RBC 3.08 L (4.63-6.08) M/mm3 Hgb 8.2 L (13.7-17.5) gm/dl Hct 27.3 L (40.1-51.0) % MCV 88.6 (79.0-92.2) fl MCH 26.6 (25.7-32.2) pg MCHC 30.0 L (32.2-35.5) g/dl RDW Std Deviation 51.9 H (35.1-43.9) fL Plt Count 536 H (163-337) K/mm3 MPV 9.1 L (9.4-12.3) fl Neut % (Auto) 94.2 H (34.0-67.9) % Lymph % (Auto) 1.7 L (21.8-53.1) % Bibb % (Auto) 3.7 L (5.3-12.2) % Eos % (Auto) 0 L (0.8-7.0) Baso % (Auto) 0.0 L (0.1-1.2) % Neut # (Auto) 28.64 H (1.78-5.38) K/mm3 Lymph # (Auto) 0.51 L (1.32-3.57) K/mm3 Bibb # (Auto) 1.11 H (0.30-0.82) K/mm3 Eos # (Auto) 0.00 L (0.04-0.54) K/mm3 Baso # (Auto) 0.01 (0.01-0.08) K/mm3 Manual Slide Review Abnormal smear Sodium 139 (136-145) mEq/L Potassium 4.6 (3.5-5.1) mEq/L Chloride 100 (98-107) mEq/L Carbon Dioxide 31 (21-32) mEq/L Anion Gap 12.6 (5-15) BUN 24 H (7-18) mg/dL Creatinine 0.8 (0.7-1.3) mg/dL Est Cr Clr Drug Dosing 64.32 mL/min Estimated GFR (MDRD) > 60 (>60) mL/min BUN/Creatinine Ratio 30.0 H (14-18) Glucose 112 (83-115) mg/dL Calcium 9.3 (8.5-10.1) mg/dL Magnesium 2.2 (1.8-2.4) mg/dl C-Reactive Protein 2.2 H* (<1.0) mg/dL Result Diagrams: 11/10/20 05:50 11/10/20 05:50 Cheng Results Last 24 hrs: Microbiology 11/06/20 13:33 Aerobic Blood Culture - Preliminary Blood - Venous - Lab Draw NO GROWTH AFTER 3 DAYS Anaerobic Blood Culture - Preliminary NO GROWTH AFTER 3 DAYS 11/06/20 13:27 Aerobic Blood Culture - Preliminary Blood - Venous NO GROWTH AFTER 3 DAYS Anaerobic Blood Culture - Preliminary NO GROWTH AFTER 3 DAYS 11/08/20 11:30 Shiga Toxin I & II - Final Stool / Feces 11/06/20 21:30 Gram Stain - Final Sputum - Expectorated Sputum Culture - Final Pseudomonas Aeruginosa Sepsis Event Note - Evaluation Sepsis Screening Result: Sepsis Risk - Focused Exam Vital Signs: Vital Signs Pulse Pulse Resp BP BP Pulse Ox Pulse Ox 11/10/20 09:00 60 21 H 91 L 11/10/20 08:26 70 119/54 L 11/10/20 08:20 98 11/10/20 08:00 74 23 H 119/54 L 93 L 11/10/20 06:00 97 11/10/20 04:00 18 105/46 L 95 11/10/20 00:00 16 112/53 L 96 - Problem List & Annotations (1) Acute respiratory distress SNOMED Code(s): 147318325 Code(s): R06.03 - ACUTE RESPIRATORY DISTRESS Status: Acute Priority: High Current Visit: Yes (2) Anemia SNOMED Code(s): 492063474 Code(s): D64.9 - ANEMIA, UNSPECIFIED Status: Acute Priority: High Current Visit: Yes Qualifiers: Anemia type: other cause Other causes of anemia: other cause, not classified Qualified Code(s): D64.89 - Other specified anemias (3) Pneumonia SNOMED Code(s): 197044262 Code(s): J18.9 - PNEUMONIA, UNSPECIFIED ORGANISM Status: Acute Current Visit: Yes Qualifiers: Pneumonia type: due to unspecified organism Laterality: bilateral Lung location: lower lobe of lung Qualified Code(s): J18.9 - Pneumonia, unspecified organism (4) COPD (chronic obstructive pulmonary disease) SNOMED Code(s): 92066556 Code(s): J44.9 - CHRONIC OBSTRUCTIVE PULMONARY DISEASE, UNSPECIFIED Status: Chronic Priority: Medium Current Visit: Yes Qualifiers: COPD type: unspecified COPD Qualified Code(s): J44.9 - Chronic obstructive pulmonary disease, unspecified (5) Lung cancer SNOMED Code(s): 733329664 Code(s): C34.90 - MALIGNANT NEOPLASM OF UNSP PART OF UNSP BRONCHUS OR LUNG Status: Chronic Priority: High Current Visit: Yes Qualifiers: Laterality: unspecified laterality Lung location: unspecified part of lung Qualified Code(s): C34.90 - Malignant neoplasm of unspecified part of unspecified bronchus or lung - Problem List Review Problem List Initiated/Reviewed/Updated: Yes - My Orders Last 24 Hours: My Active Orders 11/10/20 08:00 Cefepime [Maxipime in D5W 2 GM/50 ML] 2 gm Premix Bag 1 bag IV Q8H - Plan Plan:: This is a 75 yo elderly white male with past medical hx/o HTN, HLD, Asthma, COPD, Esophageal and Lung CA, Hx/o Respiratory Failure S/p Tracheostomy, Chronic Hypoxia on 4L NC via Trach, Dysphagia S/p PEG Tube Placement, Hx/o Left Shoulder Pain, Hx/o Left Hip Surgery and Insomnia who comes to us from the clinic after developing respiratory distress at [facility] infusion clinic. Assessment: Acute: Acute Respiratory Distress, resolved COPD Exacerbation, improved Hypoxia on supplemental O2 -Developed suddenly at the [place] -He was on 4L and had to go up on his supplemental O2 -Now at 8L with 30% FIO2 -which is baseline of his home O2. -He was unable to clear his airway-improving -He was considerably hypoxic-->reason why he was sent over to ED -Chest x-ray taken in ED shows no obvious acute changes -Repeat chest x-ray remains stable with no acute changes -Pseudomonas and multiple other gram-negative rods growing out of sputum. His Pseudomonas is sensitive to cefepime. -Plan: Continue aspiration precautions, slow down hypersecretion, RT to routine assess tracheostomy, Cefepime for Pseudomonas Await further culture results and sensitivities to quinolones Mucus Plugs, acute on chronic, improved Hypersecretions -Bedside suction device -RT routine trach care -Scopolamine patch x1 -Set up oral suction to the wall for PRN use -Aspiration precautions Elevated CRP of 6.1; now 2.2 Leukocytosis chronic secondary to steroids and likely cancer and inflammatory response -Likely from acute respiratory distress -We will monitor Normocytic Hypochromic Anemia, stable Possible GI Bleed, he takes iron supplement -Had a Hgb level of 7.4 grams taken at [facility]; 6.1-->now 8.2 grams after 2 units packed red blood cells -He was getting infusion at the clinic across -Last chemotherapy 1 week ago -Still has loose bowel movement -Plan: Continue to monitor and SCDs for now. Dietary consult for loose bowel movement. He needs something to firm up his stool. Thrombocytosis of 649 taken at [facility]; Now 536 -Likely inflammatory response -We will continue to monitor SIRS/Early developing Sepsis, resolved -He meets criteria: WBC of 32.7-->24.33, borderline hypotension with documented BP as low as 115/56 mmHg, tachycardic with RR in the mid 20s. -Possible source: aspiration syndrome -Blood cultures were done and 2 grams IV Rocephin given in ED -Already received IV Zosyn for empiric treatment -UA negative -Gram stain growing out multiple gram-negative rods 1 being Pseudomonas -Plan: Sputum culture with grams stain. Generalized Weakness -Likely multi-factorial Chronic: HTN, HLD, Asthma, COPD, Esophageal and Lung CA, Hx/o Respiratory Failure S/p Tracheostomy, Chronic Hypoxia on 4L NC via Trach, Dysphagia S/p PEG Tube Placement, Hx/o Left Shoulder Pain, Hx/o Left Hip Surgery and Insomnia Plan: Switch from Rocephin to cefepime and await culture results.
[2020-11-10] MEDS: Acetaminophen Soln 650 MG/20.3 ML UD Cup PO PRN (20:19)
[2020-11-10] MEDS: Simvastatin 40 MG Tab FTUBE SCH (21:00)
[2020-11-10] MEDS: Montelukast 10 MG Tab FTUBE SCH (21:37)
[2020-11-10] MEDS: Albuterol 0.083% 2.5 MG/3 ML Neb Soln NEB PRN (22:05)
[2020-11-11] MEDS: Ipratropium 0.02% 0.5 MG/2.5 ML Neb Soln NEB SCH ×3 (07:18→20:14)
[2020-11-11] MEDS: Budesonide 0.5 MG/2 ML Neb Susp NEB SCH ×2 (08:20→20:15)
[2020-11-11] MEDS: Arformoterol 15 MCG/2 ML Neb Soln NEB SCH ×2 (08:20→20:15)
[2020-11-11] MEDS: methylPREDNISolone Sodium Succinate 125 MG/2 ML SDV IVPUSH SCH (09:37)
[2020-11-11] MEDS: Metoprolol Succinate 25 MG Tab.ER SCH (09:38)
[2020-11-11] MEDS: Loratadine 10 MG Tab FTUBE SCH (09:38)
[2020-11-11] MEDS: Magnesium Oxide 400 MG Tab FTUBE SCH (09:38)
[2020-11-11] MEDS: Ascorbic Acid 500 MG Tab FTUBE SCH (09:38)
[2020-11-11] MEDS: Omeprazole 20 MG Cap.CR GTUBE SCH (09:39)
[2020-11-11] MEDS: FERROUS SULFATE 220 MG/5 ML PEGTUBE SCH (09:39)
[2020-11-11] MEDS: Cefepime 2 GM in Premix Bag 1 BAG IV SCH ×2 (09:39→16:00)
[2020-11-11] MEDS: Cholecalciferol (Vitamin D3) 25 MCG Tab PEGTUBE SCH (09:39)
--- NOTE | 2020-11-11 12:17 | PCM.PN ---
- General Info Date of Service: 11/11/20 Admission Dx/Problem (Free Text): Admission Diagnosis/Problem Admission Diagnosis/Problem Pneumonia Subjective Update: No significant change overnight. Patient states that he is feeling weak. Functional Status: Reports: Pain Controlled - Review of Systems General: Reports: Weakness, Fatigue HEENT: Reports: No Symptoms Pulmonary: Reports: Shortness of Breath, Cough Cardiovascular: Reports: No Symptoms Gastrointestinal: Reports: No Symptoms Musculoskeletal: Reports: No Symptoms Psychiatric: Reports: No Symptoms - Patient Data Vitals - Most Recent: Last Vital Signs Temp 98.1 F 11/11/20 11:44 Pulse 71 11/11/20 11:44 Resp 20 11/11/20 11:44 BP 95/59 L 11/11/20 11:44 Pulse Ox 97 11/11/20 11:44 Weight - Most Recent: 121 lb 14.4 oz I&O - Last 24 Hours: Intake & Output 11/10/20 11/11/20 11/11/20 22:59 06:59 14:59 Intake Total 540 880 Output Total 700 Balance 540 180 Lab Results Last 24 Hours: Laboratory Results - last 24 hr 11/11/20 11/11/20 Range/Units 05:35 05:35 WBC 29.54 H (4.23-9.07) K/mm3 RBC 3.18 L (4.63-6.08) M/mm3 Hgb 8.5 L (13.7-17.5) gm/dl Hct 28.3 L (40.1-51.0) % MCV 89.0 (79.0-92.2) fl MCH 26.7 (25.7-32.2) pg MCHC 30.0 L (32.2-35.5) g/dl RDW Std Deviation 52.9 H (35.1-43.9) fL Plt Count 538 H (163-337) K/mm3 MPV 9.4 (9.4-12.3) fl Neut % (Auto) 94.2 H (34.0-67.9) % Lymph % (Auto) 1.5 L (21.8-53.1) % Harlan % (Auto) 3.9 L (5.3-12.2) % Eos % (Auto) 0 L (0.8-7.0) Baso % (Auto) 0.0 L (0.1-1.2) % Neut # (Auto) 27.80 H (1.78-5.38) K/mm3 Lymph # (Auto) 0.45 L (1.32-3.57) K/mm3 Harlan # (Auto) 1.15 H (0.30-0.82) K/mm3 Eos # (Auto) 0.00 L (0.04-0.54) K/mm3 Baso # (Auto) 0.01 (0.01-0.08) K/mm3 Manual Slide Review Abnormal smear Sodium 139 (136-145) mEq/L Potassium 4.4 (3.5-5.1) mEq/L Chloride 101 (98-107) mEq/L Carbon Dioxide 29 (21-32) mEq/L Anion Gap 13.4 (5-15) BUN 25 H (7-18) mg/dL Creatinine 0.7 (0.7-1.3) mg/dL Est Cr Clr Drug Dosing 73.50 mL/min Estimated GFR (MDRD) > 60 (>60) mL/min BUN/Creatinine Ratio 35.7 H (14-18) Glucose 113 (83-115) mg/dL Calcium 9.2 (8.5-10.1) mg/dL Magnesium 2.3 (1.8-2.4) mg/dl C-Reactive Protein 1.0 (<1.0) mg/dL Cheng Results Last 24 Hours: Microbiology 11/08/20 11:30 Stool Culture - Preliminary Stool / Feces YEAST Shiga Toxin I & II - Final 11/06/20 13:33 Aerobic Blood Culture - Preliminary Blood - Venous - Lab Draw NO GROWTH AFTER 4 DAYS Anaerobic Blood Culture - Preliminary NO GROWTH AFTER 4 DAYS 11/06/20 13:27 Aerobic Blood Culture - Preliminary Blood - Venous NO GROWTH AFTER 4 DAYS Anaerobic Blood Culture - Preliminary NO GROWTH AFTER 4 DAYS Med Orders - Current: Current Medications Acetaminophen (Tylenol) 650 mg RECTAL Q4H PRN PRN Reason: Pain (mild 1-3) Acetaminophen (Tylenol) 650 mg PO Q4H PRN PRN Reason: Pain/Fever Last Admin: 11/10/20 20:19 Dose: 650 mg Documented by: Hydrocodone Bitart/Acetaminophen ([place] 325-5 Mg) 1 tab FTUBE Q4H PRN PRN Reason: Pain (moderate 4-6) Last Admin: 11/08/20 20:23 Dose: 1 tab Documented by: Albuterol (Proventil Neb Soln) 2.5 mg NEB QID PRN PRN Reason: Shortness of Breath Last Admin: 11/10/20 22:05 Dose: 2.5 mg Documented by: Albuterol/Ipratropium (Duoneb 3.0-0.5 Mg/3 Ml) 3 ml NEB Q4H PRN PRN Reason: Shortness Of Breath/wheezing Arformoterol Tartrate (Brovana) 15 mcg NEB BID [facility] Last Admin: 11/11/20 08:20 Dose: 15 mcg Documented by: Ascorbic Acid (Vitamin C) 2,000 mg FTUBE DAILY [facility] Last Admin: 11/11/20 09:38 Dose: 2,000 mg Documented by: Budesonide (Pulmicort) 0.5 mg NEB BID [facility] Last Admin: 11/11/20 08:20 Dose: 0.5 mg Documented by: Cholecalciferol (Vitamin D3) 50 mcg PEGTUBE DAILY [facility] Last Admin: 11/11/20 09:39 Dose: 50 mcg Documented by: Guaifenesin/Phenylephrine HCl (Robitussin Dm) 10 ml FTUBE Q4H PRN PRN Reason: Cough Hydromorphone HCl (Dilaudid) 0.5 mg IVPUSH Q2H PRN PRN Reason: Pain (severe 7-10) Last Admin: 11/07/20 21:54 Dose: 0.5 mg Documented by: Promethazine HCl 12.5 mg/ (Sodium Chloride) 50.5 mls @ 100 mls/hr IV Q6H PRN PRN Reason: Nausea/Vomiting Cefepime HCl 2 gm/ Premix 50 mls @ 100 mls/hr IV Q8H [facility] Last Admin: 11/11/20 09:39 Dose: 100 mls/hr Documented by: Ipratropium [place] (Atrovent) 0.5 mg NEB TIDRT [facility] Last Admin: 11/11/20 07:18 Dose: Not Given Documented by: Loperamide HCl (Imodium) 2 mg PO Q6H PRN PRN Reason: Diarrhea Last Admin: 11/10/20 16:34 Dose: 2 mg Documented by: Loratadine (Claritin) 10 mg FTUBE DAILY [facility] Last Admin: 11/11/20 09:38 Dose: 10 mg Documented by: Lorazepam (Ativan) 0.5 mg FTUBE QID PRN PRN Reason: Anxiety Last Admin: 11/07/20 09:27 Dose: 0.5 mg Documented by: Magnesium Oxide (Magnesium Oxide) 800 mg FTUBE DAILY [facility] Last Admin: 11/11/20 09:38 Dose: 800 mg Documented by: Methylprednisolone Sodium Succinate (Solu-Medrol) 80 mg IVPUSH Q8H [facility] Last Admin: 11/11/20 09:37 Dose: 80 mg Documented by: Metoprolol Succinate (Toprol Xl) 12.5 mg .XX DAILY [facility] Last Admin: 11/11/20 09:38 Dose: 12.5 mg Documented by: Montelukast Sodium (Singulair) 10 mg FTUBE BEDTIME [facility] Last Admin: 11/10/20 21:37 Dose: 10 mg Documented by: Omeprazole (Omeprazole) 20 mg GTUBE DAILY [facility] Last Admin: 11/11/20 09:39 Dose: 20 mg Documented by: Ondansetron HCl (Zofran) 4 mg IV Q6H PRN PRN Reason: Nausea/Vomiting Oxycodone HCl (Oxycodone) 5 mg FTUBE Q4H PRN PRN Reason: Pain (moderate 4-6) Tetracaine 0.25% (Lollipops) 1 each PO Q4H PRN PRN Reason: Sore Throat Ferrous Sulfate 220 Mg/5 Ml Liquid Ptom 0 each PEGTUBE DAILY [facility] Last Admin: 11/11/20 09:39 Dose: 1 each Documented by: Polyethylene Glycol (Miralax) 17 gm FTUBE DAILY PRN PRN Reason: Constipation Prochlorperazine Maleate (Compazine) 10 mg FTUBE QID PRN PRN Reason: Nausea/Vomiting Senna/Docusate Sodium (Senna Plus) 1 tab FTUBE BID PRN PRN Reason: Constipation Simvastatin (Zocor) 40 mg FTUBE BEDTIME [facility] Last Admin: 11/10/20 21:00 Dose: 40 mg Documented by: Sodium Chloride (Saline Flush) 10 ml FLUSH ASDIRECTED PRN PRN Reason: Keep Vein Open Sodium Chloride (Sodium Chloride 3%) 3 ml NEB Q2H PRN PRN Reason: Other Zolpidem Tartrate (Ambien) 5 mg FTUBE BEDTIME PRN PRN Reason: Sleep Discontinued Medications Acetaminophen (Tylenol) 650 mg PO NOW ONE Stop: 11/07/20 08:46 Last Admin: 11/07/20 08:50 Dose: 650 mg Documented by: Hydrocodone Bitart/Acetaminophen ([place] 325-5 Mg) 1 tab PO Q4H PRN PRN Reason: Pain (moderate 4-6) Cholecalciferol (Vitamin D3) 10,000 unit PEGTUBE DAILY [facility] Last Admin: 11/07/20 10:08 Dose: Not Given Documented by: Dexamethasone (Decadron) 4 mg IVPUSH ONETIME ONE Stop: 11/07/20 06:44 Last Admin: 11/07/20 08:39 Dose: 4 mg Documented by: Diphenhydramine HCl (Benadryl) 25 mg IV ONETIME ONE Stop: 11/07/20 06:44 Last Admin: 11/07/20 08:39 Dose: 25 mg Documented by: Enoxaparin Sodium (Lovenox) 40 mg SUBCUT DAILY [facility] Last Admin: 11/07/20 08:45 Dose: 40 mg Documented by: Furosemide (Lasix) 20 mg IVPUSH NOW ONE Stop: 11/07/20 06:48 Last Admin: 11/07/20 12:12 Dose: 20 mg Documented by: Guaifenesin/Phenylephrine HCl (Robitussin Dm) 10 ml PO Q4H PRN PRN Reason: Cough Ceftriaxone Sodium 2 gm/ (Sodium Chloride) 100 mls @ 200 mls/hr IV ONETIME ONE Stop: 11/06/20 13:37 Last Admin: 11/06/20 13:49 Dose: 200 mls/hr Documented by: Piperacillin Sod/Tazobactam (Sod 4.5 gm/ Sodium Chloride) 100 mls @ 200 mls/hr IV ONETIME ONE Stop: 11/06/20 17:29 Last Admin: 11/06/20 18:13 Dose: 200 mls/hr Documented by: Piperacillin Sod/Tazobactam (Sod 4.5 gm/ Sodium Chloride) 100 mls @ 25 mls/hr IV Q8H [facility] Last Admin: 11/07/20 09:08 Dose: 25 mls/hr Documented by: Sodium Chloride (Normal Saline) 1,000 mls @ 100 mls/hr IV ASDIRECTED [facility] Stop: 11/07/20 16:00 Last Admin: 11/07/20 07:34 Dose: 100 mls/hr Documented by: Piperacillin Sod/Tazobactam (Sod 4.5 gm/ Sodium Chloride) 100 mls @ 25 mls/hr IV Q8H [facility] Last Admin: 11/09/20 16:32 Dose: 25 mls/hr Documented by: Ceftriaxone Sodium 1 gm/ (Sodium Chloride) 100 mls @ 200 mls/hr IV Q24H [facility] Ipratropium [place] (Atrovent) 0.5 mg NEB Q8H [facility] Last Admin: 11/06/20 18:00 Dose: 0.5 mg Documented by: Lorazepam (Ativan) 0.5 mg PO QID PRN PRN Reason: Anxiety Non-Formulary Medication (Lidocaine/Prilocaine) 1 applic TOP ASDIRECTED PRN PRN Reason: Other Remove Scopolamine (Patch) 1 each .XX ONETIME ONE Stop: 11/09/20 21:01 Last Admin: 11/10/20 08:28 Dose: 1 each Documented by: Oxycodone HCl (Oxycodone) 5 mg PO Q4H PRN PRN Reason: Pain (moderate 4-6) Ferrous Sulfate 220 Mg/5 Ml Liquid Ptom 0 each PEGTUBE DAILY [facility] Last Admin: 11/07/20 10:08 Dose: Not Given Documented by: Polyethylene Glycol (Miralax) 17 gm PO DAILY PRN PRN Reason: Constipation Prochlorperazine Maleate (Compazine) 10 mg PO QID PRN PRN Reason: Nausea/Vomiting Scopolamine (Transderm-Scop) 1.5 mg TOP ONETIME ONE Stop: 11/06/20 21:02 Last Admin: 11/06/20 21:14 Dose: 1.5 mg Documented by: Senna/Docusate Sodium (Senna Plus) 1 tab PO BID PRN PRN Reason: Constipation - Exam Quality Assessment: Supplemental Oxygen General: Alert, Oriented HEENT: Pupils Equal, Mucous Membr. Moist/[place] Neck: Supple Lungs: Normal Respiratory Effort, Wheezing (Improved) Cardiovascular: Regular Rate, Regular Rhythm GI/Abdominal Exam: Normal Bowel Sounds, Soft, Non-Tender, No Organomegaly, No Distention, No Abnormal Bruit Extremities: Normal Inspection, Normal Range of Motion, Non-Tender, No Pedal Edema, Normal Capillary Refill Skin: Warm, Dry, Intact Psy/Mental Status: Alert, Normal Affect, Normal Mood - Patient Data Lab Results Last 24 hrs: Laboratory Results - last 24 hr 11/11/20 11/11/20 Range/Units 05:35 05:35 WBC 29.54 H (4.23-9.07) K/mm3 RBC 3.18 L (4.63-6.08) M/mm3 Hgb 8.5 L (13.7-17.5) gm/dl Hct 28.3 L (40.1-51.0) % MCV 89.0 (79.0-92.2) fl MCH 26.7 (25.7-32.2) pg MCHC 30.0 L (32.2-35.5) g/dl RDW Std Deviation 52.9 H (35.1-43.9) fL Plt Count 538 H (163-337) K/mm3 MPV 9.4 (9.4-12.3) fl Neut % (Auto) 94.2 H (34.0-67.9) % Lymph % (Auto) 1.5 L (21.8-53.1) % Harlan % (Auto) 3.9 L (5.3-12.2) % Eos % (Auto) 0 L (0.8-7.0) Baso % (Auto) 0.0 L (0.1-1.2) % Neut # (Auto) 27.80 H (1.78-5.38) K/mm3 Lymph # (Auto) 0.45 L (1.32-3.57) K/mm3 Harlan # (Auto) 1.15 H (0.30-0.82) K/mm3 Eos # (Auto) 0.00 L (0.04-0.54) K/mm3 Baso # (Auto) 0.01 (0.01-0.08) K/mm3 Manual Slide Review Abnormal smear Sodium 139 (136-145) mEq/L Potassium 4.4 (3.5-5.1) mEq/L Chloride 101 (98-107) mEq/L Carbon Dioxide 29 (21-32) mEq/L Anion Gap 13.4 (5-15) BUN 25 H (7-18) mg/dL Creatinine 0.7 (0.7-1.3) mg/dL Est Cr Clr Drug Dosing 73.50 mL/min Estimated GFR (MDRD) > 60 (>60) mL/min BUN/Creatinine Ratio 35.7 H (14-18) Glucose 113 (83-115) mg/dL Calcium 9.2 (8.5-10.1) mg/dL Magnesium 2.3 (1.8-2.4) mg/dl C-Reactive Protein 1.0 (<1.0) mg/dL Result Diagrams: 11/11/20 05:35 11/11/20 05:35 Cheng Results Last 24 hrs: Microbiology 11/08/20 11:30 Stool Culture - Preliminary Stool / Feces YEAST Shiga Toxin I & II - Final 11/06/20 13:33 Aerobic Blood Culture - Preliminary Blood - Venous - Lab Draw NO GROWTH AFTER 4 DAYS Anaerobic Blood Culture - Preliminary NO GROWTH AFTER 4 DAYS 11/06/20 13:27 Aerobic Blood Culture - Preliminary Blood - Venous NO GROWTH AFTER 4 DAYS Anaerobic Blood Culture - Preliminary NO GROWTH AFTER 4 DAYS Sepsis Event Note - Evaluation Sepsis Screening Result: Sepsis Risk - Focused Exam Vital Signs: Vital Signs Temp Pulse Resp BP Pulse Ox Pulse Ox 11/11/20 11:44 98.1 F 71 20 95/59 L 97 11/11/20 09:38 76 105/65 11/11/20 08:56 98.1 F 76 20 105/65 99 11/11/20 08:21 96 11/11/20 06:59 65 96 11/11/20 06:14 96 11/11/20 06:00 61 16 97 11/11/20 05:00 60 15 95 11/11/20 04:00 57 L 14 97 11/11/20 03:44 60 19 140/75 98 11/11/20 03:43 73 12 97 11/11/20 03:00 57 L 27 H 96 11/11/20 02:00 63 23 H 99 11/11/20 01:00 69 26 H 98 - Problem List & Annotations (1) Acute respiratory distress SNOMED Code(s): 774523752 Code(s): R06.03 - ACUTE RESPIRATORY DISTRESS Status: Acute Priority: High Current Visit: Yes (2) Anemia SNOMED Code(s): 351103391 Code(s): D64.9 - ANEMIA, UNSPECIFIED Status: Acute Priority: High Current Visit: Yes Qualifiers: Anemia type: other cause Other causes of anemia: other cause, not c lassified Qualified Code(s): D64.89 - Other specified anemias (3) Pneumonia SNOMED Code(s): 421409218 Code(s): J18.9 - PNEUMONIA, UNSPECIFIED ORGANISM Status: Acute Current Visit: Yes Qualifiers: Pneumonia type: due to unspecified organism Laterality: bilateral Lung location: lower lobe of lung Qualified Code(s): J18.9 - Pneumonia, unspecified organism (4) COPD (chronic obstructive pulmonary disease) SNOMED Code(s): 38517743 Code(s): J44.9 - CHRONIC OBSTRUCTIVE PULMONARY DISEASE, UNSPECIFIED Status: Chronic Priority: Medium Current Visit: Yes Qualifiers: COPD type: unspecified COPD Qualified Code(s): J44.9 - Chronic obstructive pulmonary disease, unspecified (5) Lung cancer SNOMED Code(s): 380948456 Code(s): C34.90 - MALIGNANT NEOPLASM OF UNSP PART OF UNSP BRONCHUS OR LUNG Status: Chronic Priority: High Current Visit: Yes Qualifiers: Laterality: unspecified laterality Lung location: unspecified part of lung Qualified Code(s): C34.90 - Malignant neoplasm of unspecified part of unspecified bronchus or lung - Problem List Review Problem List Initiated/Reviewed/Updated: Yes - My Orders Last 24 Hours: My Active Orders 11/11/20 11:39 C DIFFICILE PCR W/REFLEX [MOLEC] Routine - Plan Plan:: This is a 75 yo elderly white male with past medical hx/o HTN, HLD, Asthma, COPD, Esophageal and Lung CA, Hx/o Respiratory Failure S/p Tracheostomy, Chronic Hypoxia on 4L NC via Trach, Dysphagia S/p PEG Tube Placement, Hx/o Left Shoulder Pain, Hx/o Left Hip Surgery and Insomnia who comes to us from the clinic after developing respiratory distress at [facility] infusion clinic. Assessment: Acute: Acute Respiratory Distress, resolved COPD Exacerbation, improved Hypoxia on supplemental O2 -Now at 8L with 30% FIO2 -which is baseline of his home O2. -Pseudomonas and multiple other gram-negative rods growing out of sputum. Pseudomonas is sensitive to cefepime. -Plan: Continue aspiration precautions, slow down hypersecretion, RT to routine assess tracheostomy, Cefepime for Pseudomonas Await further culture results and sensitivities to quinolones Mucus Plugs, acute on chronic, improved Hypersecretions -Bedside suction device -RT routine trach care -Set up oral suction to the wall for PRN use -Aspiration precautions Elevated CRP of 6.1; now 1.0 Leukocytosis chronic secondary to steroids and likely cancer and inflammatory response -Likely from acute respiratory distress -We will monitor Normocytic Hypochromic Anemia, stable Possible GI Bleed, he takes iron supplement -Had a Hgb level of 7.4 grams taken at [facility]; 6.1-->now 8.5 grams after 2 units packed red blood cells -Last chemotherapy 1 week ago -Still has loose bowel movement and several watery stools/d -Plan: Continue to monitor and SCDs for now. Dietary consult for loose bowel movement. He needs something to firm up his stool. Thrombocytosis of 649 taken at [facility]; Now 536 -Likely inflammatory response -We will continue to monitor Generalized Weakness -Likely multi-factorial Chronic: HTN, HLD, Asthma, COPD, Esophageal and Lung CA, Hx/o Respiratory Failure S/p Tracheostomy, Chronic Hypoxia on 4L NC via Trach, Dysphagia S/p PEG Tube Placement, Hx/o Left Shoulder Pain, Hx/o Left Hip Surgery and Insomnia Plan: Continue cefepime and await culture results of other gram-negative rods and quinolone sensitivity.
[2020-11-11] MEDS: methylPREDNISolone Sodium Succinate 40 MG/1 ML SDV IVPUSH SCH (16:00)
[2020-11-11] MEDS: Simvastatin 40 MG Tab FTUBE SCH (20:02)
[2020-11-11] MEDS: Montelukast 10 MG Tab FTUBE SCH (20:03)
[2020-11-11] MEDS: Loperamide 2 MG Cap PO PRN (20:03)
[2020-11-12] MEDS: methylPREDNISolone Sodium Succinate 40 MG/1 ML SDV IVPUSH SCH ×3 (00:10→16:11)
[2020-11-12] MEDS: Cefepime 2 GM in Premix Bag 1 BAG IV SCH ×3 (00:15→16:10)
[2020-11-12] MEDS: Ipratropium 0.02% 0.5 MG/2.5 ML Neb Soln NEB SCH ×3 (06:02→20:23)
[2020-11-12] MEDS: Metoprolol Succinate 25 MG Tab.ER SCH (08:10)
[2020-11-12] MEDS: Loratadine 10 MG Tab FTUBE SCH (08:11)
[2020-11-12] MEDS: Magnesium Oxide 400 MG Tab FTUBE SCH (08:11)
[2020-11-12] MEDS: Ascorbic Acid 500 MG Tab FTUBE SCH (08:11)
[2020-11-12] MEDS: Loperamide 2 MG Cap PO PRN ×2 (08:11→20:35)
[2020-11-12] MEDS: Omeprazole 20 MG Cap.CR GTUBE SCH (08:11)
[2020-11-12] MEDS: Cholecalciferol (Vitamin D3) 25 MCG Tab PEGTUBE SCH (08:12)
[2020-11-12] MEDS: FERROUS SULFATE 220 MG/5 ML PEGTUBE SCH (08:12)
[2020-11-12] MEDS: Budesonide 0.5 MG/2 ML Neb Susp NEB SCH ×2 (08:23→20:22)
[2020-11-12] MEDS: Arformoterol 15 MCG/2 ML Neb Soln NEB SCH ×2 (08:23→20:22)
--- NOTE | 2020-11-12 11:17 | PCM.PN ---
- General Info Date of Service: 11/12/20 Admission Dx/Problem (Free Text): Admission Diagnosis/Problem Admission Diagnosis/Problem Pneumonia Subjective Update: Patient still requires Imodium because of loose stools. Culture and C. difficile are negative. He did have some yeast in his stool, but this is not likely contributory. Patient is on magnesium per G-tube and this is likely is contributing to his diarrhea. Breathing is essentially back to normal and he still has some productive sputum. Functional Status: Reports: Pain Controlled - Review of Systems General: Reports: No Symptoms HEENT: Reports: No Symptoms Pulmonary: Reports: No Symptoms Cardiovascular: Reports: No Symptoms Gastrointestinal: Reports: Diarrhea Musculoskeletal: Reports: No Symptoms - Patient Data Vitals - Most Recent: Last Vital Signs Temp 97.5 F 11/12/20 07:30 Pulse 62 11/12/20 08:10 Resp 14 11/12/20 07:30 BP 104/71 11/12/20 08:10 Pulse Ox 98 11/12/20 07:30 Weight - Most Recent: 123 lb 1.6 oz I&O - Last 24 Hours: Intake & Output 11/11/20 11/12/20 11/12/20 22:59 06:59 14:59 Intake Total 1120 942 Output Total 425 Balance 1120 517 Lab Results Last 24 Hours: Laboratory Results - last 24 hr 11/11/20 Range/Units 13:25 C.difficile [id number]-[id number] Presumptive negative C. difficile Tox (PCR) Negative Cheng Results Last 24 Hours: Microbiology 11/06/20 13:33 Aerobic Blood Culture - Preliminary Blood - Venous - Lab Draw NO GROWTH AFTER 5 DAYS Anaerobic Blood Culture - Preliminary NO GROWTH AFTER 5 DAYS 11/06/20 13:27 Aerobic Blood Culture - Preliminary Blood - Venous NO GROWTH AFTER 5 DAYS Anaerobic Blood Culture - Preliminary NO GROWTH AFTER 5 DAYS 11/08/20 11:30 Stool Culture - Preliminary Stool / Feces YEAST Shiga Toxin I & II - Final Med Orders - Current: Current Medications Acetaminophen (Tylenol) 650 mg RECTAL Q4H PRN PRN Reason: Pain (mild 1-3) Acetaminophen (Tylenol) 650 mg PO Q4H PRN PRN Reason: Pain/Fever Last Admin: 11/10/20 20:19 Dose: 650 mg Documented by: Hydrocodone Bitart/Acetaminophen ([place] 325-5 Mg) 1 tab FTUBE Q4H PRN PRN Reason: Pain (moderate 4-6) Last Admin: 11/08/20 20:23 Dose: 1 tab Documented by: Albuterol (Proventil Neb Soln) 2.5 mg NEB QID PRN PRN Reason: Shortness of Breath Last Admin: 11/10/20 22:05 Dose: 2.5 mg Documented by: Albuterol/Ipratropium (Duoneb 3.0-0.5 Mg/3 Ml) 3 ml NEB Q4H PRN PRN Reason: Shortness Of Breath/wheezing Arformoterol Tartrate (Arformoterol 15 Mcg/2 Ml Neb Soln) 15 mcg NEB BID [facility] Last Admin: 11/12/20 08:23 Dose: 15 mcg Documented by: Ascorbic Acid (Ascorbic Acid 500 Mg Tab) 2,000 mg FTUBE DAILY [facility] Last Admin: 11/12/20 08:11 Dose: 2,000 mg Documented by: Budesonide (Budesonide 0.5 Mg/2 Ml Neb Susp) 0.5 mg NEB BID [facility] Last Admin: 11/12/20 08:23 Dose: 0.5 mg Documented by: Cholecalciferol (Vitamin D3) 50 mcg PEGTUBE DAILY [facility] Last Admin: 11/12/20 08:12 Dose: 50 mcg Documented by: Guaifenesin/Phenylephrine HCl (Robitussin Dm) 10 ml FTUBE Q4H PRN PRN Reason: Cough Hydromorphone HCl (Dilaudid) 0.5 mg IVPUSH Q2H PRN PRN Reason: Pain (severe 7-10) Last Admin: 11/07/20 21:54 Dose: 0.5 mg Documented by: Promethazine HCl 12.5 mg/ (Sodium Chloride) 50.5 mls @ 100 mls/hr IV Q6H PRN PRN Reason: Nausea/Vomiting Cefepime HCl 2 gm/ Premix 50 mls @ 100 mls/hr IV Q8H [facility] Last Admin: 11/12/20 07:00 Dose: 100 mls/hr Documented by: Ipratropium [place] (Atrovent) 0.5 mg NEB TIDRT [facility] Last Admin: 11/12/20 06:02 Dose: 0.5 mg Documented by: Loperamide HCl (Imodium) 2 mg PO Q6H PRN PRN Reason: Diarrhea Last Admin: 11/12/20 08:11 Dose: 2 mg Documented by: Loratadine (Loratadine 10 Mg Tab) 10 mg FTUBE DAILY [facility] Last Admin: 11/12/20 08:11 Dose: 10 mg Documented by: Lorazepam (Ativan) 0.5 mg FTUBE QID PRN PRN Reason: Anxiety Last Admin: 11/07/20 09:27 Dose: 0.5 mg Documented by: Magnesium Oxide (Magnesium Oxide 400 Mg Tab) 800 mg FTUBE DAILY [facility] Last Admin: 11/12/20 08:11 Dose: 800 mg Documented by: Methylprednisolone Sodium Succinate (Methylprednisolone Sodium Succinate 125 Mg/2 Ml Sdv) 80 mg IVPUSH Q8H [facility] Last Admin: 11/11/20 09:37 Dose: 80 mg Documented by: Metoprolol Succinate (Metoprolol Succinate 25 Mg Tab.Er) 12.5 mg .XX DAILY [facility] Last Admin: 11/12/20 08:10 Dose: 12.5 mg Documented by: Montelukast Sodium (Singulair) 10 mg FTUBE BEDTIME [facility] Last Admin: 11/11/20 20:03 Dose: 10 mg Documented by: Omeprazole (Omeprazole) 20 mg GTUBE DAILY [facility] Last Admin: 11/12/20 08:11 Dose: 20 mg Documented by: Ondansetron HCl (Zofran) 4 mg IV Q6H PRN PRN Reason: Nausea/Vomiting Oxycodone HCl (Oxycodone) 5 mg FTUBE Q4H PRN PRN Reason: Pain (moderate 4-6) Tetracaine 0.25% (Lollipops) 1 each PO Q4H PRN PRN Reason: Sore Throat Ferrous Sulfate 220 Mg/5 Ml Liquid Ptom 0 each PEGTUBE DAILY [facility] Last Admin: 11/12/20 08:12 Dose: 1 each Documented by: Polyethylene Glycol (Miralax) 17 gm FTUBE DAILY PRN PRN Reason: Constipation Prochlorperazine Maleate (Compazine) 10 mg FTUBE QID PRN PRN Reason: Nausea/Vomiting Senna/Docusate Sodium (Senna Plus) 1 tab FTUBE BID PRN PRN Reason: Constipation Simvastatin (Zocor) 40 mg FTUBE BEDTIME [facility] Last Admin: 11/11/20 20:02 Dose: 40 mg Documented by: Sodium Chloride (Saline Flush) 10 ml FLUSH ASDIRECTED PRN PRN Reason: Keep Vein Open Sodium Chloride (Sodium Chloride 3%) 3 ml NEB Q2H PRN PRN Reason: Other Zolpidem Tartrate (Ambien) 5 mg FTUBE BEDTIME PRN PRN Reason: Sleep Discontinued Medications Acetaminophen (Tylenol) 650 mg PO NOW ONE Stop: 11/07/20 08:46 Last Admin: 11/07/20 08:50 Dose: 650 mg Documented by: Hydrocodone Bitart/Acetaminophen ([place] 325-5 Mg) 1 tab PO Q4H PRN PRN Reason: Pain (moderate 4-6) Cholecalciferol (Vitamin D3) 10,000 unit PEGTUBE DAILY [facility] Last Admin: 11/07/20 10:08 Dose: Not Given Documented by: Dexamethasone (Decadron) 4 mg IVPUSH ONETIME ONE Stop: 11/07/20 06:44 Last Admin: 11/07/20 08:39 Dose: 4 mg Documented by: Diphenhydramine HCl (Benadryl) 25 mg IV ONETIME ONE Stop: 11/07/20 06:44 Last Admin: 11/07/20 08:39 Dose: 25 mg Documented by: Enoxaparin Sodium (Lovenox) 40 mg SUBCUT DAILY [facility] Last Admin: 11/07/20 08:45 Dose: 40 mg Documented by: Furosemide (Lasix) 20 mg IVPUSH NOW ONE Stop: 11/07/20 06:48 Last Admin: 11/07/20 12:12 Dose: 20 mg Documented by: Guaifenesin/Phenylephrine HCl (Robitussin Dm) 10 ml PO Q4H PRN PRN Reason: Cough Ceftriaxone Sodium 2 gm/ (Sodium Chloride) 100 mls @ 200 mls/hr IV ONETIME ONE Stop: 11/06/20 13:37 Last Admin: 11/06/20 13:49 Dose: 200 mls/hr Documented by: Piperacillin Sod/Tazobactam (Sod 4.5 gm/ Sodium Chloride) 100 mls @ 200 mls/hr IV ONETIME ONE Stop: 11/06/20 17:29 Last Admin: 11/06/20 18:13 Dose: 200 mls/hr Documented by: Piperacillin Sod/Tazobactam (Sod 4.5 gm/ Sodium Chloride) 100 mls @ 25 mls/hr IV Q8H [facility] Last Admin: 11/07/20 09:08 Dose: 25 mls/hr Documented by: Sodium Chloride (Normal Saline) 1,000 mls @ 100 mls/hr IV ASDIRECTED [facility] Stop: 11/07/20 16:00 Last Admin: 11/07/20 07:34 Dose: 100 mls/hr Documented by: Piperacillin Sod/Tazobactam (Sod 4.5 gm/ Sodium Chloride) 100 mls @ 25 mls/hr IV Q8H [facility] Last Admin: 11/09/20 16:32 Dose: 25 mls/hr Documented by: Ceftriaxone Sodium 1 gm/ (Sodium Chloride) 100 mls @ 200 mls/hr IV Q24H [facility] Ipratropium [place] (Atrovent) 0.5 mg NEB Q8H [facility] Last Admin: 11/06/20 18:00 Dose: 0.5 mg Documented by: Lorazepam (Ativan) 0.5 mg PO QID PRN PRN Reason: Anxiety Non-Formulary Medication (Lidocaine/Prilocaine) 1 applic TOP ASDIRECTED PRN PRN Reason: Other Remove Scopolamine (Patch) 1 each .XX ONETIME ONE Stop: 11/09/20 21:01 Last Admin: 11/10/20 08:28 Dose: 1 each Documented by: Oxycodone HCl (Oxycodone) 5 mg PO Q4H PRN PRN Reason: Pain (moderate 4-6) Ferrous Sulfate 220 Mg/5 Ml Liquid Ptom 0 each PEGTUBE DAILY [facility] Last Admin: 11/07/20 10:08 Dose: Not Given Documented by: Polyethylene Glycol (Miralax) 17 gm PO DAILY PRN PRN Reason: Constipation Prochlorperazine Maleate (Compazine) 10 mg PO QID PRN PRN Reason: Nausea/Vomiting Scopolamine (Transderm-Scop) 1.5 mg TOP ONETIME ONE Stop: 11/06/20 21:02 Last Admin: 11/06/20 21:14 Dose: 1.5 mg Documented by: Senna/Docusate Sodium (Senna Plus) 1 tab PO BID PRN PRN Reason: Constipation - Exam Quality Assessment: Supplemental Oxygen General: Alert, Oriented HEENT: Pupils Equal, Mucous Membr. Moist/[place] Neck: Supple Lungs: Normal Respiratory Effort, Wheezing GI/Abdominal Exam: Normal Bowel Sounds, Soft, Non-Tender, No Organomegaly, No Distention, No Abnormal Bruit, No Mass Extremities: Normal Inspection, Normal Range of Motion, Non-Tender, No Pedal Edema, Normal Capillary Refill Peripheral Pulses: 1+: Dorsalis Pedis (L), Dorsalis Pedis (R) Skin: Warm, Dry, Intact Psy/Mental Status: Alert, Normal Affect, Normal Mood - Patient Data Lab Results Last 24 hrs: Laboratory Results - last 24 hr 11/11/20 Range/Units 13:25 C.difficile [id number]-[id number] Presumptive negative C. difficile Tox (PCR) Negative Result Diagrams: 11/11/20 05:35 11/11/20 05:35 Cheng Results Last 24 hrs: Microbiology 11/06/20 13:33 Aerobic Blood Culture - Preliminary Blood - Venous - Lab Draw NO GROWTH AFTER 5 DAYS Anaerobic Blood Culture - Preliminary NO GROWTH AFTER 5 DAYS 11/06/20 13:27 Aerobic Blood Culture - Preliminary Blood - Venous NO GROWTH AFTER 5 DAYS Anaerobic Blood Culture - Preliminary NO GROWTH AFTER 5 DAYS 11/08/20 11:30 Stool Culture - Preliminary Stool / Feces YEAST Shiga Toxin I & II - Final Sepsis Event Note - Evaluation Sepsis Screening Result: No Definite Risk - Focused Exam Vital Signs: Vital Signs Temp Pulse Resp BP Pulse Ox Pulse Ox 11/12/20 08:10 62 104/71 11/12/20 07:30 97.5 F 62 14 104/71 98 11/12/20 06:10 95 11/12/20 05:43 97.9 F 70 18 116/77 100 11/12/20 00:16 100 - Problem List & Annotations (1) Acute respiratory distress SNOMED Code(s): 485819081 Code(s): R06.03 - ACUTE RESPIRATORY DISTRESS Status: Acute Priority: High Current Visit: Yes (2) Anemia SNOMED Code(s): 110360453 Code(s): D64.9 - ANEMIA, UNSPECIFIED Status: Acute Priority: High Curre nt Visit: Yes Qualifiers: Anemia type: other cause Other causes of anemia: other cause, not classified Qualified Code(s): D64.89 - Other specified anemias (3) Pneumonia SNOMED Code(s): 072241958 Code(s): J18.9 - PNEUMONIA, UNSPECIFIED ORGANISM Status: Acute Current Visit: Yes Qualifiers: Pneumonia type: due to unspecified organism Laterality: bilateral Lung location: lower lobe of lung Qualified Code(s): J18.9 - Pneumonia, unspecified organism (4) COPD (chronic obstructive pulmonary disease) SNOMED Code(s): 20890527 Code(s): J44.9 - CHRONIC OBSTRUCTIVE PULMONARY DISEASE, UNSPECIFIED Status: Chronic Priority: Medium Current Visit: Yes Qualifiers: COPD type: unspecified COPD Qualified Code(s): J44.9 - Chronic obstructive pulmonary disease, unspecified (5) Lung cancer SNOMED Code(s): 459534588 Code(s): C34.90 - MALIGNANT NEOPLASM OF UNSP PART OF UNSP BRONCHUS OR LUNG Status: Chronic Priority: High Current Visit: Yes Qualifiers: Laterality: unspecified laterality Lung location: unspecified part of lung Qualified Code(s): C34.90 - Malignant neoplasm of unspecified part of unspecified bronchus or lung (6) Diarrhea SNOMED Code(s): 67570312 Code(s): R19.7 - DIARRHEA, UNSPECIFIED Status: Acute Current Visit: Yes - Problem List Review Problem List Initiated/Reviewed/Updated: Yes - My Orders Last 24 Hours: My Active Orders 11/11/20 17:00 methylPREDNISolone Sod Succ [Solu-MEDROL] 40 mg IVPUSH Q8H 11/12/20 15:00 Saccharomyces Boulardii [Florastor] 500 mg PO TID - Plan Plan:: This is a 75 yo elderly white male with past medical hx/o HTN, HLD, Asthma, COPD, Esophageal and Lung CA, Hx/o Respiratory Failure S/p Tracheostomy, Chronic Hypoxia on 4L NC via Trach, Dysphagia S/p PEG Tube Placement, Hx/o Left Shoulder Pain, Hx/o Left Hip Surgery and Insomnia who comes to us from the clinic after developing respiratory distress at [facility] infusion clinic. Assessment: Acute: Acute Respiratory Distress, resolved COPD Exacerbation, improved Hypoxia on supplemental O2 -Now at 8L at 30% FIO2 -which is essentially baseline of his home O2. -Pseudomonas sensitive to cefepime. Awaiting sensitivities to fluoroquinolones -Plan: Continue aspiration precautions, slow down hypersecretion, RT to routine assess tracheostomy, Cefepime for Pseudomonasday 6 Await further culture results and sensitivities to fluoroquinolones Mucus Plugs, acute on chronic, improved Hypersecretions -Bedside suction device -RT routine trach care -Set up oral suction to the wall for PRN use -Aspiration precautions Elevated CRP of 6.1; yesterday 1.0 Leukocytosis chronic secondary to steroids and likely cancer and inflammatory response -Likely from acute respiratory distress -We will monitor Normocytic Hypochromic Anemia, stable Possible GI Bleed, he takes iron supplement -Had a Hgb level of 7.4 grams taken at [facility]; 6.1-->now 8.5 grams after 2 units packed red blood cells -Last chemotherapy 1 week ago -Still has loose bowel movement and several watery stools/d -Plan: Continue to monitor and SCDs for now. Dietary consult for loose bowel movement. He needs something to firm up his stool. Thrombocytosis of 649 taken at [facility]; Now 536 -Likely inflammatory response -We will continue to monitor Diarrhea -Diarrhea started since admission -On magnesium oxide 800 mg daily which is likely contributing to the diarrhea -Yeast also in stool culture -Start Florastor 500 mg 3 times daily Generalized Weakness -Likely multi-factorial Chronic: HTN, HLD, Asthma, COPD, Esophageal and Lung CA, Hx/o Respiratory Failure S/p Tracheostomy, Chronic Hypoxia on 4L NC via Trach, Dysphagia S/p PEG Tube Placement, Hx/o Left Shoulder Pain, Hx/o Left Hip Surgery and Insomnia Plan: Continue cefepime and await ryan quinolone sensitivity Start Florastor 500 mg 3 times daily Stop magnesium oxide 800 mg daily until stools improve. We will have to monitor magnesium.
[2020-11-12] MEDS: Saccharomyces Boulardii (Probiotic) 250 MG Cap PO SCH ×2 (16:10→20:35)
[2020-11-12] MEDS: Montelukast 10 MG Tab FTUBE SCH (20:35)
[2020-11-12] MEDS: Simvastatin 40 MG Tab FTUBE SCH (20:35)
[2020-11-13] MEDS: methylPREDNISolone Sodium Succinate 40 MG/1 ML SDV IVPUSH SCH ×2 (00:18→08:33)
[2020-11-13] MEDS: Cefepime 2 GM in Premix Bag 1 BAG IV SCH ×3 (00:18→16:32)
[2020-11-13] MEDS: Ipratropium 0.02% 0.5 MG/2.5 ML Neb Soln NEB SCH ×3 (06:03→20:37)
[2020-11-13] MEDS: Ascorbic Acid 500 MG Tab FTUBE SCH (08:32)
[2020-11-13] MEDS: Omeprazole 20 MG Cap.CR GTUBE SCH (08:32)
[2020-11-13] MEDS: Saccharomyces Boulardii (Probiotic) 250 MG Cap PO SCH ×3 (08:34→21:27)
[2020-11-13] MEDS: Metoprolol Succinate 25 MG Tab.ER SCH (08:34)
[2020-11-13] MEDS: Loratadine 10 MG Tab FTUBE SCH (08:35)
[2020-11-13] MEDS: FERROUS SULFATE 220 MG/5 ML PEGTUBE SCH (08:39)
[2020-11-13] MEDS: Cholecalciferol (Vitamin D3) 25 MCG Tab PEGTUBE SCH (08:40)
[2020-11-13] MEDS: Arformoterol 15 MCG/2 ML Neb Soln NEB SCH ×2 (08:43→20:37)
[2020-11-13] MEDS: Budesonide 0.5 MG/2 ML Neb Susp NEB SCH ×2 (08:43→20:38)
--- NOTE | 2020-11-13 09:30 | PCM.PN ---
- General Info Date of Service: 11/13/20 Subjective Update: Patient did not participate in voicing complaints, information was provided by family. ATB currently based on C/S of pseudomonas. Has had persistent elevated WBCs, query CA component. May need imaging of chest, TBD. Functional Status: Reports: Urinating - Review of Systems General: Reports: Weakness HEENT: Reports: No Symptoms Pulmonary: Reports: No Symptoms Cardiovascular: Reports: No Symptoms Gastrointestinal: Reports: No Symptoms Genitourinary: Reports: No Symptoms Musculoskeletal: Reports: No Symptoms Skin: Reports: No Symptoms Neurological: Reports: No Symptoms Psychiatric: Reports: No Symptoms - Patient Data Vitals - Most Recent: Last Vital Signs Temp 36.6 C 11/13/20 07:32 Pulse 64 11/13/20 08:34 Resp 16 11/13/20 07:32 BP 108/63 11/13/20 08:34 Pulse Ox 100 11/13/20 07:32 Weight - Most Recent: 54.431 kg I&O - Last 24 Hours: Intake & Output 11/12/20 11/13/20 11/13/20 22:59 06:59 14:59 Intake Total 900 200 Output Total 895 Balance 900 -695 Lab Results Last 24 Hours: Laboratory Results - last 24 hr 11/13/20 11/13/20 Range/Units 06:29 06:29 WBC 31.32 H (4.23-9.07) K/mm3 RBC 3.68 L (4.63-6.08) M/mm3 Hgb 9.7 L (13.7-17.5) gm/dl Hct 32.7 L (40.1-51.0) % MCV 88.9 (79.0-92.2) fl MCH 26.4 (25.7-32.2) pg MCHC 29.7 L (32.2-35.5) g/dl RDW Std Deviation 53.4 H (35.1-43.9) fL Plt Count 524 H (163-337) K/mm3 MPV 9.5 (9.4-12.3) fl Neut % (Auto) 92.8 H (34.0-67.9) % Lymph % (Auto) 3.0 L (21.8-53.1) % Glenn % (Auto) 3.7 L (5.3-12.2) % Eos % (Auto) 0 L (0.8-7.0) Baso % (Auto) 0.0 L (0.1-1.2) % Neut # (Auto) 29.03 H (1.78-5.38) K/mm3 Lymph # (Auto) 0.94 L (1.32-3.57) K/mm3 Glenn # (Auto) 1.17 H (0.30-0.82) K/mm3 Eos # (Auto) 0.00 L (0.04-0.54) K/mm3 Baso # (Auto) 0.01 (0.01-0.08) K/mm3 Manual Slide Review Abnormal smear Sodium 136 (136-145) mEq/L Potassium 5.1 (3.5-5.1) mEq/L Chloride 100 (98-107) mEq/L Carbon Dioxide 30 (21-32) mEq/L Anion Gap 11.1 (5-15) BUN 27 H (7-18) mg/dL Creatinine 0.7 (0.7-1.3) mg/dL Est Cr Clr Drug Dosing 72.36 mL/min Estimated GFR (MDRD) > 60 (>60) mL/min BUN/Creatinine Ratio 38.6 H (14-18) Glucose 116 H (83-115) mg/dL Calcium 9.7 (8.5-10.1) mg/dL Magnesium 2.2 (1.8-2.4) mg/dl Total Bilirubin 0.3 (0.2-1.0) mg/dL AST 12 L (15-37) U/L ALT 57 (16-63) U/L Alkaline Phosphatase 95 (46-116) U/L Total Protein 6.0 L (6.4-8.2) g/dl Albumin 2.3 L (3.4-5.0) g/dl Globulin 3.7 gm/dL Albumin/Globulin Ratio 0.6 L (1-2) Cheng Results Last 24 Hours: Microbiology 11/06/20 21:30 Gram Stain - Final Sputum - Expectorated Sputum Culture - Final Pseudomonas Aeruginosa 11/08/20 11:30 Stool Culture - Final Stool / Feces YEAST Shiga Toxin I & II - Final 11/06/20 13:33 Aerobic Blood Culture - Preliminary Blood - Venous - Lab Draw NO GROWTH AFTER 6 DAYS Anaerobic Blood Culture - Preliminary NO GROWTH AFTER 6 DAYS 11/06/20 13:27 Aerobic Blood Culture - Preliminary Blood - Venous NO GROWTH AFTER 6 DAYS Anaerobic Blood Culture - Preliminary NO GROWTH AFTER 6 DAYS Med Orders - Current: Current Medications Acetaminophen (Tylenol) 650 mg RECTAL Q4H PRN PRN Reason: Pain (mild 1-3) Acetaminophen (Tylenol) 650 mg PO Q4H PRN PRN Reason: Pain/Fever Last Admin: 11/10/20 20:19 Dose: 650 mg Documented by: Hydrocodone Bitart/Acetaminophen ([place] 325-5 Mg) 1 tab FTUBE Q4H PRN PRN Reason: Pain (moderate 4-6) Last Admin: 11/08/20 20:23 Dose: 1 tab Documented by: Albuterol (Proventil Neb Soln) 2.5 mg NEB QID PRN PRN Reason: Shortness of Breath Last Admin: 11/10/20 22:05 Dose: 2.5 mg Documented by: Albuterol/Ipratropium (Albuterol/Ipratropium 3.0-0.5 Mg/3 Ml Neb Soln) 3 ml NEB Q4H PRN PRN Reason: Shortness Of Breath/wheezing Arformoterol Tartrate (Arformoterol 15 Mcg/2 Ml Neb Soln) 15 mcg NEB BID [facility] Last Admin: 11/13/20 08:43 Dose: 15 mcg Documented by: Ascorbic Acid (Ascorbic Acid 500 Mg Tab) 2,000 mg FTUBE DAILY [facility] Last Admin: 11/13/20 08:32 Dose: 2,000 mg Documented by: Budesonide (Budesonide 0.5 Mg/2 Ml Neb Susp) 0.5 mg NEB BID [facility] Last Admin: 11/13/20 08:43 Dose: 0.5 mg Documented by: Cholecalciferol (Vitamin D3) 50 mcg PEGTUBE DAILY [facility] Last Admin: 11/13/20 08:40 Dose: 50 mcg Documented by: Guaifenesin/Phenylephrine HCl (Robitussin Dm) 10 ml FTUBE Q4H PRN PRN Reason: Cough Hydromorphone HCl (Dilaudid) 0.5 mg IVPUSH Q2H PRN PRN Reason: Pain (severe 7-10) Last Admin: 11/07/20 21:54 Dose: 0.5 mg Documented by: Promethazine HCl 12.5 mg/ (Sodium Chloride) 50.5 mls @ 100 mls/hr IV Q6H PRN PRN Reason: Nausea/Vomiting Cefepime HCl 2 gm/ Premix 50 mls @ 100 mls/hr IV Q8H [facility] Last Admin: 11/13/20 08:31 Dose: 100 mls/hr Documented by: Ipratropium Wilson (Ipratropium 0.02% 0.5 Mg/2.5 Ml Neb Soln) 0.5 mg NEB TIDRT [facility] Last Admin: 11/13/20 06:03 Dose: 0.5 mg Documented by: Loperamide HCl (Imodium) 2 mg PO Q6H PRN PRN Reason: Diarrhea Last Admin: 11/12/20 20:35 Dose: 2 mg Documented by: Loratadine (Loratadine 10 Mg Tab) 10 mg FTUBE DAILY [facility] Last Admin: 11/13/20 08:35 Dose: 10 mg Documented by: Lorazepam (Ativan) 0.5 mg FTUBE QID PRN PRN Reason: Anxiety Last Admin: 11/07/20 09:27 Dose: 0.5 mg Documented by: Magnesium Oxide (Magnesium Oxide 400 Mg Tab) 800 mg FTUBE DAILY [facility] Last Admin: 11/12/20 08:11 Dose: 800 mg Documented by: Methylprednisolone Sodium Succinate (Methylprednisolone Sodium Succinate 40 Mg/1 Ml Sdv) 40 mg IVPUSH Q8H [facility] Last Admin: 11/13/20 08:33 Dose: 40 mg Documented by: Metoprolol Succinate (Metoprolol Succinate 25 Mg Tab.Er) 12.5 mg .XX DAILY [facility] Last Admin: 11/13/20 08:34 Dose: 12.5 mg Documented by: Montelukast Sodium (Singulair) 10 mg FTUBE BEDTIME [facility] Last Admin: 11/12/20 20:35 Dose: 10 mg Documented by: Omeprazole (Omeprazole) 20 mg GTUBE DAILY [facility] Last Admin: 11/13/20 08:32 Dose: 20 mg Documented by: Ondansetron HCl (Zofran) 4 mg IV Q6H PRN PRN Reason: Nausea/Vomiting Oxycodone HCl (Oxycodone) 5 mg FTUBE Q4H PRN PRN Reason: Pain (moderate 4-6) Tetracaine 0.25% (Lollipops) 1 each PO Q4H PRN PRN Reason: Sore Throat Ferrous Sulfate 220 Mg/5 Ml Liquid Ptom 0 each PEGTUBE DAILY [facility] Last Admin: 11/13/20 08:39 Dose: 1 each Documented by: Polyethylene Glycol (Miralax) 17 gm FTUBE DAILY PRN PRN Reason: Constipation Prochlorperazine Maleate (Compazine) 10 mg FTUBE QID PRN PRN Reason: Nausea/Vomiting Senna/Docusate Sodium (Senna Plus) 1 tab FTUBE BID PRN PRN Reason: Constipation Simvastatin (Zocor) 40 mg FTUBE BEDTIME [facility] Last Admin: 11/12/20 20:35 Dose: 40 mg Documented by: Sodium Chloride (Saline Flush) 10 ml FLUSH ASDIRECTED PRN PRN Reason: Keep Vein Open Sodium Chloride (Sodium Chloride 3%) 3 ml NEB Q2H PRN PRN Reason: Other Zolpidem Tartrate (Ambien) 5 mg FTUBE BEDTIME PRN PRN Reason: Sleep Discontinued Medications Acetaminophen (Tylenol) 650 mg PO NOW ONE Stop: 11/07/20 08:46 Last Admin: 11/07/20 08:50 Dose: 650 mg Documented by: Hydrocodone Bitart/Acetaminophen ([place] 325-5 Mg) 1 tab PO Q4H PRN PRN Reason: Pain (moderate 4-6) Cholecalciferol (Vitamin D3) 10,000 unit PEGTUBE DAILY [facility] Last Admin: 11/07/20 10:08 Dose: Not Given Documented by: Dexamethasone (Decadron) 4 mg IVPUSH ONETIME ONE Stop: 11/07/20 06:44 Last Admin: 11/07/20 08:39 Dose: 4 mg Documented by: Diphenhydramine HCl (Benadryl) 25 mg IV ONETIME ONE Stop: 11/07/20 06:44 Last Admin: 11/07/20 08:39 Dose: 25 mg Documented by: Enoxaparin Sodium (Lovenox) 40 mg SUBCUT DAILY [facility] Last Admin: 11/07/20 08:45 Dose: 40 mg Documented by: Furosemide (Lasix) 20 mg IVPUSH NOW ONE Stop: 11/07/20 06:48 Last Admin: 11/07/20 12:12 Dose: 20 mg Documented by: Guaifenesin/Phenylephrine HCl (Robitussin Dm) 10 ml PO Q4H PRN PRN Reason: Cough Ceftriaxone Sodium 2 gm/ (Sodium Chloride) 100 mls @ 200 mls/hr IV ONETIME ONE Stop: 11/06/20 13:37 Last Admin: 11/06/20 13:49 Dose: 200 mls/hr Documented by: Piperacillin Sod/Tazobactam (Sod 4.5 gm/ Sodium Chloride) 100 mls @ 200 mls/hr IV ONETIME ONE Stop: 11/06/20 17:29 Last Admin: 11/06/20 18:13 Dose: 200 mls/hr Documented by: Piperacillin Sod/Tazobactam (Sod 4.5 gm/ Sodium Chloride) 100 mls @ 25 mls/hr IV Q8H [facility] Last Admin: 11/07/20 09:08 Dose: 25 mls/hr Documented by: Sodium Chloride (Normal Saline) 1,000 mls @ 100 mls/hr IV ASDIRECTED [facility] Stop: 11/07/20 16:00 Last Admin: 11/07/20 07:34 Dose: 100 mls/hr Documented by: Piperacillin Sod/Tazobactam (Sod 4.5 gm/ Sodium Chloride) 100 mls @ 25 mls/hr IV Q8H [facility] Last Admin: 11/09/20 16:32 Dose: 25 mls/hr Documented by: Ceftriaxone Sodium 1 gm/ (Sodium Chloride) 100 mls @ 200 mls/hr IV Q24H [facility] Ipratropium Wilson (Atrovent) 0.5 mg NEB Q8H [facility] Last Admin: 11/06/20 18:00 Dose: 0.5 mg Documented by: Lorazepam (Ativan) 0.5 mg PO QID PRN PRN Reason: Anxiety Methylprednisolone Sodium Succinate (Methylprednisolone Sodium Succinate 125 Mg/2 Ml Sdv) 80 mg IVPUSH Q8H [facility] Last Admin: 11/11/20 09:37 Dose: 80 mg Documented by: Non-Formulary Medication (Lidocaine/Prilocaine) 1 applic TOP ASDIRECTED PRN PRN Reason: Other Remove Scopolamine (Patch) 1 each .XX ONETIME ONE Stop: 11/09/20 21:01 Last Admin: 11/10/20 08:28 Dose: 1 each Documented by: Oxycodone HCl (Oxycodone) 5 mg PO Q4H PRN PRN Reason: Pain (moderate 4-6) Ferrous Sulfate 220 Mg/5 Ml Liquid Ptom 0 each PEGTUBE DAILY [facility] Last Admin: 11/07/20 10:08 Dose: Not Given Documented by: Polyethylene Glycol (Miralax) 17 gm PO DAILY PRN PRN Reason: Constipation Prochlorperazine Maleate (Compazine) 10 mg PO QID PRN PRN Reason: Nausea/Vomiting Scopolamine (Transderm-Scop) 1.5 mg TOP ONETIME ONE Stop: 11/06/20 21:02 Last Admin: 11/06/20 21:14 Dose: 1.5 mg Documented by: Senna/Docusate Sodium (Senna Plus) 1 tab PO BID PRN PRN Reason: Constipation - Exam Quality Assessment: Supplemental Oxygen General: Alert, Cooperative HEENT: Pupils Equal, Pupils Reactive, EOMI Neck: Trachea Midline, No JVD Lungs: Normal Respiratory Effort, Decreased Breath Sounds, Rhonchi Cardiovascular: Regular Rate, Regular Rhythm GI/Abdominal Exam: Normal Bowel Sounds, Soft, Non-Tender (Male) Exam: Deferred Back Exam: Normal Inspection Extremities: Normal Inspection Skin: Warm Neurological: No New Focal Deficit Psy/Mental Status: Alert - Patient Data Lab Results Last 24 hrs: Laboratory Results - last 24 hr 11/13/20 11/13/20 Range/Units 06:29 06:29 WBC 31.32 H (4.23-9.07) K/mm3 RBC 3.68 L (4.63-6.08) M/mm3 Hgb 9.7 L (13.7-17.5) gm/dl Hct 32.7 L (40.1-51.0) % MCV 88.9 (79.0-92.2) fl MCH 26.4 (25.7-32.2) pg MCHC 29.7 L (32.2-35.5) g/dl RDW Std Deviation 53.4 H (35.1-43.9) fL Plt Count 524 H (163-337) K/mm3 MPV 9.5 (9.4-12.3) fl Neut % (Auto) 92.8 H (34.0-67.9) % Lymph % (Auto) 3.0 L (21.8-53.1) % Glenn % (Auto) 3.7 L (5.3-12.2) % Eos % (Auto) 0 L (0.8-7.0) Baso % (Auto) 0.0 L (0.1-1.2) % Neut # (Auto) 29.03 H (1.78-5.38) K/mm3 Lymph # (Auto) 0.94 L (1.32-3.57) K/mm3 Glenn # (Auto) 1.17 H (0.30-0.82) K/mm3 Eos # (Auto) 0.00 L (0.04-0.54) K/mm3 Baso # (Auto) 0.01 (0.01-0.08) K/mm3 Manual Slide Review Abnormal smear Sodium 136 (136-145) mEq/L Potassium 5.1 (3.5-5.1) mEq/L Chloride 100 (98-107) mEq/L Carbon Dioxide 30 (21-32) mEq/L Anion Gap 11.1 (5-15) BUN 27 H (7-18) mg/dL Creatinine 0.7 (0.7-1.3) mg/dL Est Cr Clr Drug Dosing 72.36 mL/min Estimated GFR (MDRD) > 60 (>60) mL/min BUN/Creatinine Ratio 38.6 H (14-18) Glucose 116 H (83-115) mg/dL Calcium 9.7 (8.5-10.1) mg/dL Magnesium 2.2 (1.8-2.4) mg/dl Total Bilirubin 0.3 (0.2-1.0) mg/dL AST 12 L (15-37) U/L ALT 57 (16-63) U/L Alkaline Phosphatase 95 (46-116) U/L Total Protein 6.0 L (6.4-8.2) g/dl Albumin 2.3 L (3.4-5.0) g/dl Globulin 3.7 gm/dL Albumin/Globulin Ratio 0.6 L (1-2) Result Diagrams: 11/13/20 06:29 11/13/20 06:29 Cheng Results Last 24 hrs: Microbiology 11/06/20 21:30 Gram Stain - Final Sputum - Expectorated Sputum Culture - Final Pseudomonas Aeruginosa 11/08/20 11:30 Stool Culture - Final Stool / Feces YEAST Shiga Toxin I & II - Final 11/06/20 13:33 Aerobic Blood Culture - Preliminary Blood - Venous - Lab Draw NO GROWTH AFTER 6 DAYS Anaerobic Blood Culture - Preliminary NO GROWTH AFTER 6 DAYS 11/06/20 13:27 Aerobic Blood Culture - Preliminary Blood - Venous NO GROWTH AFTER 6 DAYS Anaerobic Blood Culture - Preliminary NO GROWTH AFTER 6 DAYS Sepsis Event Note - Evaluation Sepsis Screening Result: No Definite Risk - Focused Exam Vital Signs: Vital Signs Temp Pulse Resp BP Pulse Ox Pulse Ox 11/13/20 08:34 64 108/63 11/13/20 07:32 36.6 C 64 16 108/63 100 11/13/20 06:04 100 11/13/20 03:58 36.8 C 79 16 128/77 98 11/13/20 00:25 37.0 C 73 14 109/84 100 - Problem List Review Problem List Initiated/Reviewed/Updated: Yes - Plan Plan:: This is a 75 yo elderly white male with past medical hx/o HTN, HLD, Asthma, COPD, Esophageal and Lung CA, Hx/o Respiratory Failure S/p Tracheostomy, Chronic Hypoxia on 4L NC via Trach, Dysphagia S/p PEG Tube Placement, Hx/o Left Shoulder Pain, Hx/o Left Hip Surgery and Insomnia who comes to us from the clinic after developing respiratory distress at [facility] infusion clinic. Assessment: Acute: Acute Respiratory Distress, resolved COPD Exacerbation, improved Hypoxia on supplemental O2 -Now at 8L at 30% FIO2 -which is essentially baseline of his home O2. -Pseudomonas sensitive to cefepime. Awaiting sensitivities to fluoroquinolones -Plan: Continue aspiration precautions, slow down hypersecretion, RT to routine assess tracheostomy, Cefepime for Pseudomonasday 6 Await further culture results and sensitivities to fluoroquinolones Mucus Plugs, acute on chronic, improved Hypersecretions -Bedside suction device -RT routine trach care -Set up oral suction to the wall for PRN use -Aspiration precautions Elevated CRP of 6.1; yesterday 1.0 Leukocytosis chronic secondary to steroids and likely cancer and inflammatory response -Likely from acute respiratory distress -We will monitor Normocytic Hypochromic Anemia, stable Possible GI Bleed, he takes iron supplement -Had a Hgb level of 7.4 grams taken at [facility]; 6.1-->now 8.5 grams after 2 units packed red blood cells -Last chemotherapy 1 week ago -Still has loose bowel movement and several watery stools/d -Plan: Continue to monitor and SCDs for now. Dietary consult for loose bowel movement. He needs something to firm up his stool. Thrombocytosis of 649 taken at [facility]; Now 536 -Likely inflammatory response -We will continue to monitor Diarrhea -Diarrhea started since admission -On magnesium oxide 800 mg daily which is likely contributing to the diarrhea -Yeast also in stool culture -Start Florastor 500 mg 3 times daily Generalized Weakness -Likely multi-factorial Chronic: HTN, HLD, Asthma, COPD, Esophageal and Lung CA, Hx/o Respiratory Failure S/p Tracheostomy, Chronic Hypoxia on 4L NC via Trach, Dysphagia S/p PEG Tube Placement, Hx/o Left Shoulder Pain, Hx/o Left Hip Surgery and Insomnia Plan: Continue cefepime and await ryan quinolone sensitivity--senstive per verbal report Start Florastor 500 mg 3 times daily Stop magnesium oxide 800 mg daily until stools improve. We will have to monitor magnesium. Will likely add Questran to improve bulk and frequency of BMs.
[2020-11-13] MEDS: Loperamide 2 MG Cap PO PRN ×2 (11:52→21:37)
[2020-11-13] MEDS: Montelukast 10 MG Tab FTUBE SCH (21:28)
[2020-11-13] MEDS: Simvastatin 40 MG Tab FTUBE SCH (21:28)
[2020-11-14] MEDS: Cefepime 2 GM in Premix Bag 1 BAG IV SCH ×2 (00:26→08:15)
[2020-11-14] MEDS: Ipratropium 0.02% 0.5 MG/2.5 ML Neb Soln NEB SCH ×3 (06:04→20:05)
[2020-11-14] MEDS: Saccharomyces Boulardii (Probiotic) 250 MG Cap PO SCH ×3 (08:15→21:57)
[2020-11-14] MEDS: Metoprolol Succinate 25 MG Tab.ER SCH (08:15)
[2020-11-14] MEDS: Loratadine 10 MG Tab FTUBE SCH (08:16)
[2020-11-14] MEDS: Ascorbic Acid 500 MG Tab FTUBE SCH (08:16)
[2020-11-14] MEDS: FERROUS SULFATE 220 MG/5 ML PEGTUBE SCH (08:17)
[2020-11-14] MEDS: Cholecalciferol (Vitamin D3) 25 MCG Tab PEGTUBE SCH (08:17)
[2020-11-14] MEDS: Omeprazole 20 MG Cap.CR GTUBE SCH (08:43)
[2020-11-14] MEDS ORDERED: methylPREDNISolone Sodium Succinate 40 MG/1 ML SDV IVPUSH SCH (09:00)
[2020-11-14] MEDS: Budesonide 0.5 MG/2 ML Neb Susp NEB SCH ×2 (09:15→20:05)
[2020-11-14] MEDS: Arformoterol 15 MCG/2 ML Neb Soln NEB SCH ×2 (09:15→20:05)
[2020-11-14] MEDS ORDERED: Sodium Chloride 0.9% 10 ML Syringe FLUSH PRN (09:16)
[2020-11-14] MEDS ORDERED: Iopamidol 612 MG/ML 100 ML Bottle IVPUSH ONE (09:16)
[2020-11-14] MEDS ORDERED: Rivaroxaban 10 MG Tab PO SCH (09:45)
--- NOTE | 2020-11-14 11:35 | CT ---
CT chest (without and with intravenous contrast) Comparison: Prior chest x-ray on 11/07/20, no prior chest CT is available. Findings: Emphysematous change is noted within both lungs. Spiculated mass is noted within the right upper lung measuring about 3.4 cm. Difficult to exclude cancer recurrence. Numerous masses are also noted within both lungs. There is adenopathy lateral to the aortic arch measuring approximately 3.2 cm. Several enlarged pretracheal lymph nodes are seen with largest measuring 2.3 cm. Subcarinal node is seen measuring up to 4.8 cm. Large lymph node is seen within the left hilar region measuring 2.7 cm. Slight coronary artery calcification is seen. Thoracic aorta shows atherosclerotic change without aneurysm. No pericardial thickening is seen. Visualized upper abdomen shows a nodule within the spleen measuring 1.5 cm. Mass is noted within the right adrenal gland measuring 2.1 cm. No additional abnormality is appreciated. Small right-sided pleural effusion is noted. Bone window settings were reviewed which show scattered degenerative change within the spine. There is a lucent lesion noted at what appears to be L1 which shows disruption of cortical margins on the left side. No other definite lytic lesions are seen within the osseous structures. Tracheostomy tube is noted. Right-sided infusion catheter is seen. Impression: 1. Numerous pulmonary nodules within both sides of the chest most likely due to metastatic disease. 2. Mediastinal and left hilar adenopathy most likely metastatic. 3. Right adrenal gland and small lesion within the spleen most likely metastatic. 4. Emphysematous change and mild right-sided pleural effusion. 5. Lytic lesion within approximate L1 showing disruption of the left side of the vertebral body. This is most likely metastatic. Diagnostic code #9
--- NOTE | 2020-11-14 11:51 | PCM.PN ---
- General Info Date of Service: 11/14/20 Subjective Update: 75 year old male S/P CT of chest with and w/o contrast. Has extensive cancer noted, there is no pneumonia. The cefepime will be discontinued. Will likely need assessment for brain mets, etc. Will defer to oncology for now. Steroid dose has been increased to Solumedrol 60 mg IV daily. Patient's has declined home health and hospice. Started the patient on Xarelto 10 mg daily; this was initially challenged by the patient's spouse. He has not been wearing the SCDs, subsequently he took the Xarelto after additional explanation of the nursing staff. Functional Status: Reports: Pain Controlled, Urinating - Review of Systems General: Reports: Weakness HEENT: Reports: No Symptoms Pulmonary: Reports: No Symptoms Cardiovascular: Reports: No Symptoms Gastrointestinal: Reports: No Symptoms Genitourinary: Reports: No Symptoms Musculoskeletal: Reports: No Symptoms Skin: Reports: No Symptoms Neurological: Reports: No Symptoms Psychiatric: Reports: No Symptoms - Patient Data Vitals - Most Recent: Last Vital Signs Temp 36.6 C 11/14/20 07:42 Pulse 76 11/14/20 08:15 Resp 16 11/14/20 07:42 BP 100/63 11/14/20 08:15 Pulse Ox 100 11/14/20 09:17 Weight - Most Recent: 55.021 kg I&O - Last 24 Hours: Intake & Output 11/13/20 11/14/20 11/14/20 22:59 06:59 14:59 Intake Total 50 450 Output Total 300 650 Balance -250 -200 Lab Results Last 24 Hours: Laboratory Results - last 24 hr 11/14/20 11/14/20 11/14/20 Range/Units 08:41 08:41 08:41 WBC 34.46 H (4.23-9.07) K/mm3 RBC 3.93 L (4.63-6.08) M/mm3 Hgb 10.3 L (13.7-17.5) gm/dl Hct 35.1 L (40.1-51.0) % MCV 89.3 (79.0-92.2) fl MCH 26.2 (25.7-32.2) pg MCHC 29.3 L (32.2-35.5) g/dl RDW Std Deviation 54.3 H (35.1-43.9) fL Plt Count 517 H (163-337) K/mm3 MPV 9.5 (9.4-12.3) fl Neut % (Auto) 85.8 H (34.0-67.9) % Lymph % (Auto) 3.3 L (21.8-53.1) % [place] % (Auto) 9.8 (5.3-12.2) % Eos % (Auto) 0.3 L (0.8-7.0) Baso % (Auto) 0.0 L (0.1-1.2) % Neut # (Auto) 29.59 H (1.78-5.38) K/mm3 Lymph # (Auto) 1.14 L (1.32-3.57) K/mm3 [place] # (Auto) 3.36 H (0.30-0.82) K/mm3 Eos # (Auto) 0.09 (0.04-0.54) K/mm3 Baso # (Auto) 0.01 (0.01-0.08) K/mm3 Manual Slide Review Abnormal smear D-Dimer, Quantitative 0.56 H (0.19-0.50) mg/L Sodium 134 L (136-145) mEq/L Potassium 4.5 (3.5-5.1) mEq/L Chloride 97 L (98-107) mEq/L Carbon Dioxide 32 (21-32) mEq/L Anion Gap 9.5 (5-15) BUN 29 H (7-18) mg/dL Creatinine 0.6 L (0.7-1.3) mg/dL Est Cr Clr Drug Dosing 85.33 mL/min Estimated GFR (MDRD) > 60 (>60) mL/min BUN/Creatinine Ratio 48.3 H (14-18) Glucose 125 H (83-115) mg/dL Lactic Acid (0.4-2.0) mmol/L Calcium 9.8 (8.5-10.1) mg/dL Total Bilirubin 0.4 (0.2-1.0) mg/dL AST 15 (15-37) U/L ALT 47 (16-63) U/L Alkaline Phosphatase 94 (46-116) U/L C-Reactive Protein 1.3 H* (<1.0) mg/dL Total Protein 6.1 L (6.4-8.2) g/dl Albumin 2.3 L (3.4-5.0) g/dl Globulin 3.8 gm/dL Albumin/Globulin Ratio 0.6 L (1-2) 11/14/20 Range/Units 09:18 WBC (4.23-9.07) K/mm3 RBC (4.63-6.08) M/mm3 Hgb (13.7-17.5) gm/dl Hct (40.1-51.0) % MCV (79.0-92.2) fl MCH (25.7-32.2) pg MCHC (32.2-35.5) g/dl RDW Std Deviation (35.1-43.9) fL Plt Count (163-337) K/mm3 MPV (9.4-12.3) fl Neut % (Auto) (34.0-67.9) % Lymph % (Auto) (21.8-53.1) % [place] % (Auto) (5.3-12.2) % Eos % (Auto) (0.8-7.0) Baso % (Auto) (0.1-1.2) % Neut # (Auto) (1.78-5.38) K/mm3 Lymph # (Auto) (1.32-3.57) K/mm3 [place] # (Auto) (0.30-0.82) K/mm3 Eos # (Auto) (0.04-0.54) K/mm3 Baso # (Auto) (0.01-0.08) K/mm3 Manual Slide Review D-Dimer, Quantitative (0.19-0.50) mg/L Sodium (136-145) mEq/L Potassium (3.5-5.1) mEq/L Chloride (98-107) mEq/L Carbon Dioxide (21-32) mEq/L Anion Gap (5-15) BUN (7-18) mg/dL Creatinine (0.7-1.3) mg/dL Est Cr Clr Drug Dosing mL/min Estimated GFR (MDRD) (>60) mL/min BUN/Creatinine Ratio (14-18) Glucose (83-115) mg/dL Lactic Acid 2.3 H* (0.4-2.0) mmol/L Calcium (8.5-10.1) mg/dL Total Bilirubin (0.2-1.0) mg/dL AST (15-37) U/L ALT (16-63) U/L Alkaline Phosphatase (46-116) U/L C-Reactive Protein (<1.0) mg/dL Total Protein (6.4-8.2) g/dl Albumin (3.4-5.0) g/dl Globulin gm/dL Albumin/Globulin Ratio (1-2) Cheng Results Last 24 Hours: Microbiology 11/06/20 13:33 Aerobic Blood Culture - Final Blood - Venous - Lab Draw NO GROWTH AFTER 7 DAYS Anaerobic Blood Culture - Final NO GROWTH AFTER 7 DAYS 11/06/20 13:27 Aerobic Blood Culture - Final Blood - Venous NO GROWTH AFTER 7 DAYS Anaerobic Blood Culture - Final NO GROWTH AFTER 7 DAYS 11/06/20 21:30 Gram Stain - Final Sputum - Expectorated Sputum Culture - Final Pseudomonas Aeruginosa Med Orders - Current: Current Medications Acetaminophen (Tylenol) 650 mg RECTAL Q4H PRN PRN Reason: Pain (mild 1-3) Acetaminophen (Tylenol) 650 mg PO Q4H PRN PRN Reason: Pain/Fever Last Admin: 11/10/20 20:19 Dose: 650 mg Documented by: Hydrocodone Bitart/Acetaminophen ([place] 325-5 Mg) 1 tab FTUBE Q4H PRN PRN Reason: Pain (moderate 4-6) Last Admin: 11/08/20 20:23 Dose: 1 tab Documented by: Albuterol (Proventil Neb Soln) 2.5 mg NEB QID PRN PRN Reason: Shortness of Breath Last Admin: 11/10/20 22:05 Dose: 2.5 mg Documented by: Albuterol/Ipratropium (Albuterol/Ipratropium 3.0-0.5 Mg/3 Ml Neb Soln) 3 ml NEB Q4H PRN PRN Reason: Shortness Of Breath/wheezing Arformoterol Tartrate (Arformoterol 15 Mcg/2 Ml Neb Soln) 15 mcg NEB BID [facility] Last Admin: 11/14/20 09:15 Dose: 15 mcg Documented by: Ascorbic Acid (Ascorbic Acid 500 Mg Tab) 2,000 mg FTUBE DAILY [facility] Last Admin: 11/14/20 08:16 Dose: 2,000 mg Documented by: Budesonide (Budesonide 0.5 Mg/2 Ml Neb Susp) 0.5 mg NEB BID [facility] Last Admin: 11/14/20 09:15 Dose: 0.5 mg Documented by: Cholecalciferol (Vitamin D3) 50 mcg PEGTUBE DAILY [facility] Last Admin: 11/14/20 08:17 Dose: 50 mcg Documented by: Guaifenesin/Phenylephrine HCl (Robitussin Dm) 10 ml FTUBE Q4H PRN PRN Reason: Cough Hydromorphone HCl (Dilaudid) 0.5 mg IVPUSH Q2H PRN PRN Reason: Pain (severe 7-10) Last Admin: 11/07/20 21:54 Dose: 0.5 mg Documented by: Promethazine HCl 12.5 mg/ (Sodium Chloride) 50.5 mls @ 100 mls/hr IV Q6H PRN PRN Reason: Nausea/Vomiting Cefepime HCl 2 gm/ Premix 50 mls @ 100 mls/hr IV Q8H [facility] Last Admin: 11/14/20 08:15 Dose: 100 mls/hr Documented by: Ipratropium [place] (Ipratropium 0.02% 0.5 Mg/2.5 Ml Neb Soln) 0.5 mg NEB TIDRT [facility] Last Admin: 11/14/20 06:04 Dose: 0.5 mg Documented by: Loperamide HCl (Loperamide 2 Mg Cap) 2 mg PO Q6H PRN PRN Reason: Diarrhea Last Admin: 11/13/20 21:37 Dose: 2 mg Documented by: Loratadine (Loratadine 10 Mg Tab) 10 mg FTUBE DAILY [facility] Last Admin: 11/14/20 08:16 Dose: 10 mg Documented by: Lorazepam (Ativan) 0.5 mg FTUBE QID PRN PRN Reason: Anxiety Last Admin: 11/07/20 09:27 Dose: 0.5 mg Documented by: Magnesium Oxide (Magnesium Oxide 400 Mg Tab) 800 mg FTUBE DAILY [facility] Last Admin: 11/12/20 08:11 Dose: 800 mg Documented by: Methylprednisolone Sodium Succinate (Methylprednisolone Sodium Succinate 40 Mg/1 Ml Sdv) 40 mg IVPUSH Q8H [facility] Last Admin: 11/13/20 08:33 Dose: 40 mg Documented by: Metoprolol Succinate (Metoprolol Succinate 25 Mg Tab.Er) 12.5 mg .XX DAILY [facility] Last Admin: 11/14/20 08:15 Dose: 12.5 mg Documented by: Montelukast Sodium (Montelukast 10 Mg Tab) 10 mg FTUBE BEDTIME [facility] Last Admin: 11/13/20 21:28 Dose: 10 mg Documented by: Omeprazole (Omeprazole) 20 mg GTUBE DAILY [facility] Last Admin: 11/14/20 08:43 Dose: 20 mg Documented by: Ondansetron HCl (Zofran) 4 mg IV Q6H PRN PRN Reason: Nausea/Vomiting Oxycodone HCl (Oxycodone) 5 mg FTUBE Q4H PRN PRN Reason: Pain (moderate 4-6) Tetracaine 0.25% (Lollipops) 1 each PO Q4H PRN PRN Reason: Sore Throat Ferrous Sulfate 220 Mg/5 Ml Liquid Ptom 0 each PEGTUBE DAILY [facility] Last Admin: 11/14/20 08:17 Dose: 1 each Documented by: Polyethylene Glycol (Miralax) 17 gm FTUBE DAILY PRN PRN Reason: Constipation Prochlorperazine Maleate (Compazine) 10 mg FTUBE QID PRN PRN Reason: Nausea/Vomiting Senna/Docusate Sodium (Senna Plus) 1 tab FTUBE BID PRN PRN Reason: Constipation Simvastatin (Simvastatin 40 Mg Tab) 40 mg FTUBE BEDTIME [facility] Last Admin: 11/13/20 21:28 Dose: 40 mg Documented by: Sodium Chloride (Saline Flush) 10 ml FLUSH ASDIRECTED PRN PRN Reason: Keep Vein Open Sodium Chloride (Sodium Chloride 3%) 3 ml NEB Q2H PRN PRN Reason: Other Zolpidem Tartrate (Ambien) 5 mg FTUBE BEDTIME PRN PRN Reason: Sleep Discontinued Medications Acetaminophen (Tylenol) 650 mg PO NOW ONE Stop: 11/07/20 08:46 Last Admin: 11/07/20 08:50 Dose: 650 mg Documented by: Hydrocodone Bitart/Acetaminophen ([place] 325-5 Mg) 1 tab PO Q4H PRN PRN Reason: Pain (moderate 4-6) Cholecalciferol (Vitamin D3) 10,000 unit PEGTUBE DAILY [facility] Last Admin: 11/07/20 10:08 Dose: Not Given Documented by: Dexamethasone (Decadron) 4 mg IVPUSH ONETIME ONE Stop: 11/07/20 06:44 Last Admin: 11/07/20 08:39 Dose: 4 mg Documented by: Diphenhydramine HCl (Benadryl) 25 mg IV ONETIME ONE Stop: 11/07/20 06:44 Last Admin: 11/07/20 08:39 Dose: 25 mg Documented by: Enoxaparin Sodium (Lovenox) 40 mg SUBCUT DAILY [facility] Last Admin: 11/07/20 08:45 Dose: 40 mg Documented by: Furosemide (Lasix) 20 mg IVPUSH NOW ONE Stop: 11/07/20 06:48 Last Admin: 11/07/20 12:12 Dose: 20 mg Documented by: Guaifenesin/Phenylephrine HCl (Robitussin Dm) 10 ml PO Q4H PRN PRN Reason: Cough Ceftriaxone Sodium 2 gm/ (Sodium Chloride) 100 mls @ 200 mls/hr IV ONETIME ONE Stop: 11/06/20 13:37 Last Admin: 11/06/20 13:49 Dose: 200 mls/hr Documented by: Piperacillin Sod/Tazobactam (Sod 4.5 gm/ Sodium Chloride) 100 mls @ 200 mls/hr IV ONETIME ONE Stop: 11/06/20 17:29 Last Admin: 11/06/20 18:13 Dose: 200 mls/hr Documented by: Piperacillin Sod/Tazobactam (Sod 4.5 gm/ Sodium Chloride) 100 mls @ 25 mls/hr IV Q8H [facility] Last Admin: 11/07/20 09:08 Dose: 25 mls/hr Documented by: Sodium Chloride (Normal Saline) 1,000 mls @ 100 mls/hr IV ASDIRECTED [facility] Stop: 11/07/20 16:00 Last Admin: 11/07/20 07:34 Dose: 100 mls/hr Documented by: Piperacillin Sod/Tazobactam (Sod 4.5 gm/ Sodium Chloride) 100 mls @ 25 mls/hr IV Q8H [facility] Last Admin: 11/09/20 16:32 Dose: 25 mls/hr Documented by: Ceftriaxone Sodium 1 gm/ (Sodium Chloride) 100 mls @ 200 mls/hr IV Q24H [facility] Ipratropium [place] (Atrovent) 0.5 mg NEB Q8H [facility] Last Admin: 11/06/20 18:00 Dose: 0.5 mg Documented by: Lorazepam (Ativan) 0.5 mg PO QID PRN PRN Reason: Anxiety Methylprednisolone Sodium Succinate (Methylprednisolone Sodium Succinate 125 Mg/2 Ml Sdv) 80 mg IVPUSH Q8H [facility] Last Admin: 11/11/20 09:37 Dose: 80 mg Documented by: Non-Formulary Medication (Lidocaine/Prilocaine) 1 applic TOP ASDIRECTED PRN PRN Reason: Other Remove Scopolamine (Patch) 1 each .XX ONETIME ONE Stop: 11/09/20 21:01 Last Admin: 11/10/20 08:28 Dose: 1 each Documented by: Oxycodone HCl (Oxycodone) 5 mg PO Q4H PRN PRN Reason: Pain (moderate 4-6) Ferrous Sulfate 220 Mg/5 Ml Liquid Ptom 0 each PEGTUBE DAILY [facility] Last Admin: 11/07/20 10:08 Dose: Not Given Documented by: Polyethylene Glycol (Miralax) 17 gm PO DAILY PRN PRN Reason: Constipation Prochlorperazine Maleate (Compazine) 10 mg PO QID PRN PRN Reason: Nausea/Vomiting Scopolamine (Transderm-Scop) 1.5 mg TOP ONETIME ONE Stop: 11/06/20 21:02 Last Admin: 11/06/20 21:14 Dose: 1.5 mg Documented by: Senna/Docusate Sodium (Senna Plus) 1 tab PO BID PRN PRN Reason: Constipation - Exam Quality Assessment: Supplemental Oxygen, DVT Prophylaxis General: Alert, Oriented HEENT: Pupils Equal, Pupils Reactive, EOMI, Other Neck: No JVD Lungs: Normal Respiratory Effort Cardiovascular: Regular Rate, Regular Rhythm GI/Abdominal Exam: Normal Bowel Sounds, Soft, Non-Tender (Male) Exam: Deferred Back Exam: Normal Inspection Extremities: Normal Inspection Skin: Warm Neurological: No New Focal Deficit Psy/Mental Status: Alert, Normal Affect, Normal Mood - Patient Data Lab Results Last 24 hrs: Laboratory Results - last 24 hr 11/14/20 11/14/20 11/14/20 Range/Units 08:41 08:41 08:41 WBC 34.46 H (4.23-9.07) K/mm3 RBC 3.93 L (4.63-6.08) M/mm3 Hgb 10.3 L (13.7-17.5) gm/dl Hct 35.1 L (40.1-51.0) % MCV 89.3 (79.0-92.2) fl MCH 26.2 (25.7-32.2) pg MCHC 29.3 L (32.2-35.5) g/dl RDW Std Deviation 54.3 H (35.1-43.9) fL Plt Count 517 H (163-337) K/mm3 MPV 9.5 (9.4-12.3) fl Neut % (Auto) 85.8 H (34.0-67.9) % Lymph % (Auto) 3.3 L (21.8-53.1) % [place] % (Auto) 9.8 (5.3-12.2) % Eos % (Auto) 0.3 L (0.8-7.0) Baso % (Auto) 0.0 L (0.1-1.2) % Neut # (Auto) 29.59 H (1.78-5.38) K/mm3 Lymph # (Auto) 1.14 L (1.32-3.57) K/mm3 [place] # (Auto) 3.36 H (0.30-0.82) K/mm3 Eos # (Auto) 0.09 (0.04-0.54) K/mm3 Baso # (Auto) 0.01 (0.01-0.08) K/mm3 Manual Slide Review Abnormal smear D-Dimer, Quantitative 0.56 H (0.19-0.50) mg/L Sodium 134 L (136-145) mEq/L Potassium 4.5 (3.5-5.1) mEq/L Chloride 97 L (98-107) mEq/L Carbon Dioxide 32 (21-32) mEq/L Anion Gap 9.5 (5-15) BUN 29 H (7-18) mg/dL Creatinine 0.6 L (0.7-1.3) mg/dL Est Cr Clr Drug Dosing 85.33 mL/min Estimated GFR (MDRD) > 60 (>60) mL/min BUN/Creatinine Ratio 48.3 H (14-18) Glucose 125 H (83-115) mg/dL Lactic Acid (0.4-2.0) mmol/L Calcium 9.8 (8.5-10.1) mg/dL Total Bilirubin 0.4 (0.2-1.0) mg/dL AST 15 (15-37) U/L ALT 47 (16-63) U/L Alkaline Phosphatase 94 (46-116) U/L C-Reactive Protein 1.3 H* (<1.0) mg/dL Total Protein 6.1 L (6.4-8.2) g/dl Albumin 2.3 L (3.4-5.0) g/dl Globulin 3.8 gm/dL Albumin/Globulin Ratio 0.6 L (1-2) 11/14/20 Range/Units 09:18 WBC (4.23-9.07) K/mm3 RBC (4.63-6.08) M/mm3 Hgb (13.7-17.5) gm/dl Hct (40.1-51.0) % MCV (79.0-92.2) fl MCH (25.7-32.2) pg MCHC (32.2-35.5) g/dl RDW Std Deviation (35.1-43.9) fL Plt Count (163-337) K/mm3 MPV (9.4-12.3) fl Neut % (Auto) (34.0-67.9) % Lymph % (Auto) (21.8-53.1) % [place] % (Auto) (5.3-12.2) % Eos % (Auto) (0.8-7.0) Baso % (Auto) (0.1-1.2) % Neut # (Auto) (1.78-5.38) K/mm3 Lymph # (Auto) (1.32-3.57) K/mm3 [place] # (Auto) (0.30-0.82) K/mm3 Eos # (Auto) (0.04-0.54) K/mm3 Baso # (Auto) (0.01-0.08) K/mm3 Manual Slide Review D-Dimer, Quantitative (0.19-0.50) mg/L Sodium (136-145) mEq/L Potassium (3.5-5.1) mEq/L Chloride (98-107) mEq/L Carbon Dioxide (21-32) mEq/L Anion Gap (5-15) BUN (7-18) mg/dL Creatinine (0.7-1.3) mg/dL Est Cr Clr Drug Dosing mL/min Estimated GFR (MDRD) (>60) mL/min BUN/Creatinine Ratio (14-18) Glucose (83-115) mg/dL Lactic Acid 2.3 H* (0.4-2.0) mmol/L Calcium (8.5-10.1) mg/dL Total Bilirubin (0.2-1.0) mg/dL AST (15-37) U/L ALT (16-63) U/L Alkaline Phosphatase (46-116) U/L C-Reactive Protein (<1.0) mg/dL Total Protein (6.4-8.2) g/dl Albumin (3.4-5.0) g/dl Globulin gm/dL Albumin/Globulin Ratio (1-2) Result Diagrams: 11/14/20 08:41 11/14/20 08:41 Cheng Results Last 24 hrs: Microbiology 11/06/20 13:33 Aerobic Blood Culture - Final Blood - Venous - Lab Draw NO GROWTH AFTER 7 DAYS Anaerobic Blood Culture - Final NO GROWTH AFTER 7 DAYS 11/06/20 13:27 Aerobic Blood Culture - Final Blood - Venous NO GROWTH AFTER 7 DAYS Anaerobic Blood Culture - Final NO GROWTH AFTER 7 DAYS 11/06/20 21:30 Gram Stain - Final Sputum - Expectorated Sputum Culture - Final Pseudomonas Aeruginosa Sepsis Event Note - Evaluation Sepsis Screening Result: No Definite Risk - Focused Exam Vital Signs: Vital Signs Temp Pulse Resp BP Pulse Ox Pulse Ox 11/14/20 09:17 100 11/14/20 08:15 76 100/63 11/14/20 07:42 36.6 C 76 16 100/63 96 11/14/20 06:04 96 11/14/20 02:56 70 102/74 97 11/14/20 02:55 72 18 131/115 H 98 - Problem List Review Problem List Initiated/Reviewed/Updated: Yes - My Orders Last 24 Hours: My Active Orders 11/14/20 08:41 PROCALCITONIN [REF] Routine 11/14/20 09:56 Rivaroxaban [Xarelto] 10 mg FTUBE DAILY 11/14/20 12:18 LACTIC ACID [CHEM] Timed - Plan Plan:: This is a 75 yo elderly white male with past medical hx/o HTN, HLD, Asthma, COPD, Esophageal and Lung CA, Hx/o Respiratory Failure S/p Tracheostomy, Chronic Hypoxia on 4L NC via Trach, Dysphagia S/p PEG Tube Placement, Hx/o Left Should er Pain, Hx/o Left Hip Surgery and Insomnia who comes to us from the clinic after developing respiratory distress at [facility]. Assessment: Acute: Acute Respiratory Distress, resolved COPD Exacerbation, improved Hypoxia on supplemental O2 -Now at 8L at 30% FIO2 -which is essentially baseline of his home O2. -Pseudomonas sensitive to cefepime. Awaiting sensitivities to fluoroquinolones -Plan: Continue aspiration precautions, slow down hypersecretion, RT to routine assess tracheostomy, Cefepime for Pseudomonasday 6 Await further culture results and sensitivities to fluoroquinolones Mucus Plugs, acute on chronic, improved Hypersecretions -Bedside suction device -RT routine trach care -Set up oral suction to the wall for PRN use -Aspiration precautions Elevated CRP of 6.1; yesterday 1.0 Leukocytosis chronic secondary to steroids and likely cancer and inflammatory response -Likely from acute respiratory distress -We will monitor Normocytic Hypochromic Anemia, stable Possible GI Bleed, he takes iron supplement -Had a Hgb level of 7.4 grams taken at [facility]; 6.1-->now 8.5 grams after 2 units packed red blood cells -Last chemotherapy 1 week ago -Still has loose bowel movement and several watery stools/d -Plan: Continue to monitor and SCDs for now. Dietary consult for loose bowel movement. He needs something to firm up his stool. Thrombocytosis of 649 taken at [facility]; Now 536 -Likely inflammatory response -We will continue to monitor Diarrhea -Diarrhea started since admission -On magnesium oxide 800 mg daily which is likely contributing to the diarrhea -Yeast also in stool culture -Start Florastor 500 mg 3 times daily Generalized Weakness -Likely multi-factorial Chronic: HTN, HLD, Asthma, COPD, Esophageal and Lung CA, Hx/o Respiratory Failure S/p Tracheostomy, Chronic Hypoxia on 4L NC via Trach, Dysphagia S/p PEG Tube Placement, Hx/o Left Shoulder Pain, Hx/o Left Hip Surgery and Insomnia Plan: Stop cefepime and await ryan quinolone sensitivity--sensitive per verbal report; increase steroid Start Florastor 500 mg 3 times daily Stop magnesium oxide 800 mg daily until stools improve. We will have to monitor magnesium. Will likely add Questran to improve bulk and frequency of BMs. CT of Chest, see report, 11/14/20
[2020-11-14] MEDS ORDERED: Sodium Chloride 0.9% 1,000 ML IV SCH (13:30)
[2020-11-14] MEDS: Montelukast 10 MG Tab FTUBE SCH (21:58)
[2020-11-14] MEDS: Simvastatin 40 MG Tab FTUBE SCH (21:58)
[2020-11-15] MEDS: Ipratropium 0.02% 0.5 MG/2.5 ML Neb Soln NEB SCH ×3 (06:24→20:05)
--- NOTE | 2020-11-15 07:33 | PCM.PN ---
- General Info Date of Service: 11/15/20 Subjective Update: Patient is more engaged today , and is expressing concern over loose stool. WBCs were also discussed, will send stool and urine for evaluation. Functional Status: Reports: Tolerating Diet, Urinating - Review of Systems General: Reports: Weakness HEENT: Reports: No Symptoms Pulmonary: Reports: No Symptoms Cardiovascular: Reports: No Symptoms Gastrointestinal: Reports: No Symptoms Genitourinary: Reports: No Symptoms Musculoskeletal: Reports: No Symptoms Skin: Reports: No Symptoms Neurological: Reports: No Symptoms Psychiatric: Reports: No Symptoms - Patient Data Vitals - Most Recent: Last Vital Signs Temp 36.6 C 11/14/20 21:55 Pulse 81 11/14/20 21:55 Resp 13 11/14/20 21:55 BP 123/60 11/14/20 21:55 Pulse Ox 95 11/15/20 06:25 Weight - Most Recent: 54.794 kg I&O - Last 24 Hours: Intake & Output 11/14/20 11/15/20 11/15/20 22:59 06:59 14:59 Intake Total 125 600 Output Total 540 Balance -415 600 Lab Results Last 24 Hours: Laboratory Results - last 24 hr 11/14/20 11/14/20 11/14/20 Range/Units 08:41 08:41 08:41 WBC 34.46 H (4.23-9.07) K/mm3 RBC 3.93 L (4.63-6.08) M/mm3 Hgb 10.3 L (13.7-17.5) gm/dl Hct 35.1 L (40.1-51.0) % MCV 89.3 (79.0-92.2) fl MCH 26.2 (25.7-32.2) pg MCHC 29.3 L (32.2-35.5) g/dl RDW Std Deviation 54.3 H (35.1-43.9) fL Plt Count 517 H (163-337) K/mm3 MPV 9.5 (9.4-12.3) fl Neut % (Auto) 85.8 H (34.0-67.9) % Lymph % (Auto) 3.3 L (21.8-53.1) % Benson % (Auto) 9.8 (5.3-12.2) % Eos % (Auto) 0.3 L (0.8-7.0) Baso % (Auto) 0.0 L (0.1-1.2) % Neut # (Auto) 29.59 H (1.78-5.38) K/mm3 Lymph # (Auto) 1.14 L (1.32-3.57) K/mm3 Benson # (Auto) 3.36 H (0.30-0.82) K/mm3 Eos # (Auto) 0.09 (0.04-0.54) K/mm3 Baso # (Auto) 0.01 (0.01-0.08) K/mm3 Manual Slide Review Abnormal smear D-Dimer, Quantitative 0.56 H (0.19-0.50) mg/L Sodium 134 L (136-145) mEq/L Potassium 4.5 (3.5-5.1) mEq/L Chloride 97 L (98-107) mEq/L Carbon Dioxide 32 (21-32) mEq/L Anion Gap 9.5 (5-15) BUN 29 H (7-18) mg/dL Creatinine 0.6 L (0.7-1.3) mg/dL Est Cr Clr Drug Dosing 85.33 mL/min Estimated GFR (MDRD) > 60 (>60) mL/min BUN/Creatinine Ratio 48.3 H (14-18) Glucose 125 H (83-115) mg/dL Lactic Acid (0.4-2.0) mmol/L Calcium 9.8 (8.5-10.1) mg/dL Total Bilirubin 0.4 (0.2-1.0) mg/dL AST 15 (15-37) U/L ALT 47 (16-63) U/L Alkaline Phosphatase 94 (46-116) U/L C-Reactive Protein 1.3 H* (<1.0) mg/dL Total Protein 6.1 L (6.4-8.2) g/dl Albumin 2.3 L (3.4-5.0) g/dl Globulin 3.8 gm/dL Albumin/Globulin Ratio 0.6 L (1-2) Procalcitonin ng/mL 11/14/20 11/14/20 11/14/20 Range/Units 08:41 09:18 12:12 WBC (4.23-9.07) K/mm3 RBC (4.63-6.08) M/mm3 Hgb (13.7-17.5) gm/dl Hct (40.1-51.0) % MCV (79.0-92.2) fl MCH (25.7-32.2) pg MCHC (32.2-35.5) g/dl RDW Std Deviation (35.1-43.9) fL Plt Count (163-337) K/mm3 MPV (9.4-12.3) fl Neut % (Auto) (34.0-67.9) % Lymph % (Auto) (21.8-53.1) % Benson % (Auto) (5.3-12.2) % Eos % (Auto) (0.8-7.0) Baso % (Auto) (0.1-1.2) % Neut # (Auto) (1.78-5.38) K/mm3 Lymph # (Auto) (1.32-3.57) K/mm3 Benson # (Auto) (0.30-0.82) K/mm3 Eos # (Auto) (0.04-0.54) K/mm3 Baso # (Auto) (0.01-0.08) K/mm3 Manual Slide Review D-Dimer, Quantitative (0.19-0.50) mg/L Sodium (136-145) mEq/L Potassium (3.5-5.1) mEq/L Chloride (98-107) mEq/L Carbon Dioxide (21-32) mEq/L Anion Gap (5-15) BUN (7-18) mg/dL Creatinine (0.7-1.3) mg/dL Est Cr Clr Drug Dosing mL/min Estimated GFR (MDRD) (>60) mL/min BUN/Creatinine Ratio (14-18) Glucose (83-115) mg/dL Lactic Acid 2.3 H* 2.3 H* (0.4-2.0) mmol/L Calcium (8.5-10.1) mg/dL Total Bilirubin (0.2-1.0) mg/dL AST (15-37) U/L ALT (16-63) U/L Alkaline Phosphatase (46-116) U/L C-Reactive Protein (<1.0) mg/dL Total Protein (6.4-8.2) g/dl Albumin (3.4-5.0) g/dl Globulin gm/dL Albumin/Globulin Ratio (1-2) Procalcitonin 0.09 ng/mL 11/14/20 11/15/20 Range/Units 15:18 06:05 WBC (4.23-9.07) K/mm3 RBC (4.63-6.08) M/mm3 Hgb (13.7-17.5) gm/dl Hct (40.1-51.0) % MCV (79.0-92.2) fl MCH (25.7-32.2) pg MCHC (32.2-35.5) g/dl RDW Std Deviation (35.1-43.9) fL Plt Count (163-337) K/mm3 MPV (9.4-12.3) fl Neut % (Auto) (34.0-67.9) % Lymph % (Auto) (21.8-53.1) % Benson % (Auto) (5.3-12.2) % Eos % (Auto) (0.8-7.0) Baso % (Auto) (0.1-1.2) % Neut # (Auto) (1.78-5.38) K/mm3 Lymph # (Auto) (1.32-3.57) K/mm3 Benson # (Auto) (0.30-0.82) K/mm3 Eos # (Auto) (0.04-0.54) K/mm3 Baso # (Auto) (0.01-0.08) K/mm3 Manual Slide Review D-Dimer, Quantitative (0.19-0.50) mg/L Sodium (136-145) mEq/L Potassium (3.5-5.1) mEq/L Chloride (98-107) mEq/L Carbon Dioxide (21-32) mEq/L Anion Gap (5-15) BUN (7-18) mg/dL Creatinine (0.7-1.3) mg/dL Est Cr Clr Drug Dosing mL/min Estimated GFR (MDRD) (>60) mL/min BUN/Creatinine Ratio (14-18) Glucose (83-115) mg/dL Lactic Acid 2.2 H* 1.4 (0.4-2.0) mmol/L Calcium (8.5-10.1) mg/dL Total Bilirubin (0.2-1.0) mg/dL AST (15-37) U/L ALT (16-63) U/L Alkaline Phosphatase (46-116) U/L C-Reactive Protein (<1.0) mg/dL Total Protein (6.4-8.2) g/dl Albumin (3.4-5.0) g/dl Globulin gm/dL Albumin/Globulin Ratio (1-2) Procalcitonin ng/mL Med Orders - Current: Current Medications Acetaminophen (Tylenol) 650 mg RECTAL Q4H PRN PRN Reason: Pain (mild 1-3) Acetaminophen (Tylenol) 650 mg PO Q4H PRN PRN Reason: Pain/Fever Last Admin: 11/10/20 20:19 Dose: 650 mg Documented by: Hydrocodone Bitart/Acetaminophen (Grayling 325-5 Mg) 1 tab FTUBE Q4H PRN PRN Reason: Pain (moderate 4-6) Last Admin: 11/08/20 20:23 Dose: 1 tab Documented by: Albuterol (Proventil Neb Soln) 2.5 mg NEB QID PRN PRN Reason: Shortness of Breath Last Admin: 11/10/20 22:05 Dose: 2.5 mg Documented by: Albuterol/Ipratropium (Albuterol/Ipratropium 3.0-0.5 Mg/3 Ml Neb Soln) 3 ml NEB Q4H PRN PRN Reason: Shortness Of Breath/wheezing Arformoterol Tartrate (Arformoterol 15 Mcg/2 Ml Neb Soln) 15 mcg NEB BID [facility] Last Admin: 11/14/20 20:05 Dose: 15 mcg Documented by: Ascorbic Acid (Ascorbic Acid 500 Mg Tab) 2,000 mg FTUBE DAILY [facility] Last Admin: 11/14/20 08:16 Dose: 2,000 mg Documented by: Budesonide (Budesonide 0.5 Mg/2 Ml Neb Susp) 0.5 mg NEB BID [facility] Last Admin: 11/14/20 20:05 Dose: 0.5 mg Documented by: Cholecalciferol (Vitamin D3) 50 mcg PEGTUBE DAILY [facility] Last Admin: 11/14/20 08:17 Dose: 50 mcg Documented by: Guaifenesin/Phenylephrine HCl (Robitussin Dm) 10 ml FTUBE Q4H PRN PRN Reason: Cough Hydromorphone HCl (Dilaudid) 0.5 mg IVPUSH Q2H PRN PRN Reason: Pain (severe 7-10) Last Admin: 11/07/20 21:54 Dose: 0.5 mg Documented by: Promethazine HCl 12.5 mg/ (Sodium Chloride) 50.5 mls @ 100 mls/hr IV Q6H PRN PRN Reason: Nausea/Vomiting Ipratropium Counselor (Ipratropium 0.02% 0.5 Mg/2.5 Ml Neb Soln) 0.5 mg NEB TIDRT [facility] Last Admin: 11/15/20 06:24 Dose: 0.5 mg Documented by: Loperamide HCl (Loperamide 2 Mg Cap) 2 mg PO Q6H PRN PRN Reason: Diarrhea Last Admin: 11/13/20 21:37 Dose: 2 mg Documented by: Loratadine (Loratadine 10 Mg Tab) 10 mg FTUBE DAILY [facility] Last Admin: 11/14/20 08:16 Dose: 10 mg Documented by: Lorazepam (Ativan) 0.5 mg FTUBE QID PRN PRN Reason: Anxiety Last Admin: 11/07/20 09:27 Dose: 0.5 mg Documented by: Methylprednisolone Sodium Succinate (Methylprednisolone Sodium Succinate 40 Mg/1 Ml Sdv) 60 mg IVPUSH DAILY [facility] Metoprolol Succinate (Metoprolol Succinate 25 Mg Tab.Er) 12.5 mg .XX DAILY [facility] Last Admin: 11/14/20 08:15 Dose: 12.5 mg Documented by: Montelukast Sodium (Montelukast 10 Mg Tab) 10 mg FTUBE BEDTIME [facility] Last Admin: 11/14/20 21:58 Dose: 10 mg Documented by: Omeprazole (Omeprazole) 20 mg GTUBE DAILY [facility] Last Admin: 11/14/20 08:43 Dose: 20 mg Documented by: Ondansetron HCl (Zofran) 4 mg IV Q6H PRN PRN Reason: Nausea/Vomiting Oxycodone HCl (Oxycodone) 5 mg FTUBE Q4H PRN PRN Reason: Pain (moderate 4-6) Tetracaine 0.25% (Lollipops) 1 each PO Q4H PRN PRN Reason: Sore Throat Ferrous Sulfate 220 Mg/5 Ml Liquid Ptom 0 each PEGTUBE DAILY [facility] Last Admin: 11/14/20 08:17 Dose: 1 each Documented by: Polyethylene Glycol (Miralax) 17 gm FTUBE DAILY PRN PRN Reason: Constipation Prochlorperazine Maleate (Compazine) 10 mg FTUBE QID PRN PRN Reason: Nausea/Vomiting Rivaroxaban (Rivaroxaban 10 Mg Tab) 10 mg FTUBE DAILY [facility] Saccharomyces Boulardii (Saccharomyces Boulardii (Probiotic) 250 Mg Cap) 500 mg PO TID [facility] Last Admin: 11/14/20 21:57 Dose: 500 mg Documented by: Senna/Docusate Sodium (Senna Plus) 1 tab FTUBE BID PRN PRN Reason: Constipation Simvastatin (Simvastatin 40 Mg Tab) 40 mg FTUBE BEDTIME [facility] Last Admin: 11/14/20 21:58 Dose: 40 mg Documented by: Sodium Chloride (Saline Flush) 10 ml FLUSH ASDIRECTED PRN PRN Reason: Keep Vein Open Sodium Chloride (Sodium Chloride 3%) 3 ml NEB Q2H PRN PRN Reason: Other Zolpidem Tartrate (Ambien) 5 mg FTUBE BEDTIME PRN PRN Reason: Sleep Discontinued Medications Acetaminophen (Tylenol) 650 mg PO NOW ONE Stop: 11/07/20 08:46 Last Admin: 11/07/20 08:50 Dose: 650 mg Documented by: Hydrocodone Bitart/Acetaminophen (Grayling 325-5 Mg) 1 tab PO Q4H PRN PRN Reason: Pain (moderate 4-6) Cholecalciferol (Vitamin D3) 10,000 unit PEGTUBE DAILY [facility] Last Admin: 11/07/20 10:08 Dose: Not Given Documented by: Dexamethasone (Decadron) 4 mg IVPUSH ONETIME ONE Stop: 11/07/20 06:44 Last Admin: 11/07/20 08:39 Dose: 4 mg Documented by: Diphenhydramine HCl (Benadryl) 25 mg IV ONETIME ONE Stop: 11/07/20 06:44 Last Admin: 11/07/20 08:39 Dose: 25 mg Documented by: Enoxaparin Sodium (Lovenox) 40 mg SUBCUT DAILY [facility] Last Admin: 11/07/20 08:45 Dose: 40 mg Documented by: Furosemide (Lasix) 20 mg IVPUSH NOW ONE Stop: 11/07/20 06:48 Last Admin: 11/07/20 12:12 Dose: 20 mg Documented by: Guaifenesin/Phenylephrine HCl (Robitussin Dm) 10 ml PO Q4H PRN PRN Reason: Cough Ceftriaxone Sodium 2 gm/ (Sodium Chloride) 100 mls @ 200 mls/hr IV ONETIME ONE Stop: 11/06/20 13:37 Last Admin: 11/06/20 13:49 Dose: 200 mls/hr Documented by: Piperacillin Sod/Tazobactam (Sod 4.5 gm/ Sodium Chloride) 100 mls @ 200 mls/hr IV ONETIME ONE Stop: 11/06/20 17:29 Last Admin: 11/06/20 18:13 Dose: 200 mls/hr Documented by: Piperacillin Sod/Tazobactam (Sod 4.5 gm/ Sodium Chloride) 100 mls @ 25 mls/hr IV Q8H [facility] Last Admin: 11/07/20 09:08 Dose: 25 mls/hr Documented by: Sodium Chloride (Normal Saline) 1,000 mls @ 100 mls/hr IV ASDIRECTED [facility] Stop: 11/07/20 16:00 Last Admin: 11/07/20 07:34 Dose: 100 mls/hr Documented by: Piperacillin Sod/Tazobactam (Sod 4.5 gm/ Sodium Chloride) 100 mls @ 25 mls/hr IV Q8H [facility] Last Admin: 11/09/20 16:32 Dose: 25 mls/hr Documented by: Ceftriaxone Sodium 1 gm/ (Sodium Chloride) 100 mls @ 200 mls/hr IV Q24H [facility] Cefepime HCl 2 gm/ Premix 50 mls @ 100 mls/hr IV Q8H [facility] Last Admin: 11/14/20 08:15 Dose: 100 mls/hr Documented by: Sodium Chloride (Normal Saline) 1,000 mls @ 75 mls/hr IV ASDIRECTED [facility] Stop: 11/14/20 21:30 Last Admin: 11/14/20 14:33 Dose: 75 mls/hr Documented by: Iopamidol (Iopamidol 612 Mg/Ml 100 Ml Bottle) 100 ml IVPUSH ONETIME ONE Stop: 11/14/20 09:17 Last Admin: 11/14/20 10:58 Dose: 100 ml Documented by: Ipratropium Counselor (Atrovent) 0.5 mg NEB Q8H [facility] Last Admin: 11/06/20 18:00 Dose: 0.5 mg Documented by: Lorazepam (Ativan) 0.5 mg PO QID PRN PRN Reason: Anxiety Magnesium Oxide (Magnesium Oxide 400 Mg Tab) 800 mg FTUBE DAILY [facility] Last Admin: 11/12/20 08:11 Dose: 800 mg Documented by: Methylprednisolone Sodium Succinate (Methylprednisolone Sodium Succinate 125 Mg/2 Ml Sdv) 80 mg IVPUSH Q8H [facility] Last Admin: 11/11/20 09:37 Dose: 80 mg Documented by: Methylprednisolone Sodium Succinate (Methylprednisolone Sodium Succinate 40 Mg/1 Ml Sdv) 40 mg IVPUSH Q8H [facility] Last Admin: 11/13/20 08:33 Dose: 40 mg Documented by: Methylprednisolone Sodium Succinate (Methylprednisolone Sodium Succinate 40 Mg/1 Ml Sdv) 40 mg IVPUSH DAILY [facility] Last Admin: 11/14/20 08:17 Dose: 40 mg Documented by: Non-Formulary Medication (Lidocaine/Prilocaine) 1 applic TOP ASDIRECTED PRN PRN Reason: Other Remove Scopolamine (Patch) 1 each .XX ONETIME ONE Stop: 11/09/20 21:01 Last Admin: 11/10/20 08:28 Dose: 1 each Documented by: Oxycodone HCl (Oxycodone) 5 mg PO Q4H PRN PRN Reason: Pain (moderate 4-6) Ferrous Sulfate 220 Mg/5 Ml Liquid Ptom 0 each PEGTUBE DAILY [facility] Last Admin: 11/07/20 10:08 Dose: Not Given Documented by: Polyethylene Glycol (Miralax) 17 gm PO DAILY PRN PRN Reason: Constipation Prochlorperazine Maleate (Compazine) 10 mg PO QID PRN PRN Reason: Nausea/Vomiting Rivaroxaban (Rivaroxaban 10 Mg Tab) 10 mg PO DAILY [facility] Last Admin: 11/14/20 10:42 Dose: 10 mg Documented by: Scopolamine (Transderm-Scop) 1.5 mg TOP ONETIME ONE Stop: 11/06/20 21:02 Last Admin: 11/06/20 21:14 Dose: 1.5 mg Documented by: Senna/Docusate Sodium (Senna Plus) 1 tab PO BID PRN PRN Reason: Constipation Sodium Chloride (Sodium Chloride 0.9% 10 Ml Syringe) 10 ml FLUSH ONETIME PRN PRN Reason: IV FLUSH Stop: 11/14/20 12:00 Last Admin: 11/14/20 10:59 Dose: 10 ml Documented by: - Exam Quality Assessment: Supplemental Oxygen, DVT Prophylaxis General: Alert, Oriented, Cooperative, No Acute Distress HEENT: Pupils Equal, Pupils Reactive, EOMI Neck: Trachea Midline, No JVD Lungs: Normal Respiratory Effort Cardiovascular: Regular Rate, Regular Rhythm GI/Abdominal Exam: Normal Bowel Sounds, Soft, Non-Tender, No Organomegaly (Male) Exam: Deferred Back Exam: Normal Inspection Skin: Warm Neurological: No New Focal Deficit Psy/Mental Status: Alert - Patient Data Lab Results Last 24 hrs: Laboratory Results - last 24 hr 11/14/20 11/14/20 11/14/20 Range/Units 08:41 08:41 08:41 WBC 34.46 H (4.23-9.07) K/mm3 RBC 3.93 L (4.63-6.08) M/mm3 Hgb 10.3 L (13.7-17.5) gm/dl Hct 35.1 L (40.1-51.0) % MCV 89.3 (79.0-92.2) fl MCH 26.2 (25.7-32.2) pg MCHC 29.3 L (32.2-35.5) g/dl RDW Std Deviation 54.3 H (35.1-43.9) fL Plt Count 517 H (163-337) K/mm3 MPV 9.5 (9.4-12.3) fl Neut % (Auto) 85.8 H (34.0-67.9) % Lymph % (Auto) 3.3 L (21.8-53.1) % Benson % (Auto) 9.8 (5.3-12.2) % Eos % (Auto) 0.3 L (0.8-7.0) Baso % (Auto) 0.0 L (0.1-1.2) % Neut # (Auto) 29.59 H (1.78-5.38) K/mm3 Lymph # (Auto) 1.14 L (1.32-3.57) K/mm3 Benson # (Auto) 3.36 H (0.30-0.82) K/mm3 Eos # (Auto) 0.09 (0.04-0.54) K/mm3 Baso # (Auto) 0.01 (0.01-0.08) K/mm3 Manual Slide Review Abnormal smear D-Dimer, Quantitative 0.56 H (0.19-0.50) mg/L Sodium 134 L (136-145) mEq/L Potassium 4.5 (3.5-5.1) mEq/L Chloride 97 L (98-107) mEq/L Carbon Dioxide 32 (21-32) mEq/L Anion Gap 9.5 (5-15) BUN 29 H (7-18) mg/dL Creatinine 0.6 L (0.7-1.3) mg/dL Est Cr Clr Drug Dosing 85.33 mL/min Estimated GFR (MDRD) > 60 (>60) mL/min BUN/Creatinine Ratio 48.3 H (14-18) Glucose 125 H (83-115) mg/dL Lactic Acid (0.4-2.0) mmol/L Calcium 9.8 (8.5-10.1) mg/dL Total Bilirubin 0.4 (0.2-1.0) mg/dL AST 15 (15-37) U/L ALT 47 (16-63) U/L Alkaline Phosphatase 94 (46-116) U/L C-Reactive Protein 1.3 H* (<1.0) mg/dL Total Protein 6.1 L (6.4-8.2) g/dl Albumin 2.3 L (3.4-5.0) g/dl Globulin 3.8 gm/dL Albumin/Globulin Ratio 0.6 L (1-2) Procalcitonin ng/mL 11/14/20 11/14/20 11/14/20 Range/Units 08:41 09:18 12:12 WBC (4.23-9.07) K/mm3 RBC (4.63-6.08) M/mm3 Hgb (13.7-17.5) gm/dl Hct (40.1-51.0) % MCV (79.0-92.2) fl MCH (25.7-32.2) pg MCHC (32.2-35.5) g/dl RDW Std Deviation (35.1-43.9) fL Plt Count (163-337) K/mm3 MPV (9.4-12.3) fl Neut % (Auto) (34.0-67.9) % Lymph % (Auto) (21.8-53.1) % Benson % (Auto) (5.3-12.2) % Eos % (Auto) (0.8-7.0) Baso % (Auto) (0.1-1.2) % Neut # (Auto) (1.78-5.38) K/mm3 Lymph # (Auto) (1.32-3.57) K/mm3 Benson # (Auto) (0.30-0.82) K/mm3 Eos # (Auto) (0.04-0.54) K/mm3 Baso # (Auto) (0.01-0.08) K/mm3 Manual Slide Review D-Dimer, Quantitative (0.19-0.50) mg/L Sodium (136-145) mEq/L Potassium (3.5-5.1) mEq/L Chloride (98-107) mEq/L Carbon Dioxide (21-32) mEq/L Anion Gap (5-15) BUN (7-18) mg/dL Creatinine (0.7-1.3) mg/dL Est Cr Clr Drug Dosing mL/min Estimated GFR (MDRD) (>60) mL/min BUN/Creatinine Ratio (14-18) Glucose (83-115) mg/dL Lactic Acid 2.3 H* 2.3 H* (0.4-2.0) mmol/L Calcium (8.5-10.1) mg/dL Total Bilirubin (0.2-1.0) mg/dL AST (15-37) U/L ALT (16-63) U/L Alkaline Phosphatase (46-116) U/L C-Reactive Protein (<1.0) mg/dL Total Protein (6.4-8.2) g/dl Albumin (3.4-5.0) g/dl Globulin gm/dL Albumin/Globulin Ratio (1-2) Procalcitonin 0.09 ng/mL 11/14/20 11/15/20 Range/Units 15:18 06:05 WBC (4.23-9.07) K/mm3 RBC (4.63-6.08) M/mm3 Hgb (13.7-17.5) gm/dl Hct (40.1-51.0) % MCV (79.0-92.2) fl MCH (25.7-32.2) pg MCHC (32.2-35.5) g/dl RDW Std Deviation (35.1-43.9) fL Plt Count (163-337) K/mm3 MPV (9.4-12.3) fl Neut % (Auto) (34.0-67.9) % Lymph % (Auto) (21.8-53.1) % Benson % (Auto) (5.3-12.2) % Eos % (Auto) (0.8-7.0) Baso % (Auto) (0.1-1.2) % Neut # (Auto) (1.78-5.38) K/mm3 Lymph # (Auto) (1.32-3.57) K/mm3 Benson # (Auto) (0.30-0.82) K/mm3 Eos # (Auto) (0.04-0.54) K/mm3 Baso # (Auto) (0.01-0.08) K/mm3 Manual Slide Review D-Dimer, Quantitative (0.19-0.50) mg/L Sodium (136-145) mEq/L Potassium (3.5-5.1) mEq/L Chloride (98-107) mEq/L Carbon Dioxide (21-32) mEq/L Anion Gap (5-15) BUN (7-18) mg/dL Creatinine (0.7-1.3) mg/dL Est Cr Clr Drug Dosing mL/min Estimated GFR (MDRD) (>60) mL/min BUN/Creatinine Ratio (14-18) Glucose (83-115) mg/dL Lactic Acid 2.2 H* 1.4 (0.4-2.0) mmol/L Calcium (8.5-10.1) mg/dL Total Bilirubin (0.2-1.0) mg/dL AST (15-37) U/L ALT (16-63) U/L Alkaline Phosphatase (46-116) U/L C-Reactive Protein (<1.0) mg/dL Total Protein (6.4-8.2) g/dl Albumin (3.4-5.0) g/dl Globulin gm/dL Albumin/Globulin Ratio (1-2) Procalcitonin ng/mL Result Diagrams: 11/14/20 08:41 11/14/20 08:41 Sepsis Event Note - Evaluation Sepsis Screening Result: No Definite Risk - Focused Exam Vital Signs: Vital Signs Temp Pulse Resp BP Pulse Ox Pulse Ox 11/15/20 06:25 95 11/14/20 21:55 36.6 C 81 13 123/60 96 11/14/20 20:09 98 - Problem List Review Problem List Initiated/Reviewed/Updated: Yes - My Orders Last 24 Hours: My Active Orders 11/14/20 09:56 Rivaroxaban [Xarelto] 10 mg FTUBE DAILY 11/15/20 09:00 methylPREDNISolone Sod Succ [Solu-MEDROL] 60 mg IVPUSH DAILY - Plan Plan:: This is a 75 yo elderly white male with past medical hx/o HTN, HLD, Asthma, COPD, Esophageal and Lung CA, Hx/o Respiratory Failure S/p Tracheostomy, Chronic Hypoxia on 4L NC via Trach, Dysphagia S/p PEG Tube Placement, Hx/o Left Shoulder Pain, Hx/o Left Hip Surgery and Insomnia who comes to us from the clinic after developing respiratory distress at [place] infusion clinic. Assessment: Acute: Acute Respiratory Distress, resolved COPD Exacerbation, improved; start prednisone on 11/16/20 Hypoxia on supplemental O2 -Now at 8L at 30% FIO2 -which is essentially baseline of his home O2. -Pseudomonas sensitive to cefepime. Awaiting sensitivities to fluoroquinolones -Plan: Continue aspiration precautions, slow down hypersecretion, RT to routine assess tracheostomy, Cefepime for Pseudomonasday 6 Await further culture results and sensitivities to fluoroquinolones Mucus Plugs, acute on chronic, improved Hypersecretions -Bedside suction device -RT routine trach care -Set up oral suction to the wall for PRN use -Aspiration precautions Elevated CRP on admission Leukocytosis chronic secondary to steroids and likely cancer and inflammatory response; will assess for acute infection -Likely from acute respiratory distress -We will monitor Normocytic Hypochromic Anemia, stable Possible GI Bleed, he takes iron supplement -Had a Hgb level of 7.4 grams taken at [facility]; 6.1-->now 8.5 grams after 2 units packed red blood cells -Last chemotherapy 1 week ago -Still has loose bowel movement and several watery stools/d -Plan: Continue to monitor and SCDs for now. Dietary consult for loose bowel movement. He needs something to firm up his stool. Thrombocytosis of 649 taken at [facility]; Now 536 -Likely inflammatory response -We will continue to monitor Diarrhea -Diarrhea started since admission -On magnesium oxide 800 mg daily which is likely contributing to the diarrhea -Yeast also in stool culture -Start Florastor 500 mg 3 times daily Generalized Weakness -Likely multi-factorial Chronic: HTN, HLD, Asthma, COPD, Esophageal and Lung CA, Hx/o Respiratory Failure S/p Tracheostomy, Chronic Hypoxia on 4L [place] via Trach, Dysphagia S/p PEG Tube Placement, Hx/o Left Shoulder Pain, Hx/o Left Hip Surgery and Insomnia Plan: Stop cefepime and await ryan quinolone sensitivity--sensitive per verbal report; increase steroid Start Florastor 500 mg 3 times daily Stop magnesium oxide 800 mg daily until stools improve. We will have to mon itor magnesium. Will likely add Questran to improve bulk and frequency of BMs. CT of Chest, see report, 11/14/20
[2020-11-15] MEDS ORDERED: Albuterol 0.083% 2.5 MG/3 ML Neb Soln NEB PRN (07:45)
[2020-11-15] MEDS: Albuterol/Ipratropium 3.0-0.5 MG/3 ML Neb Soln NEB SCH ×4 (08:00→20:05)
[2020-11-15] MEDS: Budesonide 0.5 MG/2 ML Neb Susp NEB SCH ×2 (08:00→20:06)
[2020-11-15] MEDS: Arformoterol 15 MCG/2 ML Neb Soln NEB SCH ×2 (08:00→20:05)
[2020-11-15] MEDS: Loratadine 10 MG Tab FTUBE SCH (08:59)
[2020-11-15] MEDS: Rivaroxaban 10 MG Tab FTUBE SCH (09:00)
[2020-11-15] MEDS: Saccharomyces Boulardii (Probiotic) 250 MG Cap PO SCH ×3 (09:00→21:29)
[2020-11-15] MEDS: methylPREDNISolone Sodium Succinate 40 MG/1 ML SDV IVPUSH SCH (09:00)
[2020-11-15] MEDS: Ascorbic Acid 500 MG Tab FTUBE SCH (09:00)
[2020-11-15] MEDS: Metoprolol Succinate 25 MG Tab.ER SCH (09:02)
[2020-11-15] MEDS: FERROUS SULFATE 220 MG/5 ML PEGTUBE SCH (09:13)
[2020-11-15] MEDS: Cholecalciferol (Vitamin D3) 25 MCG Tab PEGTUBE SCH (09:14)
[2020-11-15] MEDS: Omeprazole 20 MG Cap.CR GTUBE SCH (09:19)
[2020-11-15] MEDS: Cholestyramine/Sucrose Powder 4 GM Packet PO SCH (13:28)
[2020-11-15] MEDS: Simvastatin 40 MG Tab FTUBE SCH (21:29)
[2020-11-15] MEDS: Montelukast 10 MG Tab FTUBE SCH (21:29)
[2020-11-16] MEDS: Ipratropium 0.02% 0.5 MG/2.5 ML Neb Soln NEB SCH (06:12)
[2020-11-16] MEDS ORDERED: Ipratropium 0.02% 0.5 MG/2.5 ML Neb Soln NEB PRN (08:00)
[2020-11-16] MEDS: Arformoterol 15 MCG/2 ML Neb Soln NEB SCH ×2 (08:00→20:21)
[2020-11-16] MEDS: Budesonide 0.5 MG/2 ML Neb Susp NEB SCH ×2 (08:00→20:21)
[2020-11-16] MEDS: Albuterol/Ipratropium 3.0-0.5 MG/3 ML Neb Soln NEB SCH ×4 (08:00→20:21)
[2020-11-16] MEDS: methylPREDNISolone Sodium Succinate 40 MG/1 ML SDV IVPUSH SCH (08:21)
[2020-11-16] MEDS: Cholestyramine/Sucrose Powder 4 GM Packet PO SCH (08:24)
[2020-11-16] MEDS: Ascorbic Acid 500 MG Tab FTUBE SCH (08:25)
[2020-11-16] MEDS: Saccharomyces Boulardii (Probiotic) 250 MG Cap PO SCH ×3 (08:26→20:08)
[2020-11-16] MEDS: Rivaroxaban 10 MG Tab FTUBE SCH (08:28)
[2020-11-16] MEDS: Omeprazole 20 MG Cap.CR GTUBE SCH (08:29)
[2020-11-16] MEDS: Metoprolol Succinate 25 MG Tab.ER SCH (08:34)
[2020-11-16] MEDS: Loratadine 10 MG Tab FTUBE SCH (08:35)
[2020-11-16] MEDS: Cholecalciferol (Vitamin D3) 25 MCG Tab PEGTUBE SCH (08:38)
[2020-11-16] MEDS: FERROUS SULFATE 220 MG/5 ML PEGTUBE SCH (10:56)
--- NOTE | 2020-11-16 12:09 | PCM.PN ---
- General Info Date of Service: 11/16/20 Admission Dx/Problem (Free Text): Admission Diagnosis/Problem Admission Diagnosis/Problem Pneumonia Subjective Update: Patient has had 1 stool today and 4 stools yesterday. He is okay with discharge in the next couple of days. Functional Status: Reports: Pain Controlled - Review of Systems General: Reports: Weakness, Fatigue HEENT: Reports: No Symptoms Pulmonary: Reports: Shortness of Breath, Cough Cardiovascular: Reports: No Symptoms Gastrointestinal: Reports: Diarrhea Musculoskeletal: Reports: No Symptoms - Patient Data Vitals - Most Recent: Last Vital Signs Temp 97.7 F 11/16/20 11:41 Pulse 84 11/16/20 11:41 Resp 24 H 11/16/20 11:41 BP 157/74 H 11/16/20 11:41 Pulse Ox 96 11/16/20 11:41 Weight - Most Recent: 121 lb 1.6 oz I&O - Last 24 Hours: Intake & Output 11/15/20 11/16/20 11/16/20 21:59 06:59 14:59 Intake Total Output Total Balance Lab Results Last 24 Hours: Laboratory Results - last 24 hr 11/15/20 Range/Units 12:30 Urine Color Yellow (Yellow) Urine Appearance Clear (Clear) Urine pH 7.0 (5.0-8.0) Ur Specific [place] 1.025 (1.005-1.030) Urine Protein 1+ H (Negative) Urine Glucose (UA) Negative (Negative) Urine Ketones Negative (Negative) Urine Occult Blood Negative (Negative) Urine Nitrite Negative (Negative) Urine Bilirubin Negative (Negative) Urine Urobilinogen 0.2 (0.2-1.0) Ur Leukocyte Esterase Negative (Negative) Urine RBC 0-5 (0-5) /hpf Urine WBC 0-5 (0-5) /hpf Ur Squamous Epith Cells 0-5 (0-5) /hpf Urine Bacteria Few (FEW) /hpf Urine Mucus Few (FEW) /hpf Med Orders - Current: Current Medications Acetaminophen (Tylenol) 650 mg RECTAL Q4H PRN PRN Reason: Pain (mild 1-3) Acetaminophen (Tylenol) 650 mg PO Q4H PRN PRN Reason: Pain/Fever Last Admin: 11/10/20 20:19 Dose: 650 mg Documented by: Hydrocodone Bitart/Acetaminophen ([place] 325-5 Mg) 1 tab FTUBE Q4H PRN PRN Reason: Pain (moderate 4-6) Last Admin: 11/08/20 20:23 Dose: 1 tab Documented by: Albuterol (Albuterol 0.083% 2.5 Mg/3 Ml Neb Soln) 2.5 mg NEB Q4HRRT PRN PRN Reason: Shortness of Breath Albuterol/Ipratropium (Albuterol/Ipratropium 3.0-0.5 Mg/3 Ml Neb Soln) 3 ml NEB QID [facility] Last Admin: 11/16/20 08:00 Dose: 3 ml Documented by: Arformoterol Tartrate (Arformoterol 15 Mcg/2 Ml Neb Soln) 15 mcg NEB BID [facility] Last Admin: 11/16/20 08:00 Dose: 15 mcg Documented by: Ascorbic Acid (Ascorbic Acid 500 Mg Tab) 2,000 mg FTUBE DAILY [facility] Last Admin: 11/16/20 08:25 Dose: 2,000 mg Documented by: Budesonide (Budesonide 0.5 Mg/2 Ml Neb Susp) 0.5 mg NEB BID [facility] Last Admin: 11/16/20 08:00 Dose: 0.5 mg Documented by: Cholecalciferol (Vitamin D3) 50 mcg PEGTUBE DAILY [facility] Last Admin: 11/16/20 08:38 Dose: 50 mcg Documented by: Cholestyramine Resin (Cholestyramine/Sucrose Powder 4 Gm Packet) 4 gm PO DAILY [facility] Last Admin: 11/16/20 08:24 Dose: 4 gm Documented by: Guaifenesin/Phenylephrine HCl (Robitussin Dm) 10 ml FTUBE Q4H PRN PRN Reason: Cough Hydromorphone HCl (Dilaudid) 0.5 mg IVPUSH Q2H PRN PRN Reason: Pain (severe 7-10) Last Admin: 11/07/20 21:54 Dose: 0.5 mg Documented by: Promethazine HCl 12.5 mg/ (Sodium Chloride) 50.5 mls @ 100 mls/hr IV Q6H PRN PRN Reason: Nausea/Vomiting Ipratropium [place] (Ipratropium 0.02% 0.5 Mg/2.5 Ml Neb Soln) 0.5 mg NEB TID PRN PRN Reason: wheezing/dyspnea Loperamide HCl (Loperamide 2 Mg Cap) 2 mg PO Q6H PRN PRN Reason: Diarrhea Last Admin: 11/13/20 21:37 Dose: 2 mg Documented by: Loratadine (Loratadine 10 Mg Tab) 10 mg FTUBE DAILY [facility] Last Admin: 11/16/20 08:35 Dose: 10 mg Documented by: Lorazepam (Ativan) 0.5 mg FTUBE QID PRN PRN Reason: Anxiety Last Admin: 11/07/20 09:27 Dose: 0.5 mg Documented by: Methylprednisolone Sodium Succinate (Methylprednisolone Sodium Succinate 40 Mg/1 Ml Sdv) 60 mg IVPUSH DAILY [facility] Last Admin: 11/16/20 08:21 Dose: 60 mg Documented by: Metoprolol Succinate (Metoprolol Succinate 25 Mg Tab.Er) 12.5 mg .XX DAILY [facility] Last Admin: 11/16/20 08:34 Dose: 12.5 mg Documented by: Montelukast Sodium (Montelukast 10 Mg Tab) 10 mg FTUBE BEDTIME [facility] Last Admin: 11/15/20 21:29 Dose: 10 mg Documented by: Omeprazole (Omeprazole) 20 mg GTUBE DAILY [facility] Last Admin: 11/16/20 08:29 Dose: 20 mg Documented by: Ondansetron HCl (Zofran) 4 mg IV Q6H PRN PRN Reason: Nausea/Vomiting Oxycodone HCl (Oxycodone) 5 mg FTUBE Q4H PRN PRN Reason: Pain (moderate 4-6) Tetracaine 0.25% (Lollipops) 1 each PO Q4H PRN PRN Reason: Sore Throat Ferrous Sulfate 220 Mg/5 Ml Liquid Ptom 0 each PEGTUBE DAILY [facility] Last Admin: 11/16/20 10:56 Dose: 1 each Documented by: Polyethylene Glycol (Miralax) 17 gm FTUBE DAILY PRN PRN Reason: Constipation Prochlorperazine Maleate (Compazine) 10 mg FTUBE QID PRN PRN Reason: Nausea/Vomiting Rivaroxaban (Rivaroxaban 10 Mg Tab) 10 mg FTUBE DAILY [facility] Last Admin: 11/16/20 08:28 Dose: 10 mg Documented by: Saccharomyces Boulardii (Saccharomyces Boulardii (Probiotic) 250 Mg Cap) 500 mg PO TID [facility] Last Admin: 11/16/20 08:26 Dose: 500 mg Documented by: Senna/Docusate Sodium (Senna Plus) 1 tab FTUBE BID PRN PRN Reason: Constipation Simvastatin (Simvastatin 40 Mg Tab) 40 mg FTUBE BEDTIME [facility] Last Admin: 11/15/20 21:29 Dose: 40 mg Documented by: Sodium Chloride (Saline Flush) 10 ml FLUSH ASDIRECTED PRN PRN Reason: Keep Vein Open Sodium Chloride (Sodium Chloride 3%) 3 ml NEB Q2H PRN PRN Reason: Other Zolpidem Tartrate (Ambien) 5 mg FTUBE BEDTIME PRN PRN Reason: Sleep Discontinued Medications Acetaminophen (Tylenol) 650 mg PO NOW ONE Stop: 11/07/20 08:46 Last Admin: 11/07/20 08:50 Dose: 650 mg Documented by: Hydrocodone Bitart/Acetaminophen ([place] 325-5 Mg) 1 tab PO Q4H PRN PRN Reason: Pain (moderate 4-6) Albuterol (Albuterol 0.083% 2.5 Mg/3 Ml Neb Soln) 2.5 mg NEB QID PRN PRN Reason: Shortness of Breath Last Admin: 11/10/20 22:05 Dose: 2.5 mg Documented by: Albuterol/Ipratropium (Albuterol/Ipratropium 3.0-0.5 Mg/3 Ml Neb Soln) 3 ml NEB Q4H PRN PRN Reason: Shortness Of Breath/wheezing Cholecalciferol (Vitamin D3) 10,000 unit PEGTUBE DAILY [facility] Last Admin: 11/07/20 10:08 Dose: Not Given Documented by: Dexamethasone (Decadron) 4 mg IVPUSH ONETIME ONE Stop: 11/07/20 06:44 Last Admin: 11/07/20 08:39 Dose: 4 mg Documented by: Diphenhydramine HCl (Benadryl) 25 mg IV ONETIME ONE Stop: 11/07/20 06:44 Last Admin: 11/07/20 08:39 Dose: 25 mg Documented by: Enoxaparin Sodium (Lovenox) 40 mg SUBCUT DAILY [facility] Last Admin: 11/07/20 08:45 Dose: 40 mg Documented by: Furosemide (Lasix) 20 mg IVPUSH NOW ONE Stop: 11/07/20 06:48 Last Admin: 11/07/20 12:12 Dose: 20 mg Documented by: Guaifenesin/Phenylephrine HCl (Robitussin Dm) 10 ml PO Q4H PRN PRN Reason: Cough Ceftriaxone Sodium 2 gm/ (Sodium Chloride) 100 mls @ 200 mls/hr IV ONETIME ONE Stop: 11/06/20 13:37 Last Admin: 11/06/20 13:49 Dose: 200 mls/hr Documented by: Piperacillin Sod/Tazobactam (Sod 4.5 gm/ Sodium Chloride) 100 mls @ 200 mls/hr IV ONETIME ONE Stop: 11/06/20 17:29 Last Admin: 11/06/20 18:13 Dose: 200 mls/hr Documented by: Piperacillin Sod/Tazobactam (Sod 4.5 gm/ Sodium Chloride) 100 mls @ 25 mls/hr IV Q8H [facility] Last Admin: 11/07/20 09:08 Dose: 25 mls/hr Documented by: Sodium Chloride (Normal Saline) 1,000 mls @ 100 mls/hr IV ASDIRECTED [facility] Stop: 11/07/20 16:00 Last Admin: 11/07/20 07:34 Dose: 100 mls/hr Documented by: Piperacillin Sod/Tazobactam (Sod 4.5 gm/ Sodium Chloride) 100 mls @ 25 mls/hr IV Q8H [facility] Last Admin: 11/09/20 16:32 Dose: 25 mls/hr Documented by: Ceftriaxone Sodium 1 gm/ (Sodium Chloride) 100 mls @ 200 mls/hr IV Q24H [facility] Cefepime HCl 2 gm/ Premix 50 mls @ 100 mls/hr IV Q8H [facility] Last Admin: 11/14/20 08:15 Dose: 100 mls/hr Documented by: Sodium Chloride (Normal Saline) 1,000 mls @ 75 mls/hr IV ASDIRECTED [facility] Stop: 11/14/20 21:30 Last Admin: 11/14/20 14:33 Dose: 75 mls/hr Documented by: Iopamidol (Iopamidol 612 Mg/Ml 100 Ml Bottle) 100 ml IVPUSH ONETIME ONE Stop: 11/14/20 09:17 Last Admin: 11/14/20 10:58 Dose: 100 ml Documented by: Ipratropium [place] (Atrovent) 0.5 mg NEB Q8H [facility] Last Admin: 11/06/20 18:00 Dose: 0.5 mg Documented by: Ipratropium [place] (Ipratropium 0.02% 0.5 Mg/2.5 Ml Neb Soln) 0.5 mg NEB TIDRT [facility] Last Admin: 11/16/20 06:12 Dose: 0.5 mg Documented by: Lorazepam (Ativan) 0.5 mg PO QID PRN PRN Reason: Anxiety Magnesium Oxide (Magnesium Oxide 400 Mg Tab) 800 mg FTUBE DAILY [facility] Last Admin: 11/12/20 08:11 Dose: 800 mg Documented by: Methylprednisolone Sodium Succinate (Methylprednisolone Sodium Succinate 125 Mg/2 Ml Sdv) 80 mg IVPUSH Q8H [facility] Last Admin: 11/11/20 09:37 Dose: 80 mg Documented by: Methylprednisolone Sodium Succinate (Methylprednisolone Sodium Succinate 40 Mg/1 Ml Sdv) 40 mg IVPUSH Q8H [facility] Last Admin: 11/13/20 08:33 Dose: 40 mg Documented by: Methylprednisolone Sodium Succinate (Methylprednisolone Sodium Succinate 40 Mg/1 Ml Sdv) 40 mg IVPUSH DAILY [facility] Last Admin: 11/14/20 08:17 Dose: 40 mg Documented by: Non-Formulary Medication (Lidocaine/Prilocaine) 1 applic TOP ASDIRECTED PRN PRN Reason: Other Remove Scopolamine (Patch) 1 each .XX ONETIME ONE Stop: 11/09/20 21:01 Last Admin: 11/10/20 08:28 Dose: 1 each Documented by: Oxycodone HCl (Oxycodone) 5 mg PO Q4H PRN PRN Reason: Pain (moderate 4-6) Ferrous Sulfate 220 Mg/5 Ml Liquid Ptom 0 each PEGTUBE DAILY [facility] Last Admin: 11/07/20 10:08 Dose: Not Given Documented by: Polyethylene Glycol (Miralax) 17 gm PO DAILY PRN PRN Reason: Constipation Prochlorperazine Maleate (Compazine) 10 mg PO QID PRN PRN Reason: Nausea/Vomiting Rivaroxaban (Rivaroxaban 10 Mg Tab) 10 mg PO DAILY [facility] Last Admin: 11/14/20 10:42 Dose: 10 mg Documented by: Scopolamine (Transderm-Scop) 1.5 mg TOP ONETIME ONE Stop: 11/06/20 21:02 Last Admin: 11/06/20 21:14 Dose: 1.5 mg Documented by: Senna/Docusate Sodium (Senna Plus) 1 tab PO BID PRN PRN Reason: Constipation Sodium Chloride (Sodium Chloride 0.9% 10 Ml Syringe) 10 ml FLUSH ONETIME PRN PRN Reason: IV FLUSH Stop: 11/14/20 12:00 Last Admin: 11/14/20 10:59 Dose: 10 ml Documented by: - Exam Quality Assessment: Supplemental Oxygen, Central Line/PICC General: Alert, Oriented HEENT: Pupils Equal, Mucous Membr. Moist/[place] Neck: Supple Lungs: Normal Respiratory Effort, Wheezing Cardiovascular: Regular Rate, Regular Rhythm GI/Abdominal Exam: Normal Bowel Sounds, Soft, Non-Tender, No Organomegaly, No Distention, No Abnormal Bruit Skin: Warm, Dry, Intact Psy/Mental Status: Alert, Normal Affect, Normal Mood - Patient Data Lab Results Last 24 hrs: Laboratory Results - last 24 hr 11/15/20 Range/Units 12:30 Urine Color Yellow (Yellow) Urine Appearance Clear (Clear) Urine pH 7.0 (5.0-8.0) Ur Specific [place] 1.025 (1.005-1.030) Urine Protein 1+ H (Negative) Urine Glucose (UA) Negative (Negative) Urine Ketones Negative (Negative) Urine Occult Blood Negative (Negative) Urine Nitrite Negative (Negative) Urine Bilirubin Negative (Negative) Urine Urobilinogen 0.2 (0.2-1.0) Ur Leukocyte Esterase Negative (Negative) Urine RBC 0-5 (0-5) /hpf Urine WBC 0-5 (0-5) /hpf Ur Squamous Epith Cells 0-5 (0-5) /hpf Urine Bacteria Few (FEW) /hpf Urine Mucus Few (FEW) /hpf Result Diagrams: 11/14/20 08:41 11/14/20 08:41 Sepsis Event Note - Evaluation Sepsis Screening Result: No Definite Risk - Focused Exam Vital Signs: Vital Signs Temp Pulse Resp BP BP Pulse Ox Pulse Ox 11/16/20 11:41 97.7 F 84 24 H 157/74 H 96 11/16/20 08:34 98.1 F 90 10 L 121/63 97 11/16/20 07:56 100 11/16/20 06:15 98 11/16/20 05:25 98.2 F 74 13 134/81 97 - Problem List & Annotations (1) Acute respiratory distress SNOMED Code(s): 007841903 Code(s): R06.03 - ACUTE RESPIRATORY DISTRESS Status: Acute Priority: High Current Visit: Yes (2) Anemia SNOMED Code(s): 433357771 Code(s): D64.9 - ANEMIA, UNSPECIFIED Status: Acute Priority: High Current Visit: Yes Qualifiers: Anemia type: other cause Other causes of anemia: other cause, not classified Qualified Code(s): D64.89 - Other specified anemias (3) Pneumonia SNOMED Code(s): 704331087 Code(s): J18.9 - PNEUMONIA, UNSPECIFIED ORGANISM Status: Acute Current Visit: Yes Qualifiers: Pneumonia type: due to unspecified organism Laterality: bilateral Lung location: lower lobe of lung Qualified Code(s): J18.9 - Pneumonia, unspecified organism (4) COPD (chronic obstructive pulmonary disease) SNOMED Code(s): 21990242 Code(s): J44.9 - CHRONIC OBSTRUCTIVE PULMONARY DISEASE, UNSPECIFIED Status: Chronic Priority: Medium Current Visit: Yes Qualifiers: COPD type: unspecified COPD Qualified Code(s): J44.9 - Chronic obstructive pulmonary disease, unspecified (5) Lung cancer SNOMED Code(s): 465543716 Code(s): C34.90 - MALIGNANT NEOPLASM OF UNSP PART OF UNSP BRONCHUS OR LUNG Status: Chronic Priority: High Current Visit: Yes Qualifiers: Laterality: unspecified laterality Lung location: unspecified part of lung Qualified Code(s): C34.90 - Malignant neoplasm of unspecified part of unspecified bronchus or lung (6) Diarrhea SNOMED Code(s): 52902089 Code(s): R19.7 - DIARRHEA, UNSPECIFIED Status: Acute Current Visit: Yes - Problem List Review Problem List Initiated/Reviewed/Updated: Yes - My Orders Last 24 Hours: My Active Orders 11/17/20 05:11 CBC WITH AUTO DIFF [HEME] AM CMP [COMPREHENSIVE METABOLIC PN,CMP] [CHEM] AM MAGNESIUM [CHEM] AM PHOSPHORUS [CHEM] AM - Plan Plan:: This is a 75 yo elderly white male with past medical hx/o HTN, HLD, Asthma, COPD, Esophageal and Lung CA, Hx/o Respiratory Failure S/p Tracheostomy, Chronic Hypoxia on 4L NC via Trach, Dysphagia S/p PEG Tube Placement, Hx/o Left Shoulder Pain, Hx/o Left Hip Surgery and Insomnia who comes to us from the clinic after developing respiratory distress at [facility]. Assessment: Acute: Acute Respiratory Distress, resolved COPD Exacerbation, resolved; continue prednisone on 11/16/20 Hypoxia on supplemental O2 -Now at 8L at 30% FIO2 -which is essentially baseline of his home O2. -Pseudomonas sensitive to cefepime. Finished treatment -Plan: Continue aspiration precautions, slow down hypersecretion, RT to routine assess tracheostomy, Cefepime for Pseudomonasday 6 Await further culture results and sensitivities to fluoroquinolones Mucus Plugs, acute on chronic, improved Hypersecretions -Bedside suction device -RT routine trach care -Set up oral suction to the wall for PRN use -Aspiration precautions Elevated CRP on admission Leukocytosis chronic secondary to steroids and likely cancer and inflammatory response; will assess for acute infection -Likely from acute respiratory distress -We will monitor Normocytic Hypochromic Anemia, stable Possible GI Bleed, he takes iron supplement -Had a Hgb level of 7.4 grams taken at [facility]; 6.1-->last 8.5 grams after 2 units packed red blood cells-stable -Last chemotherapy 1 2 weeks ago -Still has loose bowel movement and several watery stools/d -Plan: Refused SCDs, therefore placed on prophylactic dose of Xarelto 10 mg. Thrombocytosis of 649 taken at [facility]; last 536 -Likely inflammatory response -We will continue to monitor Diarrhea -Diarrhea started since admission -On magnesium oxide 800 mg daily which is likely contributing to the diarrhea -Yeast also in stool culture -Start Florastor 500 mg 3 times daily -Improved on cholestyramine Generalized Weakness -Likely multi-factorial Chronic: HTN, HLD, Asthma, COPD, Esophageal and Lung CA, Hx/o Respiratory Failure S/p Tracheostomy, Chronic Hypoxia on 4L NC via Trach, Dysphagia S/p PEG Tube Placement, Hx/o Left Shoulder Pain, Hx/o Left Hip Surgery and Insomnia Plan: Stop cefepime and await ryan quinolone sensitivity--sensitive per verbal report; increase steroid Start Florastor 500 mg 3 times daily Stop magnesium oxide 800 mg daily until stools improve. We will have to monitor magnesium. Will likely add Questran to improve bulk and frequency of BMs. CT of Chest, see report, 11/14/20 -metastasis Plan discharge tomorrow or the next day.
[2020-11-16] MEDS: Simvastatin 40 MG Tab FTUBE SCH (20:08)
[2020-11-16] MEDS: Montelukast 10 MG Tab FTUBE SCH (20:08)
[2020-11-17 07:41] VITALS: BP 118/88; PULSE 73
[2020-11-17] MEDS: Saccharomyces Boulardii (Probiotic) 250 MG Cap PO SCH (08:56)
[2020-11-17] MEDS: Cholestyramine/Sucrose Powder 4 GM Packet PO SCH (08:56)
[2020-11-17] MEDS: Ascorbic Acid 500 MG Tab FTUBE SCH (08:56)
[2020-11-17] MEDS: Metoprolol Succinate 25 MG Tab.ER SCH (08:57)
[2020-11-17] MEDS: Loratadine 10 MG Tab FTUBE SCH (08:57)
[2020-11-17] MEDS: Rivaroxaban 10 MG Tab FTUBE SCH (08:57)
[2020-11-17] MEDS: methylPREDNISolone Sodium Succinate 40 MG/1 ML SDV IVPUSH SCH (09:03)
[2020-11-17] MEDS: Cholecalciferol (Vitamin D3) 25 MCG Tab PEGTUBE SCH (09:04)
[2020-11-17] MEDS: FERROUS SULFATE 220 MG/5 ML PEGTUBE SCH (09:05)
[2020-11-17] MEDS: Albuterol/Ipratropium 3.0-0.5 MG/3 ML Neb Soln NEB SCH (09:12)
[2020-11-17] MEDS: Arformoterol 15 MCG/2 ML Neb Soln NEB SCH (09:12)
[2020-11-17] MEDS: Budesonide 0.5 MG/2 ML Neb Susp NEB SCH (09:12)
[2020-11-17] MEDS: Omeprazole 20 MG Cap.CR GTUBE SCH (09:15)
--- NOTE | 2020-11-17 09:20 | PCM.DCSUM1 ---
Discharge Summary - Hospital Course HPI Initial Comments: This is a 75 yo elderly white male with past medical hx/o HTN, HLD, Asthma, COPD, Esophageal and Lung CA, Hx/o Respiratory Failure S/p Tracheostomy, Chronic Hypoxia on 4L NC via Trach, Dysphagia S/p PEG Tube Placement, Hx/o Left Shoulder Pain, Hx/o Left Hip Surgery and Insomnia who comes to us from the clinic after developing acute respiratory distress at [place] [facility]. He states he had trouble clearing his airway and then developed shortness of air. He was found considerably hypoxic. Due to his acute respiratory distress, he was immediately sent him over to ED for urgent evaluation. At the clinic, he was found with WBC of 32.7 with Hgb of 74.grams and platelet of 649. He reports no fever or chills. He endorses productive cough. He brings a lot of oral secretions. He does have a suction device at home but has been spitting a lot on a disposable cup. He does not have diuretics or anticholinergic to slow down his hypersecretions. No GI or complaints. He denies having been exposed to covid- 19 infected individuals. He has not gotten his covid-19 although he wants to be inoculated. His initial work up in ED shows a normal LA level. His CRP is elevated at 6.1 and his Covid-19 rapid test is negative. His chest x-ray shows no acute change seen from previous chest x-ray. Patient is coming in primarily for acute respiratory distress. He is complete NPO. 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 Assessment: Acute: Acute Respiratory Distress Probable Aspiration Syndrome Hypoxia on supplemental O2 -Developed suddenly at the [facility] -He was on 4L and had to go up on his supplemental O2 Now back to 4L sating in the low 90s -He was unable to clear his airway -He was considerably hypoxia-->reason why he was sent over to ED -Chest x-ray taken in ED shows no obvious acute changes -Plan: Continue aspiration precautions, slow down hypersecretion, RT to routine assess tracheostomy, empiric antibiotic and repeat chest x-ray in AM Mucus Plugs, acute on chronic Hypersecretions -Bedside suction device -RT routine trach care -Scopolamine patch x1 -Aspiration precautions Elevated CRP of 6.1 Leukocytosis with WBC of 32.7 taken at [facility] -Likely from acute respiratory distress -We will monitor Pancytopenia/Anemia -Had a Hgb level of 7.4 grams taken at [facility] -He was getting infusion at the clinic across us -Likely for chemotherapy Thrombocytosis of 649 taken at [facility] -Unclear if thrombo-concentration from being dry -We will repeat in AM SIRS/Early developing Sepsis -He meets criteria: WB Cof 32.7, borderline hypotension with documented BP as low as 115/56 mmHg, tachycardic with RR in the mid 20s. -Possible source: aspiration syndrome -Blood cultures were done and 2 grams IV Rocephin given in ED -Already received IV Zosyn for empiric treatment -Plan: UA and Sputum culture with grams stain. No need for aggressive volume resuscitation,patient is not significantly hypotensive Chronic: HTN, HLD, Asthma, COPD, Esophageal and Lung CA, Hx/o Respiratory Failure S/p Tracheostomy, Chronic Hypoxia on 4L NC via Trach, Dysphagia S/p PEG Tube Placement, Hx/o Left Shoulder Pain, Hx/o Left Hip Surgery and Insomnia Plan: Admit to ICU due to respiratory status. He needs to be monitored closely. Routine AM Labs. Repeat chest x-ray. RT to assess and treat. PRN suction for oral secretions. Scopolamine patch x1 to slow down hypersecretions. IV fluids for hydration. Complete NPO. Dietary consult for tube feeding. DVT/GI prophylaxis. Code status is full. Overall prognosis is very poor. Diagnosis: Stroke: No - Discharge Data Discharge Date: 11/17/20 Discharge Disposition: Home, Self-Care 01 Condition: Good - Referral to Home Health Primary Care Physician: Jean Paul Sheehan MD - Discharge Diagnosis/Problem(s) (1) Acute respiratory distress SNOMED Code(s): 588181412 ICD Code: R06.03 - ACUTE RESPIRATORY DISTRESS Status: Acute Priority: High Current Visit: Yes (2) Anemia SNOMED Code(s): 637124304 ICD Code: D64.9 - ANEMIA, UNSPECIFIED Status: Acute Priority: High Current Visit: Yes Qualifiers: Anemia type: other cause Other causes of anemia: other cause, not classified Qualified Code(s): D64.89 - Other specified anemias (3) Pneumonia SNOMED Code(s): 127825251 ICD Code: J18.9 - PNEUMONIA, UNSPECIFIED ORGANISM Status: Acute Current Visit: Yes Qualifiers: Pneumonia type: due to unspecified organism Laterality: bilateral Lung location: lower lobe of lung Qualified Code(s): J18.9 - Pneumonia, unspecified organism (4) COPD (chronic obstructive pulmonary disease) SNOMED Code(s): 25009119 ICD Code: J44.9 - CHRONIC OBSTRUCTIVE PULMONARY DISEASE, UNSPECIFIED Sta tus: Chronic Priority: Medium Current Visit: Yes Qualifiers: COPD type: unspecified COPD Qualified Code(s): J44.9 - Chronic obstructive pulmonary disease, unspecified (5) Lung cancer SNOMED Code(s): 698340618 ICD Code: C34.90 - MALIGNANT NEOPLASM OF UNSP PART OF UNSP BRONCHUS OR LUNG Status: Chronic Priority: High Current Visit: Yes Qualifiers: Laterality: unspecified laterality Lung location: unspecified part of lung Qualified Code(s): C34.90 - Malignant neoplasm of unspecified part of unspecified bronchus or lung (6) Diarrhea SNOMED Code(s): 18263383 ICD Code: R19.7 - DIARRHEA, UNSPECIFIED Status: Acute Current Visit: Yes - Patient Summary/Data Consults: Consultations 11/06/20 15:20 Consult to Case Management/Preschool Substitute Teacher [CONS] Routine Consult to Spiritual Care [CONS] Routine OT Evaluation and Treatment [CONS] Routine PT Evaluation and Treatment [CONS] Routine Respiratory Care Assess and Treatment [CONS] Routine 11/06/20 21:03 Consult to Dietary [Consult to Packing House Laborer] [CONS] Routine Hospital Course: During admission patient's hemoglobin did drop to 6.1 and received 2 units of packed red blood cells. Hemoglobin stabilized and on day of discharge it was 9.8. Patient also had sputum cultures that grew out Pseudomonas that was sensitive to cefepime and he received 7 days of treatment for exacerbation of COPD with Pseudomonas. Patient was on IV Solu-Medrol and at day of discharge he was on 60 mg. He will need to continue on Solu-Medrol and have that weaned over the next few weeks. He was discharged on 48 mg of Solu-Medrol daily. Patient shortness of breath did improve over the hospitalization. Unfortunately started developing diarrhea within a couple of days of admission. This was felt to be mainly due to his tube feeding and diet change. His white count was elevated and stool cultures as well as C. difficile were performed and no significant organisms were found. There was some yeast. He was started on Florastor and ultimately cholestyramine with good results. Over the hospitalization he did have improvement in his strength and a significant improvement in the shortness of breath. CT of the chest: 1. Numerous pulmonary nodules within both sides of the chest most likely due to metastatic disease. 2. Mediastinal and left hilar adenopathy most likely metastatic. 3. Right adrenal gland and small lesion within the spleen most likely metastatic. 4. Emphysematous change in mild right-sided pleural effusion. 5. Lytic lesion within approximate L1 showing destruction of the left side of the vertebral body. This is most likely metastatic. I discussion with him in regards to his poor prognosis. In general patient is afraid of going home because he is afraid of getting worse again. He needs counseling in regards to his treatment and prognosis. He would likely benefit from hospice, but does not want that at this time. Patient will be discharged with close follow-up from oncology. - Patient Instructions Other/Special Instructions: Patient is a follow-up with his oncologist early this week. I recommend discussion of patient's overall condition, mortality, and prognosis. Prescription for methylprednisolone was sent to your pharmacy. The current prescription will need to be followed by another prescription by your oncologist or primary care provider. - Discharge Plan *PRESCRIPTION DRUG MONITORING PROGRAM REVIEWED*: No *COPY OF PRESCRIPTION DRUG MONITORING REPORT IN PATIENT FITO: No Prescriptions/Med Rec: Cholestyramine/Sucrose [Cholestyramine] 4 gm PO DAILY #30 packet Albuterol/Ipratropium [DuoNeb 3.0-0.5 MG/3 ML] 3 ml NEB QID #120 neb Saccharomyces Boulardii [Florastor] 500 mg PO TID #90 cap methylPREDNISolone [Methylprednisolone] 48 mg PO DAILY #21 tablet Home Medications: Home Meds Montelukast [Singulair] 10 mg PEGTUBE BEDTIME 01/06/16 [History] Arformoterol [Brovana] 15 mcg NEB BID 07/26/20 [History] Omeprazole 20 mg PEGTUBE DAILY 07/26/20 [History] Simvastatin 40 mg PEGTUBE DAILY 07/26/20 [History] Acetaminophen/HYDROcodone [Bellflower 325-5 MG] 1 tab PEGTUBE Q4H PRN 09/11/20 [History] Albuterol [Proventil Neb Soln] 2.5 mg NEB QID PRN 09/11/20 [History] Ascorbic Acid [C-1000] 2,000 mg PEGTUBE DAILY 09/11/20 [History] Budesonide [Pulmicort] 0.5 mg NEB BID 09/11/20 [History] Cholecalciferol (Vitamin D3) [Vitamin D] 2 cap PEGTUBE DAILY 09/11/20 [History] Loratadine 10 mg PEGTUBE DAILY 09/11/20 [History] Metoprolol Succinate 12.5 mg PEGTUBE DAILY 09/11/20 [History] Non-Formulary Medication [NF Drug] 1 applic Q4H PRN 09/11/20 [History] Prochlorperazine [Compazine] 10 mg PEGTUBE QID PRN 09/11/20 [History] Sodium Chloride 0.9% 3 ml NEB Q2H PRN 09/11/20 [History] Ferrous Sulfate 220 mg PEGTUBE DAILY 10/19/20 [History] LORazepam [Ativan] 0.5 mg PEGTUBE QID PRN 10/19/20 [History] Albuterol/Ipratropium [DuoNeb 3.0-0.5 MG/3 ML] 3 ml NEB QID #120 neb 11/17/20 [Rx] Cholestyramine/Sucrose [Cholestyramine] 4 gm PO DAILY #30 packet 11/17/20 [Rx] Saccharomyces Boulardii [Florastor] 500 mg PO TID #90 cap 11/17/20 [Rx] methylPREDNISolone [Methylprednisolone] 48 mg PO DAILY #21 tablet 11/17/20 [Rx] Patient Handouts: Sepsis, Diagnosis, Adult, Home Oxygen Use, Adult, Aspiration Pneumonia Referrals: Jean Paul Sheehan MD [Primary Care Provider] - 11/19/20 11:15 am (Hospital follow-up appointments. First appointment is on November 19 at 11:15 a.m. [facility] checkin time. Second appointment is on: December 11 at 2:00 p.m. [facility] checkin time.) Cristiano Singh MD [Ordering Only Provider] - 11/20/20 2:45 pm (Hospital follow-up appointment.) - Discharge Summary/Plan Comment DC Time >30 min.: Yes - General Info Date of Service: 11/17/20 Admission Dx/Problem (Free Text: Admission Diagnosis/Problem Admission Diagnosis/Problem Pneumonia Subjective Update: Patient has no significant complaints today. He is concerned about going home, but at this time we are not giving him any treatment he cannot receive at home. Stools have certainly formed and diarrhea has resolved. Functional Status: Reports: Pain Controlled - Review of Systems General: Reports: Weakness, Fatigue HEENT: Reports: No Symptoms Pulmonary: Reports: Shortness of Breath, Cough Cardiovascular: Reports: No Symptoms Gastrointestinal: Reports: No Symptoms Musculoskeletal: Reports: No Symptoms Psychiatric: Reports: No Symptoms - Patient Data Vitals - Most Recent: Last Vital Signs Temp 97.5 F 11/17/20 07:36 Pulse 73 11/17/20 08:57 Resp 16 11/17/20 07:36 BP 118/88 11/17/20 08:57 Pulse Ox 94 L 11/17/20 09:12 Weight - Most Recent: 116 lb 4.8 oz I&O - Last 24 hours: Intake & Output 11/16/20 11/17/20 11/17/20 22:59 06:59 14:59 Intake Total 1380 440 Output Total 560 400 Balance 820 40 Lab Results - Last 24 hrs: Laboratory Results - last 24 hr 11/17/20 11/17/20 Range/Units 06:04 06:04 WBC 31.64 H (4.23-9.07) K/mm3 RBC 3.80 L (4.63-6.08) M/mm3 Hgb 9.8 L (13.7-17.5) gm/dl Hct 33.4 L (40.1-51.0) % MCV 87.9 (79.0-92.2) fl MCH 25.8 (25.7-32.2) pg MCHC 29.3 L (32.2-35.5) g/dl RDW Std Deviation 51.9 H (35.1-43.9) fL Plt Count 478 H (163-337) K/mm3 MPV 9.7 (9.4-12.3) fl Neut % (Auto) 84.0 H (34.0-67.9) % Lymph % (Auto) 3.4 L (21.8-53.1) % [place] % (Auto) 11.5 (5.3-12.2) % Eos % (Auto) 0.2 L (0.8-7.0) Baso % (Auto) 0.0 L (0.1-1.2) % Neut # (Auto) 26.58 H (1.78-5.38) K/mm3 Lymph # (Auto) 1.08 L (1.32-3.57) K/mm3 [place] # (Auto) 3.63 H (0.30-0.82) K/mm3 Eos # (Auto) 0.07 (0.04-0.54) K/mm3 Baso # (Auto) 0.01 (0.01-0.08) K/mm3 Manual Slide Review Not Reportable Sodium 132 L (136-145) mEq/L Potassium 4.9 (3.5-5.1) mEq/L Chloride 96 L (98-107) mEq/L Carbon Dioxide 30 (21-32) mEq/L Anion Gap 10.9 (5-15) BUN 25 H (7-18) mg/dL Creatinine 0.7 (0.7-1.3) mg/dL Est Cr Clr Drug Dosing 70.13 mL/min Estimated GFR (MDRD) > 60 (>60) mL/min BUN/Creatinine Ratio 35.7 H (14-18) Glucose 90 (83-115) mg/dL Calcium 10.4 H (8.5-10.1) mg/dL Phosphorus 2.8 (2.6-4.7) mg/dL Magnesium 1.9 (1.8-2.4) mg/dl Total Bilirubin 0.3 (0.2-1.0) mg/dL AST 10 L (15-37) U/L ALT 29 (16-63) U/L Alkaline Phosphatase 92 (46-116) U/L Total Protein 6.2 L (6.4-8.2) g/dl Albumin 2.2 L (3.4-5.0) g/dl Globulin 4.0 gm/dL Albumin/Globulin Ratio 0.6 L (1-2) RORY Results - Last 24 hrs: Microbiology 11/15/20 12:30 Urine Culture - Preliminary Urine, Clean Catch Med Orders - Current: Current Medications Acetaminophen (Tylenol) 650 mg RECTAL Q4H PRN PRN Reason: Pain (mild 1-3) Acetaminophen (Tylenol) 650 mg PO Q4H PRN PRN Reason: Pain/Fever Last Admin: 11/10/20 20:19 Dose: 650 mg Documented by: Hydrocodone Bitart/Acetaminophen (Bellflower 325-5 Mg) 1 tab FTUBE Q4H PRN PRN Reason: Pain (moderate 4-6) Last Admin: 11/08/20 20:23 Dose: 1 tab Documented by: Albuterol (Albuterol 0.083% 2.5 Mg/3 Ml Neb Soln) 2.5 mg NEB Q4HRRT PRN PRN Reason: Shortness of Breath Albuterol/Ipratropium (Albuterol/Ipratropium 3.0-0.5 Mg/3 Ml Neb Soln) 3 ml NEB QID [facility] Last Admin: 11/17/20 09:12 Dose: 3 ml Documented by: Arformoterol Tartrate (Arformoterol 15 Mcg/2 Ml Neb Soln) 15 mcg NEB BID [facility] Last Admin: 11/17/20 09:12 Dose: 15 mcg Documented by: Ascorbic Acid (Ascorbic Acid 500 Mg Tab) 2,000 mg FTUBE DAILY [facility] Last Admin: 11/17/20 08:56 Dose: 2,000 mg Documented by: Budesonide (Budesonide 0.5 Mg/2 Ml Neb Susp) 0.5 mg NEB BID [facility] Last Admin: 11/17/20 09:12 Dose: 0.5 mg Documented by: Cholecalciferol (Vitamin D3) 50 mcg PEGTUBE DAILY [facility] Last Admin: 11/17/20 09:04 Dose: 50 mcg Documented by: Cholestyramine Resin (Cholestyramine/Sucrose Powder 4 Gm Packet) 4 gm PO DAILY [facility] Last Admin: 11/17/20 08:56 Dose: 4 gm Documented by: Guaifenesin/Phenylephrine HCl (Robitussin Dm) 10 ml FTUBE Q4H PRN PRN Reason: Cough Hydromorphone HCl (Dilaudid) 0.5 mg IVPUSH Q2H PRN PRN Reason: Pain (severe 7-10) Last Admin: 11/07/20 21:54 Dose: 0.5 mg Documented by: Promethazine HCl 12.5 mg/ (Sodium Chloride) 50.5 mls @ 100 mls/hr IV Q6H PRN PRN Reason: Nausea/Vomiting Ipratropium [place] (Ipratropium 0.02% 0.5 Mg/2.5 Ml Neb Soln) 0.5 mg NEB TID PRN PRN Reason: wheezing/dyspnea Loperamide HCl (Loperamide 2 Mg Cap) 2 mg PO Q6H PRN PRN Reason: Diarrhea Last Admin: 11/13/20 21:37 Dose: 2 mg Documented by: Loratadine (Loratadine 10 Mg Tab) 10 mg FTUBE DAILY [facility] Last Admin: 11/17/20 08:57 Dose: 10 mg Documented by: Lorazepam (Ativan) 0.5 mg FTUBE QID PRN PRN Reason: Anxiety Last Admin: 11/07/20 09:27 Dose: 0.5 mg Documented by: Methylprednisolone Sodium Succinate (Methylprednisolone Sodium Succinate 40 Mg/1 Ml Sdv) 60 mg IVPUSH DAILY [facility] Last Admin: 11/17/20 09:03 Dose: 60 mg Documented by: Metoprolol Succinate (Metoprolol Succinate 25 Mg Tab.Er) 12.5 mg .XX DAILY [facility] Last Admin: 11/17/20 08:57 Dose: 12.5 mg Documented by: Montelukast Sodium (Montelukast 10 Mg Tab) 10 mg FTUBE BEDTIME [facility] Last Admin: 11/16/20 20:08 Dose: 10 mg Documented by: Omeprazole (Omeprazole) 20 mg GTUBE DAILY [facility] Last Admin: 11/17/20 09:15 Dose: 20 mg Documented by: Ondansetron HCl (Zofran) 4 mg IV Q6H PRN PRN Reason: Nausea/Vomiting Oxycodone HCl (Oxycodone) 5 mg FTUBE Q4H PRN PRN Reason: Pain (moderate 4-6) Tetracaine 0.25% (Lollipops) 1 each PO Q4H PRN PRN Reason: Sore Throat Ferrous Sulfate 220 Mg/5 Ml Liquid Ptom 0 each PEGTUBE DAILY [facility] Last Admin: 11/17/20 09:05 Dose: 5 each Documented by: Polyethylene Glycol (Miralax) 17 gm FTUBE DAILY PRN PRN Reason: Constipation Prochlorperazine Maleate (Compazine) 10 mg FTUBE QID PRN PRN Reason: Nausea/Vomiting Rivaroxaban (Rivaroxaban 10 Mg Tab) 10 mg FTUBE DAILY [facility] Last Admin: 11/17/20 08:57 Dose: 10 mg Documented by: Saccharomyces Boulardii (Saccharomyces Boulardii (Probiotic) 250 Mg Cap) 500 mg PO TID [facility] Last Admin: 11/17/20 08:56 Dose: 500 mg Documented by: Senna/Docusate Sodium (Senna Plus) 1 tab FTUBE BID PRN PRN Reason: Constipation Simvastatin (Simvastatin 40 Mg Tab) 40 mg FTUBE BEDTIME [facility] Last Admin: 11/16/20 20:08 Dose: 40 mg Documented by: Sodium Chloride (Saline Flush) 10 ml FLUSH ASDIRECTED PRN PRN Reason: Keep Vein Open Sodium Chloride (Sodium Chloride 3%) 3 ml NEB Q2H PRN PRN Reason: Other Zolpidem Tartrate (Ambien) 5 mg FTUBE BEDTIME PRN PRN Reason: Sleep Discontinued Medications Acetaminophen (Tylenol) 650 mg PO NOW ONE Stop: 11/07/20 08:46 Last Admin: 11/07/20 08:50 Dose: 650 mg Documented by: Hydrocodone Bitart/Acetaminophen (Bellflower 325-5 Mg) 1 tab PO Q4H PRN PRN Reason: Pain (moderate 4-6) Albuterol (Albuterol 0.083% 2.5 Mg/3 Ml Neb Soln) 2.5 mg NEB QID PRN PRN Reason: Shortness of Breath Last Admin: 11/10/20 22:05 Dose: 2.5 mg Documented by: Albuterol/Ipratropium (Albuterol/Ipratropium 3.0-0.5 Mg/3 Ml Neb Soln) 3 ml NEB Q4H PRN PRN Reason: Shortness Of Breath/wheezing Cholecalciferol (Vitamin D3) 10,000 unit PEGTUBE DAILY [facility] Last Admin: 11/07/20 10:08 Dose: Not Given Documented by: Dexamethasone (Decadron) 4 mg IVPUSH ONETIME ONE Stop: 11/07/20 06:44 Last Admin: 11/07/20 08:39 Dose: 4 mg Documented by: Diphenhydramine HCl (Benadryl) 25 mg IV ONETIME ONE Stop: 11/07/20 06:44 Last Admin: 11/07/20 08:39 Dose: 25 mg Documented by: Enoxaparin Sodium (Lovenox) 40 mg SUBCUT DAILY [facility] Last Admin: 11/07/20 08:45 Dose: 40 mg Documented by: Furosemide (Lasix) 20 mg IVPUSH NOW ONE Stop: 11/07/20 06:48 Last Admin: 11/07/20 12:12 Dose: 20 mg Documented by: Guaifenesin/Phenylephrine HCl (Robitussin Dm) 10 ml PO Q4H PRN PRN Reason: Cough Ceftriaxone Sodium 2 gm/ (Sodium Chloride) 100 mls @ 200 mls/hr IV ONETIME ONE Stop: 11/06/20 13:37 Last Admin: 11/06/20 13:49 Dose: 200 mls/hr Documented by: Piperacillin Sod/Tazobactam (Sod 4.5 gm/ Sodium Chloride) 100 mls @ 200 mls/hr IV ONETIME ONE Stop: 11/06/20 17:29 Last Admin: 11/06/20 18:13 Dose: 200 mls/hr Documented by: Piperacillin Sod/Tazobactam (Sod 4.5 gm/ Sodium Chloride) 100 mls @ 25 mls/hr IV Q8H [facility] Last Admin: 11/07/20 09:08 Dose: 25 mls/hr Documented by: Sodium Chloride (Normal Saline) 1,000 mls @ 100 mls/hr IV ASDIRECTED [facility] Stop: 11/07/20 16:00 Last Admin: 11/07/20 07:34 Dose: 100 mls/hr Documented by: Piperacillin Sod/Tazobactam (Sod 4.5 gm/ Sodium Chloride) 100 mls @ 25 mls/hr IV Q8H [facility] Last Admin: 11/09/20 16:32 Dose: 25 mls/hr Documented by: Ceftriaxone Sodium 1 gm/ (Sodium Chloride) 100 mls @ 200 mls/hr IV Q24H [facility] Cefepime HCl 2 gm/ Premix 50 mls @ 100 mls/hr IV Q8H [facility] Last Admin: 11/14/20 08:15 Dose: 100 mls/hr Documented by: Sodium Chloride (Normal Saline) 1,000 mls @ 75 mls/hr IV ASDIRECTED [facility] Stop: 11/14/20 21:30 Last Admin: 11/14/20 14:33 Dose: 75 mls/hr Documented by: Iopamidol (Iopamidol 612 Mg/Ml 100 Ml Bottle) 100 ml IVPUSH ONETIME ONE Stop: 11/14/20 09:17 Last Admin: 11/14/20 10:58 Dose: 100 ml Documented by: Ipratropium [place] (Atrovent) 0.5 mg NEB Q8H [facility] Last Admin: 11/06/20 18:00 Dose: 0.5 mg Documented by: Ipratropium [place] (Ipratropium 0.02% 0.5 Mg/2.5 Ml Neb Soln) 0.5 mg NEB TIDRT [facility] Last Admin: 11/16/20 06:12 Dose: 0.5 mg Documented by: Lorazepam (Ativan) 0.5 mg PO QID PRN PRN Reason: Anxiety Magnesium Oxide (Magnesium Oxide 400 Mg Tab) 800 mg FTUBE DAILY [facility] Last Admin: 11/12/20 08:11 Dose: 800 mg Documented by: Methylprednisolone Sodium Succinate (Methylprednisolone Sodium Succinate 125 Mg/2 Ml Sdv) 80 mg IVPUSH Q8H [facility] Last Admin: 11/11/20 09:37 Dose: 80 mg Documented by: Methylprednisolone Sodium Succinate (Methylprednisolone Sodium Succinate 40 Mg/1 Ml Sdv) 40 mg IVPUSH Q8H [facility] Last Admin: 11/13/20 08:33 Dose: 40 mg Documented by: Methylprednisolone Sodium Succinate (Methylprednisolone Sodium Succinate 40 Mg/1 Ml Sdv) 40 mg IVPUSH DAILY [facility] Last Admin: 11/14/20 08:17 Dose: 40 mg Documented by: Non-Formulary Medication (Lidocaine/Prilocaine) 1 applic TOP ASDIRECTED PRN PRN Reason: Other Remove Scopolamine (Patch) 1 each .XX ONETIME ONE Stop: 11/09/20 21:01 Last Admin: 11/10/20 08:28 Dose: 1 each Documented by: Oxycodone HCl (Oxycodone) 5 mg PO Q4H PRN PRN Reason: Pain (moderate 4-6) Ferrous Sulfate 220 Mg/5 Ml Liquid Ptom 0 each PEGTUBE DAILY [facility] Last Admin: 11/07/20 10:08 Dose: Not Given Documented by: Polyethylene Glycol (Miralax) 17 gm PO DAILY PRN PRN Reason: Constipation Prochlorperazine Maleate (Compazine) 10 mg PO QID PRN PRN Reason: Nausea/Vomiting Rivaroxaban (Rivaroxaban 10 Mg Tab) 10 mg PO DAILY [facility] Last Admin: 11/14/20 10:42 Dose: 10 mg Documented by: Scopolamine (Transderm-Scop) 1.5 mg TOP ONETIME ONE Stop: 11/06/20 21:02 Last Admin: 11/06/20 21:14 Dose: 1.5 mg Documented by: Senna/Docusate Sodium (Senna Plus) 1 tab PO BID PRN PRN Reason: Constipation Sodium Chloride (Sodium Chloride 0.9% 10 Ml Syringe) 10 ml FLUSH ONETIME PRN PRN Reason: IV FLUSH Stop: 11/14/20 12:00 Last Admin: 11/14/20 10:59 Dose: 10 ml Documented by: - Exam Quality Assessment: Reports: Supplemental Oxygen, Central Line/PICC General: Reports: Alert, Oriented HEENT: Reports: Pupils Equal, Mucous Membr. Moist/[place] Neck: Reports: Supple Lungs: Reports: Normal Respiratory Effort, Wheezing (Minimal wheeze. Best I have heard his lungs since hospitalization.) Cardiovascular: Reports: Regular Rate, Regular Rhythm GI/Abdominal Exam: Normal Bowel Sounds, Soft, Non-Tender, No Organomegaly, No Distention, No Abnormal Bruit Extremities: Normal Inspection, Normal Range of Motion, Non-Tender, No Pedal Edema, Normal Capillary Refill
== END 2020-11-17 12:28 | disposition home or self-care (01) | DRG 871 ==
LOC: JD.ED 12:31 → JD.ICU 16:08 → JD.MS 11-11 08:29
PROVIDERS: ADMIT Internal Medicine; ATTEND Internal Medicine
PROC: 30233N1 Transfusion of Nonautologous Red Blood Cells into Peripheral Vein, Percutaneous Approach (ICD-10-PCS; principal; 2020-11-06)
DX: J18.9 Pneumonia, unspecified organism (principal); D64.89 Other specified anemias; C14.0 Malignant neoplasm of pharynx, unspecified; A41.9 Sepsis, unspecified organism; J69.0 Pneumonitis due to inhalation of food and vomit; J44.0 Chronic obstructive pulmonary disease with (acute) lower respiratory infection; D61.810 Antineoplastic chemotherapy induced pancytopenia; C34.90 Malignant neoplasm of unspecified part of unspecified bronchus or lung; D84.9 Immunodeficiency, unspecified; J44.1 Chronic obstructive pulmonary disease with (acute) exacerbation; Z93.1 Gastrostomy status; Z92.21 Personal history of antineoplastic chemotherapy; I10 Essential (primary) hypertension; T45.1X5A Adverse effect of antineoplastic and immunosuppressive drugs, initial encounter; E78.5 Hyperlipidemia, unspecified; G47.00 Insomnia, unspecified; J39.8 Other specified diseases of upper respiratory tract; Z99.81 Dependence on supplemental oxygen; Z79.51 Long term (current) use of inhaled steroids; B96.5 Pseudomonas (aeruginosa) (mallei) (pseudomallei) as the cause of diseases classified elsewhere; R19.7 Diarrhea, unspecified; E78.00 Pure hypercholesterolemia, unspecified; Z20.822 Contact with and (suspected) exposure to COVID-19; R79.89 Other specified abnormal findings of blood chemistry; M10.9 Gout, unspecified; Z96.642 Presence of left artificial hip joint; D50.9 Iron deficiency anemia, unspecified; D47.3 Essential (hemorrhagic) thrombocythemia; Z85.118 Personal history of other malignant neoplasm of bronchus and lung; Z93.0 Tracheostomy status; Z85.01 Personal history of malignant neoplasm of esophagus; Z79.899 Other long term (current) drug therapy; Z85.828 Personal history of other malignant neoplasm of skin; Z87.891 Personal history of nicotine dependence; Z88.6 Allergy status to analgesic agent; Z88.5 Allergy status to narcotic agent; Z88.8 Allergy status to other drugs, medicaments and biological substances
CPT/HCPCS: 36415; 71045; 83605; 86140; 87040 ×2; 87077; 96365; 99285; J0696; U0002; 36430; 71270; 71270-26; 80048; 80053; 81001; 82272; 83735; 84100; 84145; 85014; 85018; 85025; 85379; 86850; 86900; 86901; 86922; 87045; 87046; 87070; 87086; 87186; 87205; 87493; 87899; 94640; 94761; 97110-GP; 97163-GP; 97167-GO; 97530-GO; 97530-GP; 99223; 99232; 99233; 99239; 99284; A9270-GY; J0692; J1100; J1170; J1200; J1642; J1650; J1940; J2543; J2920; J2930; J7030; J7620-GY; P9016; Q9967

== ENCOUNTER 2020-11-28 12:54 | Emergency (ER) | payer MEDICARE, BC ==
[2020-11-28] MEDS ORDERED: Sodium Chloride 0.9% 10 ML Syringe FLUSH PRN (13:17)
--- NOTE | 2020-11-28 13:17 | EDM.PDOC ---
ED HPI GENERAL MEDICAL PROBLEM - General Chief Complaint: Respiratory Problem Stated Complaint: LOW O2/HARD TO BREATHE Time Seen by Provider: 11/28/20 13:14 Source of Information: Reports: Patient, Other () History Limitations: Reports: Other (Patient with trach, cannot tolerate talk valve) - History of Present Illness INITIAL COMMENTS - FREE TEXT/NARRATIVE: The patient was brought in at the behest of his and primary caregiver for increased shortness of breath and low oxygen saturation. The patient was discharged from the hospital about 2 weeks ago after treatment for pneumonia. He has underlying lung cancer which was diagnosed in 2016. 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 He had a tracheostomy placed at that time. No fever has been noted at home. No complaint of chest pain. No history of myocardial infarction. The patient initially had chemotherapy for his lung cancer but could not tolerate it and this was d iscontinued. No radiation therapy recalled. Headache Pain Score (Numeric/FACES): 5 - Related Data Allergies Allergy/AdvReac Type Severity Reaction Status Date / Time aspirin Allergy Unknown Other Verified 11/28/20 13:21 morphine AdvReac Intermediate Hallucinati Verified 11/28/20 13:21 ons roflumilast AdvReac Intermediate Diarrhea Verified 11/28/20 13:21 Home Meds: Home Meds Montelukast [Singulair] 10 mg PEGTUBE BEDTIME 01/06/16 [History] Arformoterol [Brovana] 15 mcg NEB BID 07/26/20 [History] Omeprazole 20 mg PEGTUBE DAILY 07/26/20 [History] Simvastatin 40 mg PEGTUBE DAILY 07/26/20 [History] Acetaminophen/HYDROcodone [Dingess 325-5 MG] 1 tab PEGTUBE Q4H PRN 09/11/20 [History] Albuterol [Proventil Neb Soln] 2.5 mg NEB QID PRN 09/11/20 [History] Ascorbic Acid [C-1000] 2,000 mg PEGTUBE DAILY 09/11/20 [History] Budesonide [Pulmicort] 0.5 mg NEB BID 09/11/20 [History] Cholecalciferol (Vitamin D3) [Vitamin D] 2 cap PEGTUBE DAILY 09/11/20 [History] Loratadine 10 mg PEGTUBE DAILY 09/11/20 [History] Metoprolol Succinate 12.5 mg PEGTUBE DAILY 09/11/20 [History] Non-Formulary Medication [NF Drug] 1 applic Q4H PRN 09/11/20 [History] Prochlorperazine [Compazine] 10 mg PEGTUBE QID PRN 09/11/20 [History] Sodium Chloride 0.9% 3 ml NEB Q2H PRN 09/11/20 [History] Ferrous Sulfate 220 mg PEGTUBE DAILY 10/19/20 [History] LORazepam [Ativan] 0.5 mg PEGTUBE QID PRN 10/19/20 [History] Albuterol/Ipratropium [DuoNeb 3.0-0.5 MG/3 ML] 3 ml NEB QID #120 neb 11/17/20 [Rx] Cholestyramine/Sucrose [Cholestyramine] 4 gm PO DAILY #30 packet 11/17/20 [Rx] Saccharomyces Boulardii [Florastor] 500 mg PO TID #90 cap 11/17/20 [Rx] methylPREDNISolone [Methylprednisolone] 48 mg PO DAILY #21 tablet 11/17/20 [Rx] Past Medical History HEENT History: Reports: Other (See Below) Other HEENT History: glasses Cardiovascular History: Reports: High Cholesterol, Hypertension Respiratory History: Reports: COPD, Other (See Below) Other Respiratory History: 4L 02 home use. 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 - Infectious Disease History Infectious Disease History: Reports: Chicken Pox, Measles, Mumps - Past Surgical History Respiratory Surgical History: Reports: Tracheostomy GI Surgical History: Reports: Other (See Below) Musculoskeletal Surgical History: Reports: Other (See Below) Other Musculoskeletal Surgeries/Procedures:: hx back surgery Social & Family History - Family History Family Medical History: No Pertinent Family History - Tobacco Use Tobacco Use Status *Q: Former Tobacco User - Caffeine Use Caffeine Use: Reports: None Caffeine Use Comment: doesn't drink much anymore ED ROS GENERAL - Review of Systems Review Of Systems: Comprehensive ROS is negative, except as noted in HPI. ED EXAM, GENERAL - Physical Exam Exam: See Below Free Text/Narrative:: The patient is alert and does not appear to be in acute distress. However he is tracheostomy managed and appears tired and a bit listless. He appears chronically debilitated. Head normocephalic atraumatic, EOMI PERRLA. Neck is supple without jugular venous distention. Tracheostomy is grossly normal on inspection. Lungs are notable for quite diminished breath sounds bilaterally, coarse breath sounds. Heart is regular abdomen is soft and nontender. No peripheral edema. There is skeletal muscle wasting. Patient is grossly nonfocal, he is fully engaged with what is going on around him and is participating in the conversations and exam to the extent that his tracheostomy status permits. Course - Vital Signs Text/Narrative:: The patient is noted to have a high white count, about 36,000, but he is on a steroid to account for this. Recent white count was about 31,000. Of concern is a troponin reported at 0.133. Previous troponin cannot be found for comparison. These findings were presented to the patient and his . Clinically he does have a pneumonia. Options were discussed. One option would be admission to the hospital here for treatment of a pneumonia and make an attempt to improve respiratory function. Another option would be to take the troponin at base value for a potential non-STEMI and have him transferred to [facility] for further treatment including cardiology. EKG does not show evidence of acute ischemia. A third option would be going home and hospice care or go into hospice care after antibiotic treatment in the hospital. There are 2 adult children involved and their opinions of being solicited. The patient's wish with which the family agrees is to go home with hospice care. Discussed with hospice. They will get in place as fast as they can but it may take a couple of days. This was presented again to the unit and his . I offered to put him in the hospital over the weekend and perhaps boost him up with steroids and antibiotics but he would rather go home. I spoke with the about whether this might be too much for her to handle without additional help in the house but she is comfortable doing this and says she has her sister in the house to assist her with care. Chest x-ray shows most likely worsening metastatic disease. There is a possibility these changes might represent infiltrates. This finding was also shared with patient and . I have spoken with hospice human resources representative and social work will come to the em ergency department shortly and we will prepare the order for hospice care. Last Recorded V/S: Last Vital Signs Temp 36.4 C 11/28/20 13:14 Pulse 91 11/28/20 13:14 Resp 22 H 11/28/20 13:14 BP 126/67 11/28/20 13:14 Pulse Ox 95 11/28/20 13:14 - Orders/Labs/Meds Orders: Active Orders 24 hr Category Date Time Status ABG [RT Arterial Blood Gases, ABG] [RC] Click to Edit Care 11/28/20 13:19 Active EKG Documentation Completion [RC] STAT Care 11/28/20 13:17 Active Peripheral IV Care [RC] . DIRECTED Care 11/28/20 13:18 Active Chest 1V Frontal [CR] Stat Exams 11/28/20 13:17 Taken CULTURE BLOOD [BC] Stat Lab 11/28/20 13:33 Received CULTURE BLOOD [BC] Stat Lab 11/28/20 13:44 Received UA RFX RORY AND CULT IF INDIC [URIN] Stat Lab 11/28/20 13:17 Ordered Sodium Chloride 0.9% [Saline Flush] Med 11/28/20 13:17 Active 10 ml FLUSH ASDIRECTED PRN Blood Culture x2 Reflex Set [OM.PC] Stat Oth 11/28/20 13:17 Ordered Peripheral IV Insertion Adult [OM.PC] Stat Oth 11/28/20 13:17 Ordered Medication Orders Sodium Chloride (Sodium Chloride 0.9% 10 Ml Syringe) 10 ml FLUSH ASDIRECTED PRN PRN Reason: Keep Vein Open Last Admin: 11/28/20 13:39 Dose: 10 ml Documented by: [email or web address] Labs: Laboratory Tests 11/28/20 11/28/20 11/28/20 Range/Units 13:30 13:30 13:30 WBC 34.51 H (4.23-9.07) K/mm3 RBC 3.84 L (4.63-6.08) M/mm3 Hgb 9.9 L (13.7-17.5) gm/dl Hct 34.2 L (40.1-51.0) % MCV 89.1 (79.0-92.2) fl MCH 25.8 (25.7-32.2) pg MCHC 28.9 L (32.2-35.5) g/dl RDW Std Deviation 52.7 H (35.1-43.9) fL Plt Count 361 H D (163-337) K/mm3 MPV 10.0 (9.4-12.3) fl Neutrophils % (Manual) 89 H (40-60) % Band Neutrophils % 3 (0-10) % Lymphocytes % (Manual) 3 L (20-40) % Atypical Lymphs % 0 % Monocytes % (Manual) 5 (2-10) % Eosinophils % (Manual) 0 L (0.8-7.0) % Basophils % (Manual) 0 L (0.2-1.2) Platelet Estimate Adequate Hypochromasia 2+ moderate Anisocytosis 2+ moderate RBC Morph Comment Abnormal PT 10.8 (9.7-12.0) SECONDS INR 1.01 Sodium 138 (136-145) mEq/L Potassium 4.5 (3.5-5.1) mEq/L Chloride 99 (98-107) mEq/L Carbon Dioxide 34 H (21-32) mEq/L Anion Gap 9.5 (5-15) BUN 36 H (7-18) mg/dL Creatinine 0.6 L (0.7-1.3) mg/dL Est Cr Clr Drug Dosing 85.83 mL/min Estimated GFR (MDRD) > 60 (>60) mL/min BUN/Creatinine Ratio 60.0 H (14-18) Glucose 230 H (83-115) mg/dL Calcium 12.2 H D (8.5-10.1) mg/dL Magnesium 2.2 (1.8-2.4) mg/dl Total Bilirubin 0.3 (0.2-1.0) mg/dL AST 27 (15-37) U/L ALT 59 (16-63) U/L Alkaline Phosphatase 118 H (46-116) U/L Troponin I 0.133 H* (0.00-0.056) ng/mL NT-Pro-B Natriuret Pep (0-125) pg/mL Total Protein 6.1 L (6.4-8.2) g/dl Albumin 2.1 L (3.4-5.0) g/dl Globulin 4.0 gm/dL Albumin/Globulin Ratio 0.5 L (1-2) 11/28/20 Range/Units 13:30 WBC (4.23-9.07) K/mm3 RBC (4.63-6.08) M/mm3 Hgb (13.7-17.5) gm/dl Hct (40.1-51.0) % MCV (79.0-92.2) fl MCH (25.7-32.2) pg MCHC (32.2-35.5) g/dl RDW Std Deviation (35.1-43.9) fL Plt Count (163-337) K/mm3 MPV (9.4-12.3) fl Neutrophils % (Manual) (40-60) % Band Neutrophils % (0-10) % Lymphocytes % (Manual) (20-40) % Atypical Lymphs % % Monocytes % (Manual) (2-10) % Eosinophils % (Manual) (0.8-7.0) % Basophils % (Manual) (0.2-1.2) Platelet Estimate Hypochromasia Anisocytosis RBC Morph Comment PT (9.7-12.0) SECONDS INR Sodium (136-145) mEq/L Potassium (3.5-5.1) mEq/L Chloride (98-107) mEq/L Carbon Dioxide (21-32) mEq/L Anion Gap (5-15) BUN (7-18) mg/dL Creatinine (0.7-1.3) mg/dL Est Cr Clr Drug Dosing mL/min Estimated GFR (MDRD) (>60) mL/min BUN/Creatinine Ratio (14-18) Glucose (83-115) mg/dL Calcium (8.5-10.1) mg/dL Magnesium (1.8-2.4) mg/dl Total Bilirubin (0.2-1.0) mg/dL AST (15-37) U/L ALT (16-63) U/L Alkaline Phosphatase (46-116) U/L Troponin I (0.00-0.056) ng/mL NT-Pro-B Natriuret Pep 850 H (0-125) pg/mL Total Protein (6.4-8.2) g/dl Albumin (3.4-5.0) g/dl Globulin gm/dL Albumin/Globulin Ratio (1-2) Meds: Medications Generic Name Dose Route Start Last Admin Trade Name Freq PRN Reason Stop Dose Admin Sodium Chloride 10 ml 11/28/20 13:17 11/28/20 13:39 Sodium Chloride 0.9% 10 Ml Syringe FLUSH 10 ml ASDIRECTED PRN Administration Keep Vein Open Departure - Departure Time of Disposition: 16:27 Disposition: Home, Self-Care 01 Condition: Poor Clinical Impression: History of lung cancer, History of laryngeal cancer, Troponin level elevated, Pulmonary infection, Encounter for hospice care discussion Metastatic cancer Qualifiers: Area of secondary neoplastic involvement: unspecified site Qualified Code(s): C79.9 - Secondary malignant neoplasm of unspecified site - Discharge Information Referrals: Jean Paul Sheehan MD [Primary Care Provider] - Forms: ED Department Discharge Additional Instructions: You have evidence of worsening cancer in the chest and there is probably post infectious process. We respect your decision to go home and have hospice care. Should there be any issue whatsoever prior to hospice services getting in place do not hesitate to call 911 and come back to the hospital immediately. Sepsis Event Note (ED) - Focused Exam Vital Signs: Vital Signs Temp Pulse Resp BP Pulse Ox 11/28/20 13:14 36.4 C 91 22 H 126/67 95 - My Orders Last 24 Hours: My Active Orders 11/28/20 13:17 EKG Documentation Completion [RC] STAT Chest 1V Frontal [CR] Stat UA RFX RORY AND CULT IF INDIC [URIN] Stat Sodium Chloride 0.9% [Saline Flush] 10 ml FLUSH ASDIRECTED PRN Blood Culture x2 Reflex Set [OM.PC] Stat Peripheral IV Insertion Adult [OM.PC] Stat 11/28/20 13:18 Peripheral IV Care [RC] . DIRECTED 11/28/20 13:19 ABG [RT Arterial Blood Gases, ABG] [RC] Click to Edit 11/28/20 13:33 CULTURE BLOOD [BC] Stat 11/28/20 13:44 CULTURE BLOOD [BC] Stat - Assessment/Plan Last 24 Hours: My Active Orders 11/28/20 13:17 EKG Documentation Completion [RC] STAT Chest 1V Frontal [CR] Stat UA RFX RORY AND CULT IF INDIC [URIN] Stat Sodium Chloride 0.9% [Saline Flush] 10 ml FLUSH ASDIRECTED PRN Blood Culture x2 Reflex Set [OM.PC] Stat Peripheral IV Insertion Adult [OM.PC] Stat 11/28/20 13:18 Peripheral IV Care [RC] . DIRECTED 11/28/20 13:19 ABG [RT Arterial Blood Gases, ABG] [RC] Click to Edit 11/28/20 13:33 CULTURE BLOOD [BC] Stat 11/28/20 13:44 CULTURE BLOOD [BC] Stat
[2020-11-28 13:21] VITALS: BP 126/67; PULSE 91
--- NOTE | 2020-11-28 16:44 | CR ---
Chest: Portable view of the chest was obtained. Comparison: Prior chest x-ray of 11/07/20. Increasing diffuse parenchymal densities are seen on both sides of the chest. Lucency is noted within the right upper lung compatible with emphysematous change. Right-sided infusion port is seen. Prior lumbar spine surgery is noted. Tracheostomy tube is seen. Impression: 1. Worsening areas of increased density on both sides of the chest when compared to prior exam. 2. Other findings as noted above which are chronic. Diagnostic code #3 I agree with preliminary report from [facility], finalized on 11/28/20, 5:02 PM CDT
== END 2020-11-28 16:50 | disposition home or self-care (01) ==
LOC: JD.ED 12:54
DX: J18.9 Pneumonia, unspecified organism (principal); C79.9 Secondary malignant neoplasm of unspecified site; R79.89 Other specified abnormal findings of blood chemistry; E78.00 Pure hypercholesterolemia, unspecified; I10 Essential (primary) hypertension; J44.9 Chronic obstructive pulmonary disease, unspecified; D50.9 Iron deficiency anemia, unspecified; Z87.891 Personal history of nicotine dependence; Z85.118 Personal history of other malignant neoplasm of bronchus and lung; Z85.21 Personal history of malignant neoplasm of larynx; Z93.0 Tracheostomy status; Z51.5 Encounter for palliative care; Z88.8 Allergy status to other drugs, medicaments and biological substances; Z88.5 Allergy status to narcotic agent; Z79.899 Other long term (current) drug therapy
CPT/HCPCS: 36415; 71045; 80053; 83735; 83880; 84484; 85007; 85027; 85610; 87040; 93005; 99285; J1642; 99284